=== PATIENT | male | born 1950 | race Hispanic/Latino ===

== ENCOUNTER 2016-08-15 15:47 | Inpatient (IN) | payer MEDICARE ==
[2016-08-15 17:09] LABS: BASO # 0.1 K/uL (0.0-0.2); EOS # 0.3 K/uL (0.0-0.7); HEMATOCRIT 32.1 % (35.0-51.0); LYMPH # 1.2 K/uL (1.0-4.3); LYMPH % 18.4 % (20.0-40.0); MEAN CELL VOLUME 96.9 fl (80.0-94.0); MEAN CORPUSCULAR HEMOGLOBIN 32.1 pg (27.0-31.0); MEAN CORPUSCULAR HGB CONC 33.2 g/dL (33.0-37.0); MEAN PLATELET VOLUME 7.7 fl (7.2-11.7); MONO # 0.6 K/uL (0.0-0.8); MONO % 9.4 % (0.0-10.0); NEUT # 4.2 K/uL (1.8-7.0); NEUT % 65.2 % (50.0-75.0); RED CELL DISTRIBUTION WIDTH 14.4 % (11.5-14.5); WHITE BLOOD COUNT 6.5 K/uL (4.8-10.8)
[2016-08-15 17:22] LABS: ALB/GLOB RATIO 1.3 (1.0-2.1); ALKALINE PHOSPHATASE 75 U/L (38-126); ALT/SGPT 97 U/L (21-72); AST/SGOT 68 U/L (17-59); BILIRUBIN,TOTAL 0.6 mg/dl (0.2-1.3); BLOOD UREA NITROGEN 20 mg/dl (9-20); CALCIUM 8.8 mg/dL (8.4-10.2); CARBON DIOXIDE 25 mmol/L (22-30); CHLORIDE 101 mmol/L (98-107); GFR AFRICAN-AMERICAN > 60; GLUCOSE,RANDOM 73 mg/dL (75-110); POTASSIUM 3.3 MMOL/L (3.6-5.0); SODIUM 141 mmol/l (132-148); TOTAL PROTEIN 7.3 G/DL (6.3-8.2)
--- NOTE | 2016-08-15 17:23 | RAD ---
HISTORY: SOB COMPARISON: No prior. FINDINGS: LUNGS: Hazy opacity in the left lung base. PLEURA: Small effusion on the left. Rounded opacity in the right lung base only seen on image 1. CARDIOVASCULAR: Enlarged heart. OSSEOUS STRUCTURES: The osseous structures demonstrate degenerative changes. VISUALIZED UPPER ABDOMEN: Upper abdomen is suboptimally evaluated. OTHER FINDINGS: Midline sternotomy wires and surgical clips along the left heart border noted. Surgical hardware in the left cardiophrenic angle. IMPRESSION: Small effusion on the left with associated compressive atelectasis and/ pneumonia. Enlarged heart. Possible small rounded opacity seen only on image 1 in the right lung base could be artifactual. Recommend PA lateral chest radiographs.
[2016-08-15 17:28] LABS: PARTIAL THROMBOPLASTIN TIME 38.5 SECONDS (23.3-32.5)
[2016-08-15] MEDS ORDERED: Potassium Chloride 20 mEq ER Tab PO STA (17:28)
--- NOTE | 2016-08-15 17:49 | ED PDOC ---
Lower Extremity Pain/Injury Time Seen by Provider: 08/15/16 16:15 Chief Complaint (Nursing): Weakness/Neurological Deficit Chief Complaint (Provider): Leg Pain History Per: Patient History/Exam Limitations: no limitations Onset/Duration Of Symptoms: Days (>3 weeks), Persistent Current Symptoms Are (Timing): Still Present Severity: Moderate Additional Complaint(s): Frandy Amado is a 66 year old male, with a past medical history that includes CAD (s/p CABG x3, 2 years ago), who presents to the ED with complaints of bilateral leg pain inclusive of generalized weakness, that he has been experiencing for >3 weeks. Patient reports internalized purple lesions causing a constant pain that radiates throughout his knees. He states having a productive cough that produces white sputum for the past 2 days, as well as shortness of breath and intermittent chest pain, but denies a fever and palpitations. Of note, patient admits to never having followed up for his s/p CABG and is currently taking no medications. PMD: none specified Past Medical History Reviewed: Historical Data, Nursing Documentation, Vital Signs Vital Signs: Last Vital Signs Temp 97.3 F L 08/15/16 15:49 Pulse 62 08/15/16 15:49 Resp 21 08/15/16 15:49 BP 104/63 08/15/16 15:49 Pulse Ox 100 08/15/16 15:49 - Medical History PMH: Asthma, CAD - Surgical History Surgical History: CABG (x3) - Family History Family History: States: Unknown Family Hx - Social History Current smoker - smoking cessation education provided: No Ex-Smoker (has not smoked in the last 12 months): No Alcohol: None Drugs: Denies - Home Medications Home Medications: Ambulatory Orders Medication Instructions Recorded Unobtainable 08/15/16 - Allergies Allergies/Adverse Reactions: Allergies Allergy/AdvReac Type Severity Reaction Status Date / Time No Known Allergies Allergy Verified 08/15/16 15:49 Review of Systems ROS Statement: Except As Marked, All Systems Reviewed And Found Negative Constitutional: Negative for: Fever Cardiovascular: Positive for: Chest Pain (intermittent). Negative for: Palpitations Respiratory: Positive for: Cough (productive, produces white sputum x2 days), Shortness of Breath Musculoskeletal: Positive for: Leg Pain (bilaterally) Skin: Positive for: Lesions Physical Exam - Reviewed Nursing Documentation Reviewed: Yes Vital Signs Reviewed: Yes - Physical Exam Appears: Positive for: Non-toxic, No Acute Distress (thin) Head Exam: Positive for: ATRAUMATIC, NORMOCEPHALIC Skin: Positive for: Normal Color, Warm, Dry Eye Exam: Positive for: Normal appearance, PERRL ENT: Positive for: Normal ENT Inspection Neck: Positive for: Normal, Supple Cardiovascular/Chest: Positive for: Regular Rate, Rhythm, Murmur Respiratory: Positive for: Crackles (left lower lungs). Negative for: Normal Breath Sounds Gastrointestinal/Abdominal: Positive for: Normal Exam, Soft. Negative for: Tenderness Extremity: Positive for: Normal ROM, Other (macular purple lesions b/l knees, non-blanching; (+) induration; no vesicles). Negative for: Tenderness, Pedal Edema, Swelling Neurologic/Psych: Positive for: Alert, Oriented - Laboratory Results Result Diagrams: 08/17/16 10:25 08/15/16 16:59 - ECG O2 Sat by Pulse Oximetry: 100 Pulse Ox Interpretation: Normal Medical Decision Making Medical Decision Makin:15 Initial Impression: b/l leg pain inclusive of internalized macular purple lesions Differential Diagnoses include, but are not limited to chronic leg pain, LEGER, PNA and CHF. Initial Plan: * CT Angio Chest PE Protocol * CXR * EKG * CBC * CMP * PT/PTT * BNP * Troponin I * D Dimer * UA * UDip * Blood Culture * Potassium Chloride 40 meq PO * US Duplex Lower Extrm Vein Bilat * Reevaluation Scribe Attestation: Documented by Hiren Carroll, training under Janeen Loza, acting as a scribe for Pilar Verma MD. Provider Scribe Attestation: All medical record entries made by the Scribe were at my direction and personally dictated by me. I have reviewed the chart and agree that the record accurately reflects my personal performance of the history, physical exam, medical decision making, and the department course for this patient. I have also personally directed, reviewed, and agree with the discharge instructions and disposition. Disposition - Clinical Impression Clinical Impression: Weakness, Chest pain - Disposition Disposition: Transfer of Care Disposition Time: 19:00 Condition: STABLE Patient Signed Over To: Se Hoyt Handoff Comments: Pending CT.
[2016-08-15] MEDS ORDERED: Potassium Chloride 20 mEq ER Tab PO ONE (18:55)
[2016-08-15 19:10] LABS: RBC URINE 2 /hpf (0-3); URINE BILIRUBIN NEGATIVE (NEGATIVE); URINE BLOOD NEGATIVE (NEGATIVE); URINE COLOR STRAW (YELLOW); URINE GLUCOSE (UA) NEG (Normal); URINE KETONE NEGATIVE (NEGATIVE); URINE LEUKOCYTE ESTERASE NEG Leu/uL (Negative); URINE PROTEIN NEGATIVE (NEGATIVE); URINE UROBILINOGEN 0.2-1.0 mg/dL (0.2-1.0); WBC URINE < 1 /hpf (0-5)
--- NOTE | 2016-08-15 19:24 | ED PDOC ---
- Laboratory Results Result Diagrams: 08/15/16 16:59 08/15/16 16:59 - ECG O2 Sat by Pulse Oximetry: 100 Medical Decision Making Medical Decision Makin:00 Patient endorsed over to me by Pilar Verma MD, pending remainder of ED workup, reevaluation and disposition. 21:00 IMPRESSION: - No evidence of pulmonary embolism or other significant acute abnormality in the chest. - Enlarged right hilar lymph node versus a small right hilar mass, measuring 2.8 x 2.2 cm. Further workup or short term followup is recommended. - Diffuse emphysematous changes. - 3.6 cm focal density in the left lung base, which has CT features suggestive of rounded atelectasis. There is nearby chronic-appearing pleural thickening and calcifications in the left lung. - See above for remaining findings. Pt. stable, will admit to Dr. Mckee for CP and weakness. Scribe Attestation: Documented by Janeen Loza, acting as a scribe for Se Hoyt MD. Provider Scribe Attestation: All medical record entries made by the Scribe were at my direction and personally dictated by me. I have reviewed the chart and agree that the record accurately reflects my personal performance of the history, physical exam, medical decision making, and the department course for this patient. I have also personally directed, reviewed, and agree with the discharge instructions and disposition. Disposition - Clinical Impression Clinical Impression: Weakness, Chest pain - POA Present On Arrival: None - Disposition Disposition: Hospitalized as Observation Patient Disposition Time: 21:15 Condition: STABLE Instructions: Weakness (ED)
[2016-08-15] MEDS ORDERED: Sodium Chloride 0.9% 50 ML IV ONE (20:03)
[2016-08-15] MEDS ORDERED: Iodixanol 320 MG/ML 100 ML BOTTLE IV ONE (20:03)
--- NOTE | 2016-08-15 20:33 | US ---
EXAM: US Duplex Bilateral Lower Extremity Veins CLINICAL HISTORY: 66 years old, male; Pain; Leg, upper; Bilateral; Additional info: Bilateral upper leg pain TECHNIQUE: Real-time ultrasound scan of the veins of the bilateral lower extremities with color Doppler flow, spectral waveform analysis and compression. EXAM DATE/TIME: 08/15/2016 7:28 PM COMPARISON: No relevant prior studies available. FINDINGS: Normal-appearing compressibility, flow and augmentation response are seen within the common femoral, femoral, popliteal and posterior tibial veins bilaterally. There is no evidence of deep venous thrombosis. IMPRESSION: No evidence of deep venous thrombosis in either leg.
--- NOTE | 2016-08-15 22:41 | CP.PCM.HP ---
Past Patient History - Past Social History Alcohol: None Drugs: Denies - CARDIAC Hx Cardiac Disorders: Yes - PULMONARY Hx Respiratory Disorders: Yes - NEUROLOGICAL Hx Neurological Disorder: No - HEENT Hx HEENT Problems: No - RENAL Hx Chronic Kidney Disease: No - ENDOCRINE/METABOLIC Hx Endocrine Disorders: No - HEMATOLOGICAL/ONCOLOGICAL Hx Blood Disorders: No - INTEGUMENTARY Hx Dermatological Problems: No - MUSCULOSKELETAL/RHEUMATOLOGICAL Hx Musculoskeletal Disorders: No - GENITOURINARY/GYNECOLOGICAL Hx Genitourinary Disorders: No - PSYCHIATRIC Hx Psychophysiologic Disorder: No - SURGICAL HISTORY Hx Coronary Artery Bypass Graft: Yes (x3) Meds Allergies/Adverse Reactions: Allergies Allergy/AdvReac Type Severity Reaction Status Date / Time No Known Allergies Allergy Verified 08/15/16 15:49 Results - Vital Signs Recent Vital Signs: Last Vital Signs Temp 97.3 F L 08/15/16 22:35 Pulse 53 L 08/15/16 22:35 Resp 20 08/15/16 22:35 BP 122/71 08/15/16 22:35 Pulse Ox 99 08/15/16 22:35 - Labs Result Diagrams: 08/15/16 16:59 08/15/16 16:59
[2016-08-15] MEDS ORDERED: Pneumococcal 23-Valent Vaccine IM ONE (23:24)
[2016-08-16] MEDS: Enoxaparin 40 mg Syringe SC SCH (08:30)
[2016-08-16 08:35] LABS: CARCINOEMBRYONIC ANTIGEN 2.5 ng/mL (0-3.0); PROSTATE SPECIFIC ANTIGEN 0.158 ng/ML (0.00-4.0); THYROID STIMULATING HORMONE 2.93 mIU/ML (0.46-4.68)
--- NOTE | 2016-08-16 09:32 | CT ---
PROCEDURE: CT Chest with contrast (Pulmonary Angiogram) HISTORY: SOB COMPARISON: Chest radiograph from earlier on the same day. TECHNIQUE: Axial computed tomography images were obtained of the chest in the pulmonary arterial phase of enhancement. Coronal and sagittal reformatted images were created and reviewed. Intravenous contrast dose: 100 mL. Radiation dose: Total exam DLP = 403.74 mGy-cm. This CT was performed using one or more of the following dose reduction techniques: Automated exposure control, adjustment of the mA and/or KV according to patient size, and/or use of iterative reconstruction technique. FINDINGS: PULMONARY ARTERIES: No filling defects identified in the main, left and right, lobar and proximal segmental arteries. Distal segmental arteries suboptimally seen due to artifact from breathing motion. AORTA: Calcifications of the aortic arch. No aortic aneurysm. LUNGS: Extensive centrilobular emphysematous changes throughout both lungs particularly in the upper lung zones. Mild bibasilar atelectatic changes noted. There is asymmetric enlargement of the right lung when compared to the left. Patchy consolidation seen along the left lung base. Hypodense soft tissue structure in the right hilum measuring 2.5 centimeters. A presented enlarged lymph node versus hilar mass. PLEURAL SPACES: Biapical pleural parenchymal thickening noted. Extensive pleural thickening seen particularly in the left lower lung. Punctate calcifications seen within thickened pleura which could be related to asbestos exposure. HEART: Heart is mildly enlarged. No pericardial effusion. Coronary arterial calcifications. Aortic valvular and mitral annular calcifications noted. LYMPH NODES: Few mediastinal lymph nodes. BONES, CHEST WALL: Degenerative changes of the cervical spine. Degenerative changes also noted involving the lower thoracic spine. Exaggerated kyphosis. Midline sternotomy wires. OTHER FINDINGS: Upper abdomen: Small hiatal hernia. Diffuse thickening of the esophagus. Underlying inflammation should be considered. Small amount of oral contrast seen within stomach. Oral contrast also seen within the bowel. Visualized segments of the spleen, liver appear grossly unremarkable however there remains suboptimally evaluated. Diffuse thickening of both adrenal glands. Extrarenal pelvis on the left with superimposed mild hydronephrosis. Visualized portions of the pancreas appears grossly unremarkable however suboptimally seen. The gallbladder appears relatively collapsed. Layering sludge. IMPRESSION: No large filling defects in the main, left and right, lobar and proximal segmental arteries. 2.5 centimeter soft tissue density in the right hilum, likely enlarged lymph node versus mass. Follow-up recommended. Extensive centrilobular emphysematous changes throughout both lungs. Asymmetric enlargement of the right lung when compared to the left. Patchy consolidation seen along the left lung base. Underlying pneumonia cannot be excluded. Extensive pleural thickening seen particularly in the left lower lung associated with punctate calcifications. Other findings as above. Please note that this report is in general agreement with the preliminary report provided by [facility].
--- NOTE | 2016-08-16 09:34 | CARD ---
APPROVED REPORT EKG Measurement Heart [id number] <Conclusion> Sinus bradycardia with 1st degree AV block Possible Inferior infarct, age undetermined Anterior infarct, age undetermined ST & T wave abnormality, consider lateral ischemia Abnormal ECG
[2016-08-16] MEDS ORDERED: Sodium Chloride 3% for Inhalation 4 ML VIAL.NEB IH PRN (10:30)
[2016-08-16 11:12] LABS: ABG ALLEN TEST YES; ARTERIAL BLOOD GAS HCO3 28.8 mmol/L (21-28); ARTERIAL BLOOD GAS O2 CAPACITY 14.7 mL/dL (16-24); ARTERIAL BLOOD GAS O2 CONTENT 14.5 ML/dL (15-23); ARTERIAL BLOOD GAS PH 7.47 (7.35-7.45); ARTERIAL BLOOD GAS PO2 84 mm/Hg (80-100); CARBOXYHEMOGLOBIN 1.3 % (0.5-1.5); HHB 1.2 % (0.0-5.0); METHEMOGLOBIN 1.5 % (0.0-3.0)
[2016-08-16] MEDS: Albuterol-Ipratrop 3 mg / 0.5 (3 ml) UD INH SCH ×3 (11:34→19:40)
[2016-08-16] MEDS: methylPREDNISolone 40 MG in Sodium Chloride 0.9% 50 ML IV SCH (13:38)
--- NOTE | 2016-08-16 15:18 | CON ---
DATE: 08/16/2016 The patient is a 66-year-old male who was referred for pulmonary evaluation by Dr. Mckee. He was adm itted with pain in the legs and shortness of breath, exercise intolerance, chest tightness for the [place] st several weeks prior to presentation. He was worked up to rule out pulmonary emboli and CAT scan r evealed abnormalities in the lungs including emphysematous changes with bullous disease, 2.5 cm soft tissue density at right hilum likely representing enlarged lymph nodes, but mass cannot be ruled out, extensive centrilobular emphysematous changes, asymmetrical enlargement of the right lung when felip[place] red to the left, patchy consolidation seen along the left lung base, underlying pneumonia cannot be e xcluded and extensive pleural thickening seen in lower lung associated with punctate calcifications. PAST MEDICAL HISTORY: The patient has a history of chronic cigarette smoking, continues to smoke, ju st quit recently, has a history of coronary artery bypass graft x 3 in the past, last one was about 3 years ago. FAMILY HISTORY: Nonrevealing. SOCIAL HISTORY: He continues to smoke cigarettes. REVIEW OF SYSTEMS: Remarkable for weight loss, shortness of breath, exercise intolerance and cough p roductive of thick tenacious white sputum. PHYSICAL EXAMINATION: GENERAL: The patient is emaciated. VITAL SIGNS: Blood pressure 108/65, pulse of 55, respiratory rate 20. He is afebrile. O2 sat is 94 % on room air. SKIN: Shows poor turgor. HEENT: Pupils equal, react to light and accommodation. Mouth shows fair hygiene. NECK: JVP flat. LUNGS: Poor aeration bilaterally with scattered rales and dullness over both lung becerra. HEART: S1, S2. ABDOMEN: Soft, nontender, no organomegaly. EXTREMITIES: Shows some clubbing with arthritis changes. No edema or cyanosis. CENTRAL NERVOUS SYSTEM: Grossly intact. LABORATORY DATA: Remarkable for PT of 10.4, INR 1.0. Sodium 141, potassium 3.3, BUN of 20, creatini ne 0.7. Troponin less than 0.012. ProBNP 1720. WBCs 6.5, hemoglobin 10.6, platelet count 167,000. D-dimer 1.19. IMPRESSION: Acute exacerbation of chronic obstructive pulmonary disease, abnormal CAT scan, probably secondary to emphysematous changes in the lung with hilar adenopathy. One has to rule out malignanc y. History of coronary artery disease. PLAN: Continue treatment with bronchodilators, aerosolized bronchodilators, oxygen. Obtain sputum f or Gram stain and cultures. Control electrolyte imbalance. Once clinically stable, will need bronch oscopy with lavage and transbronchial biopsy to rule out malignancy. Case discussed with the patient . He is willing to stay and have a bronchoscopy performed once he is stable. Case discussed with Dr Stevie Mckee. Will continue to follow. Geraldo Pereira MD cc: 62 TT: 08/16/2016 15:18:06 Confirmation # [id number] Dictation # [id number]
[2016-08-16 16:44] LABS: CA 19-9 6.1 U/mL (0-37)
--- NOTE | 2016-08-16 23:25 | CP.PCM.PN ---
Subjective - Date & Time of Evaluation Date of Evaluation: 08/16/16 Time of Evaluation: 12:15 Objective - Vital Signs/Intake and Output Vital Signs (last 24 hours): Temp Pulse Resp BP Pulse Ox 97.7 F 60 18 108/54 L 96 08/16/16 20:48 08/16/16 20:48 08/16/16 20:48 08/16/16 20:48 08/16/16 20:48 - Medications Medications: Current Medications Acetaminophen (Tylenol 325mg Tab) 650 mg PO Q6 PRN PRN Reason: Pain, Mild (1-3) Albuterol/Ipratropium (Duoneb 3 Mg/0.5 Mg (3 Ml) Ud) 3 ml INH RQID [facility] Last Admin: 08/16/16 19:40 Dose: 3 ml Enoxaparin Sodium (Lovenox) 40 mg SC DAILY [facility] PRN Reason: Protocol Last Admin: 08/16/16 08:30 Dose: 40 mg Methylprednisolone 40 mg/ (Sodium Chloride) 50 mls @ 100 mls/hr IV DAILY [facility] Last Admin: 08/16/16 13:38 Dose: 100 mls/hr Ketorolac Tromethamine (Toradol) 15 mg IVP Q6 PRN PRN Reason: Pain, severe (8-10) Tramadol HCl (Ultram) 50 mg PO Q6 PRN PRN Reason: Pain, moderate (4-7) - Labs Labs: PT 10.4 SECONDS (9.6-11.2) 08/15/16 16:59 INR 1.00 (0.92-1.08) 08/15/16 16:59 APTT 38.5 SECONDS (23.3-32.5) H 08/15/16 16:59
[2016-08-17 04:03] VITALS: BMI 18.1
[2016-08-17] MEDS: Albuterol-Ipratrop 3 mg / 0.5 (3 ml) UD INH SCH ×4 (07:50→19:03)
--- NOTE | 2016-08-17 09:14 | CP.PCM.PN ---
Subjective - Date & Time of Evaluation Date of Evaluation: 08/17/16 Time of Evaluation: 09:16 - Subjective Subjective: FELT DIZZY AND NEARLY PASSED OUT THIS MORNING--HAD TO HOLD ON TO THE BED TO KEEP FROM FALLING NO CHEST PAINS/PALPITATIONS Objective - Vital Signs/Intake and Output Vital Signs (last 24 hours): Temp Pulse Resp BP Pulse Ox 97.6 F 50 L 18 122/62 96 08/17/16 08:28 08/17/16 08:28 08/17/16 08:28 08/17/16 08:28 08/17/16 08:28 - Medications Medications: Current Medications Acetaminophen (Tylenol 325mg Tab) 650 mg PO Q6 PRN PRN Reason: Pain, Mild (1-3) Albuterol/Ipratropium (Duoneb 3 Mg/0.5 Mg (3 Ml) Ud) 3 ml INH RQID [facility] Last Admin: 08/17/16 07:50 Dose: 3 ml Enoxaparin Sodium (Lovenox) 40 mg SC DAILY [facility] PRN Reason: Protocol Last Admin: 08/16/16 08:30 Dose: 40 mg Methylprednisolone 40 mg/ (Sodium Chloride) 50 mls @ 100 mls/hr IV DAILY [facility] Last Admin: 08/16/16 13:38 Dose: 100 mls/hr Ketorolac Tromethamine (Toradol) 15 mg IVP Q6 PRN PRN Reason: Pain, severe (8-10) Tramadol HCl (Ultram) 50 mg PO Q6 PRN PRN Reason: Pain, moderate (4-7) - Labs Labs: PT 10.4 SECONDS (9.6-11.2) 08/15/16 16:59 INR 1.00 (0.92-1.08) 08/15/16 16:59 APTT 38.5 SECONDS (23.3-32.5) H 08/15/16 16:59 - Constitutional Appears: Chronically Ill - Head Exam Head Exam: ATRAUMATIC, NORMAL INSPECTION, NORMOCEPHALIC - Eye Exam Eye Exam: EOMI, Normal appearance, PERRL Pupil Exam: NORMAL ACCOMODATION, PERRL - ENT Exam ENT Exam: Mucous Membranes Moist, Normal Exam - Neck Exam Neck Exam: Full ROM, Normal Inspection. absent: Lymphadenopathy - Respiratory Exam Respiratory Exam: Prolonged Expiratory Phase, Rales, Wheezes, NORMAL BREATHING PATTERN - Cardiovascular Exam Cardiovascular Exam: REGULAR RHYTHM, +S1, +S2. absent: Murmur - GI/Abdominal Exam GI & Abdominal Exam: Soft, Normal Bowel Sounds. absent: Tenderness - Rectal Exam Rectal Exam: NORMAL INSPECTION - Extremities Exam Extremities Exam: Full ROM, Normal Capillary Refill, Normal Inspection. 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
[2016-08-17] MEDS: Enoxaparin 40 mg Syringe SC SCH (09:26)
[2016-08-17] MEDS: methylPREDNISolone 40 MG in Sodium Chloride 0.9% 50 ML IV SCH (09:45)
[2016-08-17 10:33] LABS: HEMATOCRIT 33.2 % (35.0-51.0); MEAN CORPUSCULAR HEMOGLOBIN 32.7 pg (27.0-31.0); MEAN CORPUSCULAR HGB CONC 33.7 g/dL (33.0-37.0); RED CELL DISTRIBUTION WIDTH 14.1 % (11.5-14.5); WHITE BLOOD COUNT 7.9 K/uL (4.8-10.8)
[2016-08-17 10:48] LABS: BLOOD UREA NITROGEN 18 mg/dl (9-20); CALCIUM 9.2 mg/dL (8.4-10.2); CARBON DIOXIDE 24 mmol/L (22-30); CHLORIDE 101 mmol/L (98-107); GFR AFRICAN-AMERICAN > 60; GLUCOSE,RANDOM 146 mg/dL (75-110); POTASSIUM 3.6 MMOL/L (3.6-5.0); SODIUM 141 mmol/l (132-148)
[2016-08-17 11:18] LABS: THYROID STIMULATING HORMONE 2.84 mIU/ML (0.46-4.68)
--- NOTE | 2016-08-17 16:17 | CARD ---
APPROVED REPORT EXAM: Two-dimensional and M-mode echocardiogram with Doppler and color Doppler. Other Information Quality : GoodRhythm : NSR INDICATION Dizziness and Vertigo Syncope Surgery/Intervention CABD DIMENSIONS IVSd1.18 (0.7-1.1cm)LVDd5.02 (3.9-5.9cm) LVOT Diameter2.57 (1.8-2.4cm)PWd1.17 (0.7-1.1cm) IVSs1.55 (0.8-1.2cm)LVDs3.82 (2.5-4.0cm) FS (%) 23.8 %PWs1.50 (0.8-1.2cm) M-Mode DIMENSIONS Left Atrium (MM)5.45 (2.5-4.0cm)IVSd0.66 (0.7-1.1cm) Aortic Root3.53 (2.2-3.7cm)LVDd7.23 (4.0-5.6cm) Aortic Cusp Exc.2.24 (1.5-2.0cm)PWd0.77 (0.7-1.1cm) IVSs0.73 cmFS (%) 20 % LVDs5.76 (2.0-3.8cm)PWs1.26 cm Mitral Valve MV E Mnoeblky06.4cm/sMV DECEL [id number] A Wfbaqrrg19.4cm/s MV RJQ49tqK/A ratio0.9MVA (PHT)2.69cm2 TDI Lateral E' Peak V12.06cm/sMedial E' Peak V6.44cm/sE/Lateral E'5.7 E/Medial E'10.6 Pulmonary Valve PV Peak Yoscoojf92.4cm/s Tricuspid Valve TR Peak Aylriody133fb/sRAP [id number] Peak Gr.20mmHg [id number] LEFT VENTRICLE The Left Ventricle is mildly dilated on the 2D study. There is normal left ventricular wall thickness. Left ventricle systolic function is mildly impaired. The Ejection Fraction is - 45%. The anterior wall is hypokinetic and the apex is diskinetic. The other segments of the LV have good contraction. Transmitral Doppler flow pattern is Grade I-abnormal relaxation pattern. No left ventricle thrombus noted on this study. There is no ventricular septal defect visualized. apical diskinesia There is no mass noted in the left ventricle. RIGHT VENTRICLE The right ventricle is normal size. There is normal right ventricular wall thickness. The right ventricular systolic function is normal. ATRIA The left atrium is moderately dilated. There is no thrombus suspected in the left atrium. The right atrium size is normal. The interatrial septum is intact with no evidence for an atrial septal defect. AORTIC VALVE The aortic valve is mildly thickened. No aortic regurgitation is present. There is no aortic valvular stenosis. MITRAL VALVE The mitral valve is normal in structure and function. There is no evidence of mitral valve prolapse. There is no mitral valve stenosis. Mitral regurgitation is moderate. TRICUSPID VALVE The tricuspid valve is normal in structure and function. There is trace tricuspid regurgitation. Right ventricular systolic pressure is estimated at 33 mmHg. There is no tricuspid valve prolapse or vegetation. There is no tricuspid valve stenosis. PULMONIC VALVE The pulmonary valve is normal in structure and function. There is trace pulmonic valvular regurgitation. GREAT VESSELS The aortic root is normal in size. The IVC was not well visualized. PERICARDIAL EFFUSION The pericardium appears normal. There is no pleural effusion. <Conclusion> The Left Ventricle is mildly dilated on the 2D study and has normal wall thickness. Left ventricle systolic function is mildly impaired with a LVEF of - 45%. The left atrium is moderately dilated. The aortic valve is thickened but not stenotic. The mitral and tricuspid valves are normal. There is moderate mitral regurgitation and trace tricuspid regurgitation.
--- NOTE | 2016-08-17 17:39 | CP.PCM.CON ---
History of Present Illness - History of Present Illness History of Present Illness: I was asked to see patient by Dr. Mckee. Patient is a 66 year old female with PMH HTN, CAD s/p CABG, who presents with weakness and dyspnea. The patient describes feeling of dyspnea on exertion and weakness. The patient has a history of CABG at [facility]. He requires bronchoscopy. He becomes weak, and had a near syncopal episode today. Review of Systems - Constitutional Constitutional: absent: As Per HPI, Anorexia, Chills, Daytime Sleepiness, Excessive Sweating, Fatigue, Fever, Frequent Falls, Headache, Increased Appetite , Lethargy, Malaise, Night Sweats, Snoring, Sleep Apnea, Weight Gain, Weight Loss, Weakness, Other - EENT Eyes: absent: As Per HPI, Blind Spots, Blurred Vision, Change in Vision, Decreased Night Vision, Diplopia, Discharge, Dry Eye, Exophthalmos, Floaters, Irritation, Itchy Eyes, Loss of Peripheral Vision, Pain, Photophobia, Requires Corrective Lenses, Sees Flashes, Spots in Vision, Tunnel Vision, Other Visual Disturbances, Loss of Vision, Other Nose/Mouth/Throat: absent: As Per HPI, Epistaxis, Nasal Congestion, Nasal Discharge, Nasal Obstruction, Nasal Trauma, Nose Pain, Post Nasal Drip, Sinus Pain, Sinus Pressure, Bleeding Gums, Change in Voice, Dental Pain, Dry Mouth, Dysphagia, Halitosis, Hoarsness, Lip Swelling, Mouth Lesions, Mouth Pain, Odynophagia, Sore Throat, Throat Swelling, Tongue Swelling, Facial Pain, Neck Pain, Neck Mass, Other - Cardiovascular Cardiovascular: Dyspnea, Syncope - Respiratory Respiratory: Dyspnea - Gastrointestinal Gastrointestinal: absent: As Per HPI, Abdominal Pain, Belching, Bloating, Change in Bowel Habits, Change in Stool Character, Coffee Ground Emesis, Constipation, Cramping, Diarrhea, Dyspepsia, Dysphagia, Early Satiety, Excessive Flatus, Fecal Incontinence, Heartburn, Hematemesis, Hematochezia, Loose Stools, Melena, Nausea, Odynophagia, Temesmus, Vomiting, Other - Genitourinary Genitourinary: absent: As Per HPI, Change in Urinary Stream, Difficulty Urinating, Dysuria, Flank Pain, Hematuria, Pyuria, Nocturia, Urinary Incontinence, Urinary Frequency, Urinary Hesitance, Urinary Urgency, Voiding Freq/Small Amts, Freq UTI, Hx Renal/Bladder Calculi, Hx /Renal Surgery, Bladder Distension, Other - Musculoskeletal Musculoskeletal: absent: As Per HPI, Abnormal Gait, Arthralgias, Atrophy, Back Pain, Deformity, Joint Swelling, Limited Range of Motion, Loss of Height, Muscle Cramps, Muscle Weakness, Myalgias, Neck Pain, Numbness, Radiating Pain into Limb, Stiffness, Tingling, Other - Integumentary Integumentary: absent: As Per HPI, Acne, Alopecia, Bleeding Lesions, Change in Hair, Change in Nails, Change in Pigmentation, Changing Lesions, Dry Skin, Erythema, Furuncle, Hirsutism, Lesions, New Lesions, Non-Healing Lesions, Photosensitivity, Pruritus, Rash, Skin Pain, Skin Ulcer, Sores, Striae, Swelling , Unusual Bruising, Wounds, Jaundice, Other - Neurological Neurological: absent: As Per HPI, Abnormal Gait, Abnormal Hearing, Abnormal Movements, Abnormal Speech, Behavioral Changes, Burning Sensations, Confusion, Convulsions, Disequilibrium, Dizziness, Numbness, Focal Weakness, Frequent Falls , Headaches, Lack of Coordination, Loss of Vision, Memory Loss, Paresthesias, Radicular Pain, Restless Legs, Sensory Deficit, Syncope, Tingling, Tremor, Vertigo, Weakness, Other Visual Disturbances, Other - Psychiatric Psychiatric: absent: As Per HPI, Abnormal Sleep Pattern, Anhedonia, Anxiety, Auditory Hallucinations, Behavioral Changes, Change in Appetite, Change in Libido, Confusion, Depression, Difficulty Concentrating, Hallucinations, Homicidal Ideation, Hopelessness, Irritability, Memory Loss, Mood Swings, Panic Attacks, Paranoia, Suicidal Ideation, Visual Hallucinations, Tactile Hallucinations, Other - Endocrine Endocrine: absent: As Per HPI, Change in Body Appearance, Change in Libido, Cold Intolorance, Deepening of Voice, Excessive Sweating, Fatigue, Flushing, Heat Intolorance, Increase in Ring/Shoe/Hat Size, Palpitations, Polydipsia, Polyphagia, Polyuria, Other - Hematologic/Lymphatic Hematologic: absent: As Per HPI, Easy Bleeding, Easy Bruising, Lymphadenopathy, Other Past Patient History - Past Medical History & Family History Past Medical History?: Yes - Past Social History Alcohol: None Drugs: Denies - CARDIAC Hx Cardiac Disorders: No - PULMONARY Hx Asthma: Yes - NEUROLOGICAL Hx Neurological Disorder: No - HEENT Hx HEENT Problems: Yes - RENAL Hx Chronic Kidney Disease: No - ENDOCRINE/METABOLIC Hx Endocrine Disorders: No - HEMATOLOGICAL/ONCOLOGICAL Hx Blood Disorders: No - INTEGUMENTARY Hx Dermatological Problems: No - MUSCULOSKELETAL/RHEUMATOLOGICAL Hx Musculoskeletal Disorders: No Hx Falls: No - GASTROINTESTINAL Hx Gastrointestinal Disorders: No - GENITOURINARY/GYNECOLOGICAL Hx Genitourinary Disorders: No - PSYCHIATRIC Hx Psychophysiologic Disorder: No Hx Substance Use: No - SURGICAL HISTORY Hx Coronary Artery Bypass Graft: Yes (x3) - ANESTHESIA Hx Anesthesia: Yes Hx Anesthesia Reactions: No Hx Malignant Hyperthermia: No Has any member of the family had a problem w/ anesthesia?: No Meds Allergies/Adverse Reactions: Allergies Allergy/AdvReac Type Severity Reaction Status Date / Time No Known Allergies Allergy Verified 08/15/16 15:49 - Medications Medications: Current Medications Acetaminophen (Tylenol 325mg Tab) 650 mg PO Q6 PRN PRN Reason: Pain, Mild (1-3) Albuterol/Ipratropium (Duoneb 3 Mg/0.5 Mg (3 Ml) Ud) 3 ml INH RQID [facility] Last Admin: 08/17/16 15:51 Dose: 3 ml Enoxaparin Sodium (Lovenox) 40 mg SC DAILY [facility] PRN Reason: Protocol Last Admin: 08/17/16 09:26 Dose: 40 mg Methylprednisolone 40 mg/ (Sodium Chloride) 50 mls @ 100 mls/hr IV DAILY [facility] Last Admin: 08/17/16 09:45 Dose: 100 mls/hr Ketorolac Tromethamine (Toradol) 15 mg IVP Q6 PRN PRN Reason: Pain, severe (8-10) Tramadol HCl (Ultram) 50 mg PO Q6 PRN PRN Reason: Pain, moderate (4-7) Physical Exam - Constitutional Appears: Chronically Ill - Head Exam Head Exam: NORMAL INSPECTION - Eye Exam Eye Exam: Normal appearance - ENT Exam ENT Exam: Mucous Membranes Moist - Neck Exam Neck exam: Positive for: Full Rom - Respiratory Exam Respiratory Exam: Decreased Breath Sounds - Cardiovascular Exam Cardiovascular Exam: REGULAR RHYTHM - GI/Abdominal Exam GI & Abdominal Exam: Normal Bowel Sounds - Rectal Exam Rectal Exam: Deferred - Extremities Exam Extremities exam: Positive for: normal inspection - Back Exam Back exam: NORMAL INSPECTION - Neurological Exam Neurological exam: Alert, Oriented x3 - Psychiatric Exam Psychiatric exam: Normal Affect - Skin Skin Exam: Normal Color Results - Vital Signs Recent Vital Signs: Last Vital Signs Temp 97.5 F L 08/17/16 16:40 Pulse 70 08/17/16 16:40 Resp 20 08/17/16 16:40 BP 117/66 08/17/16 16:40 Pulse Ox 97 08/17/16 16:40 - Labs Result Diagrams: 08/17/16 10:25 08/17/16 10:25 Labs: Laboratory Results - last 24 hr 08/17/16 10:25 WBC 7.9 RBC 3.42 L Hgb 11.2 L Hct 33.2 L MCV 97.0 H MCH 32.7 H MCHC 33.7 RDW 14.1 Plt Count 166 PT 10.1 INR 0.97 Sodium 141 Potassium 3.6 Chloride 101 Carbon Dioxide 24 Anion Gap 19 BUN 18 Creatinine 0.8 Est GFR ( Amer) > 60 Est GFR (Non-Af Amer) > 60 Random Glucose 146 H Calcium 9.2 Troponin I < 0.0120 TSH 3rd Generation 2.84 - EKG Data EKG Interpreted by: Myself EKG shows normal: Sinus rhythm Assessment & Plan (1) Dyspnea Assessment and Plan: I reviewed echocardiogram with the patient. There is evidence of regional wall motion abnormalities. I recommend nuclear stress test. Status: Acute (2) CAD (coronary artery disease) Assessment and Plan: for stress test Status: Acute
--- NOTE | 2016-08-17 23:46 | CP.PCM.PN ---
Objective - Vital Signs/Intake and Output Vital Signs (last 24 hours): Temp Pulse Resp BP Pulse Ox 97.3 F L 69 20 109/58 L 97 08/17/16 19:44 08/17/16 19:44 08/17/16 19:44 08/17/16 19:44 08/17/16 19:44 - Medications Medications: Current Medications Acetaminophen (Tylenol 325mg Tab) 650 mg PO Q6 PRN PRN Reason: Pain, Mild (1-3) Albuterol/Ipratropium (Duoneb 3 Mg/0.5 Mg (3 Ml) Ud) 3 ml INH RQID [facility] Last Admin: 08/17/16 19:03 Dose: 3 ml Enoxaparin Sodium (Lovenox) 40 mg SC DAILY [facility] PRN Reason: Protocol Last Admin: 08/17/16 09:26 Dose: 40 mg Methylprednisolone 40 mg/ (Sodium Chloride) 50 mls @ 100 mls/hr IV DAILY [facility] Last Admin: 08/17/16 09:45 Dose: 100 mls/hr Ketorolac Tromethamine (Toradol) 15 mg IVP Q6 PRN PRN Reason: Pain, severe (8-10) Tramadol HCl (Ultram) 50 mg PO Q6 PRN PRN Reason: Pain, moderate (4-7) - Labs Labs: 08/17/16 10:25 08/17/16 10:25 PT 10.1 SECONDS (9.6-11.2) 08/17/16 10:25 INR 0.97 (0.92-1.08) 08/17/16 10:25 APTT 38.5 SECONDS (23.3-32.5) H 08/15/16 16:59
[2016-08-18] MEDS: Albuterol-Ipratrop 3 mg / 0.5 (3 ml) UD INH SCH ×4 (07:48→19:17)
--- NOTE | 2016-08-18 08:53 | CP.PCM.PN ---
Subjective - Date & Time of Evaluation Date of Evaluation: 08/18/16 Time of Evaluation: 08:53 - Subjective Subjective: SCHEDULED FOR STRESS TEST TEST TODAY BECAUSE OF ABNORMAL ECHO AND NEAR SYNCOPE WILL HOLD OFF ATTEMPTS AT BRONCHOSCOPY UNTIL CARDIAC AND NEURO WORKUP ARE COMPLETE Objective - Vital Signs/Intake and Output Vital Signs (last 24 hours): Temp Pulse Resp BP Pulse Ox 97.6 F 52 L 18 133/73 97 08/18/16 07:53 08/18/16 07:53 08/18/16 07:53 08/18/16 07:53 08/18/16 07:53 - Medications Medications: Current Medications Acetaminophen (Tylenol 325mg Tab) 650 mg PO Q6 PRN PRN Reason: Pain, Mild (1-3) Albuterol/Ipratropium (Duoneb 3 Mg/0.5 Mg (3 Ml) Ud) 3 ml INH RQID [facility] Last Admin: 08/18/16 07:48 Dose: 3 ml Enoxaparin Sodium (Lovenox) 40 mg SC DAILY [facility] PRN Reason: Protocol Last Admin: 08/17/16 09:26 Dose: 40 mg Methylprednisolone 40 mg/ (Sodium Chloride) 50 mls @ 100 mls/hr IV DAILY [facility] Last Admin: 08/17/16 09:45 Dose: 100 mls/hr Ketorolac Tromethamine (Toradol) 15 mg IVP Q6 PRN PRN Reason: Pain, severe (8-10) Tramadol HCl (Ultram) 50 mg PO Q6 PRN PRN Reason: Pain, moderate (4-7) - Labs Labs: 08/17/16 10:25 08/17/16 10:25 PT 10.1 SECONDS (9.6-11.2) 08/17/16 10:25 INR 0.97 (0.92-1.08) 08/17/16 10:25 APTT 38.5 SECONDS (23.3-32.5) H 08/15/16 16:59
[2016-08-18] MEDS ORDERED: Aminophylline 25 mg/ml Inj ONE (10:16)
[2016-08-18] MEDS: methylPREDNISolone 40 MG in Sodium Chloride 0.9% 50 ML IV SCH (12:47)
[2016-08-18] MEDS: Enoxaparin 40 mg Syringe SC SCH (12:50)
--- NOTE | 2016-08-18 18:52 | CP.PCM.PN ---
Subjective - Date & Time of Evaluation Date of Evaluation: 08/18/16 Time of Evaluation: 18:20 - Subjective Subjective: patient had dizziness. dyspnea noted. s/p stress test. Objective - Vital Signs/Intake and Output Vital Signs (last 24 hours): Temp Pulse Resp BP Pulse Ox 98.0 F 66 66 H 133/72 98 08/18/16 17:00 08/18/16 17:00 08/18/16 17:00 08/18/16 17:00 08/18/16 17:00 - Medications Medications: Current Medications Acetaminophen (Tylenol 325mg Tab) 650 mg PO Q6 PRN PRN Reason: Pain, Mild (1-3) Albuterol/Ipratropium (Duoneb 3 Mg/0.5 Mg (3 Ml) Ud) 3 ml INH RQID [facility] Last Admin: 08/18/16 15:43 Dose: 3 ml Aspirin (Aspirin Chewable) 81 mg PO DAILY [facility] Last Admin: 08/18/16 12:47 Dose: 81 mg Atorvastatin Calcium (Lipitor) 10 mg PO DAILY [facility] 234 [facility]S [facility] Last Admin: 08/18/16 16:30 Dose: 10 mg Enoxaparin Sodium (Lovenox) 40 mg SC DAILY [facility] PRN Reason: Protocol Last Admin: 08/18/16 12:50 Dose: 40 mg Methylprednisolone 40 mg/ (Sodium Chloride) 50 mls @ 100 mls/hr IV DAILY [facility] 234 [facility]S [facility] Last Admin: 08/18/16 12:47 Dose: 100 mls/hr Ketorolac Tromethamine (Toradol) 15 mg IVP Q6 PRN PRN Reason: Pain, severe (8-10) Lisinopril (Zestril) 10 mg PO DAILY [facility] Last Admin: 08/18/16 16:30 Dose: 10 mg Tramadol HCl (Ultram) 50 mg PO Q6 PRN PRN Reason: Pain, moderate (4-7) - Labs Labs: 08/17/16 10:25 08/17/16 10:25 PT 10.1 SECONDS (9.6-11.2) 08/17/16 10:25 INR 0.97 (0.92-1.08) 08/17/16 10:25 APTT 38.5 SECONDS (23.3-32.5) H 08/15/16 16:59 - Constitutional Appears: Non-toxic, Chronically Ill - Head Exam Head Exam: NORMAL INSPECTION - Eye Exam Eye Exam: Normal appearance - ENT Exam ENT Exam: Mucous Membranes Moist - Neck Exam Neck Exam: Normal Inspection - Respiratory Exam Respiratory Exam: Decreased Breath Sounds - Cardiovascular Exam Cardiovascular Exam: REGULAR RHYTHM - GI/Abdominal Exam GI & Abdominal Exam: Normal Bowel Sounds - Rectal Exam Rectal Exam: Deferred - Extremities Exam Extremities Exam: absent: Pedal Edema - Back Exam Back Exam: NORMAL INSPECTION - Neurological Exam Neurological Exam: Alert - Psychiatric Exam Psychiatric exam: Normal Affect - Skin Skin Exam: Normal Color Assessment and Plan (1) Dyspnea Assessment & Plan: will await results of stress test to assess for ischemia Status: Acute (2) CAD (coronary artery disease) Assessment & Plan: awaiting stress test Status: Acute
--- NOTE | 2016-08-18 23:26 | CP.PCM.PN ---
Objective - Vital Signs/Intake and Output Vital Signs (last 24 hours): Temp Pulse Resp BP Pulse Ox 97.6 F 71 18 104/56 L 95 08/18/16 20:47 08/18/16 20:47 08/18/16 20:47 08/18/16 20:47 08/18/16 20:47 - Medications Medications: Current Medications Acetaminophen (Tylenol 325mg Tab) 650 mg PO Q6 PRN PRN Reason: Pain, Mild (1-3) Albuterol/Ipratropium (Duoneb 3 Mg/0.5 Mg (3 Ml) Ud) 3 ml INH RQID [facility] Last Admin: 08/18/16 19:17 Dose: 3 ml Aspirin (Aspirin Chewable) 81 mg PO DAILY [facility] Last Admin: 08/18/16 12:47 Dose: 81 mg Atorvastatin Calcium (Lipitor) 10 mg PO DAILY [facility] Last Admin: 08/18/16 16:30 Dose: 10 mg Enoxaparin Sodium (Lovenox) 40 mg SC DAILY [facility] PRN Reason: Protocol Last Admin: 08/18/16 12:50 Dose: 40 mg Methylprednisolone 40 mg/ (Sodium Chloride) 50 mls @ 100 mls/hr IV DAILY [facility] Last Admin: 08/18/16 12:47 Dose: 100 mls/hr Ketorolac Tromethamine (Toradol) 15 mg IVP Q6 PRN PRN Reason: Pain, severe (8-10) Lisinopril (Zestril) 10 mg PO DAILY [facility] Last Admin: 08/18/16 16:30 Dose: 10 mg Tramadol HCl (Ultram) 50 mg PO Q6 PRN PRN Reason: Pain, moderate (4-7) - Labs Labs: 08/17/16 10:25 08/17/16 10:25 PT 10.1 SECONDS (9.6-11.2) 08/17/16 10:25 INR 0.97 (0.92-1.08) 08/17/16 10:25 APTT 38.5 SECONDS (23.3-32.5) H 08/15/16 16:59
[2016-08-19] MEDS: Enoxaparin 40 mg Syringe SC SCH (09:02)
[2016-08-19] MEDS: methylPREDNISolone 40 MG in Sodium Chloride 0.9% 50 ML IV SCH (09:02)
--- NOTE | 2016-08-19 11:22 | CARD ---
APPROVED REPORT Protocol: LEXISCAN Test Type: Stress Nuclear Medications: TYLENOL 325 MG ALBUTEROL, LOVENOX 40MG TORADOL 15MG, METHYLEPREDNISOLONE 40MG TRAMADOL 50MG Medical History: CAD S/P CABG, DYSPNEA, SYNCOPY, Target HR: 153 bpm Resting Heart Rate: 55 bpm Resting Blood Pressure: 147/67mmHg submaximum (85%): 130 bpm TEST SUMMARY PREINJECTPRE-[id number]. [id number]. INJECTIONNS FLUSH00:[id number]. INJECTIONNUC MED00:[id number]. [id number]/50.0. PROCEDURE Pharmacologic stress testing was performed using 0.4mg per 5ml of regadenoson given intravenously over 7-10 seconds. POST EXERCISE Reason for Termination: LEXISCAN Target HR: No Max HR: 80 bpm 65% of Maximum Predicted HR: 153 bpm Exercise duration: 01:00 min:sec, 0 Stage Exercise capacity: 1.0METs Max Blood Pressure: 147/67mmHg Chest Pain: Yes, Angina index: 0 Arrhythmia: Yes, ST Change: Yes, Deviation: 0 mm Stress EKG Interpretation 66 y/o male with CAD, s/p CABG Resting EKG: normal Resting HR: 55; BP: 147/67 He was injected with 0.4mg Lexiscan followed by 30 mCi Myoview Stress Imaging was taken 30 min later EXAM: Myocardial Perfusion REST/STRESS Image QualityGood Imaging Protocol The imaging protocol used to acquire images was Rest Tc-99m/stress Tc-99m 1 day Rest Spect myocardial perfusion imaging was performed in supine position 45 minutes following the injection of 10 mCi of Tc-99 Myoview. Time of rest injection: 7:35 Time of rest imagin:15 At peak stress, the patient was injected intravenously with 30mCi of Tc-99 tetrofosmin after an infusion time of minutes and seconds. Time of stress injection: 10:33 Time of stress imagin:30 Gated Stress Spect was performed 60 minutes after intravenous Tc-99 Myoview injection. The images were gated to evaluate regional wall motion and calculate ventricular ejection fraction. CONCLUSION 1. On Stress Imaging there is decrease perfusion in the Inferior, Apical and septal cool 2. with partial reperfusion on Resting Imaging 3. Gated Imaging shows of the above mentioned cool with an EF: 40% 4. Impression: Abnormal Lexiscan Stress Imaging with multiple areas of ischemia
--- NOTE | 2016-08-19 11:28 | CP.PCM.PN ---
Subjective - Date & Time of Evaluation Date of Evaluation: 08/19/16 Time of Evaluation: 11:28 - Subjective Subjective: STILL C/O SOME DIZZINESS CARDIAC WORKUP IN PROGRESS WILL PROBABLY NEED NEUROLOGY EVAL UNABLE TO PERFORM BRONCHOSCOPIC EVAL OF AIRWAYS UNTIL CARDIAC AND NEURO WORKUP IS COMPLETE WILL CONTINUE TO FOLLOW Objective - Vital Signs/Intake and Output Vital Signs (last 24 hours): Temp Pulse Resp BP Pulse Ox 97.4 F L 54 L 18 113/65 100 08/19/16 08:05 08/19/16 09:01 08/19/16 08:05 08/19/16 09:01 08/19/16 08:05 - Medications Medications: Current Medications Acetaminophen (Tylenol 325mg Tab) 650 mg PO Q6 PRN PRN Reason: Pain, Mild (1-3) Albuterol/Ipratropium (Duoneb 3 Mg/0.5 Mg (3 Ml) Ud) 3 ml INH RQID [facility] Last Admin: 08/18/16 19:17 Dose: 3 ml Aspirin (Aspirin Chewable) 81 mg PO DAILY [facility] Last Admin: 08/19/16 09:02 Dose: 81 mg Atorvastatin Calcium (Lipitor) 10 mg PO DAILY [facility] Last Admin: 08/19/16 09:02 Dose: 10 mg Enoxaparin Sodium (Lovenox) 40 mg SC DAILY [facility] PRN Reason: Protocol Last Admin: 08/19/16 09:02 Dose: 40 mg Methylprednisolone 40 mg/ (Sodium Chloride) 50 mls @ 100 mls/hr IV DAILY [facility] Last Admin: 08/19/16 09:02 Dose: 100 mls/hr Ketorolac Tromethamine (Toradol) 15 mg IVP Q6 PRN PRN Reason: Pain, severe (8-10) Lisinopril (Zestril) 10 mg PO DAILY [facility] Last Admin: 08/19/16 09:01 Dose: 10 mg Tramadol HCl (Ultram) 50 mg PO Q6 PRN PRN Reason: Pain, moderate (4-7) - Labs Labs: 08/17/16 10:25 08/17/16 10:25 PT 10.1 SECONDS (9.6-11.2) 08/17/16 10:25 INR 0.97 (0.92-1.08) 08/17/16 10:25 APTT 38.5 SECONDS (23.3-32.5) H 08/15/16 16:59
[2016-08-19] MEDS: Albuterol-Ipratrop 3 mg / 0.5 (3 ml) UD INH SCH ×4 (16:12→19:23)
--- NOTE | 2016-08-19 18:52 | CP.PCM.PN ---
Subjective - Date & Time of Evaluation Date of Evaluation: 08/19/16 Time of Evaluation: 18:30 - Subjective Subjective: patient seen in room. I reviewed the stress test with the patient. Objective - Vital Signs/Intake and Output Vital Signs (last 24 hours): Temp Pulse Resp BP Pulse Ox 97.2 F L 63 18 138/60 98 08/19/16 16:00 08/19/16 16:00 08/19/16 16:00 08/19/16 16:00 08/19/16 16:00 - Medications Medications: Current Medications Acetaminophen (Tylenol 325mg Tab) 650 mg PO Q6 PRN PRN Reason: Pain, Mild (1-3) Albuterol/Ipratropium (Duoneb 3 Mg/0.5 Mg (3 Ml) Ud) 3 ml INH RQID [facility] Last Admin: 08/19/16 16:14 Dose: Not Given Aspirin (Aspirin Chewable) 81 mg PO DAILY [facility] Last Admin: 08/19/16 09:02 Dose: 81 mg Atorvastatin Calcium (Lipitor) 10 mg PO DAILY [facility] Last Admin: 08/19/16 09:02 Dose: 10 mg Enoxaparin Sodium (Lovenox) 40 mg SC DAILY [facility] PRN Reason: Protocol Last Admin: 08/19/16 09:02 Dose: 40 mg Methylprednisolone 40 mg/ (Sodium Chloride) 50 mls @ 100 mls/hr IV DAILY [facility] Last Admin: 08/19/16 09:02 Dose: 100 mls/hr Ketorolac Tromethamine (Toradol) 15 mg IVP Q6 PRN PRN Reason: Pain, severe (8-10) Lisinopril (Zestril) 10 mg PO DAILY [facility] Last Admin: 08/19/16 09:01 Dose: 10 mg Tramadol HCl (Ultram) 50 mg PO Q6 PRN PRN Reason: Pain, moderate (4-7) - Labs Labs: 08/17/16 10:25 08/17/16 10:25 PT 10.1 SECONDS (9.6-11.2) 08/17/16 10:25 INR 0.97 (0.92-1.08) 08/17/16 10:25 APTT 38.5 SECONDS (23.3-32.5) H 08/15/16 16:59 - Constitutional Appears: Non-toxic - Head Exam Head Exam: NORMAL INSPECTION - Eye Exam Eye Exam: Normal appearance - ENT Exam ENT Exam: Mucous Membranes Moist - Respiratory Exam Respiratory Exam: NORMAL BREATHING PATTERN - Cardiovascular Exam Cardiovascular Exam: REGULAR RHYTHM - GI/Abdominal Exam GI & Abdominal Exam: Normal Bowel Sounds - Rectal Exam Rectal Exam: Deferred - Extremities Exam Extremities Exam: absent: Pedal Edema - Back Exam Back Exam: NORMAL INSPECTION - Neurological Exam Neurological Exam: Alert - Psychiatric Exam Psychiatric exam: Normal Affect - Skin Skin Exam: Normal Color Assessment and Plan (1) Dyspnea Assessment & Plan: I reviewed the stress test. There are areas of reversibel ischemia. The patient will need cardiac cath for further evaluation. will schedule for tomorrow. Status: Acute (2) CAD (coronary artery disease) Assessment & Plan: for cath Status: Acute
--- NOTE | 2016-08-20 00:34 | CP.PCM.PN ---
Subjective - Date & Time of Evaluation Date of Evaluation: 08/19/16 Time of Evaluation: 17:50 Objective - Vital Signs/Intake and Output Vital Signs (last 24 hours): Temp Pulse Resp BP Pulse Ox 98 F 66 18 94/52 L 97 08/19/16 23:40 08/19/16 23:40 08/19/16 23:40 08/19/16 23:40 08/19/16 23:40 - Medications Medications: Current Medications Acetaminophen (Tylenol 325mg Tab) 650 mg PO Q6 PRN PRN Reason: Pain, Mild (1-3) Albuterol/Ipratropium (Duoneb 3 Mg/0.5 Mg (3 Ml) Ud) 3 ml INH RQID [facility] Last Admin: 08/19/16 19:23 Dose: 3 ml Aspirin (Aspirin Chewable) 81 mg PO DAILY [facility] Last Admin: 08/19/16 09:02 Dose: 81 mg Atorvastatin Calcium (Lipitor) 10 mg PO DAILY [facility] Last Admin: 08/19/16 09:02 Dose: 10 mg Enoxaparin Sodium (Lovenox) 40 mg SC DAILY [facility] PRN Reason: Protocol Last Admin: 08/19/16 09:02 Dose: 40 mg Methylprednisolone 40 mg/ (Sodium Chloride) 50 mls @ 100 mls/hr IV DAILY [facility] Last Admin: 08/19/16 09:02 Dose: 100 mls/hr Ketorolac Tromethamine (Toradol) 15 mg IVP Q6 PRN PRN Reason: Pain, severe (8-10) Lisinopril (Zestril) 10 mg PO DAILY [facility] Last Admin: 08/19/16 09:01 Dose: 10 mg Tramadol HCl (Ultram) 50 mg PO Q6 PRN PRN Reason: Pain, moderate (4-7) - Labs Labs: 08/17/16 10:25 08/17/16 10:25 PT 10.1 SECONDS (9.6-11.2) 08/17/16 10:25 INR 0.97 (0.92-1.08) 08/17/16 10:25 APTT 38.5 SECONDS (23.3-32.5) H 08/15/16 16:59
[2016-08-20] MEDS: Albuterol-Ipratrop 3 mg / 0.5 (3 ml) UD INH SCH ×4 (07:49→19:31)
[2016-08-20] MEDS: methylPREDNISolone 40 MG in Sodium Chloride 0.9% 50 ML IV SCH (17:06)
--- NOTE | 2016-08-20 22:26 | CP.PCM.PN ---
Subjective - Date & Time of Evaluation Date of Evaluation: 08/20/16 Time of Evaluation: 15:40 Objective - Vital Signs/Intake and Output Vital Signs (last 24 hours): Temp Pulse Resp BP Pulse Ox 97.7 F 65 20 106/66 98 08/20/16 21:00 08/20/16 21:00 08/20/16 21:00 08/20/16 21:00 08/20/16 21:00 - Medications Medications: Current Medications Acetaminophen (Tylenol 325mg Tab) 650 mg PO Q6 PRN PRN Reason: Pain, Mild (1-3) Albuterol/Ipratropium (Duoneb 3 Mg/0.5 Mg (3 Ml) Ud) 3 ml INH RQID [facility] Last Admin: 08/20/16 19:31 Dose: 3 ml Aspirin (Aspirin Chewable) 81 mg PO DAILY [facility] Last Admin: 08/20/16 09:00 Dose: Not Given Atorvastatin Calcium (Lipitor) 10 mg PO DAILY [facility] Last Admin: 08/20/16 09:00 Dose: Not Given Enoxaparin Sodium (Lovenox) 40 mg SC DAILY [facility] PRN Reason: Protocol Last Admin: 08/19/16 09:02 Dose: 40 mg Methylprednisolone 40 mg/ (Sodium Chloride) 50 mls @ 100 mls/hr IV DAILY [facility] Last Admin: 08/20/16 17:06 Dose: 100 mls/hr Ketorolac Tromethamine (Toradol) 15 mg IVP Q6 PRN PRN Reason: Pain, severe (8-10) Lisinopril (Zestril) 10 mg PO DAILY [facility] Last Admin: 08/20/16 09:00 Dose: Not Given Tramadol HCl (Ultram) 50 mg PO Q6 PRN PRN Reason: Pain, moderate (4-7) - Labs Labs: 08/17/16 10:25 08/17/16 10:25 PT 10.1 SECONDS (9.6-11.2) 08/17/16 10:25 INR 0.97 (0.92-1.08) 08/17/16 10:25 APTT 38.5 SECONDS (23.3-32.5) H 08/15/16 16:59
[2016-08-21] MEDS: Albuterol-Ipratrop 3 mg / 0.5 (3 ml) UD INH SCH ×4 (08:07→19:15)
[2016-08-21] MEDS: methylPREDNISolone 40 MG in Sodium Chloride 0.9% 50 ML IV SCH (12:37)
--- NOTE | 2016-08-21 13:03 | CP.PCM.PN ---
Subjective - Date & Time of Evaluation Date of Evaluation: 08/21/16 Time of Evaluation: 13:03 - Subjective Subjective: CONTINUES TO FEEL DIZZY CARDIAC WORKUP COMPLETED WILL NEED NEUROLOGY EVAL BRONCHOSCOPIC EVAL OF AIRWAYS SCHEDULED FOR 8.30 AM ON 08/24/[address] CACERES Objective - Vital Signs/Intake and Output Vital Signs (last 24 hours): Temp Pulse Resp BP Pulse Ox 97.9 F 59 L 20 113/68 97 08/21/16 08:32 08/21/16 08:38 08/21/16 08:32 08/21/16 08:38 08/21/16 08:32 - Medications Medications: Current Medications Acetaminophen (Tylenol 325mg Tab) 650 mg PO Q6 PRN PRN Reason: Pain, Mild (1-3) Albuterol/Ipratropium (Duoneb 3 Mg/0.5 Mg (3 Ml) Ud) 3 ml INH RQID [facility] Last Admin: 08/21/16 12:00 Dose: 3 ml Aspirin (Aspirin Chewable) 81 mg PO DAILY [facility] Last Admin: 08/21/16 08:38 Dose: 81 mg Atorvastatin Calcium (Lipitor) 10 mg PO DAILY [facility] Last Admin: 08/21/16 08:38 Dose: 10 mg Enoxaparin Sodium (Lovenox) 40 mg SC DAILY [facility] PRN Reason: Protocol Last Admin: 08/19/16 09:02 Dose: 40 mg Methylprednisolone 40 mg/ (Sodium Chloride) 50 mls @ 100 mls/hr IV DAILY [facility] Last Admin: 08/21/16 12:37 Dose: 100 mls/hr Ketorolac Tromethamine (Toradol) 15 mg IVP Q6 PRN PRN Reason: Pain, severe (8-10) Lisinopril (Zestril) 10 mg PO DAILY [facility] Last Admin: 08/21/16 08:38 Dose: Not Given Tramadol HCl (Ultram) 50 mg PO Q6 PRN PRN Reason: Pain, moderate (4-7) Last Admin: 08/21/16 01:06 Dose: 50 mg - Labs Labs: 08/17/16 10:25 08/17/16 10:25 PT 10.1 SECONDS (9.6-11.2) 08/17/16 10:25 INR 0.97 (0.92-1.08) 08/17/16 10:25 APTT 38.5 SECONDS (23.3-32.5) H 08/15/16 16:59
--- NOTE | 2016-08-21 19:24 | CP.PCM.PN ---
Subjective - Date & Time of Evaluation Date of Evaluation: 08/21/16 Time of Evaluation: 19:20 Objective - Vital Signs/Intake and Output Vital Signs (last 24 hours): Temp Pulse Resp BP Pulse Ox 97.8 F 85 18 99/58 L 99 08/21/16 16:00 08/21/16 16:00 08/21/16 16:00 08/21/16 16:00 08/21/16 16:00 - Medications Medications: Current Medications Acetaminophen (Tylenol 325mg Tab) 650 mg PO Q6 PRN PRN Reason: Pain, Mild (1-3) Albuterol/Ipratropium (Duoneb 3 Mg/0.5 Mg (3 Ml) Ud) 3 ml INH RQID [facility] Last Admin: 08/21/16 19:15 Dose: 3 ml Aspirin (Aspirin Chewable) 81 mg PO DAILY [facility] Last Admin: 08/21/16 08:38 Dose: 81 mg Atorvastatin Calcium (Lipitor) 10 mg PO DAILY [facility] Last Admin: 08/21/16 08:38 Dose: 10 mg Enoxaparin Sodium (Lovenox) 40 mg SC DAILY [facility] PRN Reason: Protocol Last Admin: 08/19/16 09:02 Dose: 40 mg Methylprednisolone 40 mg/ (Sodium Chloride) 50 mls @ 100 mls/hr IV DAILY [facility] Last Admin: 08/21/16 12:37 Dose: 100 mls/hr Ketorolac Tromethamine (Toradol) 15 mg IVP Q6 PRN PRN Reason: Pain, severe (8-10) Lisinopril (Zestril) 10 mg PO DAILY [facility] Last Admin: 08/21/16 08:38 Dose: Not Given Tramadol HCl (Ultram) 50 mg PO Q6 PRN PRN Reason: Pain, moderate (4-7) Last Admin: 08/21/16 01:06 Dose: 50 mg - Labs Labs: 08/17/16 10:25 08/17/16 10:25 PT 10.1 SECONDS (9.6-11.2) 08/17/16 10:25 INR 0.97 (0.92-1.08) 08/17/16 10:25 APTT 38.5 SECONDS (23.3-32.5) H 08/15/16 16:59
[2016-08-21] MEDS: Sodium Chloride 0.9% 1,000 ML IV SCH (20:30)
[2016-08-22] MEDS: Albuterol-Ipratrop 3 mg / 0.5 (3 ml) UD INH SCH ×4 (07:25→19:12)
[2016-08-22] MEDS: methylPREDNISolone 40 MG in Sodium Chloride 0.9% 50 ML IV SCH (09:06)
[2016-08-22] MEDS: Sodium Chloride 0.9% 1,000 ML IV SCH (17:03)
--- NOTE | 2016-08-22 22:25 | CP.PCM.PN ---
Subjective - Date & Time of Evaluation Date of Evaluation: 08/22/16 Time of Evaluation: 17:30 Objective - Vital Signs/Intake and Output Vital Signs (last 24 hours): Temp Pulse Resp BP Pulse Ox 97.5 F L 78 18 102/62 98 08/22/16 20:37 08/22/16 20:37 08/22/16 20:37 08/22/16 20:37 08/22/16 20:37 - Medications Medications: Current Medications Acetaminophen (Tylenol 325mg Tab) 650 mg PO Q6 PRN PRN Reason: Pain, Mild (1-3) Albuterol/Ipratropium (Duoneb 3 Mg/0.5 Mg (3 Ml) Ud) 3 ml INH RQID [facility] Last Admin: 08/22/16 19:12 Dose: 3 ml Aspirin (Aspirin Chewable) 81 mg PO DAILY [facility] Last Admin: 08/22/16 09:06 Dose: 81 mg Atorvastatin Calcium (Lipitor) 10 mg PO DAILY [facility] Last Admin: 08/22/16 09:06 Dose: 10 mg Enoxaparin Sodium (Lovenox) 40 mg SC DAILY [facility] PRN Reason: Protocol Last Admin: 08/19/16 09:02 Dose: 40 mg Methylprednisolone 40 mg/ (Sodium Chloride) 50 mls @ 100 mls/hr IV DAILY [facility] Last Admin: 08/22/16 09:06 Dose: 100 mls/hr Ketorolac Tromethamine (Toradol) 15 mg IVP Q6 PRN PRN Reason: Pain, severe (8-10) Lisinopril (Zestril) 10 mg PO DAILY [facility] Last Admin: 08/22/16 09:06 Dose: 10 mg Tramadol HCl (Ultram) 50 mg PO Q6 PRN PRN Reason: Pain, moderate (4-7) Last Admin: 08/21/16 01:06 Dose: 50 mg - Labs Labs: 08/17/16 10:25 08/17/16 10:25 PT 10.1 SECONDS (9.6-11.2) 08/17/16 10:25 INR 0.97 (0.92-1.08) 08/17/16 10:25 APTT 38.5 SECONDS (23.3-32.5) H 08/15/16 16:59
[2016-08-22] MEDS ORDERED: Albuterol-Ipratrop 3 mg / 0.5 (3 ml) UD INH STA (23:15)
--- NOTE | 2016-08-22 23:17 | CP.PCM.PCO ---
Physician Communication Note - Physician Communication Note Physician Communication Note: Sary Orozco Addendum Addendum: 08/22/16 23:16 CC: Acute onset SOB w/ epigastric pressure 66M c/o acute onset epigastric pressure w/ SOB, denies pain, nausea, diaphoresis , but says he has never felt like this before. VS: Lt- 103/62, Rt- 93/45, HR-75, RR- 32, SpO2- 98% 2L NC GEN: Awake, mild distress PULM: tachypneic, retractions, good air entry throughout b/l, no wheezing, some crackles, no rales CARDIAC: no murmurs noted ABD: soft, non-distended, non-tender, no tympani, BS+, increased discomfort when epigastrum is palpated, no palpable mass noted BLUE: radial pulses equal RIGHT groin: thrill palpated, no hematoma LEFT groin: reducible, non-tender inguinal hernia b/l femoral pulses equal BLLE: no edema 66M hx emphysema, PPD#2 from PCI with acute onset epigastric pressure ddx anxiety/hypercapnia/dissection/cardiac ischemia/pancreatitis/reflux - Oxygen, DuoNebs, ABG, CXR - EKG, Troponin, CK-MB - KUB, CMP, Lipase - CBC Patient mild improvement after DuoNebs Had to ask Nursing Hand Clerical Verifier to get scada technician available to floor.* * 08/22/16 23:56 AB.49/38/79/29/98/5.3 EKG: NSR- 71, no acute ST-T changes compared to 08/15/2016 as read by me ([id number]) CBC: Largely unchanged except bump in eosinophils CMP: WNL, except BUN bumped Lipase: WNL CK-MB: WNL Troponin: Negative 0042: Awaiting CXR/KUB films. - Encourage PO hydration - Incentive Spirometry 08/23/16 00:57 CXR: no pneumo, blunting of LEFT costophrenic (unchanged), no free air noted under the diaphragm KUB: ?constipation Patient feeling much better, may be a component of anxiety, constipation. Otherwise, currently improved after DuoNebs. - Simethacone - Mylanta 08/23/16 01:26
[2016-08-22 23:57] LABS: BASO # 0.2 K/uL (0.0-0.2); BASO % 2.2 % (0.0-2.0); EOS # 1.2 K/uL (0.0-0.7); EOS % 13.9 % (0.0-4.0); HEMATOCRIT 29.6 % (35.0-51.0); LYMPH # 1.9 K/uL (1.0-4.3); LYMPH % 21.1 % (20.0-40.0); MEAN CELL VOLUME 96.9 fl (80.0-94.0); MEAN CORPUSCULAR HEMOGLOBIN 32.7 pg (27.0-31.0); MEAN CORPUSCULAR HGB CONC 33.7 g/dL (33.0-37.0); MEAN PLATELET VOLUME 7.2 fl (7.2-11.7); MONO # 0.6 K/uL (0.0-0.8); NEUT % 55.8 % (50.0-75.0); RED CELL DISTRIBUTION WIDTH 14.5 % (11.5-14.5); WHITE BLOOD COUNT 8.9 K/uL (4.8-10.8)
[2016-08-23 00:06] LABS: ALB/GLOB RATIO 1.1 (1.0-2.1); ALKALINE PHOSPHATASE 69 U/L (38-126); ALT/SGPT 35 U/L (21-72); AST/SGOT 27 U/L (17-59); BILIRUBIN,TOTAL 0.3 mg/dl (0.2-1.3); BLOOD UREA NITROGEN 25 mg/dl (9-20); CALCIUM 8.6 mg/dL (8.4-10.2); CARBON DIOXIDE 26 mmol/L (22-30); CHLORIDE 98 mmol/L (98-107); GFR AFRICAN-AMERICAN > 60; GLUCOSE,RANDOM 89 mg/dL (75-110); LIPASE 91 U/L (23-300); POTASSIUM 4.9 MMOL/L (3.6-5.0); SODIUM 133 mmol/l (132-148); TOTAL PROTEIN 5.8 G/DL (6.3-8.2)
[2016-08-23] MEDS ORDERED: Alum-Mag Hydrox-Simethicone Susp (30 mL) PO ONE (01:21)
[2016-08-23] MEDS ORDERED: Simethicone 80 mg Chewtab PO ONE (01:21)
[2016-08-23] MEDS: Docusate-Senna 50 mg-8.6 mg Tab PO SCH ×2 (01:45→22:20)
[2016-08-23] MEDS: Albuterol-Ipratrop 3 mg / 0.5 (3 ml) UD INH SCH ×4 (07:49→19:35)
[2016-08-23] MEDS: methylPREDNISolone 40 MG in Sodium Chloride 0.9% 50 ML IV SCH (09:50)
--- NOTE | 2016-08-23 12:20 | CP.PCM.PN ---
Subjective - Date & Time of Evaluation Date of Evaluation: 08/23/16 Time of Evaluation: 12:20 - Subjective Subjective: CRUISING AROUND IN A WHEELCHAIR NO APPARENT RESPIRATORY DISTRESS Objective - Vital Signs/Intake and Output Vital Signs (last 24 hours): Temp Pulse Resp BP Pulse Ox 97.2 F L 64 20 105/62 100 08/23/16 08:26 08/23/16 09:51 08/23/16 08:26 08/23/16 09:51 08/23/16 08:26 - Medications Medications: Current Medications Acetaminophen (Tylenol 325mg Tab) 650 mg PO Q6 PRN PRN Reason: Pain, Mild (1-3) Albuterol/Ipratropium (Duoneb 3 Mg/0.5 Mg (3 Ml) Ud) 3 ml INH RQID [facility] Last Admin: 08/23/16 11:17 Dose: 3 ml Aspirin (Aspirin Chewable) 81 mg PO DAILY [facility] Last Admin: 08/23/16 09:51 Dose: 81 mg Atorvastatin Calcium (Lipitor) 10 mg PO DAILY [facility] Last Admin: 08/23/16 09:51 Dose: 10 mg Enoxaparin Sodium (Lovenox) 40 mg SC DAILY [facility] PRN Reason: Protocol Last Admin: 08/19/16 09:02 Dose: 40 mg Methylprednisolone 40 mg/ (Sodium Chloride) 50 mls @ 100 mls/hr IV DAILY [facility] Last Admin: 08/23/16 09:50 Dose: 100 mls/hr Ketorolac Tromethamine (Toradol) 15 mg IVP Q6 PRN PRN Reason: Pain, severe (8-10) Lisinopril (Zestril) 10 mg PO DAILY [facility] Last Admin: 08/23/16 09:51 Dose: 10 mg Senna/Docusate Sodium (Senokot S 50 Mg-8.6 Mg) 1 tab PO HS [facility] Last Admin: 08/23/16 01:45 Dose: 1 tab Tramadol HCl (Ultram) 50 mg PO Q6 PRN PRN Reason: Pain, moderate (4-7) Last Admin: 08/21/16 01:06 Dose: 50 mg - Labs Labs: 08/22/16 23:54 08/22/16 23:30 PT 10.1 SECONDS (9.6-11.2) 08/17/16 10:25 INR 0.97 (0.92-1.08) 08/17/16 10:25 APTT 38.5 SECONDS (23.3-32.5) H 08/15/16 16:59 - Constitutional Appears: Well - Head Exam Head Exam: ATRAUMATIC, NORMAL INSPECTION, NORMOCEPHALIC - Eye Exam Eye Exam: EOMI, Normal appearance, PERRL Pupil Exam: NORMAL ACCOMODATION, PERRL - ENT Exam ENT Exam: Mucous Membranes Moist, Normal Exam - Neck Exam Neck Exam: Full ROM, Normal Inspection. absent: Lymphadenopathy - Respiratory Exam Respiratory Exam: Decreased Breath Sounds, Prolonged Expiratory Phase, NORMAL BREATHING PATTERN - Cardiovascular Exam Cardiovascular Exam: REGULAR RHYTHM, +S1, +S2. absent: Murmur - GI/Abdominal Exam GI & Abdominal Exam: Soft, Normal Bowel Sounds. absent: Tenderness - Rectal Exam Rectal Exam: NORMAL INSPECTION - Extremities Exam Extremities Exam: Full ROM, Normal Capillary Refill, Normal Inspection. absent : Joint Swelling, Pedal Edema - Back Exam Back Exam: NORMAL INSPECTION - Neurological Exam Neurological Exam: Alert, Awake, CN II-XII Intact, Normal Gait, Oriented x3 - Psychiatric Exam Psychiatric exam: Normal Affect, Normal Mood - Skin Skin Exam: Dry, Intact, Normal Color, Warm Assessment and Plan - Assessment and Plan (Free Text) Assessment: COPD ASHD PULMONARY DENSITY--R/O MALIGNANCY Plan: SCHEDULED FOR BRONCHOSCOPY IN AM--HE SIGNED A CONSENT FOR THE PROCEDURE THEN CHANGED HIS MIND AND REFUSED THE PROCEDURE BECAUSE HE CLAIMS THAT THERE IS NOTHING WRONG WITH HIS LUNGS WILL CANCEL PROCEDURE TAPER STEROIDS
--- NOTE | 2016-08-23 12:43 | RAD ---
HISTORY: SOB COMPARISON: No prior. FINDINGS: BOWEL: Normal. No obstruction. No free air. Surgical clips seen over right iliac bone. BONES: Normal. OTHER FINDINGS: None. IMPRESSION: Unremarkable bowel gas pattern.
--- NOTE | 2016-08-23 12:44 | RAD ---
PROCEDURE: CHEST RADIOGRAPH, 1 VIEW HISTORY: SOB COMPARISON: 08/15/2016 FINDINGS: LUNGS: Clear. PLEURA: No pneumothorax or pleural fluid seen. CARDIOVASCULAR: Status post CABG. OSSEOUS STRUCTURES: No significant abnormalities. VISUALIZED UPPER ABDOMEN: Normal. OTHER FINDINGS: None. IMPRESSION: No active disease.
--- NOTE | 2016-08-23 22:36 | CP.PCM.PN ---
Subjective - Date & Time of Evaluation Date of Evaluation: 08/23/16 Time of Evaluation: 22:00 Objective - Vital Signs/Intake and Output Vital Signs (last 24 hours): Temp Pulse Resp BP Pulse Ox 98.3 F 68 20 97/57 L 99 08/23/16 21:00 08/23/16 21:00 08/23/16 21:00 08/23/16 21:00 08/23/16 21:00 - Medications Medications: Current Medications Acetaminophen (Tylenol 325mg Tab) 650 mg PO Q6 PRN PRN Reason: Pain, Mild (1-3) Last Admin: 08/23/16 18:16 Dose: 650 mg Albuterol/Ipratropium (Duoneb 3 Mg/0.5 Mg (3 Ml) Ud) 3 ml INH RQID [facility] Last Admin: 08/23/16 19:35 Dose: 3 ml Aspirin (Aspirin Chewable) 81 mg PO DAILY [facility] Last Admin: 08/23/16 09:51 Dose: 81 mg Atorvastatin Calcium (Lipitor) 10 mg PO DAILY [facility] Last Admin: 08/23/16 09:51 Dose: 10 mg Enoxaparin Sodium (Lovenox) 40 mg SC DAILY [facility] PRN Reason: Protocol Last Admin: 08/19/16 09:02 Dose: 40 mg Ketorolac Tromethamine (Toradol) 15 mg IVP Q6 PRN PRN Reason: Pain, severe (8-10) Lisinopril (Zestril) 10 mg PO DAILY [facility] Last Admin: 08/23/16 09:51 Dose: 10 mg Prednisone (Prednisone Tab) 30 mg PO DAILY [facility] Last Admin: 08/23/16 15:23 Dose: 30 mg Senna/Docusate Sodium (Senokot S 50 Mg-8.6 Mg) 1 tab PO HS [facility] Last Admin: 08/23/16 22:20 Dose: 1 tab Tramadol HCl (Ultram) 50 mg PO Q6 PRN PRN Reason: Pain, moderate (4-7) Last Admin: 08/21/16 01:06 Dose: 50 mg - Labs Labs: 08/22/16 23:54 08/22/16 23:30 PT 10.1 SECONDS (9.6-11.2) 08/17/16 10:25 INR 0.97 (0.92-1.08) 08/17/16 10:25 APTT 38.5 SECONDS (23.3-32.5) H 08/15/16 16:59
[2016-08-24] MEDS ORDERED: Sodium Chloride 0.9% 0 ML IV ONE (07:06)
[2016-08-24] MEDS ORDERED: Lidocaine 1% Inj (20ml) ONE (07:07)
[2016-08-24] MEDS ORDERED: EPINEPHrine 1 mg/ml (1:1000) Inj ONE (07:07)
[2016-08-24] MEDS ORDERED: Lidocaine 2% Jelly (Uro-Jet) ONE (07:08)
[2016-08-24] MEDS ORDERED: Lidocaine 2% Jelly (5 ml) TOP ONE (07:09)
[2016-08-24] MEDS: Albuterol-Ipratrop 3 mg / 0.5 (3 ml) UD INH SCH ×2 (08:33→11:24)
[2016-08-24] MEDS: Enoxaparin 40 mg Syringe SC SCH (08:59)
--- NOTE | 2016-08-24 09:32 | CP.PCM.PN ---
Subjective - Date & Time of Evaluation Date of Evaluation: 08/24/16 Time of Evaluation: 09:33 - Subjective Subjective: AMBULATING HALLWAYS SOB IMPROVED Objective - Vital Signs/Intake and Output Vital Signs (last 24 hours): Temp Pulse Resp BP Pulse Ox 97.5 F L 63 18 116/56 L 98 08/24/16 08:03 08/24/16 08:58 08/24/16 08:03 08/24/16 08:58 08/24/16 08:03 - Medications Medications: Current Medications Acetaminophen (Tylenol 325mg Tab) 650 mg PO Q6 PRN PRN Reason: Pain, Mild (1-3) Last Admin: 08/23/16 18:16 Dose: 650 mg Albuterol/Ipratropium (Duoneb 3 Mg/0.5 Mg (3 Ml) Ud) 3 ml INH RQID [facility] Last Admin: 08/24/16 08:33 Dose: 3 ml Aspirin (Aspirin Chewable) 81 mg PO DAILY [facility] Last Admin: 08/23/16 09:51 Dose: 81 mg Atorvastatin Calcium (Lipitor) 10 mg PO DAILY [facility] Last Admin: 08/24/16 08:58 Dose: 10 mg Enoxaparin Sodium (Lovenox) 40 mg SC DAILY [facility] PRN Reason: Protocol Last Admin: 08/24/16 08:59 Dose: 40 mg Ketorolac Tromethamine (Toradol) 15 mg IVP Q6 PRN PRN Reason: Pain, severe (8-10) Lisinopril (Zestril) 10 mg PO DAILY [facility] Last Admin: 08/24/16 08:58 Dose: 10 mg Prednisone (Prednisone Tab) 30 mg PO DAILY [facility] Last Admin: 08/24/16 08:58 Dose: 30 mg Senna/Docusate Sodium (Senokot S 50 Mg-8.6 Mg) 1 tab PO HS [facility] Last Admin: 08/23/16 22:20 Dose: 1 tab Tramadol HCl (Ultram) 50 mg PO Q6 PRN PRN Reason: Pain, moderate (4-7) Last Admin: 08/21/16 01:06 Dose: 50 mg - Labs Labs: 08/22/16 23:54 08/22/16 23:30 PT 10.1 SECONDS (9.6-11.2) 08/17/16 10:25 INR 0.97 (0.92-1.08) 08/17/16 10:25 APTT 38.5 SECONDS (23.3-32.5) H 08/15/16 16:59 - Constitutional Appears: No Acute Distress - Head Exam Head Exam: ATRAUMATIC, NORMAL INSPECTION, NORMOCEPHALIC - Eye Exam Eye Exam: EOMI, Normal appearance, PERRL Pupil Exam: NORMAL ACCOMODATION, PERRL - ENT Exam ENT Exam: Mucous Membranes Moist, Normal Exam - Neck Exam Neck Exam: Full ROM, Normal Inspection. absent: Lymphadenopathy - Respiratory Exam Respiratory Exam: Decreased Breath Sounds, NORMAL BREATHING PATTERN - Cardiovascular Exam Cardiovascular Exam: REGULAR RHYTHM, +S1, +S2. absent: Murmur - GI/Abdominal Exam GI & Abdominal Exam: Soft, Normal Bowel Sounds. absent: Tenderness - Rectal Exam Rectal Exam: NORMAL INSPECTION - Extremities Exam Extremities Exam: Full ROM, Normal Capillary Refill, Normal Inspection. absent : Joint Swelling, Pedal Edema - Back Exam Back Exam: NORMAL INSPECTION - Neurological Exam Neurological Exam: Alert, Awake, CN II-XII Intact, Normal Gait, Oriented x3 - Psychiatric Exam Psychiatric exam: Normal Affect, Normal Mood - Skin Skin Exam: Dry, Intact, Normal Color, Warm Assessment and Plan - Assessment and Plan (Free Text) Assessment: COPD-IMPROVED ABNORMAL CT OF CHEST ASHD Plan: NO FURTHER PULMONARY INTERVENTION FOR NOW WILL SIGN OFF CASE AND SEE AGAIN AT YOUR REQUEST
[2016-08-24 11:00] LABS: ABG ALLEN TEST YES; ARTERIAL BLOOD GAS PH 7.49 (7.35-7.45); ARTERIAL BLOOD GAS PO2 79 mm/Hg (80-100); ARTERIAL BLOOD HGB O2 SAT 95.7 % (95.0-98.0); CARBOXYHEMOGLOBIN 1.3 % (0.5-1.5)
[2016-08-24] MEDS ORDERED: Enalaprilat 2.5 MG/2 ML IVP SCH (11:00)
[2016-08-24 11:01] LABS: HHB 1.3 % (0.0-5.0); METHEMOGLOBIN 1.7 % (0.0-3.0)
[2016-08-24] MEDS: Pantoprazole 40 mg EC Tab PO SCH (11:44)
--- NOTE | 2016-08-24 23:09 | CP.PCM.PN ---
Subjective - Date & Time of Evaluation Date of Evaluation: 08/24/16 Time of Evaluation: 17:35 Objective - Vital Signs/Intake and Output Vital Signs (last 24 hours): Temp Pulse Resp BP Pulse Ox 97.3 F L 67 20 124/69 99 08/24/16 21:00 08/24/16 21:00 08/24/16 21:00 08/24/16 21:00 08/24/16 21:00 - Medications Medications: Current Medications Acetaminophen (Tylenol 325mg Tab) 650 mg PO Q6 PRN PRN Reason: Pain, Mild (1-3) Last Admin: 08/23/16 18:16 Dose: 650 mg Albuterol/Ipratropium (Duoneb 3 Mg/0.5 Mg (3 Ml) Ud) 3 ml INH RQID [facility] Last Admin: 08/24/16 11:24 Dose: 3 ml Aspirin (Aspirin Chewable) 81 mg PO DAILY [facility] Last Admin: 08/24/16 09:34 Dose: 81 mg Atorvastatin Calcium (Lipitor) 10 mg PO DAILY [facility] Last Admin: 08/24/16 08:58 Dose: 10 mg Enoxaparin Sodium (Lovenox) 40 mg SC DAILY [facility] PRN Reason: Protocol Last Admin: 08/24/16 08:59 Dose: 40 mg Lisinopril (Zestril) 10 mg PO DAILY [facility] Last Admin: 08/24/16 08:58 Dose: 10 mg Pantoprazole Sodium (Protonix Ec Tab) 40 mg PO DAILY [facility] Last Admin: 08/24/16 11:44 Dose: 40 mg Prednisone (Prednisone Tab) 30 mg PO DAILY [facility] Last Admin: 08/24/16 08:58 Dose: 30 mg Senna/Docusate Sodium (Senokot S 50 Mg-8.6 Mg) 1 tab PO HS [facility] Last Admin: 08/23/16 22:20 Dose: 1 tab - Labs Labs: 08/22/16 23:54 08/22/16 23:30 PT 10.1 SECONDS (9.6-11.2) 08/17/16 10:25 INR 0.97 (0.92-1.08) 08/17/16 10:25 APTT 38.5 SECONDS (23.3-32.5) H 08/15/16 16:59
[2016-08-24] MEDS: Docusate-Senna 50 mg-8.6 mg Tab PO SCH (23:35)
[2016-08-25] MEDS: Albuterol-Ipratrop 3 mg / 0.5 (3 ml) UD INH SCH ×2 (07:52→11:44)
[2016-08-25 09:32] VITALS: O2SAT 100
[2016-08-25] MEDS: Enoxaparin 40 mg Syringe SC SCH (09:40)
[2016-08-25] MEDS: Pantoprazole 40 mg EC Tab PO SCH (09:41)
[2016-08-25 12:31] VITALS: BP 110/61; PULSE 64; RESP 18; TEMP 97.4
--- NOTE | 2016-08-25 14:10 | CP.PCM.DIS ---
Provider - Provider Date of Admission: 08/16/16 10:42 Attending physician: Jae Mckee MD Time Spent in preparation of Discharge (in minutes): 25 Hospital Course - Lab Results Lab Results: Most Recent Lab Values WBC 8.9 K/uL (4.8-10.8) 08/22/16 23:54 RBC 3.06 Mil/uL (4.40-5.90) L 08/22/16 23:54 Hgb 10.0 g/dL (12.0-18.0) L 08/22/16 23:54 Hct 29.6 % (35.0-51.0) L 08/22/16 23:54 MCV 96.9 fl (80.0-94.0) H 08/22/16 23:54 MCH 32.7 pg (27.0-31.0) H 08/22/16 23:54 MCHC 33.7 g/dL (33.0-37.0) 08/22/16 23:54 RDW 14.5 % (11.5-14.5) 08/22/16 23:54 Plt Count 190 K/uL (130-400) 08/22/16 23:54 MPV 7.2 fl (7.2-11.7) 08/22/16 23:54 Neut % (Auto) 55.8 % (50.0-75.0) 08/22/16 23:54 Lymph % (Auto) 21.1 % (20.0-40.0) 08/22/16 23:54 [place] % (Auto) 7.0 % (0.0-10.0) 08/22/16 23:54 Eos % (Auto) 13.9 % (0.0-4.0) H 08/22/16 23:54 Baso % (Auto) 2.2 % (0.0-2.0) H 08/22/16 23:54 Neut # 5.0 K/uL (1.8-7.0) 08/22/16 23:54 Lymph # 1.9 K/uL (1.0-4.3) 08/22/16 23:54 [place] # 0.6 K/uL (0.0-0.8) 08/22/16 23:54 Eos # 1.2 K/uL (0.0-0.7) H 08/22/16 23:54 Baso # 0.2 K/uL (0.0-0.2) 08/22/16 23:54 PT 10.1 SECONDS (9.6-11.2) 08/17/16 10:25 INR 0.97 (0.92-1.08) 08/17/16 10:25 APTT 38.5 SECONDS (23.3-32.5) H 08/15/16 16:59 D-Dimer, Quantitative 1.19 mg/L FEU (0-0.50) H 08/15/16 16:59 pCO2 38 mm/Hg (35-45) 08/22/16 23:51 pO2 79 mm/Hg (80-100) L 08/22/16 23:51 HCO3 29.0 mmol/L (21-28) H 08/22/16 23:51 ABG pH 7.49 (7.35-7.45) H 08/22/16 23:51 ABG Total CO2 30.2 mmol/L (22-28) H 08/22/16 23:51 ABG O2 Saturation 98.7 % (95-98) H 08/22/16 23:51 ABG O2 Content 14.5 ML/dL (15-23) L 08/16/16 11:00 ABG Base Excess 5.3 mmol/L (-2.0-3.0) H 08/22/16 23:51 ABG Hemoglobin 10.2 g/dL (11.7-17.4) L 08/22/16 23:51 ABG Carboxyhemoglobin 1.3 % (0.5-1.5) 08/22/16 23:51 POC ABG HHb (Measured) 1.3 % (0.0-5.0) 08/22/16 23:51 ABG Methemoglobin 1.7 % (0.0-3.0) 08/22/16 23:51 ABG O2 Capacity 14.7 mL/dL (16-24) L 08/16/16 11:00 Oh Test Yes 08/22/16 23:51 A-a O2 Difference 102.0 mm/Hg 08/22/16 23:51 Hgb O2 Saturation 95.7 % (95.0-98.0) 08/22/16 23:51 FiO2 32 % 04/08/17 23:51 Sodium 133 mmol/l (132-148) 08/22/16 23:30 Potassium 4.9 MMOL/L (3.6-5.0) 08/22/16 23:30 Chloride 98 mmol/L (98-107) 08/22/16 23:30 Carbon Dioxide 26 mmol/L (22-30) 08/22/16 23:30 Anion Gap 14 (10-20) 08/22/16 23:30 BUN 25 mg/dl (9-20) H 08/22/16 23:30 Creatinine 0.9 mg/dL (0.8-1.5) 08/22/16 23:30 Est GFR ( Amer) > 60 08/22/16 23:30 Est GFR (Non-Af Amer) > 60 08/22/16 23:30 Random Glucose 89 mg/dL (75-110) 08/22/16 23:30 Calcium 8.6 mg/dL (8.4-10.2) 08/22/16 23:30 Total Bilirubin 0.3 mg/dl (0.2-1.3) 08/22/16 23:30 AST 27 U/L (17-59) 08/22/16 23:30 ALT 35 U/L (21-72) 08/22/16 23:30 Alkaline Phosphatase 69 U/L (38-126) 08/22/16 23:30 CK-MB (Mass) 2.20 ng/mL (0.0-3.38) 08/22/16 23:54 Troponin I < 0.0120 ng/mL (0.00-0.120) 08/22/16 23:54 NT-Pro-B Natriuret Pep 1720 pg/ml (0-900) H 08/15/16 16:59 Total Protein 5.8 G/DL (6.3-8.2) L 08/22/16 23:30 Albumin 3.1 g/dL (3.5-5.0) L D 08/22/16 23:30 Globulin 2.7 gm/dL (2.2-3.9) 08/22/16 23:30 Albumin/Globulin Ratio 1.1 (1.0-2.1) 08/22/16 23:30 Lipase 91 U/L (23-300) 08/22/16 23:30 Alpha Fetoprotein 1.2 IU/mL (0.0-7.22) 08/16/16 06:00 Carcinoembryonic Ag 2.5 ng/mL (0-3.0) 08/16/16 06:00 CA 19-9 Antigen 6.1 U/mL (0-37) 08/16/16 06:00 Prostate Specific Ag 0.158 ng/ML (0.00-4.0) 08/16/16 06:00 TSH 3rd Generation 2.84 mIU/ML (0.46-4.68) 08/17/16 10:25 Urine Color Straw (YELLOW) 08/15/16 18:52 Urine Clarity Clear (Clear) 08/15/16 18:52 Urine pH 7.0 (5.0-8.0) 08/15/16 18:52 Ur Specific Wilson 1.006 (1.003-1.030) 08/15/16 18:52 Urine Protein Negative mg/dL (NEGATIVE) 08/15/16 18:52 Urine Glucose (UA) Neg mg/dL (Normal) 08/15/16 18:52 Urine Ketones Negative mg/dL (NEGATIVE) 08/15/16 18:52 Urine Blood Negative (NEGATIVE) 08/15/16 18:52 Urine Nitrate Negative (NEGATIVE) 08/15/16 18:52 Urine Bilirubin Negative (NEGATIVE) 08/15/16 18:52 Urine Urobilinogen 0.2-1.0 mg/dL (0.2-1.0) 08/15/16 18:52 Ur Leukocyte Esterase Neg [place]/uL (Negative) 08/15/16 18:52 Urine RBC (Auto) 2 /hpf (0-3) 08/15/16 18:52 Urine Microscopic WBC < 1 /hpf (0-5) 08/15/16 18:52 Stool Occult Blood Negative (NEGATIVE) 08/16/16 00:03 Discharge Exam - Head Exam Head Exam: ATRAUMATIC, NORMAL INSPECTION, NORMOCEPHALIC Discharge Plan - Discharge Medications Prescriptions: Aspirin [Aspirin Chewable] 81 mg PO DAILY #30 chew Atorvastatin [Lipitor] 10 mg PO DAILY #30 tab Lisinopril [Zestril] 10 mg PO DAILY #30 tab - Follow Up Plan Condition: STABLE Disposition: HOME/ ROUTINE Instructions: Weakness (ED)
--- NOTE | 2016-09-10 08:34 | PQF GENQUE ---
This form is a permanent part of the medical record DR. RODRICK Ken SEMAN: ER CLINICAL IMPRESSION CHEST PAIN. PATIENT WITH HISTORY OF CAD. PULMONARY CONSULT : DR. Melvi SOTOMAYOR DX. EXACERBATION OF COPD WITH HISTORY OF CAD. CARDIOLOGY CONSULT: DR. Leah GIL DX. CAD. CARDIAC CATHETERIZATION WAS DONE ON 08/20 - CONCLUSION : SEVERE MULTIVESSEL CAD. D/C SUMMARY AND H&P IN DRAFT NOT COMPLETE. COULD YOU PLEASE CONFIRM REASON FOR ADMISSION (PRINCIPAL DIAGNOSIS). Clarification of your documentation is requested to better reflect the severity of illness and intensity of treatment of your patient. Indicators present - No Indicators Present [] Specify: [] [] Specify: [] [] Specify: [] [] Specify: [] Location in the medical record that reflects the above clinical findings: [X] Chest Pain R/O ACS Treatment Provided: [] PHYSICIAN'S RESPONSE Based on your medical judgment of the clinical indicators outlined above please clarify the following: [X] Practitioner response: Chets PAinn R/O AVS, COPD Exacerbation, Lung Mass [] If unable to determine, please check the box, sign and date. Present On Admission (POA) Indicator: [X] Present at the time of admission [] Not present at the time of admission [] Clinically Undetermined In responding to this query, please exercise your independent professional judgment. The fact that a question is asked does not imply that any particular answer is desired or expected. Thank you for your clarification on this documentation. If you have any questions please call:[ ] * Thank you, * DEEDEE ALVAREZ [phone] turfgrass technician NATASHA
== END 2016-08-25 14:42 | disposition home or self-care (01) | DRG 286 ==
LOC: H.ER 15:47 → H.ERHOLD 21:15 → H.TEL 22:24 → MERGE 08-16 10:42 → OBSVTOIN 08-16 10:42 → H.TEL 08-18 22:55
PROVIDERS: ADMIT Internal Medicine; ATTEND Internal Medicine
PROC: 3E0234Z Introduction of Serum, Toxoid and Vaccine into Muscle, Percutaneous Approach (ICD-10-PCS; principal; 2016-08-16)
PROC: 4A023N7 Measurement of Cardiac Sampling and Pressure, Left Heart, Percutaneous Approach (ICD-10-PCS; 2016-08-20)
PROC: B215YZZ Fluoroscopy of Left Heart using Other Contrast (ICD-10-PCS; 2016-08-20)
DX: R07.89 Other chest pain (principal); E41 Nutritional marasmus; J44.1 Chronic obstructive pulmonary disease with (acute) exacerbation; Z68.1 Body mass index [BMI] 19.9 or less, adult; I25.10 Atherosclerotic heart disease of native coronary artery without angina pectoris; I10 Essential (primary) hypertension; F17.210 Nicotine dependence, cigarettes, uncomplicated; Z95.1 Presence of aortocoronary bypass graft; J45.909 Unspecified asthma, uncomplicated; Z23 Encounter for immunization; R06.00 Dyspnea, unspecified; R94.8 Abnormal results of function studies of other organs and systems; R55 Syncope and collapse; R91.8 Other nonspecific abnormal finding of lung field

== ENCOUNTER 2016-09-10 21:53 | Inpatient (IN) | payer MEDICARE ==
[2016-09-10 21:53] VITALS: BMI 18.1
[2016-09-10 22:59] LABS: BASO # 0.2 K/uL (0.0-0.2); BASO % 2.9 % (0.0-2.0); EOS # 0.5 K/uL (0.0-0.7); EOS % 6.6 % (0.0-4.0); HEMATOCRIT 33.3 % (35.0-51.0); LYMPH # 1.8 K/uL (1.0-4.3); LYMPH % 25.3 % (20.0-40.0); MEAN CELL VOLUME 96.9 fl (80.0-94.0); MEAN CORPUSCULAR HEMOGLOBIN 32.9 pg (27.0-31.0); MEAN CORPUSCULAR HGB CONC 33.9 g/dL (33.0-37.0); MEAN PLATELET VOLUME 7.6 fl (7.2-11.7); MONO # 0.6 K/uL (0.0-0.8); MONO % 8.4 % (0.0-10.0); NEUT % 56.8 % (50.0-75.0); RED CELL DISTRIBUTION WIDTH 13.5 % (11.5-14.5); WHITE BLOOD COUNT 7.1 K/uL (4.8-10.8)
[2016-09-10 23:02] LABS: ALB/GLOB RATIO 1.2 (1.0-2.1); ALKALINE PHOSPHATASE 81 U/L (38-126); ALT/SGPT 35 U/L (21-72); AST/SGOT 52 U/L (17-59); BILIRUBIN,TOTAL 0.6 mg/dl (0.2-1.3); BLOOD UREA NITROGEN 14 mg/dl (9-20); CALCIUM 8.8 mg/dL (8.4-10.2); CARBON DIOXIDE 23 mmol/L (22-30); CHLORIDE 101 mmol/L (98-107); GFR AFRICAN-AMERICAN > 60; GLUCOSE,RANDOM 81 mg/dL (75-110); POTASSIUM 3.5 MMOL/L (3.6-5.0); SODIUM 133 mmol/l (132-148); TOTAL PROTEIN 6.8 G/DL (6.3-8.2)
[2016-09-10 23:20] LABS: PARTIAL THROMBOPLASTIN TIME 38.5 SECONDS (23.3-32.5)
--- NOTE | 2016-09-10 23:40 | ED PDOC ---
Syncope/Near Syncope/Dizzyness Time Seen by Provider: 09/10/16 23:35 Chief Complaint (Nursing): Dizziness/Lightheaded Chief Complaint (Provider): dizziness History Per: Patient History/Exam Limitations: no limitations Associated Symptoms Preceding Syncopal Episode: Lightheadedness Seizure Or Post-ictal Symptoms: None Additional Complaint(s): 66yo M in ED with significant cardiac hx of CABG x3, PT was admitted 08/24/16- received a Cath/CTA-shows no abnormal findings to graft and mass noted in lung ? for cancer-pt was offered bronchscopsy but declined. Pt states he has not f/ u with any [providers after d/c nor taken and of the Rx medication. PT states today-he was standing, felt very dizzy and f3ell to floor-admits he lost vision for a brief second and did hit his head. now still feeling somewhat dizzy, "not himself" denies CP, SOB Past Medical History Reviewed: Historical Data, Nursing Documentation, Vital Signs Vital Signs: Last Vital Signs Temp 97.3 F L 09/10/16 21:54 Pulse 56 L 09/10/16 21:54 Resp 16 09/10/16 21:54 BP 130/64 09/10/16 21:54 Pulse Ox 100 09/10/16 21:54 - Medical History PMH: Asthma, CAD, COPD, Emphysema Denies: Chronic Kidney Disease - Surgical History Surgical History: CABG (x3) - Family History Family History: States: Unknown Family Hx - Home Medications Home Medications: Ambulatory Orders Medication Instructions Recorded Aspirin [Aspirin Chewable] 81 mg PO DAILY #30 chew 08/24/16 Atorvastatin [Lipitor] 10 mg PO DAILY #30 tab 08/24/16 Lisinopril [Zestril] 10 mg PO DAILY #30 tab 08/24/16 - Allergies Allergies/Adverse Reactions: Allergies Allergy/AdvReac Type Severity Reaction Status Date / Time No Known Allergies Allergy Verified 09/10/16 21:54 Review of Systems ROS Statement: Except As Marked, All Systems Reviewed And Found Negative Neurological: Positive for: Weakness, Dizziness Physical Exam - Reviewed Nursing Documentation Reviewed: Yes Vital Signs Reviewed: Yes - Physical Exam Appears: Positive for: Non-toxic, No Acute Distress Head Exam: Positive for: ATRAUMATIC, NORMAL INSPECTION, NORMOCEPHALIC Skin: Positive for: Normal Color, Warm, DRY Eye Exam: Positive for: EOMI, Normal appearance, PERRL ENT: Positive for: Normal ENT Inspection Cardiovascular/Chest: Positive for: Regular Rate, Rhythm Respiratory: Positive for: CNT, Normal Breath Sounds Neurologic/Psych: Positive for: Alert, Oriented - Laboratory Results Result Diagrams: 09/10/16 22:48 09/10/16 22:48 - ECG ECG: Positive for: Interpreted By Me, Viewed By Me (viewed by MD Joe- compared to most previous-no significant changes) ECG Rhythm: Positive for: Premature Ventricular Contraction, ST/T Changes, Nonspecific Changes O2 Sat by Pulse Oximetry: 100 - Progress ED Course And Treament: pt will get cardiac workup pt will madelyn CBC/CMP/trop/EKG pt will get CT of hear due to syncope and head injury. - Physician Consult Information Time Consulting Physican Contacted: 23:43 Physician Contacted: Jae Mckee Outcome Of Conversation: will require admission Medical Decision Making Medical Decision Making: due to risk factors existing conditions and current symptoms-pt will require admission for further work up. pt will be admitted under MD Rylee for syncope on telemetry. Disposition - Clinical Impression Clinical Impression: Syncope - Patient ED Disposition Is Patient to be Admitted: Yes - Disposition Disposition Time: 23:45 Condition: STABLE - Pt Status Changed To: Hospital Disposition Of: Inpatient - Admit Certification Admit to Inpatient:: After my assessment, the patient will require hospitalization for at least two midnights. This is because of the severity of symptoms shown, intensity of services needed, and/or the medical risk in this patient being treated as an outpatient. - POA Present On Arrival: None
--- NOTE | 2016-09-11 00:27 | CT ---
EXAM: CT Head Without Intravenous Contrast CLINICAL HISTORY: 66 years old, male; Signs and symptoms; Dizziness; Additional info: Syncope TECHNIQUE: Axial computed tomography images of the head/brain without intravenous contrast. This CT exam was performed using one or more of the following dose reduction techniques: automated exposure control, adjustment of the mA and/or kV according to patient size, and/or use of iterative reconstruction technique. Coronal and sagittal reformatted images were created and reviewed. COMPARISON: No relevant prior studies available. FINDINGS: Brain: Moderate atrophy. No intracranial hemorrhage. No mass. Few scattered foci of decreased attenuation within periventricular/subcortical white matter. No definite edema. Ventricles: No hydrocephalus. Bones/joints: No acute fracture. Chronic deformity medial wall of LEFT orbit. Soft tissues: Unremarkable. Vasculature: Atherosclerotic disease of intracranial arteries. Sinuses: Near complete opacification/fluid of RIGHT frontal sinus. Scattered mild mucosal thickening of ethmoid, sphenoid, maxillary sinuses. Air-fluid level within LEFT maxillary sinus. Mastoid air cells: No mastoid effusion. Orbits: Unremarkable as visualized. IMPRESSION: 1. Nonspecific white matter changes. Acute infarction may be CT occult within first 24 hours. If a focal deficit persists, consider followup CT or MRI for further evaluation. 2. Sinus disease. 3. Incidental/non-acute findings are described above.
[2016-09-11] MEDS: Sodium Chloride 0.45% 1,000 ML IV SCH ×3 (05:50→17:12)
--- NOTE | 2016-09-11 08:28 | CARD ---
APPROVED REPORT EKG Measurement Heart [id number] <Conclusion> Sinus bradycardia with occasional premature ventricular complexes Possible Inferior infarct, age undetermined Anterior infarct, age undetermined ST & T wave abnormality, consider lateral ischemia Abnormal ECG
[2016-09-11] MEDS: Enoxaparin 40 mg Syringe SC SCH (09:14)
--- NOTE | 2016-09-11 10:03 | RAD ---
HISTORY: Dizziness COMPARISON: 08/23/2016. TECHNIQUE: Chest PA and lateral FINDINGS: LUNGS: The lungs are hyperinflated and there is peribronchial thickening with chronic changes in both lungs. PLEURA: There is chronic left pleural thickening. There is no right pleural effusion. No pneumothorax. CARDIOVASCULAR: The heart is normal in size. Status post median sternotomy. OSSEOUS STRUCTURES: No significant abnormalities. VISUALIZED UPPER ABDOMEN: Normal. OTHER FINDINGS: None. IMPRESSION: COPD. No active pulmonary disease. Chronic left pleural thickening.
--- NOTE | 2016-09-11 13:45 | CON ---
DATE: 09/11/2016 The patient is well known to me from prior admission. He was readmitted to the hospital because of a near syncopal episode and referred for pulmonary evaluation because of abnormal chest x-ray. He rec ently was admitted and worked up for cardiac problems including having a cardiac catheterization perf ormed by Dr. Montiel. He presently denies chest pain or shortness of breath, but indicates that he felt dizzy and nearly passed out at home. PAST MEDICAL HISTORY: Remarkable for chronic cigarette smoking. He said he quit recently. He had c oronary artery bypass graft x 3 in the past, last one was about 3 years ago. PHYSICAL EXAMINATION: GENERAL: The patient is emaciated, alert and oriented, appears comfortable at present. VITAL SIGNS: Stable. MOUTH: Shows fair hygiene. LUNGS: Fair aeration with dullness at the bases. HEART: S1, S2. ABDOMEN: Soft, nontender, no organomegaly. EXTREMITIES: Shows no edema or cyanosis. CENTRAL NERVOUS SYSTEM: No gross deficits appreciated. CT scan of the chest that was done last admission was remarkable for pleural thickening and interstit ial lung disease with emphysematous changes and hilar adenopathy. Chest x-ray at this point also ind icates the same. IMPRESSION: Near syncopal episode, questionable etiology, history of coronary artery disease status post coronary artery bypass graft in the past, status post cardiac catheterization recently, abnormal chest x-ray and CAT scan, possibly due to chronic lung disease, but one has to rule out malignancy. The patient had refused bronchoscopy during his last admission, but presently agrees for the pulmona ry intervention. PLAN: Will be to await neuro and cardiology intervention and evaluation. If all workup is nonreveal ing, then bronchoscopy with evaluation of airways will be indicated. Geraldo Pereira MD cc: [id number] TT: 09/11/2016 13:44:41 Confirmation # [id number] Dictation # [id number]
[2016-09-11] MEDS ORDERED: Sodium Chloride 0.9% 1,000 ML IV SCH (18:00)
--- NOTE | 2016-09-11 20:54 | CP.PCM.CON ---
History of Present Illness - History of Present Illness History of Present Illness: I was asked to see patient by Dr. Mckee. Patient is a 66 year old male with PMH HTN, hypercholesterolemia, CAD s/p CABG who presents with dizziness and lighheadedness. The patient has previously been admitted for pulmonary workup for multiple blebs. Patient had dyspnea and an abnormal stress test. Cardiac catheterization revealed patent bypass grafts. The patient refused further pulmonary work up and was dishcahrged. He presents with weakness and dizziness. The patient has had near syncope. He has been found to be bradycardic. Review of Systems - Constitutional Constitutional: absent: As Per HPI, Anorexia, Chills, Daytime Sleepiness, Excessive Sweating, Fatigue, Fever, Frequent Falls, Headache, Increased Appetite , Lethargy, Malaise, Night Sweats, Snoring, Sleep Apnea, Weight Gain, Weight Loss, Weakness, Other - EENT Eyes: absent: As Per HPI, Blind Spots, Blurred Vision, Change in Vision, Decreased Night Vision, Diplopia, Discharge, Dry Eye, Exophthalmos, Floaters, Irritation, Itchy Eyes, Loss of Peripheral Vision, Pain, Photophobia, Requires Corrective Lenses, Sees Flashes, Spots in Vision, Tunnel Vision, Other Visual Disturbances, Loss of Vision, Other Ears: absent: As Per HPI, Decreased Hearing, Ear Discharge, Ear Pain, Tinnitus, Abnormal Hearing, Disequilibrium, Dizziness, Other Nose/Mouth/Throat: absent: As Per HPI, Epistaxis, Nasal Congestion, Nasal Discharge, Nasal Obstruction, Nasal Trauma, Nose Pain, Post Nasal Drip, Sinus Pain, Sinus Pressure, Bleeding Gums, Change in Voice, Dental Pain, Dry Mouth, Dysphagia, Halitosis, Hoarsness, Lip Swelling, Mouth Lesions, Mouth Pain, Odynophagia, Sore Throat, Throat Swelling, Tongue Swelling, Facial Pain, Neck Pain, Neck Mass, Other - Cardiovascular Cardiovascular: Syncope - Respiratory Respiratory: Dyspnea - Gastrointestinal Gastrointestinal: absent: As Per HPI, Abdominal Pain, Belching, Bloating, Change in Bowel Habits, Change in Stool Character, Coffee Ground Emesis, Constipation, Cramping, Diarrhea, Dyspepsia, Dysphagia, Early Satiety, Excessive Flatus, Fecal Incontinence, Heartburn, Hematemesis, Hematochezia, Loose Stools, Melena, Nausea, Odynophagia, Temesmus, Vomiting, Other - Genitourinary Genitourinary: absent: As Per HPI, Change in Urinary Stream, Difficulty Urinating, Dysuria, Flank Pain, Hematuria, Pyuria, Nocturia, Urinary Incontinence, Urinary Frequency, Urinary Hesitance, Urinary Urgency, Voiding Freq/Small Amts, Freq UTI, Hx Renal/Bladder Calculi, Hx /Renal Surgery, Bladder Distension, Other - Musculoskeletal Musculoskeletal: absent: As Per HPI, Abnormal Gait, Arthralgias, Atrophy, Back Pain, Deformity, Joint Swelling, Limited Range of Motion, Loss of Height, Muscle Cramps, Muscle Weakness, Myalgias, Neck Pain, Numbness, Radiating Pain into Limb, Stiffness, Tingling, Other - Integumentary Integumentary: absent: As Per HPI, Acne, Alopecia, Bleeding Lesions, Change in Hair, Change in Nails, Change in Pigmentation, Changing Lesions, Dry Skin, Erythema, Furuncle, Hirsutism, Lesions, New Lesions, Non-Healing Lesions, Photosensitivity, Pruritus, Rash, Skin Pain, Skin Ulcer, Sores, Striae, Swelling , Unusual Bruising, Wounds, Jaundice, Other - Neurological Neurological: absent: As Per HPI, Abnormal Gait, Abnormal Hearing, Abnormal Movements, Abnormal Speech, Behavioral Changes, Burning Sensations, Confusion, Convulsions, Disequilibrium, Dizziness, Numbness, Focal Weakness, Frequent Falls , Headaches, Lack of Coordination, Loss of Vision, Memory Loss, Paresthesias, Radicular Pain, Restless Legs, Sensory Deficit, Syncope, Tingling, Tremor, Vertigo, Weakness, Other Visual Disturbances, Other - Psychiatric Psychiatric: absent: As Per HPI, Abnormal Sleep Pattern, Anhedonia, Anxiety, Auditory Hallucinations, Behavioral Changes, Change in Appetite, Change in Libido, Confusion, Depression, Difficulty Concentrating, Hallucinations, Homicidal Ideation, Hopelessness, Irritability, Memory Loss, Mood Swings, Panic Attacks, Paranoia, Suicidal Ideation, Visual Hallucinations, Tactile Hallucinations, Other - Endocrine Endocrine: absent: As Per HPI, Change in Body Appearance, Change in Libido, Cold Intolorance, Deepening of Voice, Excessive Sweating, Fatigue, Flushing, Heat Intolorance, Increase in Ring/Shoe/Hat Size, Palpitations, Polydipsia, Polyphagia, Polyuria, Other - Hematologic/Lymphatic Hematologic: absent: As Per HPI, Easy Bleeding, Easy Bruising, Lymphadenopathy, Other Past Patient History - Past Medical History & Family History Past Medical History?: Yes - Past Social History Smoking Status: Former Smoker - CARDIAC Hx Cardiac Disorders: Yes - PULMONARY Hx Respiratory Disorders: Yes Hx Asthma: Yes Hx Chronic Obstructive Pulmonary Disease (COPD): Yes Hx Emphysema: Yes - NEUROLOGICAL Hx Neurological Disorder: No - HEENT Hx HEENT Problems: Yes - RENAL Hx Chronic Kidney Disease: No - ENDOCRINE/METABOLIC Hx Endocrine Disorders: No - HEMATOLOGICAL/ONCOLOGICAL Hx Blood Disorders: No - INTEGUMENTARY Hx Dermatological Problems: No - MUSCULOSKELETAL/RHEUMATOLOGICAL Hx Falls: Yes - GASTROINTESTINAL Hx Gastrointestinal Disorders: No - GENITOURINARY/GYNECOLOGICAL Hx Genitourinary Disorders: No - PSYCHIATRIC Hx Substance Use: No - SURGICAL HISTORY Hx Coronary Artery Bypass Graft: Yes (x3) - ANESTHESIA Hx Anesthesia: Yes Hx Anesthesia Reactions: No Hx Malignant Hyperthermia: No Meds Allergies/Adverse Reactions: Allergies Allergy/AdvReac Type Severity Reaction Status Date / Time No Known Allergies Allergy Verified 09/10/16 21:54 - Medications Medications: Current Medications Aspirin (Aspirin Chewable) 81 mg PO DAILY [facility] Last Admin: 09/11/16 09:15 Dose: 81 mg Atorvastatin Calcium (Lipitor) 10 mg PO DAILY [facility] Last Admin: 09/11/16 09:15 Dose: 10 mg Enoxaparin Sodium (Lovenox) 40 mg SC DAILY [facility] PRN Reason: Protocol Last Admin: 09/11/16 09:14 Dose: 40 mg Sodium Chloride (Sodium Chloride 0.45%) 1,000 mls @ 100 mls/hr IV .Q10H [facility] Stop: 09/12/16 05:42 Last Admin: 09/11/16 17:12 Dose: 100 mls/hr Sodium Chloride (Sodium Chloride 0.9%) 1,000 mls @ 0 mls/hr IV .Q0M FR[facility]CO J PRN Reason: As Directed Stop: 09/12/16 19:09 Lisinopril (Zestril) 10 mg PO DAILY [facility] Last Admin: 09/11/16 09:15 Dose: 10 mg Tramadol HCl (Ultram) 50 mg PO Q4 PRN PRN Reason: Pain, moderate (4-7) Physical Exam - Constitutional Appears: Non-toxic - Head Exam Head Exam: NORMAL INSPECTION - Eye Exam Eye Exam: Normal appearance - ENT Exam ENT Exam: Mucous Membranes Moist - Neck Exam Neck exam: Positive for: Full Rom - Respiratory Exam Respiratory Exam: Decreased Breath Sounds - Cardiovascular Exam Cardiovascular Exam: Bradycardia, REGULAR RHYTHM - GI/Abdominal Exam GI & Abdominal Exam: Normal Bowel Sounds - Rectal Exam Rectal Exam: Deferred - Extremities Exam Extremities exam: Negative for: pedal edema - Back Exam Back exam: NORMAL INSPECTION - Neurological Exam Neurological exam: Alert, Oriented x3 - Psychiatric Exam Psychiatric exam: Normal Affect - Skin Skin Exam: Normal Color Results - Vital Signs Recent Vital Signs: Last Vital Signs Temp 97.5 F L 09/11/16 20:37 Pulse 49 L 09/11/16 20:37 Resp 18 09/11/16 20:37 BP 90/45 L 09/11/16 20:37 Pulse Ox 98 09/11/16 20:37 - Labs Result Diagrams: 09/10/16 22:48 09/10/16 22:48 - EKG Data EKG Interpreted by: Myself Rate: Bradycardia Assessment & Plan (1) HTN (hypertension) Assessment and Plan: patient needs betablocker due to underlyng CAD, however being held due to bradycardia. likely would benefit from PPM. Status: Acute (2) Syncope Assessment and Plan: recommend PPM. Patient is considering eval. Status: Acute (3) CAD (coronary artery disease) Assessment and Plan: patent bypass grafts. Status: Acute
[2016-09-12] MEDS: Sodium Chloride 0.45% 1,000 ML IV SCH (04:22)
--- NOTE | 2016-09-12 07:31 | CP.PCM.PN ---
Subjective - Date & Time of Evaluation Date of Evaluation: 09/12/16 Time of Evaluation: 07:30 - Subjective Subjective: patient has no chest pain. telemetry noted. Objective - Vital Signs/Intake and Output Vital Signs (last 24 hours): Temp Pulse Resp BP Pulse Ox 97.6 F 46 L 19 101/61 98 09/12/16 05:00 09/12/16 05:00 09/12/16 05:00 09/12/16 05:00 09/12/16 05:00 - Medications Medications: Current Medications Aspirin (Aspirin Chewable) 81 mg PO DAILY [facility] Last Admin: 09/11/16 09:15 Dose: 81 mg Atorvastatin Calcium (Lipitor) 10 mg PO DAILY [facility] Last Admin: 09/11/16 09:15 Dose: 10 mg Enoxaparin Sodium (Lovenox) 40 mg SC DAILY [facility] PRN Reason: Protocol Last Admin: 09/11/16 09:14 Dose: 40 mg Sodium Chloride (Sodium Chloride 0.9%) 1,000 mls @ 0 mls/hr IV .Q0M [facility] PRN Reason: As Directed Stop: 09/12/16 19:09 Lisinopril (Zestril) 10 mg PO DAILY [facility] Last Admin: 09/11/16 09:15 Dose: 10 mg Tramadol HCl (Ultram) 50 mg PO Q4 PRN PRN Reason: Pain, moderate (4-7) - Labs Labs: PT 10.3 SECONDS (9.6-11.2) 09/10/16 22:48 INR 0.99 (0.92-1.08) 09/10/16 22:48 APTT 38.5 SECONDS (23.3-32.5) H 09/10/16 22:48 - Constitutional Appears: Non-toxic - Head Exam Head Exam: NORMAL INSPECTION - Eye Exam Eye Exam: Normal appearance - ENT Exam ENT Exam: Mucous Membranes Moist - Neck Exam Neck Exam: Full ROM - Respiratory Exam Respiratory Exam: Decreased Breath Sounds - Cardiovascular Exam Cardiovascular Exam: Bradycardia, REGULAR RHYTHM - GI/Abdominal Exam GI & Abdominal Exam: Normal Bowel Sounds - Rectal Exam Rectal Exam: Deferred - Extremities Exam Extremities Exam: absent: Pedal Edema - Back Exam Back Exam: NORMAL INSPECTION - Neurological Exam Neurological Exam: Alert - Psychiatric Exam Psychiatric exam: Normal Affect - Skin Skin Exam: Normal Color Assessment and Plan (1) HTN (hypertension) Assessment & Plan: medical therapy Status: Acute (2) Syncope Assessment & Plan: marcellus andrade to PPM eval. will consult Dr. Shah Status: Acute (3) CAD (coronary artery disease) Assessment & Plan: no current angina Status: Acute
[2016-09-12] MEDS: Enoxaparin 40 mg Syringe SC SCH (09:12)
--- NOTE | 2016-09-12 12:08 | CP.PCM.PN ---
Subjective - Date & Time of Evaluation Date of Evaluation: 09/12/16 Time of Evaluation: 12:09 - Subjective Subjective: CONTINUES TO HAVE EPISODES OF DIZZINESS AND NEAR SYNCOPE DENIES SOB/CHEST PAINS Objective - Vital Signs/Intake and Output Vital Signs (last 24 hours): Temp Pulse Resp BP Pulse Ox 97.4 F L 62 18 95/50 L 100 09/12/16 11:57 09/12/16 11:57 09/12/16 11:57 09/12/16 11:57 09/12/16 11:57 - Medications Medications: Current Medications Aspirin (Aspirin Chewable) 81 mg PO DAILY [facility] Last Admin: 09/12/16 09:12 Dose: 81 mg Atorvastatin Calcium (Lipitor) 10 mg PO DAILY [facility] Last Admin: 09/12/16 09:12 Dose: 10 mg Enoxaparin Sodium (Lovenox) 40 mg SC DAILY [facility] PRN Reason: Protocol Last Admin: 09/12/16 09:12 Dose: 40 mg Sodium Chloride (Sodium Chloride 0.9%) 1,000 mls @ 0 mls/hr IV .Q0M [facility] PRN Reason: As Directed Stop: 09/12/16 19:09 Lisinopril (Zestril) 10 mg PO DAILY [facility] Last Admin: 09/12/16 09:13 Dose: Not Given Tramadol HCl (Ultram) 50 mg PO Q4 PRN PRN Reason: Pain, moderate (4-7) - Labs Labs: PT 10.3 SECONDS (9.6-11.2) 09/10/16 22:48 INR 0.99 (0.92-1.08) 09/10/16 22:48 APTT 38.5 SECONDS (23.3-32.5) H 09/10/16 22:48 - Constitutional Appears: Chronically Ill - Head Exam Head Exam: ATRAUMATIC, NORMAL INSPECTION, NORMOCEPHALIC - Eye Exam Eye Exam: EOMI, Normal appearance, PERRL Pupil Exam: NORMAL ACCOMODATION, PERRL - ENT Exam ENT Exam: Mucous Membranes Moist, Normal Exam - Neck Exam Neck Exam: Full ROM, Normal Inspection. absent: Lymphadenopathy - Respiratory Exam Respiratory Exam: Prolonged Expiratory Phase, Rales, NORMAL BREATHING PATTERN - Cardiovascular Exam Cardiovascular Exam: REGULAR RHYTHM, +S1, +S2. absent: Murmur - GI/Abdominal Exam GI & Abdominal Exam: Soft, Normal Bowel Sounds. absent: Tenderness - Rectal Exam Rectal Exam: NORMAL INSPECTION - Extremities Exam Extremities Exam: Full ROM, Normal Capillary Refill, Normal Inspection. absent : Joint Swelling, Pedal Edema - Back Exam Back Exam: NORMAL INSPECTION - Neurological Exam Neurological Exam: Alert, Awake, CN II-XII Intact, Normal Gait, Oriented x3 - Psychiatric Exam Psychiatric exam: Normal Affect, Normal Mood - Skin Skin Exam: Dry, Intact, Normal Color, Warm Assessment and Plan - Assessment and Plan (Free Text) Assessment: DIZZINESS/NEAR SYNCOPE ASHD--?ARRYTHMIAS COPD CHRONIC PULM DZ WITH ABNORMAL CXR AND CT OF CHEST--DOUBT MALIGNANCY Plan: CARDIAC WORKUP IN PROGRESS WILL NEED NEUROLOGY EVALUATION BRONCHOSCOPIC EVAL OF AIRWAYS WHEN STABLE--PT NOW AGREES TO HAVE PROCEDURE
--- NOTE | 2016-09-12 17:28 | CP.PCM.HP ---
Past Patient History - Past Medical History & Family History Past Medical History?: Yes - Past Social History Smoking Status: Former Smoker - CARDIAC Hx Cardiac Disorders: Yes - PULMONARY Hx Respiratory Disorders: Yes Hx Asthma: Yes Hx Chronic Obstructive Pulmonary Disease (COPD): Yes Hx Emphysema: Yes - NEUROLOGICAL Hx Neurological Disorder: No - HEENT Hx HEENT Problems: Yes - RENAL Hx Chronic Kidney Disease: No - ENDOCRINE/METABOLIC Hx Endocrine Disorders: No - HEMATOLOGICAL/ONCOLOGICAL Hx Blood Disorders: No - INTEGUMENTARY Hx Dermatological Problems: No - MUSCULOSKELETAL/RHEUMATOLOGICAL Hx Falls: Yes - GASTROINTESTINAL Hx Gastrointestinal Disorders: No - GENITOURINARY/GYNECOLOGICAL Hx Genitourinary Disorders: No - PSYCHIATRIC Hx Substance Use: No - SURGICAL HISTORY Hx Coronary Artery Bypass Graft: Yes (x3) - ANESTHESIA Hx Anesthesia: Yes Hx Anesthesia Reactions: No Hx Malignant Hyperthermia: No Meds Allergies/Adverse Reactions: Allergies Allergy/AdvReac Type Severity Reaction Status Date / Time No Known Allergies Allergy Verified 09/10/16 21:54 Results - Vital Signs Recent Vital Signs: Last Vital Signs Temp 97.8 F 09/12/16 15:51 Pulse 60 09/12/16 15:51 Resp 18 09/12/16 15:51 BP 95/53 L 09/12/16 15:51 Pulse Ox 98 09/12/16 15:51 - Labs Result Diagrams: 09/10/16 22:48 09/10/16 22:48
[2016-09-13] MEDS: Enoxaparin 40 mg Syringe SC SCH (09:03)
--- NOTE | 2016-09-13 13:08 | CP.PCM.PN ---
Subjective - Date & Time of Evaluation Date of Evaluation: 09/13/16 Time of Evaluation: 12:30 - Subjective Subjective: no new complaints. still has intermittent dizziness Objective - Vital Signs/Intake and Output Vital Signs (last 24 hours): Temp Pulse Resp BP Pulse Ox 97.5 F L 55 L 18 123/63 100 09/13/16 11:58 09/13/16 11:58 09/13/16 11:58 09/13/16 11:58 09/13/16 11:58 - Medications Medications: Current Medications Aspirin (Aspirin Chewable) 81 mg PO DAILY [facility] Last Admin: 09/13/16 09:02 Dose: 81 mg Atorvastatin Calcium (Lipitor) 10 mg PO DAILY [facility] Last Admin: 09/13/16 09:02 Dose: 10 mg Enoxaparin Sodium (Lovenox) 40 mg SC DAILY [facility] PRN Reason: Protocol Last Admin: 09/13/16 09:03 Dose: 40 mg Lisinopril (Zestril) 10 mg PO DAILY [facility] Last Admin: 09/13/16 09:02 Dose: 10 mg Tramadol HCl (Ultram) 50 mg PO Q4 PRN PRN Reason: Pain, moderate (4-7) - Labs Labs: PT 10.3 SECONDS (9.6-11.2) 09/10/16 22:48 INR 0.99 (0.92-1.08) 09/10/16 22:48 APTT 38.5 SECONDS (23.3-32.5) H 09/10/16 22:48 - Constitutional Appears: Non-toxic - Head Exam Head Exam: NORMAL INSPECTION - Eye Exam Eye Exam: Normal appearance - ENT Exam ENT Exam: Mucous Membranes Moist - Neck Exam Neck Exam: Full ROM - Respiratory Exam Respiratory Exam: Decreased Breath Sounds - Cardiovascular Exam Cardiovascular Exam: Bradycardia, REGULAR RHYTHM - GI/Abdominal Exam GI & Abdominal Exam: Normal Bowel Sounds - Rectal Exam Rectal Exam: Deferred - Extremities Exam Extremities Exam: absent: Pedal Edema - Back Exam Back Exam: NORMAL INSPECTION - Neurological Exam Neurological Exam: Alert - Psychiatric Exam Psychiatric exam: Normal Affect - Skin Skin Exam: Normal Color Assessment and Plan (1) HTN (hypertension) Assessment & Plan: medical therapy Status: Acute (2) Syncope Assessment & Plan: eval for PPM Status: Acute (3) CAD (coronary artery disease) Assessment & Plan: patent bypass grafts Status: Acute
--- NOTE | 2016-09-13 18:42 | CP.PCM.PN ---
Subjective - Date & Time of Evaluation Date of Evaluation: 09/13/16 Time of Evaluation: 15:40 Objective - Vital Signs/Intake and Output Vital Signs (last 24 hours): Temp Pulse Resp BP Pulse Ox 97.7 F 60 18 97/63 L 98 09/13/16 17:00 09/13/16 17:00 09/13/16 17:00 09/13/16 17:00 09/13/16 17:00 - Medications Medications: Current Medications Aspirin (Aspirin Chewable) 81 mg PO DAILY [facility] Last Admin: 09/13/16 09:02 Dose: 81 mg Atorvastatin Calcium (Lipitor) 10 mg PO DAILY [facility] Last Admin: 09/13/16 09:02 Dose: 10 mg Enoxaparin Sodium (Lovenox) 40 mg SC DAILY [facility] PRN Reason: Protocol Last Admin: 09/13/16 09:03 Dose: 40 mg Lisinopril (Zestril) 10 mg PO DAILY [facility] Last Admin: 09/13/16 09:02 Dose: 10 mg Tramadol HCl (Ultram) 50 mg PO Q4 PRN PRN Reason: Pain, moderate (4-7) - Labs Labs: PT 10.3 SECONDS (9.6-11.2) 09/10/16 22:48 INR 0.99 (0.92-1.08) 09/10/16 22:48 APTT 38.5 SECONDS (23.3-32.5) H 09/10/16 22:48
[2016-09-14] MEDS: Enoxaparin 40 mg Syringe SC SCH (10:15)
[2016-09-14 14:15] LABS: MEAN CELL VOLUME 96.8 fl (80.0-94.0); MEAN CORPUSCULAR HEMOGLOBIN 33.1 pg (27.0-31.0); MEAN CORPUSCULAR HGB CONC 34.2 g/dL (33.0-37.0); RED CELL DISTRIBUTION WIDTH 13.7 % (11.5-14.5); WHITE BLOOD COUNT 6.2 K/uL (4.8-10.8)
[2016-09-14 14:25] LABS: BLOOD UREA NITROGEN 16 mg/dl (9-20); CALCIUM 9.5 mg/dL (8.4-10.2); CARBON DIOXIDE 25 mmol/L (22-30); CHLORIDE 100 mmol/L (98-107); GFR AFRICAN-AMERICAN > 60; GLUCOSE,RANDOM 79 mg/dL (75-110); POTASSIUM 4.5 MMOL/L (3.6-5.0); SODIUM 132 mmol/l (132-148)
[2016-09-14 14:37] LABS: PARTIAL THROMBOPLASTIN TIME 39.2 SECONDS (23.3-32.5)
[2016-09-14] MEDS ORDERED: Liquid Adhesive TOP ONE (16:47)
[2016-09-14] MEDS ORDERED: Lidocaine 2% Inj (20ml) ONE (16:48)
[2016-09-14] MEDS ORDERED: Midazolam 2 MG/2 ML VIAL ONE (18:26)
[2016-09-14] MEDS ORDERED: Lactated Ringer's 500 ML IV ONE (18:30)
[2016-09-14] MEDS ORDERED: Lactated Ringer's 1,000 ML IV ONE (18:30)
[2016-09-14] MEDS ORDERED: Lidocaine 2% Inj (20ml) IJ ONE ×3 (19:00)
[2016-09-14] MEDS: Lactated Ringer's 1,000 ML IV SCH (20:40)
[2016-09-14] MEDS ORDERED: HYDROmorphone 0.5 mg/0.5 ml ISec IVP PRN (20:51)
[2016-09-14] MEDS ORDERED: HYDROmorphone 0.5 mg/0.5 ml ISec IVP ONE (21:00)
--- NOTE | 2016-09-14 23:00 | CP.PCM.PN ---
Subjective - Date & Time of Evaluation Date of Evaluation: 09/14/16 Time of Evaluation: 12:05 Objective - Vital Signs/Intake and Output Vital Signs (last 24 hours): Temp Pulse Resp BP Pulse Ox 97.3 F L 60 20 104/64 100 09/14/16 22:20 09/14/16 22:20 09/14/16 22:20 09/14/16 22:20 09/14/16 22:20 Intake and Output: 09/14/16 09/15/16 18:59 06:59 Intake Total 250 40 Balance 250 40 - Medications Medications: Current Medications Aspirin (Aspirin Chewable) 81 mg PO DAILY [facility] Last Admin: 09/14/16 10:15 Dose: Not Given Atorvastatin Calcium (Lipitor) 10 mg PO DAILY [facility] Last Admin: 09/14/16 10:15 Dose: Not Given Lactated Ringer's (Lactated Ringer's) 1,000 mls @ 40 mls/hr IV .Q24H [facility] Last Admin: 09/14/16 20:40 Dose: 40 mls/hr Lisinopril (Zestril) 10 mg PO DAILY [facility] Last Admin: 09/14/16 10:16 Dose: Not Given Oxycodone/Acetaminophen (Percocet 5/325 Mg Tab) 1 tab PO Q4 PRN PRN Reason: Pain, moderate (4-7) Stop: 09/17/16 20:47 - Labs Labs: 09/14/16 14:05 09/14/16 14:05 PT 10.0 SECONDS (9.6-11.2) 09/14/16 14:05 INR 0.96 (0.92-1.08) 09/14/16 14:05 APTT 39.2 SECONDS (23.3-32.5) H 09/14/16 14:05
[2016-09-14] MEDS: Oxycodone/Acetaminophen 5/325 mg Tab PO PRN (23:10)
[2016-09-15] MEDS: Oxycodone/Acetaminophen 5/325 mg Tab PO PRN ×2 (06:03→11:07)
--- NOTE | 2016-09-15 07:21 | CARD ---
APPROVED REPORT EKG Measurement Heart [id number] <Conclusion> Atrial-paced rhythm with prolonged AV conduction with premature atrial complexes Possible Inferior infarct, age undetermined Anterior infarct, age undetermined ST & T wave abnormality, consider lateral ischemia Abnormal ECG
--- NOTE | 2016-09-15 07:41 | OP ---
PROCEDURE DATE: 09/14/2016 PROCEDURE: Dual chamber permanent pacemaker implantation. DIAGNOSES: Syncope, presyncope, sick sinus syndrome. REFERRING PHYSICIAN: Dr. Annie Montiel. INDICATIONS: The patient is a 66-year-old male of [place] ancestry with past medical history signif icant for hypertension, hypercholesterolemia, coronary artery disease status post CABG, who presents to the Emergency Department at [facility] with worsening dizziness and lightheadedne ss. The patient had been admitted previously for cardiac and pulmonary evaluation in the past, was f ound to have pulmonary blebs, also history of abnormal stress test, status post cardiac catheterizati on which showed patent bypass grafts. The patient was found to be significantly bradycardic with hea rt rates in the 40s to 50s. Given the degree of coronary artery disease and symptoms associated with baseline bradycardia not on rate slowing agents, it was felt the patient would benefit from chronotr opic support in the form of a permanent pacemaker implantation. After discussing with the patient on successive occasions, patient was agreeable and therefore did sign informed consent for the procedur e as well as anesthesia which was performed by the staff anesthesiologist, ____. DESCRIPTION OF PROCEDURE: The patient was brought into the operating room at [facility], [place], the first day of 09/2016, for implantation of a dual chamber permanent pacemaker. The le ft pectoral area was draped and prepped in a sterile fashion and 2% lidocaine solution was injected i nto the surgical site. Using a 9 blade, a 4 cm incision was made 2 fingerbreadths below the clavicle . Using blunt dissection and electrocautery, the fascial planes were dissected. A cephalic vein was identified. It was of diminutive size. Using a Glidewire, we were able to cannulate the diminutive cephalic vein. Of note, the patient is quite cachectic with very little subcuticular fat. Cephalic vein was cannulated. Cephalic vein cutdown was successfully performed. Initially, a 9 [place] Safe[employer] destini was inserted over this Glidewire without difficulty. The right ventricular lead, which is a Wa dtronic 5076, 58 cm lead, serial number [id number], was inserted via this sheath and manipulated into the right ventricular apex. Of note, the patient has a very thin and long chest cavity with a verti lisa appearing heart. The tip of the pacemaker lead was placed in the right ventricular apex. Parame ters on this lead through the program system analyzer and subsequently through the device similarly s howed R waves of 8.0. Threshold is 1.0 volts at 0.5 milliseconds at 1.3 milliamps. Using retained a ccess, a 0.035 guidewire was placed in the 9-[place] SafeSheath. The 9-[place] SafeSheath was split an d then repeated efforts to advance a 7-[place] SafeSheath over the Glidewire was attempted. Ultimatel y, the Glidewire needed to be used again with a very stiff sheath to allow a 7-[place] SafeSheath ulti mately to be passed through to achieve and maintain vascular access. The right atrial lead, which is a 52 cm Medtronic lead, serial #[id number] was inserted via the sheath and manipulated into the righ t atrium. Atrial appendage was not present secondary to it being truncated during his prior CABG. F rom his ultimate location in the roof of the right atrium, threshold is 1.0 volts at 0.5 milliseconds at a current of 1.2 milliamps impedance on the lead was 546. Impedance on the ventricular lead, of note, was 943. Both leads were then inspected under fluoroscopy, tied down using 0 silk suture, and additional ligatures were applied to achieve hemostasis. Subsequently, a submuscular pocket was made with blunt dissection and electrocautery, irrigated with bacitracin solution. The leads were then c onnected to the pulse generator. Of note, during the case, the patient's intrinsic sinus rhythm was 42 beats per minute. Once atrial lead was inserted, we were able to pace the atrium with significant improvement in hemodynamics and increase in blood pressure. The leads were then connected to the pu lse generator which is a [employer] MRI-safe device, serial # [id number]. The lead system and device were then connected. The device and lead system were then coiled and placed in the submuscula r pocket. Prior to doing that, it was irrigated with bacitracin solution. The muscle bellies were t hen apposed using 3-0 silk sutures. The skin and fascial layers were brought together using 2-0 Vicr yl. Final layer was closed with Mastisol and Steri-Strips. A small pressure dressing was then appli ed. The patient tolerated the procedure. The patient's hemodynamics improved with AV pacing. PLAN: The patient will undergo normal postop checks which include chest x-ray, 12-lead EKG, as well as device check in the morning. If all of these are within normal limits, the patient may be dischar ged to followup once discharged with Dr. Annie Montiel for the total of his cardiac care. Beta bl ockers may also be reinstituted after device check in the morning. Thank you for allowing me to participate in the care of your patient. Please do not hesitate to call if you have any questions in regards to his care. Dennis Shah MD cc:Jae Mckee MD; Annie Montiel MD 481 TT: 09/15/2016 07:41:26 ut
--- NOTE | 2016-09-15 09:56 | CP.PCM.PN ---
Subjective - Date & Time of Evaluation Date of Evaluation: 09/15/16 Time of Evaluation: 09:56 - Subjective Subjective: S/P PACEMAKER PLACEMENT DENIES DIZZINESS TODAY Objective - Vital Signs/Intake and Output Vital Signs (last 24 hours): Temp Pulse Resp BP Pulse Ox 97.3 F L 57 L 18 113/53 L 100 09/15/16 08:08 09/15/16 08:34 09/15/16 08:08 09/15/16 08:34 09/15/16 08:08 Intake and Output: 09/15/16 09/15/16 06:59 18:59 Intake Total 40 Balance 40 - Medications Medications: Current Medications Aspirin (Aspirin Chewable) 81 mg PO DAILY [facility] Last Admin: 09/15/16 08:33 Dose: 81 mg Atorvastatin Calcium (Lipitor) 10 mg PO DAILY [facility] Last Admin: 09/15/16 08:33 Dose: 10 mg Lactated Ringer's (Lactated Ringer's) 1,000 mls @ 40 mls/hr IV .Q24H [facility] Last Admin: 09/14/16 20:40 Dose: 40 mls/hr Lisinopril (Zestril) 10 mg PO DAILY [facility] Last Admin: 09/15/16 08:34 Dose: Not Given Oxycodone/Acetaminophen (Percocet 5/325 Mg Tab) 1 tab PO Q4 PRN PRN Reason: Pain, moderate (4-7) Stop: 09/17/16 20:47 Last Admin: 09/15/16 06:03 Dose: 1 tab - Labs Labs: 09/14/16 14:05 09/14/16 14:05 PT 10.0 SECONDS (9.6-11.2) 09/14/16 14:05 INR 0.96 (0.92-1.08) 09/14/16 14:05 APTT 39.2 SECONDS (23.3-32.5) H 09/14/16 14:05 - Constitutional Appears: No Acute Distress - Head Exam Head Exam: ATRAUMATIC, NORMAL INSPECTION, NORMOCEPHALIC - Eye Exam Eye Exam: EOMI, Normal appearance, PERRL Pupil Exam: NORMAL ACCOMODATION, PERRL - ENT Exam ENT Exam: Mucous Membranes Moist, Normal Exam - Neck Exam Neck Exam: Full ROM, Normal Inspection. absent: Lymphadenopathy - Respiratory Exam Respiratory Exam: Clear to Ausculation Bilateral, NORMAL BREATHING PATTERN - Cardiovascular Exam Cardiovascular Exam: REGULAR RHYTHM, +S1, +S2. absent: Murmur - GI/Abdominal Exam GI & Abdominal Exam: Soft, Normal Bowel Sounds. absent: Tenderness - Rectal Exam Rectal Exam: NORMAL INSPECTION - Extremities Exam Extremities Exam: Full ROM, Normal Capillary Refill, Normal Inspection. absent : Joint Swelling, Pedal Edema - Back Exam Back Exam: NORMAL INSPECTION - Neurological Exam Neurological Exam: Alert, Awake, CN II-XII Intact, Normal Gait, Oriented x3 - Psychiatric Exam Psychiatric exam: Normal Affect, Normal Mood - Skin Skin Exam: Dry, Intact, Normal Color, Warm Assessment and Plan - Assessment and Plan (Free Text) Assessment: S/P PACEMAKER PLACEMENT Plan: NO FURTHER PULMONARY INTERVENTION FOR NOW MAY NEED BRONCHOSCOPIC EVAL OF AIRWAYS 6-8 WEEKS AFTER PACEMAKER PLACEMENT IF STABLE FROM THE CARDIAC VIEWPOINT AND XRAY FINDINGS PERSIST
--- NOTE | 2016-09-15 11:04 | RAD ---
HISTORY: POST IMPLANT COMPARISON: 09/10/2016 FINDINGS: LUNGS: Persistent mild blunting left CP angle could be due to chronic pleural thickening versus small effusion. . There appears to be mild biapical pleural thickening PLEURA: No pneumothorax apparent. CARDIOVASCULAR: Sternotomy wires and CABG clips again noted. . Heart remains mildly enlarged. Interval placement bipolar pacemaker OSSEOUS STRUCTURES: No significant abnormalities. VISUALIZED UPPER ABDOMEN: Note again made metallic clips left upper quadrant of the abdomen OTHER FINDINGS: None. IMPRESSION: Interval placement bipolar pacemaker. No evidence of pneumothorax. Persistent mild blunting left CP angle likely due to chronic pleural thickening. Status post operative CABG sequela as above. Mild biapical pleural thickening
--- NOTE | 2016-09-15 11:33 | RAD ---
Fluoroscopy 09/14/2016 History: Pacemaker insertion. Fluoroscopic guidance provided for pacemaker insertion. 874.5 seconds fluoroscopy time utilized during this procedure. Please refer to operative report for additional details Impression: Fluoroscopic guided pacemaker insertion as above.
[2016-09-15] MEDS: Lactated Ringer's 1,000 ML IV SCH (21:38)
--- NOTE | 2016-09-15 23:49 | CP.PCM.PN ---
Subjective - Date & Time of Evaluation Date of Evaluation: 09/15/16 Time of Evaluation: 16:15 Objective - Vital Signs/Intake and Output Vital Signs (last 24 hours): Temp Pulse Resp BP Pulse Ox 97.9 F 68 18 94/57 L 99 09/15/16 20:00 09/15/16 20:00 09/15/16 20:00 09/15/16 20:00 09/15/16 20:00 - Medications Medications: Current Medications Aspirin (Aspirin Chewable) 81 mg PO DAILY [facility] Last Admin: 09/15/16 08:33 Dose: 81 mg Atorvastatin Calcium (Lipitor) 10 mg PO DAILY [facility] Last Admin: 09/15/16 08:33 Dose: 10 mg Docusate Sodium (Colace) 100 mg PO BID [facility] Last Admin: 09/15/16 16:15 Dose: 100 mg Lactated Ringer's (Lactated Ringer's) 1,000 mls @ 40 mls/hr IV .Q24H [facility] Last Admin: 09/15/16 21:38 Dose: 40 mls/hr Lisinopril (Zestril) 2.5 mg PO DAILY [facility] Oxycodone/Acetaminophen (Percocet 5/325 Mg Tab) 1 tab PO Q4 PRN PRN Reason: Pain, moderate (4-7) Stop: 09/17/16 20:47 Last Admin: 09/15/16 11:07 Dose: 1 tab - Labs Labs: 09/14/16 14:05 09/14/16 14:05 PT 10.0 SECONDS (9.6-11.2) 09/14/16 14:05 INR 0.96 (0.92-1.08) 09/14/16 14:05 APTT 39.2 SECONDS (23.3-32.5) H 09/14/16 14:05
[2016-09-16 08:24] VITALS: RESP 18; O2SAT 100
[2016-09-16] MEDS ORDERED: Metoprolol Succinate 25 mg XL Tab PO SCH (11:39)
[2016-09-16 12:50] VITALS: BP 104/64; PULSE 61; TEMP 97.7
--- NOTE | 2016-09-16 23:44 | CP.PCM.DIS ---
Provider - Provider Date of Admission: 09/11/16 14:39 Attending physician: Jae Mckee MD Time Spent in preparation of Discharge (in minutes): 25 Diagnosis - Discharge Diagnosis (1) CAD (coronary artery disease) Status: Acute (2) Syncope Status: Acute Hospital Course - Lab Results Lab Results: Most Recent Lab Values WBC 6.2 K/uL (4.8-10.8) 09/14/16 14:05 RBC 3.72 Mil/uL (4.40-5.90) L 09/14/16 14:05 Hgb 12.3 g/dL (12.0-18.0) 09/14/16 14:05 Hct 36.0 % (35.0-51.0) 09/14/16 14:05 MCV 96.8 fl (80.0-94.0) H 09/14/16 14:05 MCH 33.1 pg (27.0-31.0) H 09/14/16 14:05 MCHC 34.2 g/dL (33.0-37.0) 09/14/16 14:05 RDW 13.7 % (11.5-14.5) 09/14/16 14:05 Plt Count 171 K/uL (130-400) 09/14/16 14:05 MPV 7.6 fl (7.2-11.7) 09/10/16 22:48 Neut % (Auto) 56.8 % (50.0-75.0) 09/10/16 22:48 Lymph % (Auto) 25.3 % (20.0-40.0) 09/10/16 22:48 Leake % (Auto) 8.4 % (0.0-10.0) 09/10/16 22:48 Eos % (Auto) 6.6 % (0.0-4.0) H 09/10/16 22:48 Baso % (Auto) 2.9 % (0.0-2.0) H 09/10/16 22:48 Neut # 4.0 K/uL (1.8-7.0) 09/10/16 22:48 Lymph # 1.8 K/uL (1.0-4.3) 09/10/16 22:48 Leake # 0.6 K/uL (0.0-0.8) 09/10/16 22:48 Eos # 0.5 K/uL (0.0-0.7) 09/10/16 22:48 Baso # 0.2 K/uL (0.0-0.2) 09/10/16 22:48 PT 10.0 SECONDS (9.6-11.2) 09/14/16 14:05 INR 0.96 (0.92-1.08) 09/14/16 14:05 APTT 39.2 SECONDS (23.3-32.5) H 09/14/16 14:05 Sodium 132 mmol/l (132-148) 09/14/16 14:05 Potassium 4.5 MMOL/L (3.6-5.0) 09/14/16 14:05 Chloride 100 mmol/L (98-107) 09/14/16 14:05 Carbon Dioxide 25 mmol/L (22-30) 09/14/16 14:05 Anion Gap 12 (10-20) 09/14/16 14:05 BUN 16 mg/dl (9-20) 09/14/16 14:05 Creatinine 0.8 mg/dL (0.8-1.5) 09/14/16 14:05 Est GFR ( Amer) > 60 09/14/16 14:05 Est GFR (Non-Af Amer) > 60 09/14/16 14:05 POC Glucose (mg/dL) 78 mg/dL (65-110) 09/10/16 22:35 Random Glucose 79 mg/dL (75-110) 09/14/16 14:05 Calcium 9.5 mg/dL (8.4-10.2) 09/14/16 14:05 Total Bilirubin 0.6 mg/dl (0.2-1.3) 09/10/16 22:48 AST 52 U/L (17-59) 09/10/16 22:48 ALT 35 U/L (21-72) 09/10/16 22:48 Alkaline Phosphatase 81 U/L (38-126) 09/10/16 22:48 Troponin I < 0.0120 ng/mL (0.00-0.120) 09/10/16 22:48 Total Protein 6.8 G/DL (6.3-8.2) 09/10/16 22:48 Albumin 3.7 g/dL (3.5-5.0) 09/10/16 22:48 Globulin 3.1 gm/dL (2.2-3.9) 09/10/16 22:48 Albumin/Globulin Ratio 1.2 (1.0-2.1) 09/10/16 22:48 Discharge Exam - Head Exam Head Exam: ATRAUMATIC, NORMAL INSPECTION, NORMOCEPHALIC Discharge Plan - Discharge Medications Prescriptions: Cephalexin [Keflex] 500 mg PO Q8 #9 cap - Follow Up Plan Condition: STABLE Disposition: HOME/ ROUTINE Instructions: Bradycardia (DC), Syncope (DC), Syncope (GEN), Weakness (GEN)
== END 2016-09-16 14:49 | disposition home or self-care (01) | DRG 244 ==
LOC: H.ER 21:53 → H.ERHOLD 09-11 00:40 → H.TEL 09-11 02:37 → OBSVTOIN 09-11 14:39
PROVIDERS: ADMIT Internal Medicine; ATTEND Internal Medicine
PROC: 02H63JZ Insertion of Pacemaker Lead into Right Atrium, Percutaneous Approach (ICD-10-PCS; 2016-09-14)
PROC: 02HK3JZ Insertion of Pacemaker Lead into Right Ventricle, Percutaneous Approach (ICD-10-PCS; 2016-09-14)
PROC: 0JH606Z Insertion of Pacemaker, Dual Chamber into Chest Subcutaneous Tissue and Fascia, Open Approach (ICD-10-PCS; principal; 2016-09-14 16:30)
DX: I49.5 Sick sinus syndrome (principal); J44.9 Chronic obstructive pulmonary disease, unspecified; I10 Essential (primary) hypertension; Z95.1 Presence of aortocoronary bypass graft; E78.00 Pure hypercholesterolemia, unspecified; I25.10 Atherosclerotic heart disease of native coronary artery without angina pectoris; J45.909 Unspecified asthma, uncomplicated; Z87.891 Personal history of nicotine dependence

== ENCOUNTER 2016-09-30 19:33 | Inpatient (IN) | payer MEDICARE ==
[2016-09-30 19:33] VITALS: BMI 18.1
[2016-09-30 19:44] VITALS: BP 103/65; RESP 18; TEMP 98; O2SAT 100
[2016-09-30 21:09] LABS: BASO # 0.2 K/uL (0.0-0.2); BASO % 2.1 % (0.0-2.0); EOS # 0.5 K/uL (0.0-0.7); EOS % 6.1 % (0.0-4.0); HEMATOCRIT 28.9 % (35.0-51.0); LYMPH # 1.6 K/uL (1.0-4.3); LYMPH % 19.2 % (20.0-40.0); MEAN CELL VOLUME 98.9 fl (80.0-94.0); MEAN CORPUSCULAR HEMOGLOBIN 33.1 pg (27.0-31.0); MEAN CORPUSCULAR HGB CONC 33.5 g/dL (33.0-37.0); MEAN PLATELET VOLUME 6.9 fl (7.2-11.7); MONO # 0.9 K/uL (0.0-0.8); MONO % 10.7 % (0.0-10.0); NEUT % 61.9 % (50.0-75.0); NRBC % 0.1 % (0.0-0.0); RED CELL DISTRIBUTION WIDTH 14.2 % (11.5-14.5); WHITE BLOOD COUNT 8.1 K/uL (4.8-10.8)
[2016-09-30 21:20] LABS: ALB/GLOB RATIO 1.4 (1.0-2.1); ALKALINE PHOSPHATASE 87 U/L (38-126); ALT/SGPT 41 U/L (21-72); AST/SGOT 42 U/L (17-59); BILIRUBIN,TOTAL 0.3 mg/dl (0.2-1.3); BLOOD UREA NITROGEN 27 mg/dl (9-20); CALCIUM 8.7 mg/dL (8.4-10.2); CARBON DIOXIDE 25 mmol/L (22-30); CHLORIDE 104 mmol/L (98-107); GFR AFRICAN-AMERICAN > 60; GLUCOSE,RANDOM 68 mg/dL (75-110); POTASSIUM 4.1 MMOL/L (3.6-5.0); SODIUM 139 mmol/l (132-148); TOTAL PROTEIN 6.8 G/DL (6.3-8.2)
[2016-09-30] MEDS ORDERED: Sodium Chloride 0.9% 50 ML IV ONE (21:21)
[2016-09-30] MEDS ORDERED: Iodixanol 320 MG/ML 100 ML BOTTLE IV ONE (21:21)
--- NOTE | 2016-09-30 21:22 | ED PDOC ---
"HPI: General Adult Time Seen by Provider: 09/30/16 19:51 Chief Complaint (Nursing): GI Problem Chief Complaint (Provider): Spitting Up Blood History Per: Patient History/Exam Limitations: no limitations Onset/Duration Of Symptoms: Hrs (2 hours ago) Have you had recent travel within the past 21 days to any of the following countries: [place], [place], [place] or [place]?: No Current Symptoms Are (Timing): Better Severity: Moderate Pain Scale Rating Of: 0 Additional Complaint(s): Carmen Amado is a 66 year old male, with a past medical history of coronary artery disease, who presents to the emergency department via EMS for the evaluation of 4 episodes of spitting up a small amount of blood, that the patient began experiencing 2 hours ago after he got out of the shower. Denies hemoptysis, hematemesis, shortness of breath, chest pain, a fever, hematochezia , or abdominal pain. PMD: none specified Past Medical History Reviewed: Historical Data, Nursing Documentation, Vital Signs Vital Signs: Last Vital Signs Temp 98 F 09/30/16 19:39 Pulse 61 09/30/16 23:09 Resp 18 09/30/16 19:39 BP 103/65 09/30/16 19:39 Pulse Ox 100 09/30/16 23:09 - Medical History PMH: Asthma, CAD, COPD, Emphysema Denies: Chronic Kidney Disease - Surgical History Surgical History: CABG (x3), Pacemaker - Family History Family History: States: No Known Family Hx - Social History Current smoker - smoking cessation education provided: No Ex-Smoker (has not smoked in the last 12 months): Yes Alcohol: None Drugs: Denies - Home Medications Home Medications: Ambulatory Orders Medication Instructions Recorded No Known Home Med 09/30/16 - Allergies Allergies/Adverse Reactions: Allergies Allergy/AdvReac Type Severity Reaction Status Date / Time No Known Allergies Allergy Verified 09/10/16 21:54 Review of Systems ROS Statement: Except As Marked, All Systems Reviewed And Found Negative Constitutional: Negative for: Fever Cardiovascular: Negative for: Chest Pain Respiratory: Negative for: Shortness of Breath, Hemoptysis Gastrointestinal: Negative for: Abdominal Pain, Hematochezia, Hematemesis Physical Exam - Reviewed Nursing Documentation Reviewed: Yes Vital Signs Reviewed: Yes - Physical Exam Appears: Positive for: Well, Non-toxic, No Acute Distress Head Exam: Positive for: ATRAUMATIC, NORMOCEPHALIC Skin: Positive for: Normal Color, Warm, Dry ENT: Positive for: Normal ENT Inspection. Negative for: Pharyngeal Erythema, Tonsillar Exudate, Tonsillar Swelling Cardiovascular/Chest: Positive for: Regular Rate, Rhythm, Other (L-sided chest wall implant). Negative for: Murmur Respiratory: Positive for: Normal Breath Sounds. Negative for: Respiratory Distress Gastrointestinal/Abdominal: Positive for: Normal Exam, Soft. Negative for: Tenderness Back: Positive for: Normal Inspection. Negative for: L CVA Tenderness, R CVA Tenderness Extremity: Positive for: Normal ROM. Negative for: Tenderness, Swelling Neurologic/Psych: Positive for: Alert, Oriented - Laboratory Results Result Diagrams: 09/30/16 21:04 09/30/16 21:04 - ECG ECG: Positive for: Interpreted By Me, Viewed By Me ECG Rhythm: Positive for: Normal ST Segment, Sinus Rhythm, Atrial Paced, Nonspecific Changes. Negative for: Normal QRS Rate: 61 O2 Sat by Pulse Oximetry: 100 (RA) Pulse Ox Interpretation: Normal Medical Decision Making Medical Decision Makin:51 Initial Impression: Spitting up blood Differential Diagnoses include, but are not limited to, hematemesis versus hemoptysis, r/o other ENT sources of bleeding. Initial Plan: * CT Angio Chest, Pulmonary Embolism Protocol * EKG * Type and Screen * CBC * CMP * PT/PTT * Reevaluation EXAM DATE/TIME: 09/30/2016 8:27 PM COMPARISON: CT - ANGIO CHEST PE PROTOCOL 08/15/2016 8:17:55 PM FINDINGS: Pacemaker. Sternotomy wires. Stable cardiomegaly. Again seen is asymmetric lung volumes, greater on the right. Again seen are bilateral centrilobular emphysematous changes. Multiple mediastinal lymph nodes similar to prior. CARMEN AMADO | Final Radiology Report CONFIDENTIALITY STATEMENT This report is intended only for use by the referring physician, and only in accordance with law. If you received this in error, call [phone]. Page 2 of 2 Again seen is a round soft tissue structure in the right hilar region measuring 1.5 cm in diameter on comparable images (series 5 image 89 current, series 4 image 110 prior). Again seen is a small amount of left pleural fluid/thickening with left pleural calcifications. Again seen is left lower lung consolidation. No pulmonary embolism. No aortic dissection or aneurysm. Gallstones. The esophagus is decompressed making accurate evaluation difficult however please note that mild thickening was discussed in prior report for which followup was recommended. Mild bilateral adrenal gland thickening. Mild fullness of the left renal pelvis less apparent than on prior. Bilateral perinephric stranding. Correlation with urinalysis may be helpful. Degenerative changes osseous structures. IMPRESSION: Findings as discussed above, none of which are new since prior study. Prominent right hilar lymph node, unchanged in size, however given the short time interval, continued followup is recommended to assess for stability. Left lower lung consolidation. Inflammatory, infectious, atelectatic and neoplastic etiologies would all be possible. Left pleural fluid/thickening with calcification. Cholelithiasis. Scribe Attestation: Documented by Hiren Carroll, acting as a scribe for Jamey Huerta MD. Provider Scribe Attestation: All medical record entries made by the Scribe were at my direction and personally dictated by me. I have reviewed the chart and agree that the record accurately reflects my personal performance of the history, physical exam, medical decision making, and the department course for this patient. I have also personally directed, reviewed, and agree with the discharge instructions and disposition. Disposition - Clinical Impression Clinical Impression: Anemia, Hemoptysis, unspecified, Hematemesis - Patient ED Disposition Is Patient to be Admitted: Yes Doctor Will See Patient In The: Hospital Counseled Patient/Family Regarding: Studies Performed, Diagnosis - Disposition Disposition Time: 23:00 Condition: FAIR - Pt Status Changed To: Hospital Disposition Of: Observation - POA Present On Arrival: None"
[2016-09-30 21:35] LABS: PARTIAL THROMBOPLASTIN TIME 32.4 SECONDS (23.3-32.5)
--- NOTE | 2016-09-30 22:37 | CT ---
EXAM: CT Angiography Chest With Intravenous Contrast CLINICAL HISTORY: 66 years old, male; Signs and symptoms; Other: Coughing up blood; Prior surgery; Surgery date: 6+ months; Surgery type: 3-4 yrs ago bypass surgery. About 1 month ago, pacemaker; Additional info: Chest pain TECHNIQUE: Axial computed tomographic angiography images of the chest with intravenous contrast using pulmonary embolism protocol. This CT exam was performed using one or more of the following dose reduction techniques: automated exposure control, adjustment of the mA and/or kV according to patient size, and/or use of iterative reconstruction technique. MIP reconstructed images were created and reviewed. Coronal and sagittal reformatted images were created and reviewed. CONTRAST: 90 mL of administered intravenously. EXAM DATE/TIME: 09/30/2016 8:27 PM COMPARISON: CT - ANGIO CHEST PE PROTOCOL 08/15/2016 8:17:55 PM FINDINGS: Pacemaker. Sternotomy wires. Stable cardiomegaly. Again seen is asymmetric lung volumes, greater on the right. Again seen are bilateral centrilobular emphysematous changes. Multiple mediastinal lymph nodes similar to prior. Again seen is a round soft tissue structure in the right hilar region measuring 1.5 cm in diameter on comparable images (series 5 image 89 current, series 4 image 110 prior). Again seen is a small amount of left pleural fluid/thickening with left pleural calcifications. Again seen is left lower lung consolidation. No pulmonary embolism. No aortic dissection or aneurysm. Gallstones. The esophagus is decompressed making accurate evaluation difficult however please note that mild thickening was discussed in prior report for which followup was recommended. Mild bilateral adrenal gland thickening. Mild fullness of the left renal pelvis less apparent than on prior. Bilateral perinephric stranding. Correlation with urinalysis may be helpful. Degenerative changes osseous structures. IMPRESSION: Findings as discussed above, none of which are new since prior study. Prominent right hilar lymph node, unchanged in size, however given the short time interval, continued followup is recommended to assess for stability. Left lower lung consolidation. Inflammatory, infectious, atelectatic and neoplastic etiologies would all be possible. Left pleural fluid/thickening with calcification. Cholelithiasis.
[2016-09-30 23:09] VITALS: PULSE 61
[2016-09-30] MEDS ORDERED: Sterile Water 10 ML IV ONE (23:53)
--- NOTE | 2016-10-01 15:05 | CARD ---
APPROVED REPORT EKG Measurement Heart [id number] <Conclusion> Atrial-paced rhythm with prolonged AV conduction Cannot rule out Inferior infarct, age undetermined Anterior infarct, age undetermined ST & T wave abnormality, consider lateral ischemia Abnormal ECG
--- NOTE | 2016-10-02 14:48 | CP.PCM.HP ---
History of Present Illness - History of Present Illness History of Present Illness: CC: Cough with blood. 66y/o M, brought to ER [facility], [place] by EMS due to spitting up blood on DOA with no relief. Pt seen in ER unit c/o of cough, productive, scanty amount of yellowish phlegms , for the pass 3-4 days [employer]. On DOA, Pt presents with cough associated to 5 episodes of spitting bright blood at home chills, no fever. Worsening factor: Hx of Smoker 1 PPD since he was young to 3-4 prior to this admission, stated by Pt. Last admission to [facility] was on 09/11/16 to 09/16/16, Tx for Syncope, CAD, HTN with a permanent pacemaker implantation opn 09/14/16. On discharge medication Rx were given and he stated that he trowed in the garbage because he didn't have money to buy it. Pt denied: Fever, Hematesis, Hematochezia, n/v/d, abdominal pain, urinary symptoms, SOB, CP, weakness, syncope, numbness, sick contact, recent travel. PMHx: PNA, COPD, Emphysema, Epistaxis, CABG with coronary stent x3, about 4 yrs ago, recent permanent Pacemaker implant on 09/14/16, Syncope, HTN, Hypercholesterolemia, Hx of falls. EKG showed: Atrial pace rhythm with prolonged AV conduction, cannot rule out inferior and anterior infarcts, age undetermined. Chest CT shows: Prominent R Hilar Lymph node, Left lower lung consolidation, inflammatory infectious, atelectatic and neoplastic etiology would all be possible. Pleural fluid/thickening with calcification. Present on Admission - Present on Admission Any Indicators Present on Admission: No Review of Systems - Constitutional Constitutional: Other (chills, denied fever.) - EENT Eyes: Other (negative) Ears: Other (negative) Nose/Mouth/Throat: Other (negative) - Cardiovascular Cardiovascular: Other (negative) - Respiratory Respiratory: Cough, Hemoptysis, Change in Mucous Color - Gastrointestinal Gastrointestinal: Other (negative) - Genitourinary Genitourinary: Other (negative) - Musculoskeletal Musculoskeletal: Other (negative) - Integumentary Integumentary: Other (negative) - Neurological Neurological: Other (negative ) - Psychiatric Psychiatric: Other (negative) - Endocrine Endocrine: Other (negative) - Hematologic/Lymphatic Hematologic: Other (negative) Past Patient History - Past Medical History & Family History Past Medical History?: Yes Pertinent Family History: Unknown - Past Social History Smoking Status: Former Smoker Alcohol: None Drugs: Denies Home Situation {Lives}: With Family - CARDIAC Hx Cardiac Disorders: Yes Hx Hypercholesterolemia: Yes Hx Hypertension: Yes Hx Pacemaker: Yes - PULMONARY Hx Respiratory Disorders: Yes Hx Asthma: Yes Hx Bronchitis: Yes Hx Chronic Obstructive Pulmonary Disease (COPD): Yes Hx Emphysema: Yes - NEUROLOGICAL Hx Neurological Disorder: No - HEENT Hx HEENT Problems: Yes - RENAL Hx Chronic Kidney Disease: No - ENDOCRINE/METABOLIC Hx Endocrine Disorders: No - HEMATOLOGICAL/ONCOLOGICAL Hx Blood Disorders: No - INTEGUMENTARY Hx Dermatological Problems: No - MUSCULOSKELETAL/RHEUMATOLOGICAL Hx Falls: Yes - GASTROINTESTINAL Hx Gastrointestinal Disorders: No - GENITOURINARY/GYNECOLOGICAL Hx Genitourinary Disorders: No - PSYCHIATRIC Hx Psychophysiologic Disorder: No Hx Substance Use: No - SURGICAL HISTORY Hx Surgeries: Yes Hx Coronary Artery Bypass Graft: Yes (x3) Hx Coronary Stent: Yes (x3) Hx Open Heart Surgery: Yes - ANESTHESIA Hx Anesthesia: Yes Hx Anesthesia Reactions: No Hx Malignant Hyperthermia: No Meds Allergies/Adverse Reactions: Allergies Allergy/AdvReac Type Severity Reaction Status Date / Time No Known Allergies Allergy Verified 09/10/16 21:54 Physical Exam - Constitutional Appears: Well, No Acute Distress - Head Exam Head Exam: NORMAL INSPECTION - Eye Exam Eye Exam: EOMI, PERRL - ENT Exam ENT Exam: Normal Exam - Neck Exam Neck exam: Positive for: Normal Inspection - Respiratory Exam Respiratory Exam: Clear to Auscultation Bilateral - Cardiovascular Exam Cardiovascular Exam: REGULAR RHYTHM - GI/Abdominal Exam GI & Abdominal Exam: Normal Bowel Sounds, Soft - Extremities Exam Extremities exam: Positive for: normal inspection - Back Exam Back exam: NORMAL INSPECTION - Neurological Exam Neurological exam: Alert, CN II-XII Intact, Oriented x3, Reflexes Normal - Psychiatric Exam Psychiatric exam: Normal Mood - Skin Skin Exam: Dry, Intact, Normal Color, Warm Results - Vital Signs Recent Vital Signs: Last Vital Signs Temp 98 F 09/30/16 19:39 Pulse 61 09/30/16 23:46 Resp 18 09/30/16 19:39 BP 103/65 09/30/16 19:39 Pulse Ox 100 09/30/16 23:46 reviewed J.P. - Labs Result Diagrams: 09/30/16 21:04 09/30/16 21:04 Labs: reviewed Uzma - EKG Data EKG comments: reviewed IsidoroPStevie - Imaging and Cardiology CT scan - chest Status: Report reviewed by me (Uzma) Assessment & Plan (1) Hemoptysis, unspecified Status: Acute Priority: High (2) Lung infiltrate Status: Acute Priority: High Comment: Left lower lobe Lung infiltrate, r/o PNA, r/o Ca. (3) Anemia Status: Acute Priority: High (4) CAD (coronary artery disease) Status: Chronic Priority: Medium (5) HTN (hypertension) Status: Acute Priority: Medium (6) S/P placement of cardiac pacemaker Status: Acute - Assessment and Plan (Free Text) Plan: Rocephin, Zithromax, Duoneb and rest of Tx, f/u Sputum C-S, May need Bronchoscopy. - Date & Time Date: 10/01/16 Time: 09:30
== END 2016-10-01 13:40 | disposition left against medical advice (07) | DRG 204 ==
LOC: H.ER 19:33 → H.ERHOLD 23:26
PROVIDERS: ADMIT Internal Medicine Pulmonary Disease; ATTEND Internal Medicine Pulmonary Disease
DX: R04.2 Hemoptysis (principal); K92.0 Hematemesis; J44.9 Chronic obstructive pulmonary disease, unspecified; D64.9 Anemia, unspecified; J45.909 Unspecified asthma, uncomplicated; I25.10 Atherosclerotic heart disease of native coronary artery without angina pectoris; Z95.1 Presence of aortocoronary bypass graft; Z95.0 Presence of cardiac pacemaker; Z87.891 Personal history of nicotine dependence

== ENCOUNTER 2016-10-21 10:03 | Inpatient (IN) | payer MEDICARE ==
[2016-10-21 10:03] VITALS: BMI 18.1
--- NOTE | 2016-10-21 10:23 | ED PDOC ---
HPI: SOB/CHF/COPD Time Seen by Provider: 10/21/16 10:09 Chief Complaint (Provider): Short of breath History Per: Patient History/Exam Limitations: no limitations Onset/Duration Of Symptoms: Days Current Symptoms Are (Timing): Still Present Initiating Event: Out Of Medications Associated Symptoms: Productive Cough. denies: Chest Pain, Ankle/Leg Swelling Additional History Per: Patient Additional Complaint(s): The pt. is a 66yo male, PMHx of CABG x3, pacemaker placement, HTN, Bronchitis, COPD, CAD, Emphysema (based on previous records) presents to the ED for evaluation of shortness of breath for the past 2-3 days. Pt reports associated cough with white phlegm, rhinorrhea, nasal congestion. He denies any chest pain , nausea, vomiting or diarrhea. Pt reports he has not been taking his maintenance medications for the past year because he is unable to afford it. Pt denies following up with a primary care provider as well. Currently offers no additional medical complaints. No numbness, tingles. No dizziness. No headache. No abd pain. No weakness. PCP: None Past Medical History Reviewed: Historical Data, Nursing Documentation, Vital Signs Vital Signs: Last Vital Signs Temp 98.0 F 10/21/16 10:12 Pulse 62 10/21/16 11:44 Resp 18 10/21/16 11:44 BP 152/65 H 10/21/16 11:44 Pulse Ox 100 10/21/16 12:07 - Medical History PMH: Asthma, Bronchitis, CAD, COPD, Emphysema, HTN, Hypercholesterolemia Denies: Chronic Kidney Disease - Surgical History Surgical History: CABG (x3), Coronary Stent (x3), Pacemaker - Family History Family History: States: Unknown Family Hx - Social History Current smoker - smoking cessation education provided: No Alcohol: None Drugs: Denies - Home Medications Home Medications: Ambulatory Orders Medication Instructions Recorded Aspirin [Ecotrin] 162 mg PO DAILY 10/21/16 - Allergies Allergies/Adverse Reactions: Allergies Allergy/AdvReac Type Severity Reaction Status Date / Time No Known Allergies Allergy Verified 09/10/16 21:54 Review of Systems ROS Statement: Except As Marked, All Systems Reviewed And Found Negative ENT: Positive for: Nose Discharge, Nose Congestion Cardiovascular: Negative for: Chest Pain Respiratory: Positive for: Cough, Shortness of Breath, Sputum (white) Gastrointestinal: Negative for: Nausea, Vomiting, Diarrhea Physical Exam - Reviewed Nursing Documentation Reviewed: Yes Vital Signs Reviewed: Yes - Physical Exam Appears: Positive for: Well, Non-toxic, No Acute Distress Head Exam: Positive for: ATRAUMATIC, NORMAL INSPECTION, NORMOCEPHALIC Skin: Positive for: Normal Color, Warm, DRY Eye Exam: Positive for: EOMI, Normal appearance, PERRL ENT: Positive for: Nasal Congestion. Negative for: Pharyngeal Erythema, Tonsillar Exudate Neck: Positive for: Normal, Painless ROM, Supple Cardiovascular/Chest: Positive for: Regular Rate, Rhythm Respiratory: Positive for: Normal Breath Sounds (mild coarse breath sounds in bases b/l). Negative for: Accessory Muscle Use, Respiratory Distress Gastrointestinal/Abdominal: Positive for: Soft. Negative for: Tenderness Back: Positive for: Normal Inspection. Negative for: L CVA Tenderness, R CVA Tenderness Extremity: Positive for: Normal ROM. Negative for: Tenderness, Pedal Edema, Calf Tenderness, Swelling Neurologic/Psych: Positive for: Alert, sack lifter II-XII, Oriented. Negative for: Motor/Sensory Deficits - Laboratory Results Result Diagrams: 10/21/16 10:30 10/21/16 11:13 Interpretation Of Abn Labs: 909 bnp - ECG ECG: Positive for: Interpreted By Me, Viewed By Me Interpretation Of Abn EKG: paced similar to old O2 Sat by Pulse Oximetry: 100 (RA) Pulse Ox Interpretation: Normal - Radiology X-Ray: Interpreted by Me, Viewed By Me X-Ray Interpretation: Cardiomegaly (? vascular congestion) - Progress ED Course And Treament: 1215: Noncompliant pt. Will tx as exacerbation of copd and chf. Spoke with Dr. Melgar. Will admit. Will give further orders when pt. reaches floor. AAOx3. Pain free. Tolerated PO. Medical Decision Making Medical Decision Making: Time: 1020 Impression: Shortness of breath Plan: * Bloodwork * CXR * IV Fluids * Albuterol * Reassess Scribe Attestation: Documented by Rupal Lopes acting as a scribe for Shawn Anderson MD. Provider Attestation: All medical record entries made by the Scribe were at my direction and personally dictated by me. I have reviewed the chart and agree that the record accurately reflects my personal performance of the history, physical exam, medical decision making, and the department course for this patient. I have also personally directed, reviewed, and agree with the discharge instructions and disposition. Disposition - Clinical Impression Clinical Impression: COPD exacerbation, CHF exacerbation - Patient ED Disposition Is Patient to be Admitted: Yes Counseled Patient/Family Regarding: Studies Performed, Diagnosis - Disposition Disposition Time: 12:17 Condition: FAIR - Pt Status Changed To: Hospital Disposition Of: Observation - POA Present On Arrival: None
[2016-10-21 10:30] VITALS: RESP 18
[2016-10-21] MEDS ORDERED: Albuterol-Ipratrop 3 mg / 0.5 (3 ml) UD INH STA (10:38)
[2016-10-21] MEDS ORDERED: Albuterol-Ipratrop 3 mg / 0.5 (3 ml) UD IH STA (10:38)
[2016-10-21] MEDS ORDERED: Sodium Chloride 0.9% 500 ML IV SCH (10:45)
[2016-10-21 11:02] LABS: ABG ALLEN TEST YES; ARTERIAL BLOOD GAS HCO3 26.2 mmol/L (21-28); ARTERIAL BLOOD GAS PH 7.43 (7.35-7.45); ARTERIAL BLOOD GAS PO2 213 mm/Hg (80-100)
[2016-10-21 11:12] LABS: BASO # 0.2 K/uL (0.0-0.2); BASO % 2.6 % (0.0-2.0); EOS # 0.5 K/uL (0.0-0.7); EOS % 7.5 % (0.0-4.0); HEMATOCRIT 38.8 % (35.0-51.0); LYMPH # 1.2 K/uL (1.0-4.3); MEAN CELL VOLUME 97.7 fl (80.0-94.0); MEAN CORPUSCULAR HEMOGLOBIN 32.8 pg (27.0-31.0); MEAN CORPUSCULAR HGB CONC 33.5 g/dL (33.0-37.0); MEAN PLATELET VOLUME 7.8 fl (7.2-11.7); MONO # 0.5 K/uL (0.0-0.8); MONO % 7.7 % (0.0-10.0); NEUT # 3.8 K/uL (1.8-7.0); NEUT % 62.2 % (50.0-75.0); NRBC % 0.1 % (0.0-0.0); RED CELL DISTRIBUTION WIDTH 13.5 % (11.5-14.5); WHITE BLOOD COUNT 6.1 K/uL (4.8-10.8)
[2016-10-21 11:25] LABS: PARTIAL THROMBOPLASTIN TIME 36.8 Seconds (25.6-37.1)
[2016-10-21 11:39] LABS: ALB/GLOB RATIO 1.4 (1.0-2.1); ALKALINE PHOSPHATASE 89 U/L (38-126); ALT/SGPT 34 U/L (21-72); AST/SGOT 36 U/L (17-59); BILIRUBIN,TOTAL 0.3 mg/dl (0.2-1.3); BLOOD UREA NITROGEN 18 mg/dl (9-20); CARBON DIOXIDE 27 mmol/L (22-30); CHLORIDE 105 mmol/L (98-107); GFR AFRICAN-AMERICAN > 60; GLUCOSE,RANDOM 81 mg/dL (75-110); MAGNESIUM 2.2 MG/DL (1.6-2.3); PHOSPHOROUS 3.6 mg/dl (2.5-4.5); POTASSIUM 4.1 MMOL/L (3.6-5.0); SODIUM 140 mmol/l (132-148)
--- NOTE | 2016-10-21 12:24 | RAD ---
HISTORY: Sepsis Patient COMPARISON: Chest x-ray performed 09/14/16, CTA chest PE protocol performed 09/30/16 TECHNIQUE: Chest, one view. FINDINGS: LUNGS: Biapical pleural thickening. No focal consolidation. Increased lucencies especially within the bilateral upper lung becerra compatible with underlying emphysema. Flattening of the left hemidiaphragm consistent with hyperinflation. Please note that chest x-ray has limited sensitivity for the detection of pulmonary masses. PLEURA: Persistent blunting of the left costophrenic angle likely related to chronic pleural thickening. No significant pleural effusion identified. No definite pneumothorax. CARDIOVASCULAR: Median sternotomy wires with evidence of CABG. Cardiomegaly. Dual lead left-sided pacemaker. OSSEOUS STRUCTURES: Osseous demineralization. Degenerative changes of the spine and shoulders. VISUALIZED UPPER ABDOMEN: Unremarkable. OTHER FINDINGS: None. IMPRESSION: Findings consistent with COPD/ emphysema. Biapical pleural thickening. Persistent blunting of the left costophrenic angle likely related to chronic pleural thickening. Cardiomegaly. Left-sided pacemaker.
[2016-10-21 13:17] LABS: PARTIAL THROMBOPLASTIN TIME 27.1 Seconds (25.6-37.1)
[2016-10-21] MEDS ORDERED: Albuterol-Ipratrop 3 mg / 0.5 (3 ml) UD INH PRN (17:04)
[2016-10-22 04:48] VITALS: PULSE 61
[2016-10-22 05:45] LABS: HEMATOCRIT 34.4 % (35.0-51.0); MEAN CELL VOLUME 97.8 fl (80.0-94.0); MEAN CORPUSCULAR HEMOGLOBIN 32.5 pg (27.0-31.0); MEAN CORPUSCULAR HGB CONC 33.2 g/dL (33.0-37.0); RED CELL DISTRIBUTION WIDTH 13.4 % (11.5-14.5); WHITE BLOOD COUNT 7.4 K/uL (4.8-10.8)
[2016-10-22 08:10] LABS: ALB/GLOB RATIO 1.3 (1.0-2.1); ALKALINE PHOSPHATASE 87 U/L (38-126); ALT/SGPT 31 U/L (21-72); AST/SGOT 45 U/L (17-59); BILIRUBIN,TOTAL 0.3 mg/dl (0.2-1.3); BLOOD UREA NITROGEN 19 mg/dl (9-20); CALCIUM 9.3 mg/dL (8.4-10.2); CARBON DIOXIDE 22 mmol/L (22-30); CHLORIDE 105 mmol/L (98-107); GFR AFRICAN-AMERICAN > 60; GLUCOSE,RANDOM 109 mg/dL (75-110); POTASSIUM 4.5 MMOL/L (3.6-5.0); SODIUM 137 mmol/l (132-148); TOTAL PROTEIN 6.9 G/DL (6.3-8.2)
[2016-10-22] MEDS ORDERED: Azithromycin 500 MG in Sodium Chloride 0.9% 250 ML IVPB SCH (09:00)
[2016-10-22] MEDS ORDERED: methylPREDNISolone 40 MG in Sodium Chloride 0.9% 50 ML IVPB SCH ×2 (09:00→17:00)
[2016-10-22] MEDS ORDERED: Enoxaparin 40 mg Syringe SC SCH (09:00)
[2016-10-22] MEDS ORDERED: Fluticasone-Salmeterol 250-50mcg Diskus IH SCH (09:15)
[2016-10-22] MEDS ORDERED: Tiotropium 18 mcg Cap For Inhalation INH SCH (09:15)
--- NOTE | 2016-10-22 10:13 | CP.PCM.CON ---
History of Present Illness - History of Present Illness History of Present Illness: Full Note Dictated CHF (LV, Syst, Chr) Stable CAD (S/P CABG) COPD Pt can not afford his meds and has not taken them since his discharge Will arrange Soc [facility] to see him (Done) Past Patient History - Past Medical History & Family History Past Medical History?: Yes - Past Social History Smoking Status: Never Smoked - CARDIAC Hx Cardiac Disorders: Yes Hx Hypercholesterolemia: Yes Hx Hypertension: Yes Hx Pacemaker: Yes - PULMONARY Hx Respiratory Disorders: Yes Hx Asthma: Yes Hx Bronchitis: Yes Hx Chronic Obstructive Pulmonary Disease (COPD): Yes Hx Emphysema: Yes - NEUROLOGICAL Hx Neurological Disorder: No - HEENT Hx HEENT Problems: Yes - RENAL Hx Chronic Kidney Disease: No - ENDOCRINE/METABOLIC Hx Endocrine Disorders: No - HEMATOLOGICAL/ONCOLOGICAL Hx Blood Disorders: No - INTEGUMENTARY Hx Dermatological Problems: No - MUSCULOSKELETAL/RHEUMATOLOGICAL Hx Musculoskeletal Disorders: Yes Hx Falls: Yes ("Once a long time ago") - GASTROINTESTINAL Hx Gastrointestinal Disorders: No - GENITOURINARY/GYNECOLOGICAL Hx Genitourinary Disorders: No - PSYCHIATRIC Hx Psychophysiologic Disorder: No Hx Substance Use: No - SURGICAL HISTORY Hx Surgeries: Yes Hx Coronary Artery Bypass Graft: Yes (x3) Hx Coronary Stent: Yes (x3) - ANESTHESIA Hx Anesthesia: Yes Hx Anesthesia Reactions: No Hx Malignant Hyperthermia: No Meds Allergies/Adverse Reactions: Allergies Allergy/AdvReac Type Severity Reaction Status Date / Time No Known Allergies Allergy Verified 09/10/16 21:54 - Medications Medications: Current Medications Albuterol/Ipratropium (Duoneb 3 Mg/0.5 Mg (3 Ml) Ud) 3 ml INH RQ6 PRN PRN Reason: Shortness of Breath Aspirin (Aspirin Chewable) 81 mg PO DAILY [facility] Enoxaparin Sodium (Lovenox) 40 mg SC DAILY FRANCISCO J PRN Reason: Protocol Furosemide (Lasix) 20 mg IVP DAILY [facility] Azithromycin 500 mg/ Sodium (Chloride) 250 mls @ 250 mls/hr IVPB DAILY [facility] Methylprednisolone 40 mg/ (Sodium Chloride) 50 mls @ 100 mls/hr IVPB BID [facility] Fluticasone/Salmeterol (Advair Diskus 250/50) 1 puff IH Q12 FRANCISCO J Tiotropium [place] (Spiriva) 18 mcg INH DAILY [facility] Results - Vital Signs Recent Vital Signs: Last Vital Signs Temp 97.8 F 10/22/16 07:59 Pulse 61 10/22/16 07:59 Resp 18 10/22/16 07:59 BP 118/75 10/22/16 07:59 Pulse Ox 98 10/22/16 07:59 - Labs Result Diagrams: 10/22/16 05:00 10/22/16 05:00
--- NOTE | 2016-10-22 10:36 | CON ---
DATE: 10/22/2016 He is hospitalized under Dr. Melgar's care in room 405, bed 1. HISTORY OF PRESENT ILLNESS: This 66-year-old man came into the hospital complaining of severe shortn ess of breath and general fatigue. He indicates that he cannot afford any medications and has to swathi e a month on $25 and he cannot afford to eat or take his medicines. He is back in the hospital after a recent discharge from this institution. He gives history of having required coronary bypass graft surgery approximately 3 years back at [facility] where he was sent from this [facility]. He denies having prior cardiac illness or having suffered a myocardial infarction. He is an ex -smoker with COPD and denies history of diabetes or hypertension and again, has not taken any of his medications when he was sent home because he could not afford them. In fact, he cannot afford any fo od. Review of his prior hospitalizations show that he required coronary angiography approximately 2 months back and was found to have multivessel coronary artery disease with patent coronary grafts and a depressed left ventricular systolic function. Review of his echocardiogram from recent hospitaliz ation shows segmental wall motion abnormalities with depressed left ventricular systolic function. PHYSICAL EXAMINATION: GENERAL: Shows an elderly man who denies any chest pain, but admits to significant dyspnea on minima l exertion. VITAL SIGNS: Has a heart rate of 82 beats per minute, regular, and a blood pressure of 130/70 mmHg. NECK: His jugular venous pressure was elevated. EXTREMITIES: There was mild pitting edema of both lower extremities. The pedal pulses were extremel y feeble. Extremities were warm, nailbeds are pink. There was no central or peripheral cyanosis. T here was no clubbing. CHEST: A scar of sternotomy was evident. Scattered rales were present. HEART: [place] was in the sixth space, slightly heaving in character. The first heart sound was muffle d. The second heart sound was normal. There was an apical systolic murmur of mitral regurgitation. No S3 gallop was audible. DIAGNOSTIC DATA: His electrocardiogram showed sinus rhythm with evidence of an old inferior and ante rolateral wall myocardial infarction with Q-waves in lead II, III, aVF as well as V3, V4, V5, and V6. LABORATORY DATA: Noted. IMPRESSION AND PLAN: At this time is congestive cardiac failure secondary to coronary artery disease status post coronary bypass graft surgery, stable coronary artery disease with chronic obstructive p ulmonary disease. 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 He has been started on a be ta jean-paul and an JT inhibitor along with diuretics. Parker Moore MD cc: 23 TT: 10/22/2016 10:36:22 Confirmation # [id number] Dictation # [id number]
[2016-10-22 12:18] VITALS: BP 95/59; TEMP 97.4; O2SAT 100
--- NOTE | 2016-10-22 12:27 | CT ---
PROCEDURE: CT Chest without contrast HISTORY: CHf exacerbation COMPARISON: 09/30/2016 CT angiogram thorax TECHNIQUE: Contiguous axial images were obtained through the chest without intravenous contrast enhancement. Sagittal and coronal reconstructions were performed. Radiation dose (DLP): 370.62 mGy-cm. This CT exam was performed using one or more of the following dose reduction techniques: Automated exposure control, adjustment of the mA and/or kV according to patient size, and/or use of iterative reconstruction technique. FINDINGS: LUNGS: Persistent peripheral infiltrates lateral segment left lower lobe. Stable volume loss left lung, compensatory hyperinflation right lung. Underlying centrilobular emphysematous change. MEDIASTINUM: Unremarkable thoracic aorta. No aneurysm. Normal sized heart. Main pulmonary artery unremarkable. No vascular congestion. No lymphadenopathy. PLEURA: No pleural fluid. No pneumothorax. BONES: No fracture. No destructive lesion. UPPER ABDOMEN: Cholelithiasis without CT evidence of acute cholecystitis. OTHER FINDINGS: Incidental Finding(s): Postoperative changes related to sternotomy. Position/ configuration of pacemaker IMPRESSION: No acute findings related to/accounting for the clinical presentation. No significant interval change compared to the prior examination(s).
--- NOTE | 2016-10-22 21:08 | CP.PCM.HP ---
Past Patient History - Past Medical History & Family History Past Medical History?: Yes - Past Social History Smoking Status: Never Smoked - CARDIAC Hx Cardiac Disorders: Yes Hx Hypercholesterolemia: Yes Hx Hypertension: Yes Hx Pacemaker: Yes - PULMONARY Hx Respiratory Disorders: Yes Hx Asthma: Yes Hx Bronchitis: Yes Hx Chronic Obstructive Pulmonary Disease (COPD): Yes Hx Emphysema: Yes - NEUROLOGICAL Hx Neurological Disorder: No - HEENT Hx HEENT Problems: Yes - RENAL Hx Chronic Kidney Disease: No - ENDOCRINE/METABOLIC Hx Endocrine Disorders: No - HEMATOLOGICAL/ONCOLOGICAL Hx Blood Disorders: No - INTEGUMENTARY Hx Dermatological Problems: No - MUSCULOSKELETAL/RHEUMATOLOGICAL Hx Musculoskeletal Disorders: Yes Hx Falls: Yes ("Once a long time ago") - GASTROINTESTINAL Hx Gastrointestinal Disorders: No - GENITOURINARY/GYNECOLOGICAL Hx Genitourinary Disorders: No - PSYCHIATRIC Hx Psychophysiologic Disorder: No Hx Substance Use: No - SURGICAL HISTORY Hx Surgeries: Yes Hx Coronary Artery Bypass Graft: Yes (x3) Hx Coronary Stent: Yes (x3) - ANESTHESIA Hx Anesthesia: Yes Hx Anesthesia Reactions: No Hx Malignant Hyperthermia: No Meds Allergies/Adverse Reactions: Allergies Allergy/AdvReac Type Severity Reaction Status Date / Time No Known Allergies Allergy Verified 09/10/16 21:54 Results - Vital Signs Recent Vital Signs: Last Vital Signs Temp 97.4 F L 10/22/16 12:18 Pulse 61 10/22/16 12:18 Resp 18 10/22/16 12:18 BP 95/59 L 10/22/16 12:18 Pulse Ox 100 10/22/16 12:18 - Labs Result Diagrams: 10/22/16 05:00 10/22/16 05:00
--- NOTE | 2016-10-23 07:19 | CARD ---
APPROVED REPORT EKG Measurement Heart [id number] <Conclusion> Atrial-paced rhythm with prolonged AV conduction Cannot rule out Inferior infarct, age undetermined Anterior infarct, age undetermined ST & T wave abnormality, consider lateral ischemia Abnormal ECG
--- NOTE | 2016-10-23 07:22 | CARD ---
APPROVED REPORT EKG Measurement Heart [id number] [place] [id number] <Conclusion> Normal sinus rhythm alternating with Pacemaker Rhythm T wave abnormality, consider lateral ischemia Abnormal ECG
--- NOTE | 2016-10-23 07:25 | CARD ---
APPROVED REPORT EKG Measurement Heart [id number] 228P-10 [id number] <Conclusion> Atrial-paced rhythm with prolonged AV conduction Possible Inferior infarct, age undetermined Anteroseptal infarct, age undetermined T wave abnormality, consider lateral ischemia Abnormal ECG
--- NOTE | 2016-10-23 14:31 | CARD ---
APPROVED REPORT EKG Measurement Heart [id number] [place] 218P-15 [id number] <Conclusion> Atrial-paced rhythm with prolonged AV conduction Possible Inferior infarct, age undetermined Anterior infarct, age undetermined ST & T wave abnormality, consider lateral ischemia Abnormal ECG
== END 2016-10-22 14:02 | disposition left against medical advice (07) | DRG 292 ==
LOC: H.ER 10:03 → H.ERHOLD 12:13 → H.TEL 16:14 → OBSVTOIN 10-22 09:52
PROVIDERS: ADMIT Internal Medicine; ATTEND Internal Medicine
DX: I11.0 Hypertensive heart disease with heart failure (principal); J44.1 Chronic obstructive pulmonary disease with (acute) exacerbation; Z95.1 Presence of aortocoronary bypass graft; I50.22 Chronic systolic (congestive) heart failure; E78.00 Pure hypercholesterolemia, unspecified; I25.10 Atherosclerotic heart disease of native coronary artery without angina pectoris; Z79.82 Long term (current) use of aspirin; Z87.891 Personal history of nicotine dependence; Z95.0 Presence of cardiac pacemaker; Z95.5 Presence of coronary angioplasty implant and graft

== ENCOUNTER 2016-11-14 13:37 | Observation (INO) | payer MEDICARE ==
[2016-11-14 13:38] VITALS: BMI 18.1
[2016-11-14] MEDS ORDERED: Albuterol-Ipratrop 3 mg / 0.5 (3 ml) UD ONE (14:15)
[2016-11-14 14:26] LABS: BASO # 0.3 K/uL (0.0-0.2); BASO % 3.7 % (0.0-2.0); EOS # 0.3 K/uL (0.0-0.7); EOS % 4.1 % (0.0-4.0); HEMOGLOBIN 12.4 g/dL (12.0-18.0); LYMPH # 1.8 K/uL (1.0-4.3); LYMPH % 23.1 % (20.0-40.0); MEAN CELL VOLUME 95.2 fl (80.0-94.0); MEAN CORPUSCULAR HEMOGLOBIN 31.8 pg (27.0-31.0); MEAN CORPUSCULAR HGB CONC 33.4 g/dL (33.0-37.0); MEAN PLATELET VOLUME 7.8 fl (7.2-11.7); MONO # 0.5 K/uL (0.0-0.8); MONO % 6.6 % (0.0-10.0); NEUT # 4.9 K/uL (1.8-7.0); NEUT % 62.5 % (50.0-75.0); NRBC % 0.1 % (0.0-0.0); PLATELET COUNT 181 K/uL (130-400); RBC 3.91 Mil/uL (4.40-5.90); RED CELL DISTRIBUTION WIDTH 13.5 % (11.5-14.5); WHITE BLOOD COUNT 7.9 K/uL (4.8-10.8)
[2016-11-14 14:36] LABS: ALB/GLOB RATIO 1.5 (1.0-2.1); ALBUMIN 4.5 g/dL (3.5-5.0); ALT/SGPT 37 U/L (21-72); AST/SGOT 43 U/L (17-59); BLOOD UREA NITROGEN 25 mg/dl (9-20); CALCIUM 9.2 mg/dL (8.4-10.2); GFR AFRICAN-AMERICAN > 60; GFR NON-AFRICAN AMERICAN 55
--- NOTE | 2016-11-14 20:14 | RAD ---
HISTORY: DYPSENEA COMPARISON: No prior. FINDINGS: LUNGS: No active pulmonary disease. PLEURA: Small left pleural effusion. CARDIOVASCULAR: Status post CABG and pacemaker placement. OSSEOUS STRUCTURES: No significant abnormalities. VISUALIZED UPPER ABDOMEN: Normal. OTHER FINDINGS: None. IMPRESSION: Small left pleural effusion.
[2016-11-14 23:29] LABS: B-TYPE NATRIURETIC PEPTIDE 970 pg/ml (0-900)
[2016-11-15 04:14] LABS: BASOPHIL 3 % (0-2); EOSINOPHIL 5 % (0-7); LYMPHOCYTE 19 % (20-50); MONOCYTE 7 % (0-10); NEUTROPHIL 61 % (42-75); PLATELET ESTIMATE NORMAL (NORMAL); REACTIVE LYMPHOCYTES 5 % (0-0); TOTAL CELLS COUNTED 100
[2016-11-15 04:15] LABS: TOXIC GRANULATION PRESENT
[2016-11-15 04:16] LABS: SPHEROCYTES SLIGHT
[2016-11-15] MEDS: Albuterol-Ipratrop 3 mg / 0.5 (3 ml) UD INH SCH ×4 (07:59→19:25)
[2016-11-15] MEDS: Potassium Chloride 20 mEq ER Tab PO SCH (09:46)
[2016-11-15] MEDS: Enoxaparin 40 mg Syringe SC SCH (09:46)
[2016-11-15] MEDS: methylPREDNISolone 60 MG in Sodium Chloride 0.9% 50 ML IVPB SCH ×2 (12:08→20:39)
--- NOTE | 2016-11-15 13:28 | CP.PCM.CON ---
History of Present Illness - History of Present Illness History of Present Illness: I was asked to see patient by Dr. Olsen. 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 The patient describes progressive dyspnea. He symptoms occurred at rest. The patient has also noted lower extremity edema. He denies chest pain or palpitations. Review of Systems - Constitutional Constitutional: absent: As Per HPI, Anorexia, Chills, Daytime Sleepiness, Excessive Sweating, Fatigue, Fever, Frequent Falls, Headache, Increased Appetite , Lethargy, Malaise, Night Sweats, Snoring, Sleep Apnea, Weight Gain, Weight Loss, Weakness, Other - EENT Eyes: absent: As Per HPI, Blind Spots, Blurred Vision, Change in Vision, Decreased Night Vision, Diplopia, Discharge, Dry Eye, Exophthalmos, Floaters, Irritation, Itchy Eyes, Loss of Peripheral Vision, Pain, Photophobia, Requires Corrective Lenses, Sees Flashes, Spots in Vision, Tunnel Vision, Other Visual Disturbances, Loss of Vision, Other Ears: absent: As Per HPI, Decreased Hearing, Ear Discharge, Ear Pain, Tinnitus, Abnormal Hearing, Disequilibrium, Dizziness, Other Nose/Mouth/Throat: absent: As Per HPI, Epistaxis, Nasal Congestion, Nasal Discharge, Nasal Obstruction, Nasal Trauma, Nose Pain, Post Nasal Drip, Sinus Pain, Sinus Pressure, Bleeding Gums, Change in Voice, Dental Pain, Dry Mouth, Dysphagia, Halitosis, Hoarsness, Lip Swelling, Mouth Lesions, Mouth Pain, Odynophagia, Sore Throat, Throat Swelling, Tongue Swelling, Facial Pain, Neck Pain, Neck Mass, Other - Cardiovascular Cardiovascular: Dyspnea, Leg Edema - Respiratory Respiratory: Dyspnea - Gastrointestinal Gastrointestinal: absent: As Per HPI, Abdominal Pain, Belching, Bloating, Change in Bowel Habits, Change in Stool Character, Coffee Ground Emesis, Constipation, Cramping, Diarrhea, Dyspepsia, Dysphagia, Early Satiety, Excessive Flatus, Fecal Incontinence, Heartburn, Hematemesis, Hematochezia, Loose Stools, Melena, Nausea, Odynophagia, Temesmus, Vomiting, Other - Genitourinary Genitourinary: absent: As Per HPI, Change in Urinary Stream, Difficulty Urinating, Dysuria, Flank Pain, Hematuria, Pyuria, Nocturia, Urinary Incontinence, Urinary Frequency, Urinary Hesitance, Urinary Urgency, Voiding Freq/Small Amts, Freq UTI, Hx Renal/Bladder Calculi, Hx /Renal Surgery, Bladder Distension, Other - Musculoskeletal Musculoskeletal: absent: As Per HPI, Abnormal Gait, Arthralgias, Atrophy, Back Pain, Deformity, Joint Swelling, Limited Range of Motion, Loss of Height, Muscle Cramps, Muscle Weakness, Myalgias, Neck Pain, Numbness, Radiating Pain into Limb, Stiffness, Tingling, Other - Integumentary Integumentary: absent: As Per HPI, Acne, Alopecia, Bleeding Lesions, Change in Hair, Change in Nails, Change in Pigmentation, Changing Lesions, Dry Skin, Erythema, Furuncle, Hirsutism, Lesions, New Lesions, Non-Healing Lesions, Photosensitivity, Pruritus, Rash, Skin Pain, Skin Ulcer, Sores, Striae, Swelling , Unusual Bruising, Wounds, Jaundice, Other - Neurological Neurological: absent: As Per HPI, Abnormal Gait, Abnormal Hearing, Abnormal Movements, Abnormal Speech, Behavioral Changes, Burning Sensations, Confusion, Convulsions, Disequilibrium, Dizziness, Numbness, Focal Weakness, Frequent Falls , Headaches, Lack of Coordination, Loss of Vision, Memory Loss, Paresthesias, Radicular Pain, Restless Legs, Sensory Deficit, Syncope, Tingling, Tremor, Vertigo, Weakness, Other Visual Disturbances, Other - Psychiatric Psychiatric: absent: As Per HPI, Abnormal Sleep Pattern, Anhedonia, Anxiety, Auditory Hallucinations, Behavioral Changes, Change in Appetite, Change in Libido, Confusion, Depression, Difficulty Concentrating, Hallucinations, Homicidal Ideation, Hopelessness, Irritability, Memory Loss, Mood Swings, Panic Attacks, Paranoia, Suicidal Ideation, Visual Hallucinations, Tactile Hallucinations, Other - Endocrine Endocrine: absent: As Per HPI, Change in Body Appearance, Change in Libido, Cold Intolorance, Deepening of Voice, Excessive Sweating, Fatigue, Flushing, Heat Intolorance, Increase in Ring/Shoe/Hat Size, Palpitations, Polydipsia, Polyphagia, Polyuria, Other - Hematologic/Lymphatic Hematologic: absent: As Per HPI, Easy Bleeding, Easy Bruising, Lymphadenopathy, Other Past Patient History - Past Medical History & Family History Past Medical History?: Yes - Past Social History Smoking Status: Never Smoked - CARDIAC Hx Cardiac Disorders: Yes Hx Hypercholesterolemia: Yes Hx Hypertension: Yes Hx Pacemaker: Yes - PULMONARY Hx Respiratory Disorders: No - NEUROLOGICAL Hx Neurological Disorder: No - HEENT Hx HEENT Problems: Yes - RENAL Hx Chronic Kidney Disease: No - ENDOCRINE/METABOLIC Hx Endocrine Disorders: No - HEMATOLOGICAL/ONCOLOGICAL Hx Blood Disorders: No Hx AIDS: No Hx Human Immunodeficiency Virus (HIV): No - INTEGUMENTARY Hx Dermatological Problems: No - MUSCULOSKELETAL/RHEUMATOLOGICAL Hx Musculoskeletal Disorders: Yes Hx Falls: Yes ("Once a long time ago") - GASTROINTESTINAL Hx Gastrointestinal Disorders: No - GENITOURINARY/GYNECOLOGICAL Hx Genitourinary Disorders: No - PSYCHIATRIC Hx Psychophysiologic Disorder: No Hx Substance Use: No - SURGICAL HISTORY Hx Surgeries: Yes Hx Coronary Artery Bypass Graft: Yes (x3) Hx Coronary Stent: Yes (x3) - ANESTHESIA Hx Anesthesia: Yes Hx Anesthesia Reactions: No Hx Malignant Hyperthermia: No Has any member of the family had a problem w/ anesthesia?: No Meds Allergies/Adverse Reactions: Allergies Allergy/AdvReac Type Severity Reaction Status Date / Time No Known Allergies Allergy Verified 11/14/16 13:44 - Medications Medications: Current Medications Albuterol/Ipratropium (Duoneb 3 Mg/0.5 Mg (3 Ml) Ud) 3 ml INH QID [facility] Last Admin: 11/15/16 11:54 Dose: 3 ml Enoxaparin Sodium (Lovenox) 40 mg SC DAILY [facility] PRN Reason: Protocol Last Admin: 11/15/16 09:46 Dose: 40 mg Furosemide (Lasix) 40 mg PO DAILY [facility] Last Admin: 11/15/16 09:46 Dose: 40 mg Methylprednisolone 60 mg/ (Sodium Chloride) 50 mls @ 100 mls/hr IVPB Q12 [facility] Last Admin: 11/15/16 12:08 Dose: 100 mls/hr Potassium Chloride (K-Dur 20 Meq Er Tab) 20 meq PO DAILY [facility] Last Admin: 11/15/16 09:46 Dose: 20 meq Physical Exam - Constitutional Appears: Non-toxic - Head Exam Head Exam: NORMAL INSPECTION - Eye Exam Eye Exam: Normal appearance - ENT Exam ENT Exam: Mucous Membranes Moist - Neck Exam Neck exam: Positive for: Full Rom - Respiratory Exam Respiratory Exam: Decreased Breath Sounds - Cardiovascular Exam Cardiovascular Exam: REGULAR RHYTHM - GI/Abdominal Exam GI & Abdominal Exam: Normal Bowel Sounds - Rectal Exam Rectal Exam: Deferred - Extremities Exam Extremities exam: Positive for: pedal edema - Back Exam Back exam: NORMAL INSPECTION - Neurological Exam Neurological exam: Alert, Oriented x3 - Psychiatric Exam Psychiatric exam: Normal Affect - Skin Skin Exam: Normal Color Results - Vital Signs Recent Vital Signs: Last Vital Signs Temp 97.7 F 11/15/16 12:04 Pulse 59 L 11/15/16 12:04 Resp 18 11/15/16 12:04 BP 97/57 L 11/15/16 12:04 Pulse Ox 97 11/15/16 12:04 - Labs Result Diagrams: 11/14/16 14:00 11/14/16 14:00 - EKG Data EKG Interpreted by: Myself Assessment & Plan (1) CHF exacerbation Assessment and Plan: patient appears to have acute on chronic systolic dysfunction. I recommend continued diuretic therapy. add betablocker Status: Acute (2) S/P placement of cardiac pacemaker Assessment and Plan: normal function Status: Acute (3) CAD (coronary artery disease) Assessment and Plan: patent bypass grafts from previous cardiac cath Status: Chronic Priority: Medium (4) HTN (hypertension) Assessment and Plan: blood pressure control Status: Chronic Priority: Medium
[2016-11-16] MEDS: Albuterol-Ipratrop 3 mg / 0.5 (3 ml) UD INH SCH ×6 (07:53→16:20)
[2016-11-16] MEDS: Potassium Chloride 20 mEq ER Tab PO SCH (09:36)
[2016-11-16] MEDS: methylPREDNISolone 60 MG in Sodium Chloride 0.9% 50 ML IVPB SCH (09:37)
[2016-11-16] MEDS: Enoxaparin 40 mg Syringe SC SCH (09:37)
--- NOTE | 2016-11-16 12:00 | IP.NPCORE ---
Heart Failure Core Measure Beta-Olga Prescribed: Carvedilol, Metoprolol Succinate
[2016-11-16 12:42] VITALS: PULSE 69
--- NOTE | 2016-11-16 13:32 | CP.PCM.HP ---
History of Present Illness - History of Present Illness History of Present Illness: This is a 66 y/o male with hx of HTN and CHF? very non compliant admitted for increasing SOB. Past Patient History - Past Medical History & Family History Past Medical History?: Yes - Past Social History Smoking Status: Never Smoked - CARDIAC Hx Cardiac Disorders: Yes Hx Hypercholesterolemia: Yes Hx Hypertension: Yes Hx Pacemaker: Yes - PULMONARY Hx Respiratory Disorders: No - NEUROLOGICAL Hx Neurological Disorder: No - HEENT Hx HEENT Problems: Yes - RENAL Hx Chronic Kidney Disease: No - ENDOCRINE/METABOLIC Hx Endocrine Disorders: No - HEMATOLOGICAL/ONCOLOGICAL Hx Blood Disorders: No Hx AIDS: No Hx Human Immunodeficiency Virus (HIV): No - INTEGUMENTARY Hx Dermatological Problems: No - MUSCULOSKELETAL/RHEUMATOLOGICAL Hx Musculoskeletal Disorders: Yes Hx Falls: Yes ("Once a long time ago") - GASTROINTESTINAL Hx Gastrointestinal Disorders: No - GENITOURINARY/GYNECOLOGICAL Hx Genitourinary Disorders: No - PSYCHIATRIC Hx Psychophysiologic Disorder: No Hx Substance Use: No - SURGICAL HISTORY Hx Surgeries: Yes Hx Coronary Artery Bypass Graft: Yes (x3) Hx Coronary Stent: Yes (x3) - ANESTHESIA Hx Anesthesia: Yes Hx Anesthesia Reactions: No Hx Malignant Hyperthermia: No Has any member of the family had a problem w/ anesthesia?: No Meds Home Medications: Home Medication List Medication Instructions Recorded Confirmed Type Carvedilol [Coreg] 3.125 mg PO Q12 #30 tab 11/16/16 Rx Furosemide [Lasix] 40 mg PO DAILY #30 tab 11/16/16 Rx Allergies/Adverse Reactions: Allergies Allergy/AdvReac Type Severity Reaction Status Date / Time No Known Allergies Allergy Verified 11/14/16 13:44 Results - Vital Signs Recent Vital Signs: Last Vital Signs Temp 97.6 F 11/16/16 12:38 Pulse 69 11/16/16 12:38 Resp 18 11/16/16 12:38 BP 114/57 L 11/16/16 12:38 Pulse Ox 97 11/16/16 12:38 - Labs Result Diagrams: 11/14/16 14:00 11/14/16 14:00
--- NOTE | 2016-11-16 13:35 | CP.PCM.DIS ---
Provider - Provider Date of Admission: 11/14/16 16:31 Attending physician: Jeovanny Olsen MD Hospital Course - Lab Results Lab Results: Most Recent Lab Values WBC 7.9 K/uL (4.8-10.8) 11/14/16 14:00 RBC 3.91 Mil/uL (4.40-5.90) L 11/14/16 14:00 Hgb 12.4 g/dL (12.0-18.0) 11/14/16 14:00 Hct 37.2 % (35.0-51.0) 11/14/16 14:00 MCV 95.2 fl (80.0-94.0) H D 11/14/16 14:00 MCH 31.8 pg (27.0-31.0) H 11/14/16 14:00 MCHC 33.4 g/dL (33.0-37.0) 11/14/16 14:00 RDW 13.5 % (11.5-14.5) 11/14/16 14:00 Plt Count 181 K/uL (130-400) 11/14/16 14:00 MPV 7.8 fl (7.2-11.7) 11/14/16 14:00 Neut % (Auto) 62.5 % (50.0-75.0) 11/14/16 14:00 Lymph % (Auto) 23.1 % (20.0-40.0) 11/14/16 14:00 [place] % (Auto) 6.6 % (0.0-10.0) 11/14/16 14:00 Eos % (Auto) 4.1 % (0.0-4.0) H 11/14/16 14:00 Baso % (Auto) 3.7 % (0.0-2.0) H 11/14/16 14:00 Neut # 4.9 K/uL (1.8-7.0) 11/14/16 14:00 Lymph # 1.8 K/uL (1.0-4.3) 11/14/16 14:00 [place] # 0.5 K/uL (0.0-0.8) 11/14/16 14:00 Eos # 0.3 K/uL (0.0-0.7) 11/14/16 14:00 Baso # 0.3 K/uL (0.0-0.2) H 11/14/16 14:00 Neutrophils % (Manual) 61 % (42-75) 11/14/16 14:00 Lymphocytes % (Manual) 19 % (20-50) L 11/14/16 14:00 Reactive Lymphs % 5 % (0-0) H 11/14/16 14:00 Monocytes % (Manual) 7 % (0-10) 11/14/16 14:00 Eosinophils % (Manual) 5 % (0-7) 11/14/16 14:00 Basophils % (Manual) 3 % (0-2) H 11/14/16 14:00 Toxic Granulation Present 11/14/16 14:00 Platelet Estimate Normal (NORMAL) 11/14/16 14:00 Macrocytosis (manual) Slight 11/14/16 14:00 Spherocytes Slight 11/14/16 14:00 Sodium 141 mmol/l (132-148) 11/14/16 14:00 Potassium 4.0 MMOL/L (3.6-5.0) 11/14/16 14:00 Chloride 104 mmol/L (98-107) 11/14/16 14:00 Carbon Dioxide 27 mmol/L (22-30) 11/14/16 14:00 Anion Gap 14 (10-20) 11/14/16 14:00 BUN 25 mg/dl (9-20) H 11/14/16 14:00 Creatinine 1.3 mg/dL (0.8-1.5) 11/14/16 14:00 Est GFR ( Amer) > 60 11/14/16 14:00 Est GFR (Non-Af Amer) 55 11/14/16 14:00 Random Glucose 92 mg/dL (75-110) 11/14/16 14:00 Calcium 9.2 mg/dL (8.4-10.2) 11/14/16 14:00 Total Bilirubin 0.4 mg/dl (0.2-1.3) 11/14/16 14:00 AST 43 U/L (17-59) 11/14/16 14:00 ALT 37 U/L (21-72) 11/14/16 14:00 Alkaline Phosphatase 93 U/L (38-126) 11/14/16 14:00 Troponin I < 0.0120 ng/mL (0.00-0.120) 11/14/16 14:00 NT-Pro-B Natriuret Pep 970 pg/ml (0-900) H 11/14/16 14:00 Total Protein 7.5 G/DL (6.3-8.2) 11/14/16 14:00 Albumin 4.5 g/dL (3.5-5.0) 11/14/16 14:00 Globulin 3.0 gm/dL (2.2-3.9) 11/14/16 14:00 Albumin/Globulin Ratio 1.5 (1.0-2.1) 11/14/16 14:00 - Hospital Course Hospital Course: This is a 66 y/o male admitted for CHF. Has a hx of hTN but very non compliant. He lives alone and does not follow up with any physician Discharge Exam - Head Exam Head Exam: NORMAL INSPECTION Discharge Plan - Discharge Medications Prescriptions: Carvedilol [Coreg] 3.125 mg PO Q12 #30 tab - Follow Up Plan Condition: STABLE Disposition: HOME/ ROUTINE
[2016-11-16 16:04] VITALS: BP 128/71; RESP 187; TEMP 97.8; O2SAT 98
--- NOTE | 2016-11-19 06:54 | CARD ---
APPROVED REPORT EKG Measurement Heart [id number] [place] 222P-12 [id number] <Conclusion> Atrial-paced rhythm with prolonged AV conduction with premature supraventricular complexes Possible Inferior infarct, age undetermined Anterior infarct, age undetermined ST & T wave abnormality, consider lateral ischemia Abnormal ECG
== END 2016-11-16 16:15 | disposition home or self-care (01) ==
LOC: H.ER 13:37 → H.ERHOLD 16:31 → UNDOADMOB 22:46 → H.TEL 11-15 01:42 → H.ERHOLD 11-15 01:42
PROVIDERS: ADMIT Family Medicine; ATTEND Family Medicine
DX: I11.0 Hypertensive heart disease with heart failure (principal); E78.00 Pure hypercholesterolemia, unspecified; I25.10 Atherosclerotic heart disease of native coronary artery without angina pectoris; Z95.1 Presence of aortocoronary bypass graft; Z95.5 Presence of coronary angioplasty implant and graft; Z95.0 Presence of cardiac pacemaker; I42.9 Cardiomyopathy, unspecified; I50.9 Heart failure, unspecified
CPT/HCPCS: 71010; 80053; 83880; 84484; 85025; 93005; 94640; 96365; 96366; 96372; 99285; G0378; J1650; J2930

== ENCOUNTER 2016-12-04 09:59 | Inpatient (IN) | payer MEDICARE ==
[2016-12-04 10:00] VITALS: BMI 18.1
[2016-12-04] MEDS ORDERED: Albuterol-Ipratrop 3 mg / 0.5 (3 ml) UD INH STA (10:29)
[2016-12-04] MEDS ORDERED: Albuterol-Ipratrop 3 mg / 0.5 (3 ml) UD IH STA (10:29)
[2016-12-04] MEDS ORDERED: Sodium Chloride 0.9% 250 ML IV SCH (10:30)
[2016-12-04] MEDS ORDERED: Albuterol-Ipratrop 3 mg / 0.5 (3 ml) UD ONE (10:35)
--- NOTE | 2016-12-04 10:39 | ED PDOC ---
HPI: SOB/CHF/COPD Time Seen by Provider: 12/04/16 10:16 Chief Complaint (Nursing): Shortness Of Breath Chief Complaint (Provider): shortness of breath History Per: Patient History/Exam Limitations: no limitations Onset/Duration Of Symptoms: Days (x 2) Additional Complaint(s): Jacob Thapa is a 66 year old male, with a previous medical history of COPD, asthma and CAD, who presents to the ED with complaints of shortness of breath ongoing for 2 days associated with a cough productive of white sputum. Patient denies any leg pain, nausea, vomiting, diarrhea, chest pain or abdominal pain. Patient was seen in the ED and admitted for similar complaints with a discharge on 11/14/16 but reports he has not followed up with a PMD since. No dizziness, weakness, headaches. Noncompliant with meds. PMD: none provided Past Medical History Reviewed: Historical Data, Nursing Documentation, Vital Signs Vital Signs: Last Vital Signs Temp 97.8 F 12/04/16 10:09 Pulse 68 12/04/16 11:53 Resp 18 12/04/16 11:53 BP 128/57 L 12/04/16 11:53 Pulse Ox 97 12/04/16 12:20 - Medical History PMH: Asthma, Bronchitis, CAD, COPD, Emphysema, HTN, Hypercholesterolemia Denies: HIV, Chronic Kidney Disease - Surgical History Surgical History: CABG (x3), Coronary Stent (x3), Pacemaker - Family History Family History: States: Unknown Family Hx - Social History Current smoker - smoking cessation education provided: No Alcohol: None Drugs: Denies - Home Medications Home Medications: Ambulatory Orders Medication Instructions Recorded Aspirin [Ecotrin] 162 mg PO DAILY 10/21/16 Carvedilol [Coreg] 3.125 mg PO Q12 #30 tab 11/16/16 Furosemide [Lasix] 40 mg PO DAILY #30 tab 11/16/16 - Allergies Allergies/Adverse Reactions: Allergies Allergy/AdvReac Type Severity Reaction Status Date / Time No Known Allergies Allergy Verified 12/04/16 10:26 Review of Systems ROS Statement: Except As Marked, All Systems Reviewed And Found Negative Constitutional: Negative for: Fever, Chills Cardiovascular: Negative for: Chest Pain Respiratory: Positive for: Cough, Shortness of Breath, Sputum Gastrointestinal: Negative for: Nausea, Vomiting, Abdominal Pain, Diarrhea Musculoskeletal: Negative for: Leg Pain Physical Exam - Reviewed Nursing Documentation Reviewed: Yes Vital Signs Reviewed: Yes - Physical Exam Appears: Positive for: Non-toxic, No Acute Distress Head Exam: Positive for: ATRAUMATIC Skin: Positive for: Normal Color, Warm, Dry Eye Exam: Positive for: EOMI, Normal appearance, PERRL ENT: Positive for: Normal ENT Inspection Neck: Positive for: Normal, Painless ROM, Supple Cardiovascular/Chest: Positive for: Regular Rate, Rhythm. Negative for: Edema Respiratory: Positive for: Decreased Breath Sounds (bilaterally ), Other (mild coarse breath sounds bilaterally ) Gastrointestinal/Abdominal: Positive for: Normal Exam, Bowel Sounds, Soft. Negative for: Tenderness Back: Positive for: Normal Inspection. Negative for: L CVA Tenderness, R CVA Tenderness, Vertebral Tenderness Extremity: Positive for: Normal ROM. Negative for: Tenderness, Pedal Edema, Calf Tenderness Neurologic/Psych: Positive for: Alert, Oriented. Negative for: Motor/Sensory Deficits - Laboratory Results Result Diagrams: 12/04/16 10:40 12/04/16 10:40 Interpretation Of Abn Labs: 1020 bnp, bun 34 both worse then old - ECG ECG: Positive for: Interpreted By Me, Viewed By Me ECG Rhythm: Positive for: Sinus Rhythm Interpretation Of Abn EKG: atrial paced and same as old O2 Sat by Pulse Oximetry: 97 (RA) Pulse Ox Interpretation: Normal - Radiology X-Ray: Read By Radiologist X-Ray Interpretation: No Acute Disease - Progress ED Course And Treament: 1223: Stable. AAOx3. Will give ASA and lasix. Pt. noncompliant with meds ( not taking anything). Sees no doctors. No chest pain. Spoke with Dr. Mckee. Will admit tele obs. Will give further orders when pt. reaches floor. Medical Decision Making Medical Decision Making: Initial Plan: * ABG * labs * EKG * magnesium * phosphorous * Troponin I * B-type natriuretic peptide * PTT * PT * duo-neb * duo-neb * IV NS 250 ml at 100 ml/hr * solu-medrol 125 mg IV * blood culture * Vital signs Q15 min * peak flow pre/post treatment * vehicle monitor technician cont * reevaluation Scribe Attestation: Documented by Pilar Childs, acting as a scribe for Shawn Anderson MD. Provider Scribe Attestation: All medical record entries made by the Scribe were at my direction and personally dictated by me. I have reviewed the chart and agree that the record accurately reflects my personal performance of the history, physical exam, medical decision making, and the department course for this patient. I have also personally directed, reviewed, and agree with the discharge instructions and disposition. Disposition - Clinical Impression Clinical Impression: CHF exacerbation - Patient ED Disposition Is Patient to be Admitted: Yes Counseled Patient/Family Regarding: Studies Performed, Diagnosis - Disposition Disposition Time: 12:00 Condition: FAIR - Pt Status Changed To: Hospital Disposition Of: Observation - POA Present On Arrival: None
[2016-12-04 10:55] LABS: ABG ALLEN TEST YES; ARTERIAL BLOOD GAS HCO3 23.7 mmol/L (21-28); ARTERIAL BLOOD GAS PH 7.45 (7.35-7.45); ARTERIAL BLOOD GAS PO2 94 mm/Hg (80-100)
[2016-12-04 10:59] LABS: BASO # 0.2 K/uL (0.0-0.2); BASO % 2.9 % (0.0-2.0); EOS # 0.2 K/uL (0.0-0.7); EOS % 2.6 % (0.0-4.0); HEMATOCRIT 38.1 % (35.0-51.0); LYMPH % 15.1 % (20.0-40.0); MEAN CELL VOLUME 94.6 fl (80.0-94.0); MEAN CORPUSCULAR HEMOGLOBIN 31.4 pg (27.0-31.0); MEAN CORPUSCULAR HGB CONC 33.2 g/dL (33.0-37.0); MEAN PLATELET VOLUME 8.1 fl (7.2-11.7); MONO # 0.5 K/uL (0.0-0.8); NEUT # 4.7 K/uL (1.8-7.0); NEUT % 72.4 % (50.0-75.0); RED CELL DISTRIBUTION WIDTH 13.6 % (11.5-14.5); WHITE BLOOD COUNT 6.5 K/uL (4.8-10.8)
--- NOTE | 2016-12-04 11:12 | RAD ---
HISTORY: Sepsis Patient COMPARISON: No prior. FINDINGS: LUNGS: No active pulmonary disease. PLEURA: Small left effusion CARDIOVASCULAR: Normal. OSSEOUS STRUCTURES: Sternal wires VISUALIZED UPPER ABDOMEN: Normal. OTHER FINDINGS: Dual lead pacemaker IMPRESSION: No active disease.
[2016-12-04 11:18] LABS: ALB/GLOB RATIO 1.5 (1.0-2.1); ALKALINE PHOSPHATASE 94 U/L (38-126); ALT/SGPT 40 U/L (21-72); AST/SGOT 43 U/L (17-59); BILIRUBIN,TOTAL 0.8 mg/dl (0.2-1.3); BLOOD UREA NITROGEN 34 mg/dl (9-20); CALCIUM 9.4 mg/dL (8.4-10.2); CARBON DIOXIDE 21 mmol/L (22-30); CHLORIDE 105 mmol/L (98-107); GFR AFRICAN-AMERICAN > 60; GLUCOSE,RANDOM 79 mg/dL (75-110); MAGNESIUM 2.1 MG/DL (1.6-2.3); PHOSPHOROUS 3.4 mg/dl (2.5-4.5); POTASSIUM 4.2 MMOL/L (3.6-5.0); SODIUM 138 mmol/l (132-148); TOTAL PROTEIN 7.7 G/DL (6.3-8.2)
[2016-12-04 11:42] LABS: PARTIAL THROMBOPLASTIN TIME 35.5 Seconds (25.6-37.1)
--- NOTE | 2016-12-04 15:54 | CARD ---
APPROVED REPORT EKG Measurement Heart [id number] <Conclusion> Atrial-paced rhythm Possible Inferior infarct, age undetermined Cannot rule out Anterior infarct, age undetermined ST & T wave abnormality, consider lateral ischemia Abnormal ECG
--- NOTE | 2016-12-05 23:03 | CP.PCM.HP ---
History of Present Illness - History of Present Illness History of Present Illness: CC: SOB History of Present Illness: A 66 year old male, with a previous medical history of COPD, asthma and CAD, who presents to the ED with complaints of shortness of breath ongoing for 2 days associated with a cough productive of white sputum. Patient denies any leg pain, nausea, vomiting, diarrhea, chest pain or abdominal pain. Patient was seen in the ED and admitted for similar complaints with a discharge on 11/14/16 but reports he has not followed up with a PMD since. No dizziness, weakness, headaches. Noncompliant with meds. Present on Admission - Present on Admission Any Indicators Present on Admission: Yes History of DVT/PE: No History of Uncontrolled Diabetes: No Urinary Catheter: No Decubitus Ulcer Present: No Review of Systems - Review of Systems All systems: reviewed and no additional remarkable complaints except Past Patient History - Past Medical History & Family History Past Medical History?: Yes - Past Social History Smoking Status: Never Smoked Alcohol: None Drugs: Denies - CARDIAC Hx Cardiac Disorders: Yes Hx Hypercholesterolemia: Yes Hx Hypertension: Yes Hx Pacemaker: Yes - PULMONARY Hx Respiratory Disorders: Yes Hx Asthma: Yes Hx Bronchitis: Yes Hx Chronic Obstructive Pulmonary Disease (COPD): Yes Hx Emphysema: Yes - NEUROLOGICAL Hx Neurological Disorder: No - HEENT Hx HEENT Problems: Yes - RENAL Hx Chronic Kidney Disease: No - ENDOCRINE/METABOLIC Hx Endocrine Disorders: No - HEMATOLOGICAL/ONCOLOGICAL Hx Blood Disorders: No Hx Human Immunodeficiency Virus (HIV): No - INTEGUMENTARY Hx Dermatological Problems: No - MUSCULOSKELETAL/RHEUMATOLOGICAL Hx Musculoskeletal Disorders: Yes Hx Falls: No - GASTROINTESTINAL Hx Gastrointestinal Disorders: No - GENITOURINARY/GYNECOLOGICAL Hx Genitourinary Disorders: No - PSYCHIATRIC Hx Psychophysiologic Disorder: No Hx Substance Use: No - SURGICAL HISTORY Hx Surgeries: Yes Hx Coronary Artery Bypass Graft: Yes (x3) Hx Coronary Stent: Yes (x3) - ANESTHESIA Hx Anesthesia: Yes Hx Anesthesia Reactions: No Hx Malignant Hyperthermia: No Meds Home Medications: Home Medication List Medication Instructions Recorded Confirmed Type Lisinopril [Zestril] 5 mg PO DAILY #30 tablet 12/06/16 Rx Allergies/Adverse Reactions: Allergies Allergy/AdvReac Type Severity Reaction Status Date / Time No Known Allergies Allergy Verified 12/04/16 10:26 Physical Exam - Constitutional Appears: Well, No Acute Distress - Head Exam Head Exam: ATRAUMATIC, NORMAL INSPECTION, NORMOCEPHALIC - Eye Exam Eye Exam: EOMI, Normal appearance, PERRL Pupil Exam: NORMAL ACCOMODATION, PERRL - ENT Exam ENT Exam: Mucous Membranes Moist, Normal Exam - Neck Exam Neck exam: Positive for: Normal Inspection - Respiratory Exam Respiratory Exam: Clear to Auscultation Bilateral, NORMAL BREATHING PATTERN - Cardiovascular Exam Cardiovascular Exam: REGULAR RHYTHM, +S1, +S2 - GI/Abdominal Exam GI & Abdominal Exam: Normal Bowel Sounds, Soft. absent: Tenderness - Extremities Exam Extremities exam: Positive for: full ROM, normal inspection - Back Exam Back exam: NORMAL INSPECTION - Neurological Exam Neurological exam: Alert, CN II-XII Intact, Normal Gait, Oriented x3, Reflexes Normal - Psychiatric Exam Psychiatric exam: Normal Affect, Normal Mood - Skin Skin Exam: Dry, Intact, Normal Color, Warm Results - Vital Signs Recent Vital Signs: Last Vital Signs Temp 98.0 F 12/05/16 19:52 Pulse 60 12/05/16 21:15 Resp 20 12/05/16 19:52 BP 101/58 L 12/05/16 21:15 Pulse Ox 97 12/05/16 19:52 - Labs Result Diagrams: 12/04/16 10:40 12/04/16 10:40 - Imaging and Cardiology Chest x-ray Status: Report reviewed by me Additional comment: No Acute finding Assessment & Plan (1) CHF exacerbation Assessment and Plan: R/O ACS O2 Via NC Serial Trop and EKG ASA 325mg Coreg Status: Acute Priority: Medium (2) Hypokalemia Assessment and Plan: Replenished Status: Chronic (3) Mass of right lung Status: Acute (4) COPD (chronic obstructive pulmonary disease) Status: Acute (5) S/P placement of cardiac pacemaker Status: Acute
[2016-12-06 08:10] VITALS: RESP 20
[2016-12-06 12:22] VITALS: BP 112/67; PULSE 62; TEMP 97.7; O2SAT 97
--- NOTE | 2016-12-06 14:26 | CP.PCM.DIS ---
Provider - Provider Date of Admission: 12/05/16 20:55 Attending physician: Jae Mckee MD Time Spent in preparation of Discharge (in minutes): 25 Hospital Course - Lab Results Lab Results: Most Recent Lab Values WBC 6.5 K/uL (4.8-10.8) 12/04/16 10:40 RBC 4.02 Mil/uL (4.40-5.90) L 12/04/16 10:40 Hgb 12.6 g/dL (12.0-18.0) 12/04/16 10:40 Hct 38.1 % (35.0-51.0) 12/04/16 10:40 MCV 94.6 fl (80.0-94.0) H 12/04/16 10:40 MCH 31.4 pg (27.0-31.0) H 12/04/16 10:40 MCHC 33.2 g/dL (33.0-37.0) 12/04/16 10:40 RDW 13.6 % (11.5-14.5) 12/04/16 10:40 Plt Count 158 K/uL (130-400) 12/04/16 10:40 MPV 8.1 fl (7.2-11.7) 12/04/16 10:40 Neut % (Auto) 72.4 % (50.0-75.0) 12/04/16 10:40 Lymph % (Auto) 15.1 % (20.0-40.0) L 12/04/16 10:40 Heard % (Auto) 7.0 % (0.0-10.0) 12/04/16 10:40 Eos % (Auto) 2.6 % (0.0-4.0) 12/04/16 10:40 Baso % (Auto) 2.9 % (0.0-2.0) H 12/04/16 10:40 Neut # 4.7 K/uL (1.8-7.0) 12/04/16 10:40 Lymph # 1.0 K/uL (1.0-4.3) 12/04/16 10:40 Heard # 0.5 K/uL (0.0-0.8) 12/04/16 10:40 Eos # 0.2 K/uL (0.0-0.7) 12/04/16 10:40 Baso # 0.2 K/uL (0.0-0.2) 12/04/16 10:40 PT 10.8 Seconds (9.8-13.1) 12/04/16 10:40 INR 1.0 (0.9-1.2) 12/04/16 10:40 APTT 35.5 Seconds (25.6-37.1) 12/04/16 10:40 pCO2 31 mm/Hg (35-45) L 12/04/16 10:45 pO2 94 mm/Hg (80-100) 12/04/16 10:45 HCO3 23.7 mmol/L (21-28) 12/04/16 10:45 ABG pH 7.45 (7.35-7.45) 12/04/16 10:45 ABG Total CO2 22.5 mmol/L (22-28) 12/04/16 10:45 ABG O2 Saturation 100.8 % (95-98) H 12/04/16 10:45 ABG Base Excess -1.6 mmol/L (-2.0-3.0) 12/04/16 10:45 Oh Test Yes 12/04/16 10:45 ABG Potassium 4.0 mmol/L (3.6-5.2) 12/04/16 10:45 A-a O2 Difference 95.0 mm/Hg 12/04/16 10:45 Sodium 136.0 mmol/L (132-148) 12/04/16 10:45 Chloride 104.0 mmol/L (98-107) 12/04/16 10:45 Glucose 77 mg/dL (75-110) 12/04/16 10:45 Lactate 0.7 mmol/L (0.7-2.1) 12/04/16 10:45 FiO2 32.0 % 12/04/16 10:45 Sodium 138 mmol/l (132-148) 12/04/16 10:40 Potassium 4.2 MMOL/L (3.6-5.0) 12/04/16 10:40 Chloride 105 mmol/L (98-107) 12/04/16 10:40 Carbon Dioxide 21 mmol/L (22-30) L 12/04/16 10:40 Anion Gap 16 (10-20) 12/04/16 10:40 BUN 34 mg/dl (9-20) H 12/04/16 10:40 Creatinine 1.1 mg/dL (0.8-1.5) 12/04/16 10:40 Est GFR ( Amer) > 60 12/04/16 10:40 Est GFR (Non-Af Amer) > 60 12/04/16 10:40 Random Glucose 79 mg/dL (75-110) 12/04/16 10:40 Calcium 9.4 mg/dL (8.4-10.2) 12/04/16 10:40 Phosphorus 3.4 mg/dl (2.5-4.5) 12/04/16 10:40 Magnesium 2.1 MG/DL (1.6-2.3) 12/04/16 10:40 Total Bilirubin 0.8 mg/dl (0.2-1.3) 12/04/16 10:40 AST 43 U/L (17-59) 12/04/16 10:40 ALT 40 U/L (21-72) 12/04/16 10:40 Alkaline Phosphatase 94 U/L (38-126) 12/04/16 10:40 Troponin I 0.0200 ng/mL (0.00-0.120) 12/04/16 10:40 NT-Pro-B Natriuret Pep 1020 pg/ml (0-900) H 12/04/16 10:40 Total Protein 7.7 G/DL (6.3-8.2) 12/04/16 10:40 Albumin 4.6 g/dL (3.5-5.0) 12/04/16 10:40 Globulin 3.0 gm/dL (2.2-3.9) 12/04/16 10:40 Albumin/Globulin Ratio 1.5 (1.0-2.1) 12/04/16 10:40 Arterial Blood Potassium 4.0 mmol/L (3.6-5.2) 12/04/16 10:45 Discharge Exam - Head Exam Head Exam: ATRAUMATIC Discharge Plan - Discharge Medications Prescriptions: Lisinopril [Zestril] 5 mg PO DAILY #30 tablet - Follow Up Plan Condition: FAIR Disposition: HOME/ ROUTINE Instructions: Heart Failure (DC)
== END 2016-12-06 15:10 | disposition home or self-care (01) | DRG 293 ==
LOC: H.ER 09:59 → H.ERHOLD 12:32 → H.TEL 15:10 → OBSVTOIN 12-05 20:55
PROVIDERS: ADMIT Internal Medicine; ATTEND Internal Medicine
DX: I11.0 Hypertensive heart disease with heart failure (principal); J44.9 Chronic obstructive pulmonary disease, unspecified; Z95.1 Presence of aortocoronary bypass graft; I50.9 Heart failure, unspecified; E87.6 Hypokalemia; I25.10 Atherosclerotic heart disease of native coronary artery without angina pectoris; J45.909 Unspecified asthma, uncomplicated; R91.8 Other nonspecific abnormal finding of lung field; E78.00 Pure hypercholesterolemia, unspecified; Z91.14 Patient's other noncompliance with medication regimen; Z95.0 Presence of cardiac pacemaker; Z95.5 Presence of coronary angioplasty implant and graft; Z79.82 Long term (current) use of aspirin

== ENCOUNTER 2016-12-10 18:42 | Emergency (ER) | payer MEDICARE ==
[2016-12-10 18:42] VITALS: BMI 18.1
[2016-12-10 18:53] VITALS: TEMP 98
[2016-12-10 19:23] LABS: BASO # 0.1 K/uL (0.0-0.2); BASO % 1.5 % (0.0-2.0); EOS # 0.6 K/uL (0.0-0.7); EOS % 8.1 % (0.0-4.0); HEMOGLOBIN 11.6 g/dL (12.0-18.0); LYMPH # 2.1 K/uL (1.0-4.3); LYMPH % 28.3 % (20.0-40.0); MEAN CELL VOLUME 94.6 fl (80.0-94.0); MEAN CORPUSCULAR HEMOGLOBIN 31.4 pg (27.0-31.0); MEAN CORPUSCULAR HGB CONC 33.2 g/dL (33.0-37.0); MEAN PLATELET VOLUME 7.3 fl (7.2-11.7); MONO # 0.7 K/uL (0.0-0.8); MONO % 9.1 % (0.0-10.0); NEUT # 3.9 K/uL (1.8-7.0); RBC 3.68 Mil/uL (4.40-5.90); RED CELL DISTRIBUTION WIDTH 13.8 % (11.5-14.5); WHITE BLOOD COUNT 7.4 K/uL (4.8-10.8)
[2016-12-10 19:34] LABS: ALB/GLOB RATIO 1.4 (1.0-2.1); ALBUMIN 3.9 g/dL (3.5-5.0); ALT/SGPT 35 U/L (21-72); AST/SGOT 40 U/L (17-59); BLOOD UREA NITROGEN 20 mg/dl (9-20); CALCIUM 9.4 mg/dL (8.4-10.2); GFR AFRICAN-AMERICAN > 60; GFR NON-AFRICAN AMERICAN > 60
--- NOTE | 2016-12-10 19:40 | ED PDOC ---
HPI: SOB/CHF/COPD Time Seen by Provider: 12/10/16 19:00 Chief Complaint (Nursing): Shortness Of Breath Chief Complaint (Provider): SOB History Per: Patient History/Exam Limitations: no limitations Associated Symptoms: Other (SOB). denies: Fever, Chills, Sweating, Chest Pain, Bloody Cough, Productive Cough, Heart Racing, Leg/Calf Pain, Ankle/Leg Swelling , Dizziness, Light-headedness, Anxiety, Tingling In Hands Or Face, Musle Spasms In Hands Or Feet Additional Complaint(s): 66yoM in ED for eval of SOB-pt has been admitted 09/11, 09/30,11/01,11/14 and 12/05 for CHF/SOB. pt was recently d/c with furosemide for CHF, but states he still has some SOB and fels the same he did when he was d/c. PT admits he has not followed up with any provider after being d/c. pt states he does not have a PMD because he is concerned that his insurance (medicare) will only pay 80% of his outpt bills. PT denies CP, dizziness, abd pain, SHRESTHA. pt denies worsening orthopnea PT with hx of CHF, CAD, COPD , HTN. pt states he is compliant with medication Rx to him from inpt d/c. pt with hx of CABG and coronary stent - Risk Factors PE Risk Factors: Pos: CHF Neg: Extremity Immobilization/Fx, Decreased Mobilty /Activity, Recent Major Surgery, Recent Hospitalization, Active Cancer, Previous DVT, Previous PE, Venous Stasis, Estrogen Usage, , Post-, Recent Major Trauma Past Medical History Reviewed: Historical Data, Nursing Documentation, Vital Signs Vital Signs: Last Vital Signs Temp 98.0 F 12/10/16 18:49 Pulse 75 12/10/16 18:49 Resp 22 12/10/16 19:00 BP 151/63 H 12/10/16 18:49 Pulse Ox 98 12/10/16 19:50 - Medical History PMH: Asthma, Bronchitis, CAD, COPD, Emphysema, HTN, Hypercholesterolemia Denies: HIV, Chronic Kidney Disease - Surgical History Surgical History: CABG (x3), Coronary Stent (x3), Pacemaker - Family History Family History: States: Unknown Family Hx - Home Medications Home Medications: Ambulatory Orders Medication Instructions Recorded Aspirin [Ecotrin] 162 mg PO DAILY 10/21/16 Carvedilol [Coreg] 3.125 mg PO Q12 #30 tab 11/16/16 Furosemide [Lasix] 40 mg PO DAILY #30 tab 11/16/16 Lisinopril [Zestril] 5 mg PO DAILY #30 tablet 12/06/16 - Allergies Allergies/Adverse Reactions: Allergies Allergy/AdvReac Type Severity Reaction Status Date / Time No Known Allergies Allergy Verified 12/04/16 10:26 Curb-65 Severity Score - CURB-65 Severity Score Confusion: No Bun >19mg/dl (>7mmol/L): No Respiratory Rate greater than/equal to 30: No Systolic BP <90 or Diastolic BP less than/equal 60mmHg: No Age >64: Yes Curb-65 Score: 1 Percentage 30-day mortality: 2.7% Wells Criteria for PE - Wells Criteria for Pulmonary Embolism Clinical Signs and Symptoms of DVT: No P.E is #1 Diagnosis, or Equally Likely: No Heart Rate >100: No Immobilization at least 3 days;Surgery previous 4 weeks: No Previous, objectively diagnosed PE or DVT: No Hemoptysis: No Malignancy w/treatment within 6 months, or palliative: No Total Score: 0 Review of Systems ROS Statement: Except As Marked, All Systems Reviewed And Found Negative Cardiovascular: Positive for: Orthopnea. Negative for: Chest Pain, Palpitations Respiratory: Positive for: Shortness of Breath, SOB with Exertion. Negative for : Cough, Pleuritic Pain, Sputum Physical Exam - Reviewed Nursing Documentation Reviewed: Yes Vital Signs Reviewed: Yes - Physical Exam Appears: Positive for: Well (sitting comfortably, able to speak in full stences comfortably. ), Non-toxic, No Acute Distress Skin: Positive for: Normal Color, Warm, DRY Eye Exam: Positive for: EOMI, Normal appearance, PERRL ENT: Positive for: Normal ENT Inspection Neck: Positive for: Normal, Painless ROM Cardiovascular/Chest: Positive for: Regular Rate, Rhythm Respiratory: Positive for: Rales (mild noted), Other (nonlabored breathing). Negative for: Decreased Breath Sounds, Accessory Muscle Use Gastrointestinal/Abdominal: Positive for: Normal Exam, Bowel Sounds, Soft Neurologic/Psych: Positive for: Alert, Oriented - Laboratory Results Result Diagrams: 12/10/16 19:15 12/10/16 19:15 - ECG ECG Rhythm: Positive for: Sinus Rhythm, Atrial Paced, ST/T Changes Interpretation Of Abn EKG: EKG cmopared to previous. no changes. reviewed by MD Lucio O2 Sat by Pulse Oximetry: 98 Pulse Ox Interpretation: Normal (pt VS are stable, breathing comofrtably without O2 supplement at 98%-99%. HR is stable) - Radiology X-Ray: Interpreted by Me (unchanged from last Chest xray-reviewed by MD Deanna) - Progress ED Course And Treament: PT will chest xray, BNP, CBC/CMP. Disposition - Clinical Impression Clinical Impression: COPD exacerbation - Patient ED Disposition Is Patient to be Admitted: Transfer of Care - Disposition Disposition Time: 20:11 Condition: STABLE Forms: [employer] (Bulgarian) Patient Signed Over To: Charlene Rogers (pending Trop)
[2016-12-10 19:43] LABS: B-TYPE NATRIURETIC PEPTIDE 1280 pg/ml (0-900)
[2016-12-10 21:19] VITALS: BP 135/80; PULSE 62; RESP 16
[2016-12-10 21:25] VITALS: O2SAT 98
--- NOTE | 2016-12-10 21:25 | ED PDOC ---
- Laboratory Results Result Diagrams: 12/10/16 19:15 12/10/16 19:15 - ECG O2 Sat by Pulse Oximetry: 98 Pulse Ox Interpretation: Normal Medical Decision Making Medical Decision Making: Pt presents for evaluation of continued chest pain and SOB. Pt states ther has been no change since previous but he has not follow-up. Labs similar to previous visit and no significant change on CXR. Troponin was pending when endorsed and is negative. Case discussed with Dr. Huerta. Disposition - Clinical Impression Clinical Impression: COPD exacerbation - POA Present On Arrival: None - Disposition Referrals: Josephine Dias MD [Staff Provider] - [facility] [facility] [Outside] [facility] [Outside] Disposition: Routine/Home Disposition Time: 21:25 Condition: GOOD Additional Instructions: Please follow-up with a primary care physician. Please continue to take medications as prescribed. Instructions: Heart Failure (ED) Forms: Issue (Yemeni)
--- NOTE | 2016-12-11 10:16 | CARD ---
APPROVED REPORT EKG Measurement Heart [id number] ME [id number] <Conclusion> Atrial-paced rhythm with prolonged AV conduction Possible Inferior infarct, age undetermined Anterior infarct, age undetermined ST & T wave abnormality, consider lateral ischemia Abnormal ECG
--- NOTE | 2016-12-11 11:22 | RAD ---
HISTORY: SOB COMPARISON: 12/04/2016 FINDINGS: LUNGS: No focal consolidation. PLEURA: Possible small left pleural effusion. Pleural thickening on the lower left lateral chest wall. CARDIOVASCULAR: Normal heart size. Permanent pacemaker. CABG. Surgical clips adjacent to gastroesophageal junction. OSSEOUS STRUCTURES: No significant abnormalities. VISUALIZED UPPER ABDOMEN: Normal. OTHER FINDINGS: None. IMPRESSION: No acute infiltrate. Possible small left pleural effusion.
== END 2016-12-10 21:44 | disposition home or self-care (01) ==
LOC: H.ER 18:42
DX: J44.1 Chronic obstructive pulmonary disease with (acute) exacerbation (principal)

== ENCOUNTER 2016-12-17 16:22 | Observation (INO) | payer MEDICARE ==
[2016-12-17 16:22] VITALS: BMI 18.1
[2016-12-17] MEDS ORDERED: Albuterol-Ipratrop 3 mg / 0.5 (3 ml) UD IH STA (17:05)
--- NOTE | 2016-12-17 17:05 | ED PDOC ---
HPI: SOB/CHF/COPD Time Seen by Provider: 12/17/16 16:50 Chief Complaint (Nursing): Shortness Of Breath History Per: Patient Onset/Duration Of Symptoms: Days (2) Current Symptoms Are (Timing): Intermittent Episodes Current Respiratory Medications: See Home Med List Severity: Mild Pain Scale Rating Of: 0 Associated Symptoms: denies: Fever, Chest Pain, Productive Cough, Leg/Calf Pain , Ankle/Leg Swelling Additional Complaint(s): Intermittent episodes of SOB over past 2 days. Not assoc with chest pain, cough or fever. Denies swelling or pain in legs. Recently admitted x 2 last month for CHF exacerbation. Lives alone with diminished resources Past Medical History Vital Signs: Last Vital Signs Temp 97.9 F 12/17/16 16:24 Pulse 65 12/17/16 16:48 Resp 20 12/17/16 16:50 BP 130/66 12/17/16 18:10 Pulse Ox 99 12/17/16 17:05 - Medical History PMH: Asthma, Bronchitis, CAD, COPD, Emphysema, HTN, Hypercholesterolemia Denies: HIV, Chronic Kidney Disease - Surgical History Surgical History: CABG (x3), Coronary Stent (x3), Pacemaker - Family History Family History: States: Unknown Family Hx - Home Medications Home Medications: Ambulatory Orders Medication Instructions Recorded Aspirin [Ecotrin] 162 mg PO DAILY 10/21/16 Carvedilol [Coreg] 3.125 mg PO Q12 #30 tab 11/16/16 Furosemide [Lasix] 40 mg PO DAILY #30 tab 11/16/16 Lisinopril [Zestril] 5 mg PO DAILY #30 tablet 12/06/16 - Allergies Allergies/Adverse Reactions: Allergies Allergy/AdvReac Type Severity Reaction Status Date / Time No Known Allergies Allergy Verified 12/04/16 10:26 Review of Systems ROS Statement: Except As Marked, All Systems Reviewed And Found Negative Constitutional: Negative for: Fever Cardiovascular: Negative for: Chest Pain, Palpitations Respiratory: Positive for: Shortness of Breath. Negative for: Cough Physical Exam - Reviewed Nursing Documentation Reviewed: Yes Vital Signs Reviewed: Yes - Physical Exam Appears: Positive for: Non-toxic, No Acute Distress Head Exam: Positive for: ATRAUMATIC, NORMAL INSPECTION, NORMOCEPHALIC Skin: Positive for: Normal Color, Warm, DRY Eye Exam: Positive for: EOMI, Normal appearance, PERRL ENT: Positive for: Normal ENT Inspection Neck: Positive for: Normal, Painless ROM Cardiovascular/Chest: Positive for: Regular Rate, Rhythm Respiratory: Positive for: CNT, Normal Breath Sounds Gastrointestinal/Abdominal: Positive for: Normal Exam, Bowel Sounds, Soft Back: Positive for: Normal Inspection Extremity: Positive for: Normal ROM Neurologic/Psych: Positive for: Alert, Oriented - Laboratory Results Result Diagrams: 12/17/16 17:13 12/17/16 17:13 - ECG O2 Sat by Pulse Oximetry: 99 Disposition - Clinical Impression Clinical Impression: CHF exacerbation - Patient ED Disposition Is Patient to be Admitted: Yes - Disposition Disposition Time: 18:59 Condition: FAIR Forms: [employer] (Belarusian) - Pt Status Changed To: Hospital Disposition Of: Observation - POA Present On Arrival: None
[2016-12-17] MEDS ORDERED: Albuterol-Ipratrop 3 mg / 0.5 (3 ml) UD ONE (17:15)
[2016-12-17 17:18] LABS: BASO # 0.1 K/uL (0.0-0.2); BASO % 1.8 % (0.0-2.0); EOS # 0.4 K/uL (0.0-0.7); EOS % 5.3 % (0.0-4.0); HEMATOCRIT 34.6 % (35.0-51.0); LYMPH # 1.9 K/uL (1.0-4.3); LYMPH % 25.1 % (20.0-40.0); MEAN CELL VOLUME 94.3 fl (80.0-94.0); MEAN CORPUSCULAR HEMOGLOBIN 30.8 pg (27.0-31.0); MEAN CORPUSCULAR HGB CONC 32.7 g/dL (33.0-37.0); MEAN PLATELET VOLUME 7.3 fl (7.2-11.7); MONO # 0.7 K/uL (0.0-0.8); MONO % 8.6 % (0.0-10.0); NEUT # 4.6 K/uL (1.8-7.0); NEUT % 59.2 % (50.0-75.0); RED CELL DISTRIBUTION WIDTH 13.6 % (11.5-14.5); WHITE BLOOD COUNT 7.7 K/uL (4.8-10.8)
[2016-12-17 17:30] LABS: ALB/GLOB RATIO 1.5 (1.0-2.1); ALKALINE PHOSPHATASE 78 U/L (38-126); ALT/SGPT 36 U/L (21-72); AST/SGOT 40 U/L (17-59); BILIRUBIN,TOTAL 0.4 mg/dl (0.2-1.3); BLOOD UREA NITROGEN 23 mg/dl (9-20); CALCIUM 9.1 mg/dL (8.4-10.2); CARBON DIOXIDE 26 mmol/L (22-30); CHLORIDE 102 mmol/L (98-107); GFR AFRICAN-AMERICAN > 60; GLUCOSE,RANDOM 83 mg/dL (75-110); POTASSIUM 3.9 MMOL/L (3.6-5.0); SODIUM 136 mmol/l (132-148); TOTAL PROTEIN 6.6 G/DL (6.3-8.2)
[2016-12-17] MEDS ORDERED: Iohexol 300 100 ML IJ ONE (17:54)
[2016-12-17] MEDS ORDERED: Sodium Chloride 0.9% 50 ML IV ONE (17:55)
--- NOTE | 2016-12-17 18:05 | RAD ---
HISTORY: sob COMPARISON: Chest x-ray performed 12/10/16 TECHNIQUE: Chest PA and lateral FINDINGS: LUNGS: Biapical pleural thickening. Small left pleural effusion. No definite pneumothorax. 3.3 x 4.2 cm vague ovoid consolidation at the right lung base. Please note that chest x-ray has limited sensitivity for the detection of pulmonary masses. CARDIOVASCULAR: Dual lead left-sided pacemaker. Median sternotomy wires. Heart size appears within normal limits. Atherosclerotic calcifications of the aorta. OSSEOUS STRUCTURES: Degenerative changes of the spine. Osseous demineralization. VISUALIZED UPPER ABDOMEN: Unremarkable. OTHER FINDINGS: None. IMPRESSION: Biapical pleural thickening. Small left pleural effusion. 3.3 x 4.2 cm vague ovoid opacity at the right lung base. This was not evident on chest x-ray performed 12/10/[address] of the chest performed 10/22/16. Consider possibility of developing consolidation. Recommend follow-up to ensure complete resolution either with chest x-ray or CT if indicated.
[2016-12-17] MEDS ORDERED: Iodixanol 320 MG/ML 100 ML BOTTLE IV ONE (18:19)
--- NOTE | 2016-12-17 18:58 | CT ---
PROCEDURE: CT Chest with contrast (Pulmonary Angiogram) HISTORY: sob COMPARISON: None available. TECHNIQUE: Axial computed tomography images were obtained of the chest in the pulmonary arterial phase of enhancement. Coronal and sagittal reformatted images were created and reviewed. Maximum intensity projection (MIP) reconstructed images in the following planes: Axial projection only Intravenous contrast dose: 90 cc Visipaque 320 Mean Hounsfield unit values in the main pulmonary artery: 215.12 Radiation dose: Total exam DLP = 372.53 mGy-cm. This CT exam was performed using one or more of the following dose reduction techniques: Automated exposure control, adjustment of the mA and/or kV according to patient size, and/or use of iterative reconstruction technique. FINDINGS: PULMONARY ARTERIES: Unremarkable. No pulmonary embolism. AORTA: No acute findings. No thoracic aortic aneurysm. LUNGS: Hyperinflation, manifestations of COPD. Centrilobular emphysematous change. Focal consolidative changes, volume loss left lower lobe. No suspicious pulmonary nodules or masses. PLEURAL SPACES: Unremarkable. No effusion or pneuomothorax. Pleural base calcifications suggestive of prior asbestos exposure. HEART: No radiographic findings to suggest acute or significant cardiovascular disease. Incidental Finding(s): Postoperative changes related to sternotomy. No significant pericardial effusion. LYMPH NODES: No lymphadenopathy. BONES, CHEST WALL: Unremarkable. No fracture or destructive lesion OTHER FINDINGS: Cholelithiasis without CT evidence of acute cholecystitis. Small hiatal hernia. Gynecomastia, of 1 cm retroareolar mass on the left. Elective followup advised. IMPRESSION: No large central pulmonary emboli. Qualitatively and quantitatively based on Hounsfield unit values suboptimal opacification of pulmonary arteries. Pulmonary embolism at the subsegmental level is not excluded. Additional benign and/or incidental findings described above.
[2016-12-17] MEDS ORDERED: Albuterol-Ipratrop 3 mg / 0.5 (3 ml) UD INH PRN (23:14)
--- NOTE | 2016-12-17 23:32 | CP.PCM.HP ---
History of Present Illness - History of Present Illness History of Present Illness: CC: SOB, and No follow up with PCP or [employer] Histoy of Present Illness: [id number] with H/O CSAD, CHF and Lng Mass presented with Intermittent episodes of SOB over past 2 days. Not associated with chest pain, cough or fever. Denies swelling or pain in legs. Recently admitted x 2 last month for CHF exacerbation. Lives alone with diminished resources. Present on Admission - Present on Admission Any Indicators Present on Admission: Yes History of DVT/PE: No History of Uncontrolled Diabetes: No Urinary Catheter: No Decubitus Ulcer Present: No Review of Systems - Review of Systems All systems: reviewed and no additional remarkable complaints except Past Patient History - Past Medical History & Family History Past Medical History?: Yes Past Family History: Reviewed and not pertinent - Past Social History Smoking Status: Former Smoker Alcohol: None Drugs: Denies - CARDIAC Hx Hypercholesterolemia: Yes Hx Hypertension: Yes Hx Pacemaker: Yes - PULMONARY Hx Asthma: Yes Hx Bronchitis: Yes Hx Chronic Obstructive Pulmonary Disease (COPD): Yes Hx Emphysema: Yes - NEUROLOGICAL Hx Neurological Disorder: No - HEENT Hx HEENT Problems: Yes - RENAL Hx Chronic Kidney Disease: No - ENDOCRINE/METABOLIC Hx Endocrine Disorders: No - HEMATOLOGICAL/ONCOLOGICAL Hx Human Immunodeficiency Virus (HIV): No - INTEGUMENTARY Hx Dermatological Problems: No - MUSCULOSKELETAL/RHEUMATOLOGICAL Hx Falls: No - GASTROINTESTINAL Hx Gastrointestinal Disorders: No - GENITOURINARY/GYNECOLOGICAL Hx Genitourinary Disorders: No - PSYCHIATRIC Hx Substance Use: No - SURGICAL HISTORY Hx Coronary Artery Bypass Graft: Yes (x3) Hx Coronary Stent: Yes (x3) - ANESTHESIA Hx Anesthesia: Yes Hx Anesthesia Reactions: No Hx Malignant Hyperthermia: No Meds Allergies/Adverse Reactions: Allergies Allergy/AdvReac Type Severity Reaction Status Date / Time No Known Allergies Allergy Verified 12/04/16 10:26 Physical Exam - Constitutional Appears: Well, No Acute Distress - Head Exam Head Exam: ATRAUMATIC, NORMAL INSPECTION, NORMOCEPHALIC - Eye Exam Eye Exam: EOMI, Normal appearance, PERRL Pupil Exam: NORMAL ACCOMODATION, PERRL - ENT Exam ENT Exam: Mucous Membranes Moist, Normal Exam - Neck Exam Neck exam: Positive for: Full Rom, Normal Inspection - Respiratory Exam Respiratory Exam: Clear to Auscultation Bilateral, NORMAL BREATHING PATTERN - Cardiovascular Exam Cardiovascular Exam: REGULAR RHYTHM, +S1, +S2 - GI/Abdominal Exam GI & Abdominal Exam: Normal Bowel Sounds, Soft. absent: Tenderness - Extremities Exam Extremities exam: Positive for: full ROM, normal capillary refill, normal inspection - Back Exam Back exam: NORMAL INSPECTION - Neurological Exam Neurological exam: Alert, CN II-XII Intact, Normal Gait, Oriented x3, Reflexes Normal - Psychiatric Exam Psychiatric exam: Normal Affect, Normal Mood - Skin Skin Exam: Dry, Intact, Normal Color, Warm Results - Vital Signs Recent Vital Signs: Last Vital Signs Temp 98 F 12/17/16 20:22 Pulse 61 12/17/16 20:22 Resp 14 12/17/16 20:22 BP 99/59 L 12/17/16 20:22 Pulse Ox 99 12/17/16 20:22 - Labs Result Diagrams: 12/17/16 17:13 12/17/16 17:13 - EKG Data EKG comments: Atrial Paced. Non- specific St-Changes. - Imaging and Cardiology Chest x-ray Status: Report reviewed by me Additional comment: IMPRESSION: Biapical pleural thickening. Small left pleural effusion. 3.3 x 4.2 cm vague ovoid opacity at the right lung base. This was not evident on chest x-ray performed 12/10/[address] of the chest performed 10/22/16. Consider possibility of developing consolidation. Recommend follow-up to ensure complete resolution either with chest x-ray or CT if indicated. CT Chest: Status: Report reviewed by me Additional comment: IMPRESSION: No large central pulmonary emboli. Qualitatively and quantitatively based on Hounsfield unit values suboptimal opacification of pulmonary arteries. Pulmonary embolism at the subsegmental level is not excluded. Assessment & Plan (1) Mass of right lung Assessment and Plan: No proper follow up Recommended to follow up with [employer] for Biopsy Status: Acute (2) CHF exacerbation Assessment and Plan: CAD S/P CABG; S/P PACE Maker IV Lasix ASA/Coreg/Lisinopril O2 Via NC Status: Acute Priority: Medium
[2016-12-18 04:46] VITALS: RESP 18
[2016-12-18] MEDS ORDERED: Enoxaparin 40 mg Syringe SC SCH (09:00)
--- NOTE | 2016-12-18 10:20 | CARD ---
APPROVED REPORT EKG Measurement Heart [id number] NM [id number] [id number] <Conclusion> Atrial-paced rhythm Cannot rule out Inferior infarct, age undetermined Anterior infarct, age undetermined ST & T wave abnormality, consider lateral ischemia Abnormal ECG
[2016-12-18 12:20] VITALS: BP 96/60; PULSE 60; TEMP 97.8; O2SAT 97
--- NOTE | 2016-12-18 23:12 | CP.PCM.DIS ---
Provider - Provider Date of Admission: 12/17/16 18:57 Attending physician: Jae Mckee MD Time Spent in preparation of Discharge (in minutes): 25 Hospital Course - Lab Results Lab Results: Most Recent Lab Values WBC 7.7 K/uL (4.8-10.8) 12/17/16 17:13 RBC 3.67 Mil/uL (4.40-5.90) L 12/17/16 17:13 Hgb 11.3 g/dL (12.0-18.0) L 12/17/16 17:13 Hct 34.6 % (35.0-51.0) L 12/17/16 17:13 MCV 94.3 fl (80.0-94.0) H 12/17/16 17:13 MCH 30.8 pg (27.0-31.0) 12/17/16 17:13 MCHC 32.7 g/dL (33.0-37.0) L 12/17/16 17:13 RDW 13.6 % (11.5-14.5) 12/17/16 17:13 Plt Count 172 K/uL (130-400) 12/17/16 17:13 MPV 7.3 fl (7.2-11.7) 12/17/16 17:13 Neut % (Auto) 59.2 % (50.0-75.0) 12/17/16 17:13 Lymph % (Auto) 25.1 % (20.0-40.0) 12/17/16 17:13 Webster % (Auto) 8.6 % (0.0-10.0) 12/17/16 17:13 Eos % (Auto) 5.3 % (0.0-4.0) H 12/17/16 17:13 Baso % (Auto) 1.8 % (0.0-2.0) 12/17/16 17:13 Neut # 4.6 K/uL (1.8-7.0) 12/17/16 17:13 Lymph # 1.9 K/uL (1.0-4.3) 12/17/16 17:13 Webster # 0.7 K/uL (0.0-0.8) 12/17/16 17:13 Eos # 0.4 K/uL (0.0-0.7) 12/17/16 17:13 Baso # 0.1 K/uL (0.0-0.2) 12/17/16 17:13 Sodium 136 mmol/l (132-148) 12/17/16 17:13 Potassium 3.9 MMOL/L (3.6-5.0) 12/17/16 17:13 Chloride 102 mmol/L (98-107) 12/17/16 17:13 Carbon Dioxide 26 mmol/L (22-30) 12/17/16 17:13 Anion Gap 11 (10-20) 12/17/16 17:13 BUN 23 mg/dl (9-20) H 12/17/16 17:13 Creatinine 1.0 mg/dL (0.8-1.5) 12/17/16 17:13 Est GFR ( Amer) > 60 12/17/16 17:13 Est GFR (Non-Af Amer) > 60 12/17/16 17:13 Random Glucose 83 mg/dL (75-110) 12/17/16 17:13 Calcium 9.1 mg/dL (8.4-10.2) 12/17/16 17:13 Total Bilirubin 0.4 mg/dl (0.2-1.3) 12/17/16 17:13 AST 40 U/L (17-59) 12/17/16 17:13 ALT 36 U/L (21-72) 12/17/16 17:13 Alkaline Phosphatase 78 U/L (38-126) 12/17/16 17:13 Troponin I < 0.0120 ng/mL (0.00-0.120) 12/18/16 09:00 NT-Pro-B Natriuret Pep 1290 pg/ml (0-900) H 12/17/16 17:13 Total Protein 6.6 G/DL (6.3-8.2) 12/17/16 17:13 Albumin 3.9 g/dL (3.5-5.0) 12/17/16 17:13 Globulin 2.7 gm/dL (2.2-3.9) 12/17/16 17:13 Albumin/Globulin Ratio 1.5 (1.0-2.1) 12/17/16 17:13 Discharge Exam - Head Exam Head Exam: ATRAUMATIC, NORMAL INSPECTION, NORMOCEPHALIC - Eye Exam Eye Exam: EOMI, Normal appearance, PERRL Pupil Exam: NORMAL ACCOMODATION, PERRL - Respiratory Exam Respiratory Exam: Decreased Breath Sounds - Cardiovascular Exam Cardiovascular Exam: +S1, +S2, Systolic Murmur - GI/Abdominal Exam GI & Abdominal Exam: Normal Bowel Sounds - Neurological Exam Neurological exam: Alert, CN II-XII Intact, Normal Gait, Oriented x3, Reflexes Normal - Psychiatric Exam Psychiatric exam: Normal Affect, Normal Mood - Skin Skin Exam: Dry, Intact, Normal Color, Warm Discharge Plan - Follow Up Plan Condition: FAIR Disposition: HOME/ ROUTINE Instructions: Heart Failure (DC), Heart Failure (GEN), Pacemaker (DC), Pacemaker (GEN), Pulmonary Edema (DC), Pulmonary Edema (GEN), Ascites (DC), Ascites (GEN), Hypertension (DC), Hypertension (GEN) Additional Instructions: patient cleared for discharge to Home today by Dr.Seman catherine. current meds see reconciliation Referrals: Jae Mckee MD [Staff Provider] -
== END 2016-12-18 13:34 | disposition home or self-care (01) ==
LOC: H.ER 16:22 → H.ERHOLD 18:57 → H.TEL 20:38
PROVIDERS: ADMIT Internal Medicine; ATTEND Internal Medicine
DX: R06.02 Shortness of breath (principal); R91.8 Other nonspecific abnormal finding of lung field; E78.00 Pure hypercholesterolemia, unspecified; I11.0 Hypertensive heart disease with heart failure; I50.9 Heart failure, unspecified; I25.10 Atherosclerotic heart disease of native coronary artery without angina pectoris; J43.9 Emphysema, unspecified; J45.909 Unspecified asthma, uncomplicated; Z95.1 Presence of aortocoronary bypass graft; Z95.5 Presence of coronary angioplasty implant and graft; Z95.0 Presence of cardiac pacemaker; Z87.891 Personal history of nicotine dependence
CPT/HCPCS: 36415; 71020; 71275; 80053; 83880; 84484; 85025; 93005; 94640; 96372; 96374; 96376; 99285; G0378; J1650; J1940; Q9967

== ENCOUNTER 2017-03-02 10:46 | Emergency (ER) | payer MEDICARE ==
[2017-03-02 10:46] VITALS: BMI 18.1
[2017-03-02 10:49] VITALS: BP 141/74; PULSE 63; RESP 20; TEMP 97.6
[2017-03-02 10:58] VITALS: O2SAT 98
--- NOTE | 2017-03-02 13:03 | ED PDOC ---
HPI: General Adult Time Seen by Provider: 03/02/17 11:00 Chief Complaint (Nursing): Back Pain History Per: Patient Additional Complaint(s): Pt. states 3 weeks ago he sustained a L hip fracture due to a fall. Pt. states he was seen in [place] ED and had surgery for the hip fracture done there. States 2 heydi were placed but he does not remember the orthopedist's name. States since the fall he's had non-radiating pain across the lower back. Pt. states he is uncertain if the had any imaging tests done on his lower back. Pain in his lower back has been constant since the fall. Denies new fall, radiation of pain, numbness, tingling, hematuria, dysuria, incontinence, abdominal pain. Past Medical History Reviewed: Historical Data, Nursing Documentation, Vital Signs Vital Signs: Last Vital Signs Temp 97.6 F 03/02/17 10:48 Pulse 63 03/02/17 10:48 Resp 20 03/02/17 10:48 BP 141/74 03/02/17 10:48 Pulse Ox 98 03/02/17 13:18 - Medical History PMH: Asthma, Bronchitis, CAD, COPD, Emphysema, HTN, Hypercholesterolemia Denies: HIV, Chronic Kidney Disease - Surgical History Surgical History: CABG (x3), Coronary Stent (x3), Pacemaker - Family History Family History: States: No Known Family Hx - Home Medications Home Medications: Ambulatory Orders Medication Instructions Recorded Aspirin [Ecotrin] 162 mg PO DAILY 10/21/16 Carvedilol [Coreg] 3.125 mg PO Q12 #30 tab 11/16/16 Furosemide [Lasix] 40 mg PO DAILY #30 tab 11/16/16 Lisinopril [Zestril] 5 mg PO DAILY #30 tablet 12/06/16 Metaxalone [Skelaxin] 800 mg PO Q8 #15 tablet 03/02/17 Tramadol HCl [Ultram] 50 mg PO BID PRN #6 tablet 03/02/17 - Allergies Allergies/Adverse Reactions: Allergies Allergy/AdvReac Type Severity Reaction Status Date / Time No Known Allergies Allergy Verified 12/04/16 10:26 Review of Systems ROS Statement: Except As Marked, All Systems Reviewed And Found Negative Musculoskeletal: Positive for: Back Pain Physical Exam - Physical Exam Appears: Positive for: Well, Non-toxic, No Acute Distress Skin: Positive for: Normal Color, Warm. Negative for: Rash Eye Exam: Positive for: Normal appearance Neck: Positive for: Normal, Painless ROM Cardiovascular/Chest: Positive for: Regular Rate, Rhythm Respiratory: Positive for: CNT, Normal Breath Sounds Gastrointestinal/Abdominal: Positive for: Normal Exam, Soft. Negative for: Tenderness Back: Positive for: Normal Inspection. Negative for: L CVA Tenderness, R CVA Tenderness, Vertebral Tenderness, Muscle Spasm Extremity: Positive for: Normal ROM, Other (no hip or pelvic tenderness or deformity) Neurologic/Psych: Positive for: Alert, Oriented. Negative for: Aphasia, Facial Droop - ECG O2 Sat by Pulse Oximetry: 98 - Progress ED Course And Treament: CT LS spine w/o contrast: 1. No acute fracture or spondylolysis. 2. Severe levoscoliosis in the lumbar spine and 1.1 cm right lateral listhesis of L3 on L4. 3. Multilevel degenerative disc disease, worse at L3-4 with a diffuse posterior disc bulge and superimposed central disc protrusion and severe bilateral neural foraminal stenosis. 4. Severe constipation. L hip x-ray: hardware in placed; no fx Disposition - Clinical Impression Clinical Impression: Low back pain - Patient ED Disposition Is Patient to be Admitted: No - Disposition Referrals: [facility] [Outside] Disposition: Routine/Home Disposition Time: 14:34 Condition: STABLE Prescriptions: Metaxalone [Skelaxin] 800 mg PO Q8 #15 tablet Tramadol HCl [Ultram] 50 mg PO BID PRN #6 tablet PRN Reason: Other Instructions: Back Pain (ED) Forms: [facility] ([place])
--- NOTE | 2017-03-02 13:55 | CT ---
PROCEDURE: CT Lumbar Spine without contrast HISTORY: Back pain COMPARISON: None. TECHNIQUE: Axial computed tomography images were obtained of the lumbar spine without the use of intravenous contrast. Coronal and sagittal reformatted images were created and reviewed. Radiation dose: Total exam DLP = 481.82 mGy-cm. This CT exam was performed using one or more of the following dose reduction techniques: Automated exposure control, adjustment of the mA and/or kV according to patient size, and/or use of iterative reconstruction technique. FINDINGS: VERTEBRAE: There is severe levoscoliosis in the lumbar spine and 1.1 cm right lateral listhesis of L3 on L4. There is normal alignment of the lumbar vertebral bodies. Lumbar lordosis is maintained. Vertebral bodies are normal in height. There is diffuse bone demineralization. There is no acute fracture or spondylolysis. DISCS/SPINAL CANAL/NEURAL FORAMINA: L1-2: Diffuse posterior disc bulge in conjunction with mild facet arthropathy result in moderate right and severe left neural foraminal stenosis. No spinal canal stenosis. L2-3: Diffuse posterior disc bulge in conjunction with mild ligamentum flavum infolding and mild bilateral facet arthropathy result in moderate to severe neural foraminal stenosis. No spinal canal stenosis. L3-4: Diffuse posterior disc bulge and superimposed central disc protrusion in conjunction with moderate ligamentum flavum infolding and mild bilateral facet arthropathy result in severe bilateral neural foraminal stenosis and mild spinal canal stenosis. L4-5: Posterior disc bulge in conjunction with moderate right and mild left neural foraminal stenosis result in severe right and moderate left neural foraminal stenosis. No spinal canal stenosis. . L5-S1: Diffuse posterior disc bulge with superimposed right foraminal disc protrusion result in moderate neural foraminal stenosis, worse on the right. No spinal canal stenosis. PARASPINAL SOFT TISSUES: Unremarkable. OTHER FINDINGS: There is large amount of stool in the visualized colon with fecal stasis in the rectum. There are advanced atherosclerotic aortoiliac calcifications with aneurysmal dilatation of the right common iliac artery. IMPRESSION: 1. No acute fracture or spondylolysis. 2. Severe levoscoliosis in the lumbar spine and 1.1 cm right lateral listhesis of L3 on L4. 3. Multilevel degenerative disc disease, worse at L3-4 with a diffuse posterior disc bulge and superimposed central disc protrusion and severe bilateral neural foraminal stenosis. 4. Severe constipation.
--- NOTE | 2017-03-02 15:33 | RAD ---
PROCEDURE: Left Hip X-ray Radiographs. HISTORY: Pain COMPARISON: None. FINDINGS: BONES: The pelvic ring is intact. There is no acute fracture or bone destruction. JOINTS: The hip joint spaces are preserved. Status post internal fixation in the left femoral head with dynamic screws. No evidence of hardware complications. SOFT TISSUES: Normal. OTHER FINDINGS: There are early atherosclerotic vascular calcifications. IMPRESSION: No acute fracture or dislocation.
== END 2017-03-02 17:39 | disposition home or self-care (01) ==
LOC: H.ER 10:46
DX: M54.5 Low back pain (principal); K59.00 Constipation, unspecified; E78.00 Pure hypercholesterolemia, unspecified; I10 Essential (primary) hypertension; Z95.0 Presence of cardiac pacemaker; Z95.1 Presence of aortocoronary bypass graft; M25.552 Pain in left hip

== ENCOUNTER 2017-03-27 22:33 | Emergency (ER) | payer MEDICARE ==
[2017-03-27 22:33] VITALS: BMI 18.1
[2017-03-27 22:46] VITALS: RESP 18; TEMP 97.5
[2017-03-27] MEDS ORDERED: Nitroglycerin 2% Ointment Foilpak UD TOP STA (22:51)
[2017-03-27] MEDS ORDERED: Albuterol-Ipratrop 3 mg / 0.5 (3 ml) UD INH STA (23:03)
[2017-03-27 23:23] LABS: BASO # 0.1 K/uL (0.0-0.2); BASO % 0.7 % (0.0-2.0); EOS # 0.1 K/uL (0.0-0.7); EOS % 0.8 % (0.0-4.0); LYMPH # 0.4 K/uL (1.0-4.3); LYMPH % 3.4 % (20.0-40.0); MEAN CELL VOLUME 91.1 fl (80.0-94.0); MEAN CORPUSCULAR HEMOGLOBIN 30.4 pg (27.0-31.0); MEAN CORPUSCULAR HGB CONC 33.4 g/dL (33.0-37.0); MEAN PLATELET VOLUME 7.3 fl (7.2-11.7); MONO # 0.1 K/uL (0.0-0.8); NEUT # 9.7 K/uL (1.8-7.0); NEUT % 94.1 % (50.0-75.0); PLATELET COUNT 189 K/uL (130-400); RED CELL DISTRIBUTION WIDTH 15.6 % (11.5-14.5); WHITE BLOOD COUNT 10.3 K/uL (4.8-10.8)
[2017-03-27 23:32] LABS: ALB/GLOB RATIO 1.3 (1.0-2.1); ALKALINE PHOSPHATASE 95 U/L (38-126); ALT/SGPT 35 U/L (21-72); AST/SGOT 37 U/L (17-59); BILIRUBIN,TOTAL 0.5 mg/dl (0.2-1.3); BLOOD UREA NITROGEN 24 mg/dl (9-20); CALCIUM 9.1 mg/dL (8.4-10.2); CARBON DIOXIDE 25 mmol/L (22-30); CHLORIDE 101 mmol/L (98-107); GFR AFRICAN-AMERICAN > 60; GLUCOSE,RANDOM 151 mg/dL (75-110); POTASSIUM 4.6 MMOL/L (3.6-5.0); SODIUM 137 mmol/l (132-148); TOTAL PROTEIN 7.8 G/DL (6.3-8.2)
--- NOTE | 2017-03-27 23:32 | ED PDOC ---
HPI: SOB/CHF/COPD Time Seen by Provider: 03/27/17 22:44 Chief Complaint (Nursing): Shortness Of Breath Chief Complaint (Provider): Shortness of Breath History Per: Patient History/Exam Limitations: no limitations Onset/Duration Of Symptoms: Days (x 1 week) Current Symptoms Are (Timing): Still Present Additional Complaint(s): 67 y/o male with a history of CHF, hypertension, CAV, pacemaker, and COPD presents to the ED today for worsening shortness of breath starting one week ago. His chart demonstrates that he was discharged today from [facility] after a 48 hour admission for CHF; however, patient denies discharge today and states he was admitted a week ago. He admits to noncompliance with all medication because of benito and lack of insurance. His chart demonstrates that he has medicare. PMD: None Provided Past Medical History Reviewed: Historical Data, Nursing Documentation, Vital Signs Vital Signs: Last Vital Signs Temp 97.5 F L 03/27/17 22:38 Pulse 63 03/28/17 00:21 Resp 18 03/28/17 00:13 BP 118/59 L 03/28/17 00:21 Pulse Ox 97 03/28/17 00:13 - Medical History PMH: Asthma, Bronchitis, CAD, COPD, Emphysema, HTN, Hypercholesterolemia Denies: HIV, Chronic Kidney Disease - Surgical History Surgical History: CABG (x3), Coronary Stent (x3), Pacemaker - Family History Family History: States: Unknown Family Hx - Social History Current smoker - smoking cessation education provided: No Alcohol: None Drugs: Denies - Immunization History Hx Tetanus Toxoid Vaccination: No Hx Influenza Vaccination: No Hx Pneumococcal Vaccination: No - Home Medications Home Medications: Ambulatory Orders Medication Instructions Recorded Aspirin [Ecotrin] 162 mg PO DAILY 10/21/16 Carvedilol [Coreg] 3.125 mg PO Q12 #30 tab 11/16/16 Furosemide [Lasix] 40 mg PO DAILY #30 tab 11/16/16 Lisinopril [Zestril] 5 mg PO DAILY #30 tablet 12/06/16 Metaxalone [Skelaxin] 800 mg PO Q8 #15 tablet 03/02/17 Tramadol HCl [Ultram] 50 mg PO BID PRN #6 tablet 03/02/17 - Allergies Allergies/Adverse Reactions: Allergies Allergy/AdvReac Type Severity Reaction Status Date / Time No Known Allergies Allergy Verified 03/27/17 22:38 Review of Systems ROS Statement: Except As Marked, All Systems Reviewed And Found Negative Cardiovascular: Positive for: Orthopnea Respiratory: Positive for: Shortness of Breath Physical Exam - Reviewed Nursing Documentation Reviewed: Yes Vital Signs Reviewed: Yes - Physical Exam Appears: Positive for: Non-toxic, No Acute Distress Head Exam: Positive for: ATRAUMATIC, NORMAL INSPECTION, NORMOCEPHALIC Skin: Positive for: Normal Color, Warm, Dry Eye Exam: Positive for: EOMI, Normal appearance, PERRL ENT: Positive for: Normal ENT Inspection Neck: Positive for: Normal, Painless ROM, Supple Cardiovascular/Chest: Positive for: Regular Rate, Rhythm. Negative for: Murmur Respiratory: Positive for: Wheezing (b/l expiratory). Negative for: Respiratory Distress Gastrointestinal/Abdominal: Positive for: Normal Exam, Bowel Sounds, Soft. Negative for: Tenderness Back: Positive for: Normal Inspection Extremity: Positive for: Normal ROM. Negative for: Pedal Edema, Deformity Neurologic/Psych: Positive for: Alert, Oriented. Negative for: Motor/Sensory Deficits - Laboratory Results Result Diagrams: 03/27/17 23:15 03/27/17 23:15 - ECG O2 Sat by Pulse Oximetry: 98 (RA) Pulse Ox Interpretation: Normal Medical Decision Making Medical Decision Making: Time: 22:50 Initial Impression: 67 y/o male with shortness of breath in setting of known CHF, COPD, and recent discharge from [facility]. Provider questions bedseeking/malingering. Initial Plan: --EKG --B-Type Natriuretic Peptide --CMP --Troponin I --CBC --PTT --Prothrombin Time --Aspirin --Lasix --Duoneb --Nitro-Bid --Peak Flow Pre/Post Time: 00:35 --Labs reviewed and show no clinically significant abnormalities --Pro BNP showed some elevation but this was improved from 2 days ago --Chest XR showed no CHF, cardiomegaly, or infiltrates. Hyperinflation indicative of COPD noted --Patient is stable for discharge home and was encouraged to follow up with the clinic as he states he has no PMD Clinical Impression: COPD, CHF, malingering Condition: Stable Scribe Attestation: Documented by Wally Rivers, acting as a scribe for Abelino Negrete MD Provider Scribe Attestation: All medical record entries made by the Scribe were at my direction and personally dictated by me. I have reviewed the chart and agree that the record accurately reflects my personal performance of the history, physical exam, medical decision making, and the department course for this patient. I have also personally directed, reviewed, and agree with the discharge instructions and disposition. Disposition - Clinical Impression Clinical Impression: COPD (chronic obstructive pulmonary disease), CHF (congestive heart failure) - Patient ED Disposition Is Patient to be Admitted: No Counseled Patient/Family Regarding: Studies Performed, Diagnosis, Need For Followup - Disposition Referrals: [facility] [Outside] Disposition Time: 00:35 Condition: STABLE Instructions: COPD (Chronic Obstructive Pulmonary Disease) (ED) Forms: [employer] [facility] ([place])
[2017-03-27 23:53] LABS: EOSINOPHIL 1 % (0-7); NEUTROPHIL 97 % (42-75); TOTAL CELLS COUNTED 100
[2017-03-28 00:14] VITALS: BP 118/59
[2017-03-28] MEDS ORDERED: Nitroglycerin 2% Ointment Foilpak UD TOP ONE (00:16)
[2017-03-28] MEDS ORDERED: Albuterol-Ipratrop 3 mg / 0.5 (3 ml) UD ONE (00:17)
[2017-03-28 00:22] VITALS: PULSE 63
[2017-03-28 00:43] VITALS: O2SAT 98
[2017-03-28 02:57] LABS: PARTIAL THROMBOPLASTIN TIME 39.3 Seconds (25.6-37.1)
--- NOTE | 2017-03-28 10:56 | RAD ---
HISTORY: chest pain COMPARISON: Comparison chest 12/17/2016 FINDINGS: LUNGS: Mild chronic basilar atelectasis/ scarring changes left lung base with pleural thickening with persistent blunting of the left CP angle. PLEURA: No significant pleural effusion identified, no pneumothorax apparent. CARDIOVASCULAR: Sternotomy wires and CABG clips again noted. . Heart size mildly enlarged. No change bipolar pacemaker. OSSEOUS STRUCTURES: No significant abnormalities. VISUALIZED UPPER ABDOMEN: Normal. OTHER FINDINGS: None. IMPRESSION: Mild chronic basilar atelectasis/ scarring changes left lung base with pleural thickening with persistent blunting of the left CP angle.
--- NOTE | 2017-03-28 21:12 | CARD ---
APPROVED REPORT EKG Measurement Heart [id number] <Conclusion> Atrial-paced rhythm with prolonged AV conduction Possible Inferior infarct, age undetermined Anterior infarct, age undetermined T wave abnormality, consider lateral ischemia Abnormal ECG
== END 2017-03-28 06:45 | disposition home or self-care (01) ==
LOC: H.ER 22:33
DX: J44.9 Chronic obstructive pulmonary disease, unspecified (principal); E78.00 Pure hypercholesterolemia, unspecified; I11.0 Hypertensive heart disease with heart failure; I25.10 Atherosclerotic heart disease of native coronary artery without angina pectoris; Z79.82 Long term (current) use of aspirin; Z91.19 Patient's noncompliance with other medical treatment and regimen; Z95.0 Presence of cardiac pacemaker; Z95.1 Presence of aortocoronary bypass graft; Z95.5 Presence of coronary angioplasty implant and graft
CPT/HCPCS: 71010; 80053; 83880; 84484; 85025; 85610; 85730; 93005; 96374; 99284; J1940

== ENCOUNTER 2017-05-06 23:19 | Observation (INO) | payer MEDICARE ==
[2017-05-06 23:19] VITALS: BMI 18.1
--- NOTE | 2017-05-06 23:46 | ED PDOC ---
HPI: Chest Pain Time Seen by Provider: 05/06/17 23:29 Chief Complaint (Nursing): Chest Pain Chief Complaint (Provider): chest pain History Per: Patient History/Exam Limitations: no limitations Onset/Duration Of Symptoms: Hrs (x1 prior to arrival) Current Symptoms Are (Timing): Still Present Additional Complaint(s): 67 year old male with previous medical history of CHF, COPD and CAD, who presents to the emergency department with a complaint of substernal "pressure- like" chest pain associated with shortness of breath, productive cough with white sputum, malaise and fatigue ongoing 1 hour prior to arrival. Denied any fever, chills, dizziness, syncope, leg pain or swelling. Patient stated he takes his medications as prescribed but does not regularly follow-up with doctors because "Medicaid don't pay for anything". PMD: none provided Past Medical History Reviewed: Historical Data, Nursing Documentation, Vital Signs Vital Signs: Last Vital Signs Temp 97.7 F 05/07/17 12:00 Pulse 63 05/07/17 12:18 Resp 19 05/07/17 12:00 BP 92/59 L 05/07/17 13:00 Pulse Ox 97 05/07/17 12:00 - Medical History PMH: Asthma, Bronchitis, CAD, COPD, Emphysema, HTN, Hypercholesterolemia Denies: HIV, Chronic Kidney Disease - Surgical History Surgical History: CABG (x3), Coronary Stent (x3), Pacemaker Denies: No Surg Hx - Family History Family History: States: Unknown Family Hx - Social History Current smoker - smoking cessation education provided: No - Immunization History Hx Tetanus Toxoid Vaccination: No Hx Influenza Vaccination: No Hx Pneumococcal Vaccination: No - Home Medications Home Medications: Ambulatory Orders Medication Instructions Recorded Aspirin [Ecotrin] 162 mg PO DAILY 10/21/16 Carvedilol [Coreg] 3.125 mg PO Q12 #30 tab 11/16/16 Furosemide [Lasix] 40 mg PO DAILY #30 tab 11/16/16 Lisinopril [Zestril] 5 mg PO DAILY #30 tablet 12/06/16 Metaxalone [Skelaxin] 800 mg PO Q8 #15 tablet 03/02/17 Tramadol HCl [Ultram] 50 mg PO BID PRN #6 tablet 03/02/17 - Allergies Allergies/Adverse Reactions: Allergies Allergy/AdvReac Type Severity Reaction Status Date / Time No Known Allergies Allergy Verified 03/27/17 22:38 Review of Systems ROS Statement: Except As Marked, All Systems Reviewed And Found Negative Constitutional: Positive for: Malaise (and fatigue). Negative for: Fever, Chills Cardiovascular: Positive for: Chest Pain ("pressure-like") Respiratory: Positive for: Cough, Shortness of Breath, Sputum (white) Musculoskeletal: Negative for: Leg Pain (or swelling) Neurological: Negative for: Dizziness (or syncope) Physical Exam - Reviewed Nursing Documentation Reviewed: Yes Vital Signs Reviewed: Yes - Physical Exam Appears: Positive for: Non-toxic, In Acute Distress Head Exam: Positive for: ATRAUMATIC, NORMOCEPHALIC Skin: Positive for: Warm, Dry, Pallor Eye Exam: Positive for: EOMI, PERRL ENT: Positive for: Other (dry mucus membranes) Neck: Positive for: Painless ROM, Supple Cardiovascular/Chest: Positive for: Chest Non Tender, Murmur. Negative for: Edema, Tachycardia Respiratory: Positive for: Rhonchi (faint bilateral). Negative for: Respiratory Distress Gastrointestinal/Abdominal: Positive for: Soft. Negative for: Tenderness Back: Positive for: Normal Inspection. Negative for: Decreased ROM Extremity: Positive for: Normal ROM. Negative for: Pedal Edema, Capillary Refill Lymphatic: Negative for: Adenopathy Neurologic/Psych: Positive for: Alert, Oriented (x3), Mood/Affect (sad and angry ). Negative for: Motor/Sensory Deficits - Laboratory Results Result Diagrams: 05/07/17 08:44 05/07/17 08:44 - ECG ECG Rhythm: Positive for: Atrial Paced (with t wave inversions and conduction abnormalities similar to previous ) O2 Sat by Pulse Oximetry: 98 (RA) Pulse Ox Interpretation: Normal Medical Decision Making Medical Decision Making: Initial Impression: Chest pain with cardiac risk factors Initial Plan: * Type and screen * EKG * BNP * CMP * Mg * Phosphorous * Troponin I Q8H * Urine dipstick * CBC * PTT * PT * CXR * Blood culture * Influenza Time: 00:00 --Patient will be hospitalized to rule-out ACS and signed out to Dr. Se Hoyt. Pending ED work up. Scribe Attestation: Documented by Oanh Gonzalez, acting as a scribe for Jana Gaviria MD. Provider Scribe Attestation: All medical record entries made by the Scribe were at my direction and personally dictated by me. I have reviewed the chart and agree that the record accurately reflects my personal performance of the history, physical exam, medical decision making, and the department course for this patient. I have also personally directed, reviewed, and agree with the discharge instructions and disposition. Disposition - Clinical Impression Clinical Impression: Acute chest pain - Patient ED Disposition Is Patient to be Admitted: Transfer of Care - Disposition Disposition: Transfer of Care Disposition Time: 00:00 Condition: SERIOUS
--- NOTE | 2017-05-07 00:25 | ED PDOC ---
- Laboratory Results Result Diagrams: 05/07/17 00:51 05/07/17 00:51 - ECG O2 Sat by Pulse Oximetry: 98 (RA) Pulse Ox Interpretation: Normal Medical Decision Making Medical Decision Making: Time: 00:00 --Patient was endorsed to provider by Dr. Jana Gaviria. Pending bloodwork and hospital admission. Time: 200 --Case discussed with Dr. Mckee. Workup negative so far. Dr. Mckee knows patient well, given risk factors and lack of followup, meets admission criteria for continuous cardiac monitoring, trending troponins, specialty consultation with cardiology. Scribe Attestation: Documented by Oanh Gonzalez, acting as a scribe for Se Hoyt MD. Provider Scribe Attestation: All medical record entries made by the Scribe were at my direction and personally dictated by me. I have reviewed the chart and agree that the record accurately reflects my personal performance of the history, physical exam, medical decision making, and the department course for this patient. I have also personally directed, reviewed, and agree with the discharge instructions and disposition. Disposition - Clinical Impression Clinical Impression: Acute chest pain - POA Present On Arrival: None - Disposition Disposition: Admitted as In-Patient Disposition Time: 01:30 Condition: SERIOUS
[2017-05-07 01:16] LABS: BASO # 0.2 K/uL (0.0-0.2); EOS # 0.5 K/uL (0.0-0.7); HEMOGLOBIN 9.9 g/dL (12.0-18.0); LYMPH # 1.6 K/uL (1.0-4.3); LYMPH % 21.6 % (20.0-40.0); MEAN CELL VOLUME 91.6 fl (80.0-94.0); MEAN CORPUSCULAR HEMOGLOBIN 29.8 pg (27.0-31.0); MEAN CORPUSCULAR HGB CONC 32.5 g/dL (33.0-37.0); MEAN PLATELET VOLUME 8.1 fl (7.2-11.7); MONO # 0.7 K/uL (0.0-0.8); MONO % 9.7 % (0.0-10.0); NEUT # 4.4 K/uL (1.8-7.0); NEUT % 59.7 % (50.0-75.0); RBC 3.31 Mil/uL (4.40-5.90); RED CELL DISTRIBUTION WIDTH 14.9 % (11.5-14.5); WHITE BLOOD COUNT 7.4 K/uL (4.8-10.8)
[2017-05-07 01:44] LABS: INR 0.9 (0.9-1.2); PARTIAL THROMBOPLASTIN TIME 36.1 Seconds (25.6-37.1); PROTHROMBIN TIME 10.2 Seconds (9.8-13.1)
[2017-05-07 01:54] LABS: B-TYPE NATRIURETIC PEPTIDE 1690 pg/ml (0-900)
[2017-05-07 02:04] LABS: BLOOD UREA NITROGEN 61 mg/dl (9-20)
[2017-05-07 02:05] LABS: ALB/GLOB RATIO 1.2 (1.0-2.1); CALCIUM 8.8 mg/dL (8.4-10.2); GFR AFRICAN-AMERICAN > 60; GFR NON-AFRICAN AMERICAN > 60; MAGNESIUM 2.1 MG/DL (1.6-2.3)
[2017-05-07 04:49] LABS: ALT/SGPT 46 U/L (21-72); AST/SGOT 52 U/L (17-59)
[2017-05-07] MEDS ORDERED: Pneumococcal 23-Valent Vaccine IM ONE (04:53)
--- NOTE | 2017-05-07 08:11 | RAD ---
HISTORY: chest pain COMPARISON: Frontal chest radiograph 03/27/2017. FINDINGS: LUNGS: Heterogeneous lucency is again seen at the upper lung zones predominantly, compatible with COPD. No acute infiltrate is appreciated bilaterally. PLEURA: Chronic fibrotic change again seen at the left base and lateral pleura left chest. No right pleural effusion. No pneumothorax bilaterally. CARDIOVASCULAR: Stable cardiomegaly with pacemaker again identified. OSSEOUS STRUCTURES: No significant abnormalities. VISUALIZED UPPER ABDOMEN: Normal. OTHER FINDINGS: None. 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 No acute airspace disease appreciable bilaterally.
[2017-05-07 08:49] LABS: BASO # 0.2 K/uL (0.0-0.2); BASO % 2.3 % (0.0-2.0); EOS # 0.7 K/uL (0.0-0.7); EOS % 9.7 % (0.0-4.0); HEMOGLOBIN 10.4 g/dL (12.0-18.0); LYMPH # 1.6 K/uL (1.0-4.3); LYMPH % 22.1 % (20.0-40.0); MEAN CORPUSCULAR HEMOGLOBIN 30.5 pg (27.0-31.0); MEAN CORPUSCULAR HGB CONC 33.5 g/dL (33.0-37.0); MEAN PLATELET VOLUME 7.9 fl (7.2-11.7); MONO # 0.8 K/uL (0.0-0.8); MONO % 10.3 % (0.0-10.0); NEUT # 4.1 K/uL (1.8-7.0); NEUT % 55.6 % (50.0-75.0); NRBC % 0.1 % (0.0-0.0); RBC 3.42 Mil/uL (4.40-5.90); RED CELL DISTRIBUTION WIDTH 15.1 % (11.5-14.5); WHITE BLOOD COUNT 7.4 K/uL (4.8-10.8)
--- NOTE | 2017-05-07 10:40 | CP.PCM.CON ---
History of Present Illness - History of Present Illness History of Present Illness: This 67-year- old man was known to have coronary artery disease and has undergone coronary bypass graft surgery following earlier myocardial infarcts has had multiple hospitalizations at this institution. On September 15 he required a dual-chamber pacemaker for severe bradycardia. The patient has had earlier myocardial infarcts and has significant left ventricular wall motion abnormalities. Coronary angiogram in August demonstrated patent bypasses. The patient came into the hospital complaining of chest pain which was unconnected to any physical activity. This was not accompanied by any perspiration nausea or vomiting and the pain subsequently has resolved. Physical examination shows an elderly man who is alert awake and coherent. Free of any discomfort at this point and quite reluctant to talk. His respirator rate was 16-18 breaths per minute with a atrial paced rhythm and ventricular sensed rhythm at 70 bpm. His blood pressure was 100/70 mmHg. His jugular venous pressure was not elevated and there was no edema over his lower extremities. The pedal pulses were feeble but this didn't represent.. The extremities were warm the nailbeds were pink there was no central or peripheral cyanosis. There was no clubbing. His scar of sternotomy was evident and a pacemaker was in place in the infraclavicular area. The apex was felt in the fifth space slightly heaving in character. There the first and second heart sounds were normal there was an apical systolic murmur of mitral regurgitation at apex. There were no rales. Abdomen was soft and liver and spleen are not palpable. His electrocardiogram showed atrial paced and ventricular sensed rhythm showing evidence of an old inferior and anterior wall myocardial infarction. There were T-wave inversions in lead 3 aVF as well as V5 and V6 His labs showed stable troponins indicating no evidence of myocyte injury. The rest of his labs were noted and they were stable. Impression: Atypical chest pain with no evidence of acute coronary syndrome in a patient with stable coronary artery disease and status post coronary bypass graft surgery. Old myocardial infarcts as noted on the electrocardiogram patent coronary grafts as documented in a coronary angiogram of August,. 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 Past Patient History - Past Medical History & Family History Past Medical History?: Yes - Past Social History Smoking Status: Former Smoker - CARDIAC Hx Cardiac Disorders: Yes - PULMONARY Hx Respiratory Disorders: Yes - NEUROLOGICAL Hx Neurological Disorder: No - HEENT Hx HEENT Problems: No - RENAL Hx Chronic Kidney Disease: No - ENDOCRINE/METABOLIC Hx Endocrine Disorders: No - HEMATOLOGICAL/ONCOLOGICAL Hx Human Immunodeficiency Virus (HIV): No - INTEGUMENTARY Hx Dermatological Problems: No - MUSCULOSKELETAL/RHEUMATOLOGICAL Hx Musculoskeletal Disorders: Yes Hx Falls: No - GASTROINTESTINAL Hx Gastrointestinal Disorders: No - GENITOURINARY/GYNECOLOGICAL Hx Genitourinary Disorders: No - PSYCHIATRIC Hx Psychophysiologic Disorder: No Hx Substance Use: No - SURGICAL HISTORY Hx Coronary Artery Bypass Graft: Yes (x3) Hx Coronary Stent: Yes (x3) - ANESTHESIA Hx Anesthesia: Yes Hx Anesthesia Reactions: No Hx Malignant Hyperthermia: No Meds Allergies/Adverse Reactions: Allergies Allergy/AdvReac Type Severity Reaction Status Date / Time No Known Allergies Allergy Verified 03/27/17 22:38 - Medications Medications: Current Medications Aspirin (Aspirin) 325 mg PO DAILY [facility] Last Admin: 05/07/17 08:56 Dose: 325 mg Carvedilol (Coreg) 3.125 mg PO Q12 FRANCISOC J Furosemide (Lasix) 40 mg PO DAILY [facility] Last Admin: 05/07/17 08:56 Dose: 40 mg Heparin Sodium (Porcine) (Heparin) 5,000 units SC Q8 [facility] PRN Reason: Protocol Lisinopril (Zestril) 5 mg PO DAILY [facility] Results - Vital Signs Recent Vital Signs: Last Vital Signs Temp 98.2 F 05/07/17 08:22 Pulse 62 05/07/17 08:22 Resp 16 05/07/17 08:22 BP 103/34 L 05/07/17 08:56 Pulse Ox 98 05/07/17 08:22 - Labs Result Diagrams: 05/07/17 08:44 05/07/17 00:51 Labs: Laboratory Results - last 24 hr 05/06/17 05/07/17 05/07/17 00:51 00:23 00:51 WBC RBC Hgb Hct MCV MCH MCHC RDW Plt Count MPV Neut % (Auto) Lymph % (Auto) [place] % (Auto) Eos % (Auto) Baso % (Auto) Neut # Lymph # [place] # Eos # Baso # PT INR APTT Sodium 136 Potassium 3.8 Chloride 101 Carbon Dioxide 24 Anion Gap 15 BUN 61 H Creatinine 1.1 Est GFR ( Amer) > 60 Est GFR (Non-Af Amer) > 60 Random Glucose 100 Calcium 8.8 Phosphorus 3.6 Magnesium 2.1 Total Bilirubin 0.3 AST 52 ALT 46 Alkaline Phosphatase 98 Troponin I 0.0150 NT-Pro-B Natriuret Pep 1690 H Total Protein 7.3 Albumin 4.0 Globulin 3.3 Albumin/Globulin Ratio 1.2 Influenza Typ A,B (EIA) Negative for flu a/b Blood Type O POSITIVE Antibody Screen Negative BBK History Checked Patient has bt 05/07/17 05/07/17 05/07/17 00:51 00:51 07:57 WBC 7.4 RBC 3.31 L Hgb 9.9 L Hct 30.3 L MCV 91.6 MCH 29.8 MCHC 32.5 L RDW 14.9 H Plt Count 194 MPV 8.1 Neut % (Auto) 59.7 Lymph % (Auto) 21.6 [place] % (Auto) 9.7 Eos % (Auto) 7.0 H Baso % (Auto) 2.0 Neut # 4.4 Lymph # 1.6 [place] # 0.7 Eos # 0.5 Baso # 0.2 PT 10.2 INR 0.9 APTT 36.1 Sodium Potassium Chloride Carbon Dioxide Anion Gap BUN Creatinine Est GFR ( Amer) Est GFR (Non-Af Amer) Random Glucose Calcium Phosphorus Magnesium Total Bilirubin AST ALT Alkaline Phosphatase Troponin I 0.0150 NT-Pro-B Natriuret Pep Total Protein Albumin Globulin Albumin/Globulin Ratio Influenza Typ A,B (EIA) Blood Type Antibody Screen BBK History Checked 05/07/17 08:44 WBC 7.4 RBC 3.42 L Hgb 10.4 L Hct 31.1 L MCV 91.0 MCH 30.5 MCHC 33.5 RDW 15.1 H Plt Count 188 MPV 7.9 Neut % (Auto) 55.6 Lymph % (Auto) 22.1 [place] % (Auto) 10.3 H Eos % (Auto) 9.7 H Baso % (Auto) 2.3 H Neut # 4.1 Lymph # 1.6 [place] # 0.8 Eos # 0.7 Baso # 0.2 PT INR APTT Sodium Potassium Chloride Carbon Dioxide Anion Gap BUN Creatinine Est GFR ( Amer) Est GFR (Non-Af Amer) Random Glucose Calcium Phosphorus Magnesium Total Bilirubin AST ALT Alkaline Phosphatase Troponin I NT-Pro-B Natriuret Pep Total Protein Albumin Globulin Albumin/Globulin Ratio Influenza Typ A,B (EIA) Blood Type Antibody Screen BBK History Checked
[2017-05-07 11:46] LABS: BLOOD UREA NITROGEN 46 mg/dl (9-20); CALCIUM 8.8 mg/dL (8.4-10.2); GFR AFRICAN-AMERICAN > 60; GFR NON-AFRICAN AMERICAN > 60
--- NOTE | 2017-05-07 13:04 | PQF GENQUE ---
This form is a permanent part of the medical record 05/07/17 Dr. Mckee, Please specify the type and acuity of heart failure in your progress notes: Patient presents with chest pain associated with sob, productive cough with white sputum, malaise and fatigue as per the ER. History of CHF as per the ER. Cardiology consult: Atypical chest pain. 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 ProBNP 1690. Treated with Zestril and IV Lasix. Previous Echo results from October 2016 with an EF of 40-45% ( in the EMR) . Clarification of your documentation is requested to better reflect the severity of illness and intensity of treatment of your patient. Indicators present [] Specify: [] [] Specify: [] [] Specify: [] [] Specify: [] Location in the medical record that reflects the above clinical findings: [] Treatment Provided: [] PHYSICIAN'S RESPONSE Based on your medical judgment of the clinical indicators outlined above please clarify the following: [] Practitioner response [] If unable to determine, please check the box, sign and date. Present On Admission (POA) Indicator: [] Present at the time of admission [] Not present at the time of admission [] Clinically Undetermined In responding to this query, please exercise your independent professional judgment. The fact that a question is asked does not imply that any particular answer is desired or expected. Thank you for your clarification on this documentation. If you have any questions please call:ext [phone] * Thank you, Sarah Chaudhary RN [facility]
--- NOTE | 2017-05-07 13:10 | PQF GENQUE ---
This form is a permanent part of the medical record 05/07/17 Dr. Mckee, A dietary consult (pending) has been ordered for poor appetite and loss of weight. EMR has the patient listed as 5' 11", weighing 130 pounds with a BMI of 18.1. Would you please clarify if there is an associated diagnosis or not to go along with the low BMI. If yes please document along with the BMI or other explanation. Clarification of your documentation is requested to better reflect the severity of illness and intensity of treatment of your patient. Indicators present [] Specify: [] [] Specify: [] [] Specify: [] [] Specify: [] Location in the medical record that reflects the above clinical findings: [] Treatment Provided: [] PHYSICIAN'S RESPONSE Based on your medical judgment of the clinical indicators outlined above please clarify the following: [] Practitioner response [] If unable to determine, please check the box, sign and date. Present On Admission (POA) Indicator: [] Present at the time of admission [] Not present at the time of admission [] Clinically Undetermined In responding to this query, please exercise your independent professional judgment. The fact that a question is asked does not imply that any particular answer is desired or expected. Thank you for your clarification on this documentation. If you have any questions please call:extension [phone] * Thank you, Sarah Chaudhary RN [facility]
--- NOTE | 2017-05-07 15:52 | CARD ---
APPROVED REPORT EKG Measurement Heart [id number] <Conclusion> Atrial-paced rhythm with prolonged AV conduction Possible Inferior infarct, age undetermined Anterior infarct, age undetermined ST & T wave abnormality, consider lateral ischemia Abnormal ECG
[2017-05-07 16:13] VITALS: BP 109/63; PULSE 62; RESP 14; TEMP 97.6; O2SAT 97
--- NOTE | 2017-05-07 17:53 | CP.PCM.HP ---
Past Patient History - Past Medical History & Family History Past Medical History?: Yes - Past Social History Smoking Status: Former Smoker - CARDIAC Hx Hypercholesterolemia: Yes Hx Hypertension: Yes Hx Pacemaker: Yes - PULMONARY Hx Asthma: Yes Hx Bronchitis: Yes Hx Chronic Obstructive Pulmonary Disease (COPD): Yes Hx Emphysema: Yes - NEUROLOGICAL Hx Neurological Disorder: No - HEENT Hx HEENT Problems: No - RENAL Hx Chronic Kidney Disease: No - ENDOCRINE/METABOLIC Hx Endocrine Disorders: No - HEMATOLOGICAL/ONCOLOGICAL Hx Human Immunodeficiency Virus (HIV): No - INTEGUMENTARY Hx Dermatological Problems: No - MUSCULOSKELETAL/RHEUMATOLOGICAL Hx Musculoskeletal Disorders: Yes Hx Falls: No - GASTROINTESTINAL Hx Gastrointestinal Disorders: No - GENITOURINARY/GYNECOLOGICAL Hx Genitourinary Disorders: No - PSYCHIATRIC Hx Psychophysiologic Disorder: No Hx Substance Use: No - SURGICAL HISTORY Hx Coronary Artery Bypass Graft: Yes (x3) Hx Coronary Stent: Yes (x3) - ANESTHESIA Hx Anesthesia: Yes Hx Anesthesia Reactions: No Hx Malignant Hyperthermia: No Meds Allergies/Adverse Reactions: Allergies Allergy/AdvReac Type Severity Reaction Status Date / Time No Known Allergies Allergy Verified 03/27/17 22:38 Results - Vital Signs Recent Vital Signs: Last Vital Signs Temp 97.6 F 05/07/17 16:13 Pulse 62 05/07/17 16:13 Resp 14 05/07/17 16:13 BP 109/63 05/07/17 16:13 Pulse Ox 97 05/07/17 16:13 - Labs Result Diagrams: 05/07/17 08:44 05/07/17 08:44 Labs: Laboratory Results - last 24 hr 05/06/17 05/07/17 05/07/17 00:51 00:23 00:51 WBC RBC Hgb Hct MCV MCH MCHC RDW Plt Count MPV Neut % (Auto) Lymph % (Auto) [place] % (Auto) Eos % (Auto) Baso % (Auto) Neut # Lymph # [place] # Eos # Baso # PT INR APTT Sodium 136 Potassium 3.8 Chloride 101 Carbon Dioxide 24 Anion Gap 15 BUN 61 H Creatinine 1.1 Est GFR ( Amer) > 60 Est GFR (Non-Af Amer) > 60 Random Glucose 100 Calcium 8.8 Phosphorus 3.6 Magnesium 2.1 Total Bilirubin 0.3 AST 52 ALT 46 Alkaline Phosphatase 98 Troponin I 0.0150 NT-Pro-B Natriuret Pep 1690 H Total Protein 7.3 Albumin 4.0 Globulin 3.3 Albumin/Globulin Ratio 1.2 TSH 3rd Generation Influenza Typ A,B (EIA) Negative for flu a/b Blood Type O POSITIVE Antibody Screen Negative BBK History Checked Patient has bt 05/07/17 05/07/17 05/07/17 00:51 00:51 07:57 WBC 7.4 RBC 3.31 L Hgb 9.9 L Hct 30.3 L MCV 91.6 MCH 29.8 MCHC 32.5 L RDW 14.9 H Plt Count 194 MPV 8.1 Neut % (Auto) 59.7 Lymph % (Auto) 21.6 [place] % (Auto) 9.7 Eos % (Auto) 7.0 H Baso % (Auto) 2.0 Neut # 4.4 Lymph # 1.6 [place] # 0.7 Eos # 0.5 Baso # 0.2 PT 10.2 INR 0.9 APTT 36.1 Sodium Potassium Chloride Carbon Dioxide Anion Gap BUN Creatinine Est GFR ( Amer) Est GFR (Non-Af Amer) Random Glucose Calcium Phosphorus Magnesium Total Bilirubin AST ALT Alkaline Phosphatase Troponin I 0.0150 NT-Pro-B Natriuret Pep Total Protein Albumin Globulin Albumin/Globulin Ratio TSH 3rd Generation Influenza Typ A,B (EIA) Blood Type Antibody Screen BBK History Checked 05/07/17 05/07/17 08:44 08:44 WBC 7.4 RBC 3.42 L Hgb 10.4 L Hct 31.1 L MCV 91.0 MCH 30.5 MCHC 33.5 RDW 15.1 H Plt Count 188 MPV 7.9 Neut % (Auto) 55.6 Lymph % (Auto) 22.1 [place] % (Auto) 10.3 H Eos % (Auto) 9.7 H Baso % (Auto) 2.3 H Neut # 4.1 Lymph # 1.6 [place] # 0.8 Eos # 0.7 Baso # 0.2 PT INR APTT Sodium 138 Potassium 3.9 Chloride 106 Carbon Dioxide 22 Anion Gap 14 BUN 46 H Creatinine 1.0 Est GFR ( Amer) > 60 Est GFR (Non-Af Amer) > 60 Random Glucose 85 Calcium 8.8 Phosphorus Magnesium Total Bilirubin AST ALT Alkaline Phosphatase Troponin I NT-Pro-B Natriuret Pep Total Protein Albumin Globulin Albumin/Globulin Ratio TSH 3rd Generation 3.02 Influenza Typ A,B (EIA) Blood Type Antibody Screen BBK History Checked
--- NOTE | 2017-05-08 13:42 | CP.PCM.DIS ---
Provider - Provider Date of Admission: 05/07/17 01:45 Attending physician: Jae Mckee MD Time Spent in preparation of Discharge (in minutes): 25 Hospital Course - Lab Results Lab Results: Micro Results 05/07/17 14:00 Naris MRSA Culture (Admit) - Final MRSA NOT DETECTED 05/07/17 01:00 Blood-Venous Blood Culture - Preliminary NO GROWTH AFTER 24 HOURS 05/06/17 00:51 Blood-Venous Blood Culture - Preliminary NO GROWTH AFTER 24 HOURS Most Recent Lab Values WBC 7.4 K/uL (4.8-10.8) 05/07/17 08:44 RBC 3.42 Mil/uL (4.40-5.90) L 05/07/17 08:44 Hgb 10.4 g/dL (12.0-18.0) L 05/07/17 08:44 Hct 31.1 % (35.0-51.0) L 05/07/17 08:44 MCV 91.0 fl (80.0-94.0) 05/07/17 08:44 MCH 30.5 pg (27.0-31.0) 05/07/17 08:44 MCHC 33.5 g/dL (33.0-37.0) 05/07/17 08:44 RDW 15.1 % (11.5-14.5) H 05/07/17 08:44 Plt Count 188 K/uL (130-400) 05/07/17 08:44 MPV 7.9 fl (7.2-11.7) 05/07/17 08:44 Neut % (Auto) 55.6 % (50.0-75.0) 05/07/17 08:44 Lymph % (Auto) 22.1 % (20.0-40.0) 05/07/17 08:44 [place] % (Auto) 10.3 % (0.0-10.0) H 05/07/17 08:44 Eos % (Auto) 9.7 % (0.0-4.0) H 05/07/17 08:44 Baso % (Auto) 2.3 % (0.0-2.0) H 05/07/17 08:44 Neut # 4.1 K/uL (1.8-7.0) 05/07/17 08:44 Lymph # 1.6 K/uL (1.0-4.3) 05/07/17 08:44 [place] # 0.8 K/uL (0.0-0.8) 05/07/17 08:44 Eos # 0.7 K/uL (0.0-0.7) 05/07/17 08:44 Baso # 0.2 K/uL (0.0-0.2) 05/07/17 08:44 PT 10.2 Seconds (9.8-13.1) 05/07/17 00:51 INR 0.9 (0.9-1.2) 05/07/17 00:51 APTT 36.1 Seconds (25.6-37.1) 05/07/17 00:51 Sodium 138 mmol/l (132-148) 05/07/17 08:44 Potassium 3.9 MMOL/L (3.6-5.0) 05/07/17 08:44 Chloride 106 mmol/L (98-107) 05/07/17 08:44 Carbon Dioxide 22 mmol/L (22-30) 05/07/17 08:44 Anion Gap 14 (10-20) 05/07/17 08:44 BUN 46 mg/dl (9-20) H 05/07/17 08:44 Creatinine 1.0 mg/dl (0.8-1.5) 05/07/17 08:44 Est GFR ( Amer) > 60 05/07/17 08:44 Est GFR (Non-Af Amer) > 60 05/07/17 08:44 Random Glucose 85 mg/dL (75-110) 05/07/17 08:44 Calcium 8.8 mg/dL (8.4-10.2) 05/07/17 08:44 Phosphorus 3.6 mg/dl (2.5-4.5) 05/07/17 00:51 Magnesium 2.1 MG/DL (1.6-2.3) 05/07/17 00:51 Total Bilirubin 0.3 mg/dl (0.2-1.3) 05/07/17 00:51 AST 52 U/L (17-59) 05/07/17 00:51 ALT 46 U/L (21-72) 05/07/17 00:51 Alkaline Phosphatase 98 U/L (38-126) 05/07/17 00:51 Troponin I 0.0150 ng/mL (0.00-0.120) 05/07/17 07:57 NT-Pro-B Natriuret Pep 1690 pg/ml (0-900) H 05/07/17 00:51 Total Protein 7.3 G/DL (6.3-8.2) 05/07/17 00:51 Albumin 4.0 g/dL (3.5-5.0) 05/07/17 00:51 Globulin 3.3 gm/dL (2.2-3.9) 05/07/17 00:51 Albumin/Globulin Ratio 1.2 (1.0-2.1) 05/07/17 00:51 TSH 3rd Generation 3.02 mIU/ML (0.46-4.68) 05/07/17 08:44 Influenza Typ A,B (EIA) Negative for flu a/b (NEGATIVE) 05/07/17 00:23 Blood Type O POSITIVE 05/06/17 00:51 Antibody Screen Negative 05/06/17 00:51 BBK History Checked Patient has bt 05/06/17 00:51 Discharge Exam - Head Exam Head Exam: ATRAUMATIC, NORMOCEPHALIC Discharge Plan - Follow Up Plan Condition: SERIOUS Disposition: HOME/ ROUTINE Instructions: Chest Pain (DC)
== END 2017-05-07 20:00 | disposition home or self-care (01) ==
LOC: H.ER 23:19 → INTOOBSV 05-07 01:45 → H.ERHOLD 05-07 01:45 → H.ICU/CCU 05-07 04:00 → H.TEL 05-07 14:04
PROVIDERS: ADMIT Internal Medicine; ATTEND Internal Medicine
DX: R07.89 Other chest pain (principal); I25.10 Atherosclerotic heart disease of native coronary artery without angina pectoris; I11.0 Hypertensive heart disease with heart failure; I50.22 Chronic systolic (congestive) heart failure; J43.9 Emphysema, unspecified; J45.909 Unspecified asthma, uncomplicated; E78.00 Pure hypercholesterolemia, unspecified; Z95.1 Presence of aortocoronary bypass graft; Z95.5 Presence of coronary angioplasty implant and graft; Z95.0 Presence of cardiac pacemaker; Z87.891 Personal history of nicotine dependence; I25.2 Old myocardial infarction
CPT/HCPCS: 71010; 80053; 83735; 83880; 84100; 84443; 84484; 85025; 85610; 85730; 86850; 86900; 87040; 87081; 87804; 93005; 96372; 99285; G0378; J1644

== ENCOUNTER 2017-05-17 19:13 | Observation (INO) | payer MEDICARE ==
[2017-05-17 19:14] VITALS: BMI 18.1
[2017-05-17] MEDS ORDERED: Albuterol 0.083% Inhal Sol (2.5 mg/3 mL) UD INH ONE (20:10)
[2017-05-17] MEDS ORDERED: Albuterol-Ipratrop 3 mg / 0.5 (3 ml) UD ONE (20:26)
[2017-05-17 20:31] LABS: BASO % 0.4 % (0.0-2.0); EOS # 0.5 K/uL (0.0-0.7); EOS % 4.9 % (0.0-4.0); HEMOGLOBIN 10.8 g/dL (12.0-18.0); LYMPH # 1.5 K/uL (1.0-4.3); LYMPH % 16.3 % (20.0-40.0); MEAN CELL VOLUME 90.9 fl (80.0-94.0); MEAN CORPUSCULAR HGB CONC 34.1 g/dL (33.0-37.0); MEAN PLATELET VOLUME 7.5 fl (7.2-11.7); MONO # 0.7 K/uL (0.0-0.8); MONO % 7.6 % (0.0-10.0); NEUT # 6.5 K/uL (1.8-7.0); NEUT % 70.8 % (50.0-75.0); NRBC % 0.1 % (0.0-0.0); RBC 3.49 Mil/uL (4.40-5.90); RED CELL DISTRIBUTION WIDTH 15.6 % (11.5-14.5); WHITE BLOOD COUNT 9.2 K/uL (4.8-10.8)
--- NOTE | 2017-05-17 20:36 | ED PDOC ---
HPI: SOB/CHF/COPD Time Seen by Provider: 05/17/17 19:25 Chief Complaint (Nursing): Shortness Of Breath Chief Complaint (Provider): Shortness Of Breath History Per: Patient History/Exam Limitations: no limitations Onset/Duration Of Symptoms: Days Current Symptoms Are (Timing): Still Present Additional Complaint(s): Frandy Amado is a 67 year old male with a past medical history of CHF, CAD, hypertension, anemia, and COPD, who presents to the ER complaining of shortness of breath, ongoing for "some time". He denies any associated leg swelling, fever , cough, nausea, or vomiting. Was hospitalized for chest pain on 05/06/17 and discharged with instructions to follow up with risk adjustment specialist outpatient. Patient reports taking his daily cardiac medications as instructed, however does not follow up regularly. PMD: Dr. Cobb Past Medical History Reviewed: Historical Data, Nursing Documentation, Vital Signs Vital Signs: Last Vital Signs Temp 97.3 F L 05/18/17 00:11 Pulse 66 05/18/17 00:11 Resp 18 05/18/17 00:11 BP 124/63 05/18/17 00:11 Pulse Ox 98 05/18/17 00:11 - Medical History PMH: Anemia, Asthma, Bronchitis, CAD, CHF, COPD, Emphysema, HTN, Hypercholesterolemia, Malignancy (right lung mass) Denies: HIV, Chronic Kidney Disease - Surgical History Surgical History: CABG (x3), Coronary Stent (x3), Pacemaker - Family History Family History: States: Unknown Family Hx - Immunization History Hx Tetanus Toxoid Vaccination: No Hx Influenza Vaccination: No Hx Pneumococcal Vaccination: No - Home Medications Home Medications: Ambulatory Orders Medication Instructions Recorded Aspirin [Ecotrin] 162 mg PO DAILY 10/21/16 Furosemide [Lasix] 40 mg PO DAILY #30 tab 11/16/16 - Allergies Allergies/Adverse Reactions: Allergies Allergy/AdvReac Type Severity Reaction Status Date / Time No Known Allergies Allergy Verified 03/27/17 22:38 Review of Systems ROS Statement: Except As Marked, All Systems Reviewed And Found Negative Constitutional: Negative for: Fever Respiratory: Positive for: Shortness of Breath. Negative for: Cough Gastrointestinal: Negative for: Nausea, Vomiting Physical Exam - Reviewed Nursing Documentation Reviewed: Yes Vital Signs Reviewed: Yes - Physical Exam Appears: Positive for: Non-toxic, No Acute Distress Head Exam: Positive for: ATRAUMATIC, NORMOCEPHALIC Skin: Positive for: Normal Color, Warm, Dry Eye Exam: Positive for: EOMI, Normal appearance, PERRL Neck: Positive for: Normal, Painless ROM Cardiovascular/Chest: Positive for: Regular Rate, Rhythm, Other (pacemaker in place) Respiratory: Positive for: Rhonchi (mild). Negative for: Accessory Muscle Use, Respiratory Distress Gastrointestinal/Abdominal: Positive for: Normal Exam, Soft. Negative for: Tenderness, Distended Extremity: Positive for: Normal ROM. Negative for: Pedal Edema, Calf Tenderness , Deformity, Swelling Neurologic/Psych: Positive for: Alert, Oriented - Laboratory Results Result Diagrams: 05/17/17 20:25 05/17/17 20:25 - ECG ECG: Positive for: Interpreted By Me, Viewed By Me ECG Rhythm: Positive for: Atrial Paced Rate: 72 O2 Sat by Pulse Oximetry: 100 (RA) Pulse Ox Interpretation: Normal - Radiology X-Ray: Interpreted by Me, Viewed By Me X-Ray Interpretation: Other (+ Signs of fluid overload. prior signs of pacemaker and CABG noted) Medical Decision Making Medical Decision Making: Time: 20:10 Initial Plan: * CMP * CBC * Pro BNP * Troponin I * Chest X-Ray * Albuterol 2.5mg INH * Peak Flow pre/post treatment Labs reviewed, significant for elevated pro-BNP. Troponin is negative. Patient given Lasix, 40 mg in the ER. Time: 21:43 Patient is known to Dr. Cobb, who admits to Dr. Tafoya. Dr. Tafoya is currently unavailable, so patient will be admitted to hospitalist. Paged Dr. Mckee, hospitalist on-call. Time: 21:50 Discussed w/ Dr. Mckee, who is familiar with patient and will accept him. Patient will be hospitalized as observation telemetry for CHF exacerbation. Scribe Attestation: Documented by Natalie Wei, acting as a scribe for Destinee Temple MD Provider Scribe Attestation: All medical record entries made by the Scribe were at my direction and personally dictated by me. I have reviewed the chart and agree that the record accurately reflects my personal performance of the history, physical exam, medical decision making, and the department course for this patient. I have also personally directed, reviewed, and agree with the discharge instructions and disposition. Disposition - Clinical Impression Clinical Impression: CHF (congestive heart failure) - Patient ED Disposition Is Patient to be Admitted: Yes Counseled Patient/Family Regarding: Studies Performed - Disposition Disposition: Transfer of Care (admitted) Disposition Time: 21:35 Condition: STABLE - Pt Status Changed To: Hospital Disposition Of: Observation
[2017-05-17 20:46] LABS: ALB/GLOB RATIO 1.2 (1.0-2.1); ALBUMIN 4.4 g/dL (3.5-5.0); ALT/SGPT 39 U/L (21-72); AST/SGOT 42 U/L (17-59); BLOOD UREA NITROGEN 39 mg/dl (9-20); CALCIUM 9.4 mg/dL (8.4-10.2); GFR AFRICAN-AMERICAN > 60; GFR NON-AFRICAN AMERICAN > 60
[2017-05-17 20:54] LABS: B-TYPE NATRIURETIC PEPTIDE 2400 pg/ml (0-900)
[2017-05-18] MEDS ORDERED: Albuterol-Ipratrop 3 mg / 0.5 (3 ml) UD INH PRN (01:04)
--- NOTE | 2017-05-18 10:42 | RAD ---
PROCEDURE: CHEST RADIOGRAPH, 1 VIEW HISTORY: cp COMPARISON: 05/06/2017 FINDINGS: LUNGS: Evaluation limited due to steep oblique positioning. PLEURA: Slight blunting of left costophrenic angle may reflect small pleural effusion or chronic pleural thickening. No right pleural effusion. No pneumothorax. CARDIOVASCULAR: Normal heart size. Permanent pacemaker. Sternotomy wires. OSSEOUS STRUCTURES: No significant abnormalities. VISUALIZED UPPER ABDOMEN: Normal. OTHER FINDINGS: None. IMPRESSION: No acute infiltrate. Possible small left pleural effusion.
--- NOTE | 2017-05-18 10:52 | CARD ---
APPROVED REPORT EKG Measurement Heart [id number] <Conclusion> Atrial-paced rhythm with prolonged AV conduction Possible Inferior infarct, age undetermined Anterior infarct, age undetermined ST & T wave abnormality, consider lateral ischemia Abnormal ECG
--- NOTE | 2017-05-18 14:52 | CP.PCM.HP ---
Past Patient History - Past Medical History & Family History Past Medical History?: Yes - Past Social History Smoking Status: Former Smoker - CARDIAC Hx Congestive Heart Failure: Yes Hx Hypercholesterolemia: Yes Hx Hypertension: Yes Hx Pacemaker: Yes - PULMONARY Hx Asthma: Yes Hx Bronchitis: Yes Hx Chronic Obstructive Pulmonary Disease (COPD): Yes Hx Emphysema: Yes - NEUROLOGICAL Hx Neurological Disorder: No - HEENT Hx HEENT Problems: No - RENAL Hx Chronic Kidney Disease: No - ENDOCRINE/METABOLIC Hx Endocrine Disorders: No - HEMATOLOGICAL/ONCOLOGICAL Hx Anemia: Yes Hx Human Immunodeficiency Virus (HIV): No - INTEGUMENTARY Hx Dermatological Problems: No - MUSCULOSKELETAL/RHEUMATOLOGICAL Hx Musculoskeletal Disorders: Yes Hx Falls: Yes - GASTROINTESTINAL Hx Gastrointestinal Disorders: No - GENITOURINARY/GYNECOLOGICAL Hx Genitourinary Disorders: No - PSYCHIATRIC Hx Psychophysiologic Disorder: No Hx Substance Use: No - SURGICAL HISTORY Hx Coronary Artery Bypass Graft: Yes (x3) Hx Coronary Stent: Yes (x3) - ANESTHESIA Hx Anesthesia: Yes Hx Anesthesia Reactions: No Hx Malignant Hyperthermia: No Meds Allergies/Adverse Reactions: Allergies Allergy/AdvReac Type Severity Reaction Status Date / Time No Known Allergies Allergy Verified 03/27/17 22:38 Results - Vital Signs Recent Vital Signs: Last Vital Signs Temp 97.4 F L 05/18/17 12:00 Pulse 61 05/18/17 12:00 Resp 18 05/18/17 12:00 BP 95/57 L 05/18/17 12:00 Pulse Ox 95 05/18/17 12:00 - Labs Result Diagrams: 05/17/17 20:25 05/17/17 20:25 Labs: Laboratory Results - last 24 hr 05/17/17 05/17/17 05/18/17 20:25 20:25 01:15 WBC 9.2 RBC 3.49 L Hgb 10.8 L Hct 31.7 L MCV 90.9 MCH 31.0 MCHC 34.1 RDW 15.6 H Plt Count 250 MPV 7.5 Neut % (Auto) 70.8 Lymph % (Auto) 16.3 L [place] % (Auto) 7.6 Eos % (Auto) 4.9 H Baso % (Auto) 0.4 Neut # 6.5 Lymph # 1.5 [place] # 0.7 Eos # 0.5 Baso # 0.0 Sodium 141 Potassium 3.8 Chloride 99 Carbon Dioxide 29 Anion Gap 17 BUN 39 H Creatinine 1.1 Est GFR ( Amer) > 60 Est GFR (Non-Af Amer) > 60 Random Glucose 105 Calcium 9.4 Total Bilirubin 0.3 AST 42 ALT 39 Alkaline Phosphatase 75 Troponin I 0.0280 0.0120 NT-Pro-B Natriuret Pep 2400 H Total Protein 7.9 Albumin 4.4 Globulin 3.5 Albumin/Globulin Ratio 1.2 05/18/17 09:52 WBC RBC Hgb Hct MCV MCH MCHC RDW Plt Count MPV Neut % (Auto) Lymph % (Auto) [place] % (Auto) Eos % (Auto) Baso % (Auto) Neut # Lymph # [place] # Eos # Baso # Sodium Potassium Chloride Carbon Dioxide Anion Gap BUN Creatinine Est GFR ( Amer) Est GFR (Non-Af Amer) Random Glucose Calcium Total Bilirubin AST ALT Alkaline Phosphatase Troponin I 0.0160 NT-Pro-B Natriuret Pep Total Protein Albumin Globulin Albumin/Globulin Ratio
--- NOTE | 2017-05-18 21:06 | CON ---
DATE: CARDIOLOGY CONSULTATION REASON FOR CONSULTATION: Exacerbation of congestive heart failure. HISTORY OF PRESENT ILLNESS: The patient is a 67-year-old male, who has a history of ischemic cardiomyopathy; history of coronary artery disease, status post coronary artery bypass surgery 3 to 4 years ago at [facility] and history of permanent pacemaker placement a few months ago at [facility] according to the patient himself. The patient does not recall any of his cardiologists and does not follow with any cardiologists or comply with cardiac medications. The patient presents because of shortness of breath and at times retrosternal chest discomfort. The patient underwent cardiac catheterization by Dr. Annie Montiel at [facility] in August of this year, which revealed severe multivessel coronary artery disease with patent bypass grafts and mild left ventricular systolic dysfunction. The patient had a patent mammary to the LAD, a patent saphenous vein graft to the right posterior descending artery with patent sequential saphenous vein graft to the first and second obtuse marginal branches. SOCIAL HISTORY: The patient is a former smoker. He lives by himself. He has no children. MEDICATIONS: Coreg 3.125 mg twice a day, aspirin 162 mg once a day, heparin 5000 units q. 8 hours, Lasix 40 mg intravenously daily, Zestril 2.5 mg daily. REVIEW OF SYSTEMS: No fever or chills. No vomiting or diarrhea. No dizziness or syncope. PHYSICAL EXAMINATION: GENERAL: The patient is an elderly male, who does not appear to be in acute distress. VITAL SIGNS: Blood pressure 107/66, heart rate 60, temperature 97.3, respirations of 14. HEENT: Normocephalic. CHEST: Bibasilar rhonchi. HEART: S1 and S2 regular. ABDOMEN: Soft. EXTREMITIES: No edema. Chest x-ray revealed mild cardiomegaly, mild CHF, sternotomy scar and/or chamber of pacemaker. EKG revealed atrial paced rhythm at rate of 72 and a few Q-waves were noted, ST and T-wave abnormality, consider lateral ischemia. LABORATORY DATA: Hemoglobin and hematocrit 10.8 and 31.7, white count and platelet count are within normal limits. The SMA-7 is within normal limits except for BUN of 39. Three sets of troponins are negative. ProBNP is 24,000. ASSESSMENT: 1. Exacerbation of congestive heart failure. 2. Coronary artery disease, status post coronary artery bypass surgery 3 to 4 years ago at [facility] with severe [place] vessel coronary artery disease and patent left internal mammary artery graft to the left anterior descending, patent saphenous vein graft to posterior descending artery and patent jump saphenous vein graft to the first and second obtuse marginal branches. RECOMMENDATIONS: Continue Coreg 3.125 mg twice a day, aspirin at 162 mg once a day, Lasix at 40 mg intravenous once a day, subcutaneous heparin 5000 units q. 8 hours, Zestril 2.5 mg once a day. Start Lipitor 20 mg orally once a day. James Dutton MD
[2017-05-19 05:23] VITALS: RESP 18
[2017-05-19 12:14] VITALS: BP 96/61; PULSE 61; TEMP 97.4; O2SAT 97
[2017-05-19 13:16] LABS: BLOOD UREA NITROGEN 28 mg/dl (9-20); CALCIUM 9.1 mg/dL (8.4-10.2); GFR AFRICAN-AMERICAN > 60; GFR NON-AFRICAN AMERICAN > 60
[2017-05-19 13:39] LABS: B-TYPE NATRIURETIC PEPTIDE 470 pg/ml (0-900)
--- NOTE | 2017-05-19 22:58 | CP.PCM.DIS ---
Provider - Provider Date of Admission: 05/17/17 21:42 Attending physician: Jae Mckee MD Time Spent in preparation of Discharge (in minutes): 35 Hospital Course - Lab Results Lab Results: Most Recent Lab Values WBC 9.2 K/uL (4.8-10.8) 05/17/17 20:25 RBC 3.49 Mil/uL (4.40-5.90) L 05/17/17 20:25 Hgb 10.8 g/dL (12.0-18.0) L 05/17/17 20:25 Hct 31.7 % (35.0-51.0) L 05/17/17 20:25 MCV 90.9 fl (80.0-94.0) 05/17/17 20:25 MCH 31.0 pg (27.0-31.0) 05/17/17 20:25 MCHC 34.1 g/dL (33.0-37.0) 05/17/17 20:25 RDW 15.6 % (11.5-14.5) H 05/17/17 20:25 Plt Count 250 K/uL (130-400) 05/17/17 20:25 MPV 7.5 fl (7.2-11.7) 05/17/17 20:25 Neut % (Auto) 70.8 % (50.0-75.0) 05/17/17 20:25 Lymph % (Auto) 16.3 % (20.0-40.0) L 05/17/17 20:25 [place] % (Auto) 7.6 % (0.0-10.0) 05/17/17 20:25 Eos % (Auto) 4.9 % (0.0-4.0) H 05/17/17 20:25 Baso % (Auto) 0.4 % (0.0-2.0) 05/17/17 20:25 Neut # 6.5 K/uL (1.8-7.0) 05/17/17 20:25 Lymph # 1.5 K/uL (1.0-4.3) 05/17/17 20:25 [place] # 0.7 K/uL (0.0-0.8) 05/17/17 20:25 Eos # 0.5 K/uL (0.0-0.7) 05/17/17 20:25 Baso # 0.0 K/uL (0.0-0.2) 05/17/17 20:25 Sodium 137 mmol/l (132-148) 05/19/17 11:05 Potassium 4.0 MMOL/L (3.6-5.0) 05/19/17 11:05 Chloride 98 mmol/L (98-107) 05/19/17 11:05 Carbon Dioxide 32 mmol/L (22-30) H 05/19/17 11:05 Anion Gap 11 (10-20) 05/19/17 11:05 BUN 28 mg/dl (9-20) H 05/19/17 11:05 Creatinine 1.0 mg/dl (0.8-1.5) 05/19/17 11:05 Est GFR ( Amer) > 60 05/19/17 11:05 Est GFR (Non-Af Amer) > 60 05/19/17 11:05 Random Glucose 97 mg/dL (75-110) 05/19/17 11:05 Calcium 9.1 mg/dL (8.4-10.2) 05/19/17 11:05 Total Bilirubin 0.3 mg/dl (0.2-1.3) 05/17/17 20:25 AST 42 U/L (17-59) 05/17/17 20:25 ALT 39 U/L (21-72) 05/17/17 20:25 Alkaline Phosphatase 75 U/L (38-126) 05/17/17 20:25 Troponin I 0.0160 ng/mL (0.00-0.120) 05/18/17 18:30 NT-Pro-B Natriuret Pep 470 pg/ml (0-900) 05/19/17 11:05 Total Protein 7.9 G/DL (6.3-8.2) 05/17/17 20:25 Albumin 4.4 g/dL (3.5-5.0) 05/17/17 20:25 Globulin 3.5 gm/dL (2.2-3.9) 05/17/17 20:25 Albumin/Globulin Ratio 1.2 (1.0-2.1) 05/17/17 20:25 Discharge Exam - Head Exam Head Exam: ATRAUMATIC, NORMOCEPHALIC Discharge Plan - Discharge Medications Prescriptions: Carvedilol [Coreg] 3.125 mg PO Q12 #60 tab Atorvastatin [Lipitor] 20 mg PO DAILY #30 tab Lisinopril [Zestril] 2.5 mg PO DAILY #30 tab - Follow Up Plan Condition: STABLE Disposition: HOME/ ROUTINE Instructions: Heart Failure (DC) Additional Instructions: pt. cleared for discharge to Home today by and Rx for all meds p rovided pt. instructed to f/u with Dr. Zia darling outpatient appointment with Dr. Cobb on 05/24/17 at 1pm-please take insurance card and identification. Referrals: Marce Cobb MD [Staff Provider] -
== END 2017-05-19 14:12 | disposition home or self-care (01) ==
LOC: H.ER 19:13 → H.ERHOLD 21:42 → H.TEL 23:54
PROVIDERS: ADMIT Internal Medicine; ATTEND Internal Medicine
DX: I11.0 Hypertensive heart disease with heart failure (principal); I50.23 Acute on chronic systolic (congestive) heart failure; I25.10 Atherosclerotic heart disease of native coronary artery without angina pectoris; Z95.1 Presence of aortocoronary bypass graft; Z95.5 Presence of coronary angioplasty implant and graft; Z95.0 Presence of cardiac pacemaker; Z87.891 Personal history of nicotine dependence; I25.5 Ischemic cardiomyopathy; J43.9 Emphysema, unspecified; E78.00 Pure hypercholesterolemia, unspecified; J45.909 Unspecified asthma, uncomplicated; D64.9 Anemia, unspecified
CPT/HCPCS: 36415; 71045; 80053; 83880; 84484; 85025; 93005; 94150; 94640; 96374; 99285; J1644; J1940

== ENCOUNTER 2017-07-07 23:03 | Inpatient (IN) | payer MEDICARE ==
[2017-07-07 23:03] VITALS: BMI 18.1
[2017-07-08 00:11] LABS: BASO # 0.1 K/uL (0.0-0.2); BASO % 0.9 % (0.0-2.0); EOS # 0.5 K/uL (0.0-0.7); EOS % 6.5 % (0.0-4.0); HEMOGLOBIN 10.4 g/dL (12.0-18.0); LYMPH # 1.2 K/uL (1.0-4.3); LYMPH % 14.5 % (20.0-40.0); MEAN CELL VOLUME 90.3 fl (80.0-94.0); MEAN CORPUSCULAR HEMOGLOBIN 30.5 pg (27.0-31.0); MEAN CORPUSCULAR HGB CONC 33.8 g/dL (33.0-37.0); MEAN PLATELET VOLUME 7.1 fl (7.2-11.7); MONO # 0.8 K/uL (0.0-0.8); MONO % 9.8 % (0.0-10.0); NEUT # 5.7 K/uL (1.8-7.0); NEUT % 68.3 % (50.0-75.0); RBC 3.4 Mil/uL (4.40-5.90); RED CELL DISTRIBUTION WIDTH 15.8 % (11.5-14.5); WHITE BLOOD COUNT 8.3 K/uL (4.8-10.8)
[2017-07-08 00:32] LABS: ALBUMIN 3.9 g/dL (3.5-5.0); ALT/SGPT 40 U/L (21-72); AST/SGOT 45 U/L (17-59); B-TYPE NATRIURETIC PEPTIDE 1600 pg/ml (0-900); BLOOD UREA NITROGEN 52 mg/dl (9-20); CALCIUM 9.7 mg/dL (8.4-10.2); GFR AFRICAN-AMERICAN > 60; GFR NON-AFRICAN AMERICAN > 60
[2017-07-08 01:31] LABS: URINE BILIRUBIN NEGATIVE (NEGATIVE); URINE BLOOD SMALL (NEGATIVE); URINE CLARITY CLEAR (Clear); URINE COLOR YELLOW (YELLOW); URINE GLUCOSE (UA) NEG (Normal); URINE LEUKOCYTE ESTERASE NEG Leu/uL (Negative); URINE NITRATE NEGATIVE (NEGATIVE); URINE PROTEIN NEGATIVE (NEGATIVE); URINE UROBILINOGEN 0.2-1.0 mg/dL (0.2-1.0)
[2017-07-08 01:36] LABS: INR 10.4 (0.9-1.2); PARTIAL THROMBOPLASTIN TIME 84.4 Seconds (25.6-37.1)
[2017-07-08 01:38] LABS: PROTHROMBIN TIME 121.4 Seconds (9.8-13.1)
[2017-07-08] MEDS ORDERED: Hum Prothrombin CPLX(PCC)4FACT 1 Unit Inj IV STA (01:40)
[2017-07-08] MEDS ORDERED: Phytonadione 10 mg/ml Inj (Adult) IV ONE (01:42)
[2017-07-08 02:19] LABS: INR 11.4 (0.9-1.2); PARTIAL THROMBOPLASTIN TIME 92.9 Seconds (25.6-37.1)
[2017-07-08 02:21] LABS: PROTHROMBIN TIME 132.6 Seconds (9.8-13.1)
[2017-07-08] MEDS ORDERED: Phytonadione 10 MG in Sodium Chloride 0.9% 50 ML IV STA (02:29)
--- NOTE | 2017-07-08 03:04 | ED PDOC ---
HPI: General Adult Time Seen by Provider: 07/07/17 23:26 Chief Complaint (Nursing): Abdominal Pain Chief Complaint (Provider): GI Bleed History Per: Patient History/Exam Limitations: no limitations Onset/Duration Of Symptoms: Hrs (all day) Current Symptoms Are (Timing): Still Present Additional Complaint(s): 67 year old male presents to ED with complaints of multiple episodes hematochezia throughout the day and has a past medical history of HTN, CHF, and questionable AFIB. (-) clots, abdominal pain, rectal pain, chest pain, or SOB. Reports x2-3 episodes of gross hematuria today that has since resolved. PCP: None Past Medical History Reviewed: Historical Data, Nursing Documentation, Vital Signs Vital Signs: Last Vital Signs Temp 97.7 F 07/08/17 05:08 Pulse 64 07/08/17 05:14 Resp 12 07/08/17 05:14 BP 116/68 07/08/17 05:08 Pulse Ox 100 07/08/17 05:14 - Medical History PMH: Anemia, Asthma, Bronchitis, CAD, CHF, COPD, Emphysema, HTN, Hypercholesterolemia, Malignancy (right lung mass) Denies: HIV, Chronic Kidney Disease - Surgical History Surgical History: CABG (x3), Coronary Stent (x3), Pacemaker - Family History Family History: States: Unknown Family Hx - Immunization History Hx Tetanus Toxoid Vaccination: No Hx Influenza Vaccination: No Hx Pneumococcal Vaccination: No - Home Medications Home Medications: Ambulatory Orders Medication Instructions Recorded Carvedilol [Coreg] 3.125 mg PO Q12 #60 tab 05/19/17 Aspirin [Ecotrin] 81 mg PO DAILY 07/08/17 Furosemide [Lasix] 20 mg PO DAILY 07/08/17 Warfarin [Coumadin] 5 mg PO DAILY 07/08/17 - Allergies Allergies/Adverse Reactions: Allergies Allergy/AdvReac Type Severity Reaction Status Date / Time No Known Allergies Allergy Verified 07/07/17 23:09 Review of Systems ROS Statement: Except As Marked, All Systems Reviewed And Found Negative Respiratory: Negative for: Cough, Shortness of Breath Gastrointestinal: Positive for: Hematochezia. Negative for: Abdominal Pain, Rectal Pain Genitourinary Male: Positive for: Hematuria (gross hematuria since resolved) Physical Exam - Reviewed Nursing Documentation Reviewed: Yes Vital Signs Reviewed: Yes - Physical Exam Appears: Positive for: Non-toxic Skin: Positive for: Warm, Dry, Pallor (mild). Negative for: Normal Color Eye Exam: Positive for: Normal appearance Cardiovascular/Chest: Positive for: Regular Rate, Rhythm. Negative for: Murmur Respiratory: Positive for: Normal Breath Sounds. Negative for: Respiratory Distress Gastrointestinal/Abdominal: Positive for: Normal Exam, Soft. Negative for: Tenderness Back: Positive for: Normal Inspection Rectal: Positive for: Deferred Extremity: Positive for: Normal ROM. Negative for: Deformity Neurologic/Psych: Positive for: Alert, Oriented. Negative for: Motor/Sensory Deficits - Laboratory Results Result Diagrams: 07/08/17 00:05 07/08/17 00:05 - ECG O2 Sat by Pulse Oximetry: 98 (RA) Pulse Ox Interpretation: Normal - Critical Care Total Time (In Min): 30 Medical Decision Making Medical Decision Makin Initial impression: hematochezia in setting of known usage of coumadin and ASA Initial plan * ABO/RH * T&S * EKG * Labs * Trop I * PTT/PT * UA 0134 Labs reviewed: marked coagulopathy as reflected by elevated INR. Given patient's active GI bleed, will order IV Kcentra and Vitamin K Patient will be admitted for further treatment of GI bleed in setting of coagulopathy 30 minutes CCT * PTT/PT * Kcentra 2955 Unit IV * Vitamin K Inj 10mg IV * Re-eval 0145 * INPATIENT TELE ADMISSION (Dr. Olsen) Scribe Attestation: Documented by Kimmy Philippe acting as a scribe for Abelino Negrete MD. Scribe Attestation: All medical record entries made by the Scribe were at my direction and personally dictated by me. I have reviewed the chart and agree that the record accurately reflects my personal performance of the history, physical exam, medical decision making, and the department course for this patient. I have also personally directed, reviewed, and agree with the discharge instructions and disposition. Disposition - Clinical Impression Clinical Impression: GI bleed, Coumadin toxicity, Hematuria - Patient ED Disposition Is Patient to be Admitted: Yes - Disposition Disposition Time: 01:45 Condition: FAIR - Pt Status Changed To: Hospital Disposition Of: Inpatient (INPATIENT TELE) - Admit Certification Admit to Inpatient:: After my assessment, the patient will require hospitalization for at least two midnights. This is because of the severity of symptoms shown, intensity of services needed, and/or the medical risk in this patient being treated as an outpatient.
[2017-07-08 07:42] LABS: HEMOGLOBIN 9.6 g/dL (12.0-18.0); MEAN CORPUSCULAR HEMOGLOBIN 30.9 pg (27.0-31.0); MEAN CORPUSCULAR HGB CONC 33.9 g/dL (33.0-37.0); RBC 3.12 Mil/uL (4.40-5.90); RED CELL DISTRIBUTION WIDTH 15.9 % (11.5-14.5); WHITE BLOOD COUNT 7.9 K/uL (4.8-10.8)
[2017-07-08 07:54] LABS: ALBUMIN 3.5 g/dL (3.5-5.0); ALT/SGPT 40 U/L (21-72); AST/SGOT 43 U/L (17-59); BLOOD UREA NITROGEN 41 mg/dl (9-20); CALCIUM 8.8 mg/dL (8.4-10.2); GFR AFRICAN-AMERICAN > 60; GFR NON-AFRICAN AMERICAN > 60
[2017-07-08 08:09] LABS: PROTHROMBIN TIME 13.2 Seconds (9.8-13.1)
[2017-07-08 08:10] LABS: INR 1.2 (0.9-1.2); PARTIAL THROMBOPLASTIN TIME 38.2 Seconds (25.6-37.1)
[2017-07-08 09:34] LABS: INR 1.2 (0.9-1.2); PROTHROMBIN TIME 12.9 Seconds (9.8-13.1)
--- NOTE | 2017-07-08 12:12 | CP.PCM.HP ---
History of Present Illness - History of Present Illness History of Present Illness: 67 y/o M with PMHx of A.fib, HTN presented to ED c/o hematochezia, hematuria and weakness. Patient was found to have very elevated PT/INR while on ED and was treated with antidote, he is feeling today but still c/o feeling weak. He has no other complains today. He admits not checking his PT/INR regularly, he has been taking coumadin and doesnt follow up with a PMD. Present on Admission - Present on Admission Any Indicators Present on Admission: No Review of Systems - Review of Systems All systems: reviewed and no additional remarkable complaints except - Constitutional Constitutional: Weakness - Gastrointestinal Gastrointestinal: Hematochezia - Genitourinary Genitourinary: Hematuria Past Patient History - Past Medical History & Family History Past Medical History?: Yes - Past Social History Smoking Status: Former Smoker - CARDIAC Hx Cardiac Disorders: Yes Hx Atrial Fibrillation: Yes Hx Hypertension: Yes - PULMONARY Hx Respiratory Disorders: Yes - NEUROLOGICAL Hx Neurological Disorder: No - HEENT Hx HEENT Problems: No - RENAL Hx Chronic Kidney Disease: No - ENDOCRINE/METABOLIC Hx Endocrine Disorders: No - HEMATOLOGICAL/ONCOLOGICAL Hx Anemia: Yes Hx Human Immunodeficiency Virus (HIV): No - INTEGUMENTARY Hx Dermatological Problems: No - MUSCULOSKELETAL/RHEUMATOLOGICAL Hx Musculoskeletal Disorders: Yes Hx Falls: Yes - GASTROINTESTINAL Hx Gastrointestinal Disorders: No - GENITOURINARY/GYNECOLOGICAL Hx Hematuria: Yes - PSYCHIATRIC Hx Psychophysiologic Disorder: No Hx Substance Use: No - SURGICAL HISTORY Hx Coronary Artery Bypass Graft: Yes (x3) Hx Coronary Stent: Yes (x3) - ANESTHESIA Hx Anesthesia: Yes Hx Anesthesia Reactions: No Hx Malignant Hyperthermia: No Has any member of the family had a problem w/ anesthesia?: No Meds Allergies/Adverse Reactions: Allergies Allergy/AdvReac Type Severity Reaction Status Date / Time No Known Allergies Allergy Verified 07/07/17 23:09 Physical Exam - Constitutional Appears: Non-toxic, No Acute Distress - Head Exam Head Exam: NORMAL INSPECTION - Eye Exam Eye Exam: EOMI, PERRL - ENT Exam ENT Exam: Mucous Membranes Moist - Respiratory Exam Respiratory Exam: Clear to Auscultation Bilateral, NORMAL BREATHING PATTERN. absent: Rales - Cardiovascular Exam Cardiovascular Exam: REGULAR RHYTHM, +S1, +S2. absent: Gallop - GI/Abdominal Exam GI & Abdominal Exam: Normal Bowel Sounds, Soft. absent: Guarding, Rigid - Rectal Exam Rectal Exam: Deferred - Extremities Exam Extremities exam: Negative for: calf tenderness, normal inspection (multiple petequial lesions B/L) - Back Exam Back exam: absent: CVA tenderness (L), CVA tenderness (R) - Neurological Exam Neurological exam: Alert, Oriented x3 - Psychiatric Exam Psychiatric exam: Normal Affect, Normal Mood - Skin Skin Exam: Petechiae, Warm Results - Vital Signs Recent Vital Signs: Last Vital Signs Temp 98.0 F 07/08/17 11:56 Pulse 61 07/08/17 11:56 Resp 18 07/08/17 11:56 BP 102/57 L 07/08/17 11:56 Pulse Ox 97 07/08/17 11:56 - Labs Result Diagrams: 07/08/17 07:32 07/08/17 07:32 Labs: Laboratory Results - last 24 hr 07/07/17 07/08/17 07/08/17 23:50 00:05 00:05 WBC 8.3 RBC 3.40 L Hgb 10.4 L Hct 30.7 L MCV 90.3 MCH 30.5 MCHC 33.8 RDW 15.8 H Plt Count 251 MPV 7.1 L Neut % (Auto) 68.3 Lymph % (Auto) 14.5 L [place] % (Auto) 9.8 Eos % (Auto) 6.5 H Baso % (Auto) 0.9 Neut # (Auto) 5.7 Lymph # (Auto) 1.2 [place] # (Auto) 0.8 Eos # (Auto) 0.5 Baso # (Auto) 0.1 PT INR APTT Sodium 137 Potassium 4.0 Chloride 98 Carbon Dioxide 29 Anion Gap 14 BUN 52 H Creatinine 1.2 Est GFR ( Amer) > 60 Est GFR (Non-Af Amer) > 60 Random Glucose 104 Calcium 9.7 Total Bilirubin 0.4 AST 45 ALT 40 Alkaline Phosphatase 83 Troponin I 0.0150 NT-Pro-B Natriuret Pep 1600 H Total Protein 7.7 Albumin 3.9 Globulin 3.8 Albumin/Globulin Ratio 1.0 Urine Color Urine Clarity Urine pH Ur Specific [place] Urine Protein Urine Glucose (UA) Urine Ketones Urine Blood Urine Nitrate Urine Bilirubin Urine Urobilinogen Ur Leukocyte Esterase Urine RBC (Auto) Urine Microscopic WBC Blood Type O POSITIVE Antibody Screen Negative BBK History Checked Patient has bt 07/08/17 07/08/17 07/08/17 00:05 01:18 01:44 WBC RBC Hgb Hct MCV MCH MCHC RDW Plt Count MPV Neut % (Auto) Lymph % (Auto) [place] % (Auto) Eos % (Auto) Baso % (Auto) Neut # (Auto) Lymph # (Auto) [place] # (Auto) Eos # (Auto) Baso # (Auto) PT 121.4 H* 132.6 H* D INR 10.4 H 11.4 H D APTT 84.4 H 92.9 H D Sodium Potassium Chloride Carbon Dioxide Anion Gap BUN Creatinine Est GFR ( Amer) Est GFR (Non-Af Amer) Random Glucose Calcium Total Bilirubin AST ALT Alkaline Phosphatase Troponin I NT-Pro-B Natriuret Pep Total Protein Albumin Globulin Albumin/Globulin Ratio Urine Color Yellow Urine Clarity Clear Urine pH 6.0 Ur Specific [place] 1.019 Urine Protein Negative Urine Glucose (UA) Neg Urine Ketones Negative Urine Blood Small Urine Nitrate Negative Urine Bilirubin Negative Urine Urobilinogen 0.2-1.0 Ur Leukocyte Esterase Neg Urine RBC (Auto) 12 H Urine Microscopic WBC < 1 Blood Type Antibody Screen BBK History Checked 07/08/17 07/08/17 07/08/17 07:32 07:32 07:32 WBC 7.9 RBC 3.12 L Hgb 9.6 L Hct 28.4 L MCV 91.0 MCH 30.9 MCHC 33.9 RDW 15.9 H Plt Count 234 MPV Neut % (Auto) Lymph % (Auto) [place] % (Auto) Eos % (Auto) Baso % (Auto) Neut # (Auto) Lymph # (Auto) [place] # (Auto) Eos # (Auto) Baso # (Auto) PT 13.2 H D INR 1.2 D APTT 38.2 H D Sodium 138 Potassium 3.7 Chloride 104 Carbon Dioxide 24 Anion Gap 14 BUN 41 H Creatinine 0.8 Est GFR ( Amer) > 60 Est GFR (Non-Af Amer) > 60 Random Glucose 98 Calcium 8.8 Total Bilirubin 0.4 AST 43 ALT 40 Alkaline Phosphatase 78 Troponin I NT-Pro-B Natriuret Pep Total Protein 7.0 Albumin 3.5 Globulin 3.5 Albumin/Globulin Ratio 1.0 Urine Color Urine Clarity Urine pH Ur Specific [place] Urine Protein Urine Glucose (UA) Urine Ketones Urine Blood Urine Nitrate Urine Bilirubin Urine Urobilinogen Ur Leukocyte Esterase Urine RBC (Auto) Urine Microscopic WBC Blood Type Antibody Screen BBK History Checked 07/08/17 09:05 WBC RBC Hgb Hct MCV MCH MCHC RDW Plt Count MPV Neut % (Auto) Lymph % (Auto) [place] % (Auto) Eos % (Auto) Baso % (Auto) Neut # (Auto) Lymph # (Auto) [place] # (Auto) Eos # (Auto) Baso # (Auto) PT 12.9 INR 1.2 APTT Sodium Potassium Chloride Carbon Dioxide Anion Gap BUN Creatinine Est GFR ( Amer) Est GFR (Non-Af Amer) Random Glucose Calcium Total Bilirubin AST ALT Alkaline Phosphatase Troponin I NT-Pro-B Natriuret Pep Total Protein Albumin Globulin Albumin/Globulin Ratio Urine Color Urine Clarity Urine pH Ur Specific [place] Urine Protein Urine Glucose (UA) Urine Ketones Urine Blood Urine Nitrate Urine Bilirubin Urine Urobilinogen Ur Leukocyte Esterase Urine RBC (Auto) Urine Microscopic WBC Blood Type Antibody Screen BBK History Checked Assessment & Plan - Assessment and Plan (Free Text) Assessment: 67 y/o M with Hx of cardiac disease on Coumadin admitted for Coumadin intoxication Coagulopathy Due to coumadin intoxication Treated Coumadin held Improved INR corrected VS stable HGB 10s-9s F/U Cardio consults for recs regarding anticaogulation Hx of afib Unknown type Cardio consult NSR on EKG at ED C/W Coreg BID
--- NOTE | 2017-07-08 19:08 | CARD ---
APPROVED REPORT EKG Measurement Heart [id number] [id number] <Conclusion> Atrial-paced rhythm with prolonged AV conduction Possible Inferior infarct, age undetermined Anterior infarct, age undetermined ST & T wave abnormality, consider lateral ischemia Abnormal ECG
[2017-07-09 00:36] VITALS: RESP 18
[2017-07-09 05:45] LABS: HEMOGLOBIN 10.2 g/dL (12.0-18.0); MEAN CELL VOLUME 90.9 fl (80.0-94.0); MEAN CORPUSCULAR HGB CONC 34.1 g/dL (33.0-37.0); RBC 3.27 Mil/uL (4.40-5.90); RED CELL DISTRIBUTION WIDTH 15.9 % (11.5-14.5); WHITE BLOOD COUNT 7.1 K/uL (4.8-10.8)
[2017-07-09 05:53] VITALS: O2SAT 96
[2017-07-09 06:14] LABS: INR 1.1 (0.9-1.2); PROTHROMBIN TIME 11.8 Seconds (9.8-13.1)
--- NOTE | 2017-07-09 07:35 | CP.PCM.CON ---
History of Present Illness - History of Present Illness History of Present Illness: I was asked to see patient by Dr Olsen. Patient is a 67 year old male with a history of HTN, CAD, SSS s/p PPM who presents with coumadin toxicity. The patient was found to have a markedly elevated INR. He has a previous history of paroxysmal atrial fibrillation. He kimberley chest pain or dyspnea. Review of Systems - Constitutional Constitutional: absent: As Per HPI, Anorexia, Chills, Daytime Sleepiness, Excessive Sweating, Fatigue, Fever, Frequent Falls, Headache, Increased Appetite , Lethargy, Malaise, Night Sweats, Snoring, Sleep Apnea, Weight Gain, Weight Loss, Weakness, Other - EENT Eyes: absent: As Per HPI, Blind Spots, Blurred Vision, Change in Vision, Decreased Night Vision, Diplopia, Discharge, Dry Eye, Exophthalmos, Floaters, Irritation, Itchy Eyes, Loss of Peripheral Vision, Pain, Photophobia, Requires Corrective Lenses, Sees Flashes, Spots in Vision, Tunnel Vision, Other Visual Disturbances, Loss of Vision, Other Ears: absent: As Per HPI, Decreased Hearing, Ear Discharge, Ear Pain, Tinnitus, Abnormal Hearing, Disequilibrium, Dizziness, Other Nose/Mouth/Throat: absent: As Per HPI, Epistaxis, Nasal Congestion, Nasal Discharge, Nasal Obstruction, Nasal Trauma, Nose Pain, Post Nasal Drip, Sinus Pain, Sinus Pressure, Bleeding Gums, Change in Voice, Dental Pain, Dry Mouth, Dysphagia, Halitosis, Hoarsness, Lip Swelling, Mouth Lesions, Mouth Pain, Odynophagia, Sore Throat, Throat Swelling, Tongue Swelling, Facial Pain, Neck Pain, Neck Mass, Other - Cardiovascular Cardiovascular: absent: As Per HPI, Acrocyanosis, Chest Pain, Chest Pain at Rest , Chest Pain with Activity, Claudication, Diaphoresis, Dyspnea, Dyspnea on Exertion, Edema, Irregular Heart Rhythm, Pain Radiating to Arm/Neck/Jaw, Leg Edema, Leg Ulcers, Lightheadedness, Orthopnea, Palpitations, Paroxysmal Nocturnal Dyspnea, Pedal Edema, Radiating Pain, Rapid Heart Rate, Slow Heart Rate, Syncope, Other - Respiratory Respiratory: absent: As Per HPI, Cough, Dyspnea, Hemoptysis, Dyspnea on Exertion , Wheezing, Snoring, Stridor, Pain on Inspiration, Chest Congestion, Excessive Mucous Production, Change in Mucous Color, Pain with Coughing, Other - Gastrointestinal Gastrointestinal: absent: As Per HPI, Abdominal Pain, Belching, Bloating, Change in Bowel Habits, Change in Stool Character, Coffee Ground Emesis, Constipation, Cramping, Diarrhea, Dyspepsia, Dysphagia, Early Satiety, Excessive Flatus, Fecal Incontinence, Heartburn, Hematemesis, Hematochezia, Loose Stools, Melena, Nausea, Odynophagia, Temesmus, Vomiting, Other - Genitourinary Genitourinary: absent: As Per HPI, Change in Urinary Stream, Difficulty Urinating, Dysuria, Flank Pain, Hematuria, Pyuria, Nocturia, Urinary Incontinence, Urinary Frequency, Urinary Hesitance, Urinary Urgency, Voiding Freq/Small Amts, Freq UTI, Hx Renal/Bladder Calculi, Hx /Renal Surgery, Bladder Distension, Other - Musculoskeletal Musculoskeletal: absent: As Per HPI, Abnormal Gait, Arthralgias, Atrophy, Back Pain, Deformity, Joint Swelling, Limited Range of Motion, Loss of Height, Muscle Cramps, Muscle Weakness, Myalgias, Neck Pain, Numbness, Radiating Pain into Limb, Stiffness, Tingling, Other - Integumentary Integumentary: absent: As Per HPI, Acne, Alopecia, Bleeding Lesions, Change in Hair, Change in Nails, Change in Pigmentation, Changing Lesions, Dry Skin, Erythema, Furuncle, Hirsutism, Lesions, New Lesions, Non-Healing Lesions, Photosensitivity, Pruritus, Rash, Skin Pain, Skin Ulcer, Sores, Striae, Swelling , Unusual Bruising, Wounds, Jaundice, Other - Neurological Neurological: absent: As Per HPI, Abnormal Gait, Abnormal Hearing, Abnormal Movements, Abnormal Speech, Behavioral Changes, Burning Sensations, Confusion, Convulsions, Disequilibrium, Dizziness, Numbness, Focal Weakness, Frequent Falls , Headaches, Lack of Coordination, Loss of Vision, Memory Loss, Paresthesias, Radicular Pain, Restless Legs, Sensory Deficit, Syncope, Tingling, Tremor, Vertigo, Weakness, Other Visual Disturbances, Other - Psychiatric Psychiatric: absent: As Per HPI, Abnormal Sleep Pattern, Anhedonia, Anxiety, Auditory Hallucinations, Behavioral Changes, Change in Appetite, Change in Libido, Confusion, Depression, Difficulty Concentrating, Hallucinations, Homicidal Ideation, Hopelessness, Irritability, Memory Loss, Mood Swings, Panic Attacks, Paranoia, Suicidal Ideation, Visual Hallucinations, Tactile Hallucinations, Other - Endocrine Endocrine: absent: As Per HPI, Change in Body Appearance, Change in Libido, Cold Intolorance, Deepening of Voice, Excessive Sweating, Fatigue, Flushing, Heat Intolorance, Increase in Ring/Shoe/Hat Size, Palpitations, Polydipsia, Polyphagia, Polyuria, Other - Hematologic/Lymphatic Hematologic: absent: As Per HPI, Easy Bleeding, Easy Bruising, Lymphadenopathy, Other Past Patient History - Past Medical History & Family History Past Medical History?: Yes - Past Social History Smoking Status: Former Smoker - CARDIAC Hx Cardiac Disorders: Yes Hx Atrial Fibrillation: Yes Hx Hypertension: Yes - PULMONARY Hx Respiratory Disorders: Yes - NEUROLOGICAL Hx Neurological Disorder: No - HEENT Hx HEENT Problems: No - RENAL Hx Chronic Kidney Disease: No - ENDOCRINE/METABOLIC Hx Endocrine Disorders: No - HEMATOLOGICAL/ONCOLOGICAL Hx Anemia: Yes Hx Human Immunodeficiency Virus (HIV): No - INTEGUMENTARY Hx Dermatological Problems: No - MUSCULOSKELETAL/RHEUMATOLOGICAL Hx Musculoskeletal Disorders: Yes Hx Falls: Yes - GASTROINTESTINAL Hx Gastrointestinal Disorders: No - GENITOURINARY/GYNECOLOGICAL Hx Hematuria: Yes - PSYCHIATRIC Hx Psychophysiologic Disorder: No Hx Substance Use: No - SURGICAL HISTORY Hx Coronary Artery Bypass Graft: Yes (x3) Hx Coronary Stent: Yes (x3) - ANESTHESIA Hx Anesthesia: Yes Hx Anesthesia Reactions: No Hx Malignant Hyperthermia: No Has any member of the family had a problem w/ anesthesia?: No Meds Allergies/Adverse Reactions: Allergies Allergy/AdvReac Type Severity Reaction Status Date / Time No Known Allergies Allergy Verified 07/07/17 23:09 - Medications Medications: Current Medications Carvedilol (Coreg) 3.125 mg PO Q12 [facility] Last Admin: 07/08/17 21:28 Dose: Not Given Furosemide (Lasix) 20 mg PO DAILY [facility] Last Admin: 07/08/17 10:00 Dose: 20 mg Physical Exam - Constitutional Appears: Non-toxic - Head Exam Head Exam: NORMAL INSPECTION - Eye Exam Eye Exam: Normal appearance - ENT Exam ENT Exam: Mucous Membranes Moist - Neck Exam Neck exam: Positive for: Full Rom - Respiratory Exam Respiratory Exam: NORMAL BREATHING PATTERN - Cardiovascular Exam Cardiovascular Exam: REGULAR RHYTHM - GI/Abdominal Exam GI & Abdominal Exam: Normal Bowel Sounds - Rectal Exam Rectal Exam: Deferred - Extremities Exam Extremities exam: Positive for: pedal pulses present - Back Exam Back exam: NORMAL INSPECTION - Neurological Exam Neurological exam: Alert, Oriented x3 - Psychiatric Exam Psychiatric exam: Normal Mood - Skin Skin Exam: Normal Color Results - Vital Signs Recent Vital Signs: Last Vital Signs Temp 97.4 F L 07/09/17 05:52 Pulse 58 L 07/09/17 05:52 Resp 18 07/09/17 05:52 BP 104/64 07/09/17 05:52 Pulse Ox 96 07/09/17 05:52 - Labs Result Diagrams: 07/09/17 04:45 07/08/17 07:32 Labs: Laboratory Results - last 24 hr 07/08/17 07/08/17 07/08/17 07:32 07:32 07:32 WBC 7.9 RBC 3.12 L Hgb 9.6 L Hct 28.4 L MCV 91.0 MCH 30.9 MCHC 33.9 RDW 15.9 H Plt Count 234 PT 13.2 H D INR 1.2 D APTT 38.2 H D Sodium 138 Potassium 3.7 Chloride 104 Carbon Dioxide 24 Anion Gap 14 BUN 41 H Creatinine 0.8 Est GFR ( Amer) > 60 Est GFR (Non-Af Amer) > 60 Random Glucose 98 Calcium 8.8 Total Bilirubin 0.4 AST 43 ALT 40 Alkaline Phosphatase 78 Total Protein 7.0 Albumin 3.5 Globulin 3.5 Albumin/Globulin Ratio 1.0 07/08/17 07/09/17 07/09/17 09:05 04:45 04:45 WBC 7.1 RBC 3.27 L Hgb 10.2 L Hct 29.8 L MCV 90.9 MCH 31.0 MCHC 34.1 RDW 15.9 H Plt Count 255 PT 12.9 11.8 INR 1.2 1.1 APTT Sodium Potassium Chloride Carbon Dioxide Anion Gap BUN Creatinine Est GFR ( Amer) Est GFR (Non-Af Amer) Random Glucose Calcium Total Bilirubin AST ALT Alkaline Phosphatase Total Protein Albumin Globulin Albumin/Globulin Ratio - EKG Data EKG Interpreted by: Myself Assessment & Plan (1) Coumadin toxicity Assessment and Plan: patient may not be an ideal candidate for coumadin due to poor follow up. consider use of NOAC (Eliquis 5 mg BID). Status: Acute (2) CAD (coronary artery disease) Assessment and Plan: no current angina. history of CABG,. previous patent bypass grafts. Status: Chronic Priority: Medium (3) HTN (hypertension) Assessment and Plan: blood pressure is controlled. Status: Chronic Priority: Medium (4) Atrial fibrillation Assessment and Plan: pacemaker was interrogated. no atrial fibrillation noted. Status: Acute
[2017-07-09 08:46] VITALS: BP 100/58; PULSE 62; TEMP 97.5
--- NOTE | 2017-07-09 10:59 | CP.PCM.PCO ---
Assessment/Plan - Assessment and Plan (Free Text) Assessment: Asked by RN to evaluate patient prior to discharge to rule out suicidal ideations. Patient looking to get discharge, awake alert oriented x3 In no acute distress. Vital signs stable. Patient denies suicidal thoughts or thoughts of hurting himself. Will dc home on PO eliquis, Coumadin discontinued, pt verbalized understanding of dc instructions
--- NOTE | 2017-07-09 12:23 | CP.PCM.DIS ---
Provider - Provider Date of Admission: 07/08/17 01:45 Attending physician: Jeovanny Olsen MD Consults: Cardiology Time Spent in preparation of Discharge (in minutes): 30 Diagnosis - Discharge Diagnosis (1) Atrial fibrillation Status: Chronic Comment: Undetermined type. Coumadin stopped with Start Eliquis 5 mg BID (2) Coumadin toxicity Status: Resolved Comment: INR Corrected. Coumadin stopped (3) GI bleed Status: Resolved Comment: Due to Coumadin toxicity. Resolved Hospital Course - Lab Results Lab Results: Most Recent Lab Values WBC 7.1 K/uL (4.8-10.8) 07/09/17 04:45 RBC 3.27 Mil/uL (4.40-5.90) L 07/09/17 04:45 Hgb 10.2 g/dL (12.0-18.0) L 07/09/17 04:45 Hct 29.8 % (35.0-51.0) L 07/09/17 04:45 MCV 90.9 fl (80.0-94.0) 07/09/17 04:45 MCH 31.0 pg (27.0-31.0) 07/09/17 04:45 MCHC 34.1 g/dL (33.0-37.0) 07/09/17 04:45 RDW 15.9 % (11.5-14.5) H 07/09/17 04:45 Plt Count 255 K/uL (130-400) 07/09/17 04:45 MPV 7.1 fl (7.2-11.7) L 07/08/17 00:05 Neut % (Auto) 68.3 % (50.0-75.0) 07/08/17 00:05 Lymph % (Auto) 14.5 % (20.0-40.0) L 07/08/17 00:05 [place] % (Auto) 9.8 % (0.0-10.0) 07/08/17 00:05 Eos % (Auto) 6.5 % (0.0-4.0) H 07/08/17 00:05 Baso % (Auto) 0.9 % (0.0-2.0) 07/08/17 00:05 Neut # (Auto) 5.7 K/uL (1.8-7.0) 07/08/17 00:05 Lymph # (Auto) 1.2 K/uL (1.0-4.3) 07/08/17 00:05 [place] # (Auto) 0.8 K/uL (0.0-0.8) 07/08/17 00:05 Eos # (Auto) 0.5 K/uL (0.0-0.7) 07/08/17 00:05 Baso # (Auto) 0.1 K/uL (0.0-0.2) 07/08/17 00:05 PT 11.8 Seconds (9.8-13.1) 07/09/17 04:45 INR 1.1 (0.9-1.2) 07/09/17 04:45 APTT 38.2 Seconds (25.6-37.1) H D 07/08/17 07:32 Sodium 138 mmol/l (132-148) 07/08/17 07:32 Potassium 3.7 MMOL/L (3.6-5.0) 07/08/17 07:32 Chloride 104 mmol/L (98-107) 07/08/17 07:32 Carbon Dioxide 24 mmol/L (22-30) 07/08/17 07:32 Anion Gap 14 (10-20) 07/08/17 07:32 BUN 41 mg/dl (9-20) H 07/08/17 07:32 Creatinine 0.8 mg/dl (0.8-1.5) 07/08/17 07:32 Est GFR ( Amer) > 60 07/08/17 07:32 Est GFR (Non-Af Amer) > 60 07/08/17 07:32 Random Glucose 98 mg/dL (75-110) 07/08/17 07:32 Calcium 8.8 mg/dL (8.4-10.2) 07/08/17 07:32 Total Bilirubin 0.4 mg/dl (0.2-1.3) 07/08/17 07:32 AST 43 U/L (17-59) 07/08/17 07:32 ALT 40 U/L (21-72) 07/08/17 07:32 Alkaline Phosphatase 78 U/L (38-126) 07/08/17 07:32 Troponin I 0.0150 ng/mL (0.00-0.120) 07/08/17 00:05 NT-Pro-B Natriuret Pep 1600 pg/ml (0-900) H 07/08/17 00:05 Total Protein 7.0 G/DL (6.3-8.2) 07/08/17 07:32 Albumin 3.5 g/dL (3.5-5.0) 07/08/17 07:32 Globulin 3.5 gm/dL (2.2-3.9) 07/08/17 07:32 Albumin/Globulin Ratio 1.0 (1.0-2.1) 07/08/17 07:32 Urine Color Yellow (YELLOW) 07/08/17 01:18 Urine Clarity Clear (Clear) 07/08/17 01:18 Urine pH 6.0 (5.0-8.0) 07/08/17 01:18 Ur Specific [place] 1.019 (1.003-1.030) 07/08/17 01:18 Urine Protein Negative mg/dL (NEGATIVE) 07/08/17 01:18 Urine Glucose (UA) Neg mg/dL (Normal) 07/08/17 01:18 Urine Ketones Negative mg/dL (NEGATIVE) 07/08/17 01:18 Urine Blood Small (NEGATIVE) 07/08/17 01:18 Urine Nitrate Negative (NEGATIVE) 07/08/17 01:18 Urine Bilirubin Negative (NEGATIVE) 07/08/17 01:18 Urine Urobilinogen 0.2-1.0 mg/dL (0.2-1.0) 07/08/17 01:18 Ur Leukocyte Esterase Neg [place]/uL (Negative) 07/08/17 01:18 Urine RBC (Auto) 12 /hpf (0-3) H 07/08/17 01:18 Urine Microscopic WBC < 1 /hpf (0-5) 07/08/17 01:18 Blood Type O POSITIVE 07/07/17 23:50 Antibody Screen Negative 07/07/17 23:50 BBK History Checked Patient has bt 07/07/17 23:50 - Hospital Course Hospital Course: 67 y/o M with PMHx of cardiac disease, A.Fib on Coumadin who admits was not follwing up with PMD or checking Coumadin levels was admitted to hosp for GI bleeding and hematuria. Patient's PT/INR levels were found to be extremely elevated. Antidote was administered at ED. Lowest HGb =9s. Patient remained stable with VS WNL and EKK showed sinus rhythm during his admission. PT/INR levels corrected and patient was evaluated by his Stamping Press Operator who recommended switching anticaogulation to Eliquis 5 mg BID. Today patient is to be DC home and f/u as outpatient Discharge Exam - Head Exam Head Exam: NORMAL INSPECTION - Eye Exam Eye Exam: EOMI, PERRL - ENT Exam ENT Exam: Mucous Membranes Moist - Respiratory Exam Respiratory Exam: Clear to PA & Lateral, NORMAL BREATHING PATTERN, UNREMARKABLE - Cardiovascular Exam Cardiovascular Exam: REGULAR RHYTHM, +S1, +S2. absent: Gallop - GI/Abdominal Exam GI & Abdominal Exam: Normal Bowel Sounds, Soft, Unremarkable - Neurological Exam Neurological exam: Alert, Normal Gait, Oriented x3 - Psychiatric Exam Psychiatric exam: Normal Affect, Normal Mood - Skin Skin Exam: Normal Color, Warm Discharge Plan - Discharge Medications Prescriptions: Apixaban [Eliquis] 5 mg PO BID #60 tablet - Follow Up Plan Condition: STABLE Disposition: HOME/ ROUTINE Patient education suggested?: Yes Instructions: Gastrointestinal Bleeding (DC), Going Home on Blood Thinners
== END 2017-07-09 12:40 | disposition home health service (06) | DRG 378 ==
LOC: H.ER 23:03 → H.ERHOLD 07-08 01:45 → H.TEL 07-08 04:28
PROVIDERS: ADMIT Family Medicine; ATTEND Family Medicine
DX: K92.2 Gastrointestinal hemorrhage, unspecified (principal); D68.32 Hemorrhagic disorder due to extrinsic circulating anticoagulants; T45.515A Adverse effect of anticoagulants, initial encounter; R31.0 Gross hematuria; I48.2 Chronic atrial fibrillation; I11.0 Hypertensive heart disease with heart failure; I50.9 Heart failure, unspecified; I25.10 Atherosclerotic heart disease of native coronary artery without angina pectoris; E78.00 Pure hypercholesterolemia, unspecified; J43.9 Emphysema, unspecified; Z79.01 Long term (current) use of anticoagulants; Z79.82 Long term (current) use of aspirin; Z95.1 Presence of aortocoronary bypass graft; Z95.5 Presence of coronary angioplasty implant and graft; Z87.891 Personal history of nicotine dependence; Y92.009 Unspecified place in unspecified non-institutional (private) residence as the place of occurrence of the external cause

== ENCOUNTER 2017-07-15 18:20 | Inpatient (IN) | payer MEDICARE ==
[2017-07-15 18:20] VITALS: BMI 18.1
--- NOTE | 2017-07-15 19:46 | ED PDOC ---
HPI: SOB/CHF/COPD Time Seen by Provider: 07/15/17 19:12 Chief Complaint (Nursing): Shortness Of Breath Chief Complaint (Provider): Shortness Of Breath History Per: Patient History/Exam Limitations: no limitations Onset/Duration Of Symptoms: Days Current Symptoms Are (Timing): Still Present Additional Complaint(s): 67 year old male with a past medically history of congestive heart failure (CHF) , atrial fibrillation, pacemaker, coronary artery bypass grafting (CABG), and hypertension who presents to the emergency department with a complaint of having shortness of breath x2 days. Associated with chest pain, dyspnea on exertion, and orthopnea. Patient was recently admitted by this provider for Coumadin toxicity. Reports since he was discharged he has been taking medications as prescribed however he developed shortness of breath today. Denies sweat, nausea, vomiting, fever and cough. Past Medical History Reviewed: Historical Data, Nursing Documentation, Vital Signs Vital Signs: Last Vital Signs Temp 97.8 F 07/15/17 18:28 Pulse 80 07/15/17 18:28 Resp 18 07/15/17 19:34 BP 134/80 07/15/17 20:51 Pulse Ox 95 07/15/17 21:04 - Medical History PMH: Anemia, Asthma, Atrial Fibrillation, Bronchitis, CAD, CHF, COPD, Emphysema , HTN, Hypercholesterolemia, Malignancy (right lung mass) Denies: HIV, Chronic Kidney Disease - Surgical History Surgical History: CABG (x3), Coronary Stent (x3), Pacemaker - Family History Family History: States: Unknown Family Hx - Immunization History Hx Tetanus Toxoid Vaccination: No Hx Influenza Vaccination: No Hx Pneumococcal Vaccination: No - Home Medications Home Medications: Ambulatory Orders Medication Instructions Recorded Carvedilol [Coreg] 3.125 mg PO Q12 #60 tab 05/19/17 Aspirin [Ecotrin] 81 mg PO DAILY 07/08/17 Furosemide [Lasix] 20 mg PO DAILY 07/08/17 Apixaban [Eliquis] 5 mg PO BID #60 tablet 07/09/17 - Allergies Allergies/Adverse Reactions: Allergies Allergy/AdvReac Type Severity Reaction Status Date / Time No Known Allergies Allergy Verified 07/15/17 18:26 Review of Systems ROS Statement: Except As Marked, All Systems Reviewed And Found Negative (As per HPI, otherwise negtive) Constitutional: Negative for: Fever, Sweats Cardiovascular: Positive for: Chest Pain, Paroxysmal Noc. Dyspnea Respiratory: Positive for: Shortness of Breath, Other (orthopnea and dyspnea on exertion ). Negative for: Cough Gastrointestinal: Negative for: Nausea, Vomiting Physical Exam - Reviewed Nursing Documentation Reviewed: Yes Vital Signs Reviewed: Yes - Physical Exam Appears: Positive for: No Acute Distress Head Exam: Positive for: NORMAL INSPECTION Skin: Positive for: Warm, Dry, Pallor Cardiovascular/Chest: Positive for: JVD (1+), Other (PND). Negative for: Murmur Respiratory: Positive for: Rales ( Bibasilar rales). Negative for: Accessory Muscle Use, Respiratory Distress Gastrointestinal/Abdominal: Positive for: Normal Exam, Soft. Negative for: Tenderness Neurologic/Psych: Positive for: Alert, Oriented (x3) - Laboratory Results Result Diagrams: 07/15/17 19:40 07/15/17 19:40 - ECG O2 Sat by Pulse Oximetry: 95 (RA) Pulse Ox Interpretation: Normal Medical Decision Making Medical Decision Making: Time: 1922 Initial impression: Shortness of breath in setting of known congestive heart failure (CHF), atrial fibrillation (AFib), and recent admission for Coumadin toxicity. Initial plan: --B-Type Natriuretic Peptide Ahn --CMP --Troponin I --Urine DIP --CBC w/ diff --PTT & Prothrombin --Chest portable --Influenza A B --Reevaluation time: 20:58 --Labs reviewed with no clinical significant abnormalities. --Noted elevated pro-BNP. Chest x-ray revealed cardiomegaly and b/l pulmonary vascular congestion. --Case discussed with Dr. Randall HOBSON. Admit to hospital routine: Observation in telemetry for congestive heart failure under the care of Dr. Geraldo Pereira MD Scribe Attestation: Documented by Radha Franco, acting as a scribe for Abelino Negrete MD. Provider Scribe Attestation: All medical record entries made by the Scribe were at my direction and personally dictated by me. I have reviewed the chart and agree that the record accurately reflects my personal performance of the history, physical exam, medical decision making, and the department course for this patient. I have also personally directed, reviewed, and agree with the discharge instructions and disposition. Disposition - Patient ED Disposition Is Patient to be Admitted: Yes (Observation in telemetry) - Disposition Disposition Time: 20:58
[2017-07-15 19:52] LABS: BASO # 0.2 K/uL (0.0-0.2); BASO % 2.1 % (0.0-2.0); EOS # 0.6 K/uL (0.0-0.7); EOS % 7.4 % (0.0-4.0); HEMOGLOBIN 9.6 g/dL (12.0-18.0); LYMPH # 1.8 K/uL (1.0-4.3); LYMPH % 24.3 % (20.0-40.0); MEAN CELL VOLUME 91.1 fl (80.0-94.0); MEAN PLATELET VOLUME 6.8 fl (7.2-11.7); MONO # 0.9 K/uL (0.0-0.8); MONO % 11.7 % (0.0-10.0); NEUT # 4.1 K/uL (1.8-7.0); NEUT % 54.5 % (50.0-75.0); RBC 3.19 Mil/uL (4.40-5.90); RED CELL DISTRIBUTION WIDTH 16.3 % (11.5-14.5); WHITE BLOOD COUNT 7.6 K/uL (4.8-10.8)
[2017-07-15 20:12] LABS: INR 1.2 (0.9-1.2); PARTIAL THROMBOPLASTIN TIME 41.4 Seconds (25.6-37.1); PROTHROMBIN TIME 13.1 Seconds (9.8-13.1)
[2017-07-15 20:17] LABS: ALBUMIN 3.6 g/dL (3.5-5.0); ALT/SGPT 37 U/L (21-72); AST/SGOT 42 U/L (17-59); BLOOD UREA NITROGEN 23 mg/dl (9-20); CALCIUM 8.7 mg/dL (8.4-10.2); GFR AFRICAN-AMERICAN > 60; GFR NON-AFRICAN AMERICAN > 60
[2017-07-15 20:22] LABS: B-TYPE NATRIURETIC PEPTIDE 1010 pg/ml (0-900)
[2017-07-15] MEDS ORDERED: Nitroglycerin 2% 15 INCH/30 GM TUBE TOP STA (20:22)
[2017-07-15] MEDS ORDERED: Nitroglycerin 2% Ointment Foilpak UD TOP ONE (20:35)
--- NOTE | 2017-07-15 23:21 | RAD ---
HISTORY: chest pain COMPARISON: Frontal chest radiograph 05/17/2017. FINDINGS: LUNGS: No acute infiltrate bilaterally. PLEURA: Chronic left pleural effusion or pleural thickening seen at the mid to inferior left lung zone laterally including the costophrenic sulcus. No pneumothorax bilaterally. Skin fold is seen the mid left chest. CARDIOVASCULAR: Prominent cardiac silhouette appears stable. No pulmonary derangement. Bipolar permanent cardiac pacemaker again appreciated as well as sternotomy wires. OSSEOUS STRUCTURES: No significant abnormalities. VISUALIZED UPPER ABDOMEN: Normal. OTHER FINDINGS: None. IMPRESSION: No acute cardiopulmonary disease appreciable. Cardiomegaly is stable as well as chronic pleural fibrosis or effusion at the mid to inferior left chest laterally. Pacemaker again noted.
--- NOTE | 2017-07-16 09:12 | HP ---
HISTORY OF PRESENT ILLNESS: Mr. Amado is a 67-year-old male who was admitted via the Emergency Room because of shortness of breath, exercise intolerance and swelling of legs for the past several days. He was recently discharged from [facility] after therapy for Coumadin toxicity and congestive heart failure. He is noncompliant to follow up the medications because he indicates he has no funds and has not been following up with any doctor on the outside. He has a history of coronary artery disease, congestive heart failure status post pacemaker placement, status post cardiac stenting. He also has a history of COPD, hypertension, hyperlipidemia, and right lung mass. FAMILY HISTORY: Nonrevealing. SOCIAL HISTORY: He used to smoke heavily, quit years ago. Also he used to drink alcohol heavily. 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 REVIEW OF SYSTEMS: Remarkable for shortness of breath, exercise intolerance, and chest tightness. PHYSICAL EXAMINATION: GENERAL: The patient is alert, oriented, and appears to be in mild distress. VITAL SIGNS: Blood pressure 134/80 with pulse of 80, respiratory rate of 18. He is febrile. O2 sat is 95% on room air. SKIN: Shows fair turgor. Pupils are equal and reactive to light and accommodation. Mouth shows fair hygiene with some missing teeth, but no evidence of infection. LUNGS: Fair aeration bilaterally with basal dullness and scattered rales. HEART: Irregular rhythm. ABDOMEN: Soft and nontender, no organomegaly. EXTREMITIES: Shows 1+ pitting pedal edema. CENTRAL NERVOUS SYSTEM: Exam grossly intact. GENITAL AND RECTAL: Deferred. LABORATORY DATA: Remarkable for WBC of 7.6, hemoglobin of 9.6, and platelet count of 348,000. Sodium of 140, potassium of 3.7, BUN of 23, creatinine of 1.0, and glucose of 80. Chest x-ray remarkable for cardiomegaly, chronic interstitial lung changes/pleural effusion, pacemaker in place. EKG pending. ProBNP 1010. Troponin less than 0.012. IMPRESSION AND PLAN: Acute congestive heart failure, cardiac arrhythmias, noncompliance to medication and diet. The plan is cardiac evaluation. We will give the patient diuretics, advised compliance to medication, cardiology evaluation already requested. Further therapy will depend on findings. Geraldo Pereira MD [facility] # [id number]
[2017-07-16] MEDS: Potassium Chloride 10 mEq ER Tab PO SCH (16:07)
--- NOTE | 2017-07-16 18:06 | CARD ---
APPROVED REPORT EKG Measurement Heart [id number] ID [id number] <Conclusion> Atrial-paced rhythm with prolonged AV conduction Possible Inferior infarct, age undetermined Anterior infarct, age undetermined ST & T wave abnormality, consider lateral ischemia Abnormal ECG
--- NOTE | 2017-07-17 00:29 | CON ---
CARDIOLOGY CONSULTATION DATE: REASON FOR CONSULTATION: Shortness of breath. HISTORY OF PRESENT ILLNESS: The patient is a poor historian. He is a 67-year-old male who has a history of coronary artery bypass surgery 3 to 4 years ago according [facility], history of congestive heart failure and history of atrial fibrillation in the past. The patient is not following with any physician for almost one years according to him. He presents with shortness of breath. He denies any chest pain or diaphoresis. He denies any dizziness or syncope. I was consulted on this patient on 05/18/2017 when he presented because of exacerbation of congestive heart failure. An echocardiograph study performed in 10/2016, revealed ejection fraction in range of 40% to 45% with mild hypokinesis in the basal anterior and apical cool. A cardiac catheterization was performed in 08/[address] Montiel revealed severe multivessel coronary artery disease, with patent bypass grafts and mild left ventricular systolic dysfunction. SOCIAL HISTORY: Nonsmoker. MEDICATIONS: Coreg 3.125 mg twice a day, aspirin 81 mg once a day, Eliquis 5 mg once a day and Lasix 20 mg p.o. once a day. REVIEW OF SYSTEMS: No nausea or vomiting. No dizziness or syncope. PHYSICAL EXAMINATION GENERAL: The patient is an elderly male who does not appear to be in any distress. VITAL SIGNS: Blood pressure 108/57, heart rate 60, temperature 97.5 and respirations 18. HEENT: Normocephalic. CHEST: Scattered bilateral rhonchi. HEART: S1 and S2 regular and distant. ABDOMEN: Soft. EXTREMITIES: No edema. Chest x-ray revealed normal cardiac silhouette, prominent bronchovascular markings, dual-chamber pacemaker. EKG revealed an atrial paced rhythm with prolonged AV conduction. Consider lateral ischemia. LABORATORY DATA: SMA-7 within normal limits except for BUN of 23. One set of troponin is negative. ProBNP is 1010. PTT 41.4. Hemoglobin and hematocrit 9.6 and 29.1, white count and platelet count are within normal limits. ASSESSMENT: 1. Ischemic cardiomyopathy. 2. Coronary artery disease status post coronary artery bypass surgery. 3. Status post dual-chamber pace maker placement. The patient is currently in atrial paced rhythm. 4. History of atrial fibrillation. RECOMMENDATIONS: Continue current Coreg 3.125 mg twice a day, aspirin 81 mg once a day, Eliquis 5 mg twice a day, increase Lasix to 40 mg p.o. daily and start K-Dur at 10 mEq once a day, start enalapril 2.5 mg once a day. James Dutton MD
[2017-07-17 06:38] LABS: HEMOGLOBIN 10.4 g/dL (12.0-18.0); MEAN CELL VOLUME 91.6 fl (80.0-94.0); MEAN CORPUSCULAR HEMOGLOBIN 30.4 pg (27.0-31.0); MEAN CORPUSCULAR HGB CONC 33.2 g/dL (33.0-37.0); RBC 3.41 Mil/uL (4.40-5.90); RED CELL DISTRIBUTION WIDTH 16.4 % (11.5-14.5); WHITE BLOOD COUNT 7.1 K/uL (4.8-10.8)
[2017-07-17 06:50] LABS: BLOOD UREA NITROGEN 24 mg/dl (9-20); CALCIUM 8.6 mg/dL (8.4-10.2); GFR AFRICAN-AMERICAN > 60; GFR NON-AFRICAN AMERICAN > 60
[2017-07-17 06:59] LABS: B-TYPE NATRIURETIC PEPTIDE 411 pg/ml (0-900)
[2017-07-17] MEDS: Potassium Chloride 10 mEq ER Tab PO SCH (08:28)
--- NOTE | 2017-07-17 10:53 | RAD ---
PROCEDURE: CHEST RADIOGRAPH, 1 VIEW HISTORY: chf COMPARISON: Comparison made with chest radiograph dated 07/15/2017. FINDINGS: LUNGS: Lungs appear hyperinflated consistent with underlying emphysema. PLEURA: Persistent blunting left CP angle likely due to chronic pleural thickening. CARDIOVASCULAR: Cardiac silhouette remains enlarged. No change sternotomy wires CABG clips or bipolar pacemaker. OSSEOUS STRUCTURES: No significant abnormalities. VISUALIZED UPPER ABDOMEN: Normal. OTHER FINDINGS: None. IMPRESSION: Emphysema. Chronic pleural thickening left CP angle region.
--- NOTE | 2017-07-17 11:48 | CP.PCM.PN ---
Subjective - Date & Time of Evaluation Date of Evaluation: 07/17/17 Time of Evaluation: 11:48 - Subjective Subjective: SOB IMPROVED NO CHEST PAINS AMBULATING WITHOUT ASSISTANCE Objective - Vital Signs/Intake and Output Vital Signs (last 24 hours): Temp Pulse Resp BP Pulse Ox 97.5 F L 70 18 118/66 97 07/17/17 07:57 07/17/17 08:27 07/17/17 07:57 07/17/17 08:28 07/17/17 07:57 - Medications Medications: Current Medications Apixaban (Eliquis) 5 mg PO BID [facility] PRN Reason: Protocol Last Admin: 07/17/17 08:27 Dose: 5 mg Aspirin (Ecotrin) 81 mg PO DAILY [facility] Last Admin: 07/17/17 08:27 Dose: 81 mg Carvedilol (Coreg) 3.125 mg PO Q12 [facility] Last Admin: 07/17/17 08:27 Dose: 3.125 mg Enalapril Maleate (Vasotec) 2.5 mg PO DAILY [facility] Last Admin: 07/17/17 08:28 Dose: 2.5 mg Furosemide (Lasix) 40 mg PO DAILY [facility] Last Admin: 07/17/17 08:28 Dose: 40 mg Potassium Chloride (Klor-Con 10) 10 meq PO DAILY [facility] Last Admin: 07/17/17 08:28 Dose: 10 meq - Labs Labs: 07/17/17 06:21 07/17/17 06:21 PT 13.1 Seconds (9.8-13.1) 07/15/17 19:40 INR 1.2 (0.9-1.2) 07/15/17 19:40 APTT 41.4 Seconds (25.6-37.1) H 07/15/17 19:40 - Constitutional Appears: No Acute Distress - Head Exam Head Exam: ATRAUMATIC, NORMAL INSPECTION, NORMOCEPHALIC - Eye Exam Eye Exam: EOMI, Normal appearance, PERRL Pupil Exam: NORMAL ACCOMODATION, PERRL - ENT Exam ENT Exam: Mucous Membranes Moist, Normal Exam - Neck Exam Neck Exam: Full ROM, Normal Inspection. absent: Lymphadenopathy - Respiratory Exam Respiratory Exam: Decreased Breath Sounds, Prolonged Expiratory Phase, Rales, NORMAL BREATHING PATTERN - Cardiovascular Exam Cardiovascular Exam: Irregular Rhythm, +S1, +S2. absent: Murmur - GI/Abdominal Exam GI & Abdominal Exam: Soft, Normal Bowel Sounds. absent: Tenderness - Rectal Exam Rectal Exam: NORMAL INSPECTION - Extremities Exam Extremities Exam: Full ROM, Normal Capillary Refill, Normal Inspection. absent : Joint Swelling, Pedal Edema - Back Exam Back Exam: NORMAL INSPECTION - Neurological Exam Neurological Exam: Alert, Awake, CN II-XII Intact, Normal Gait, Oriented x3 - Psychiatric Exam Psychiatric exam: Normal Affect, Normal Mood - Skin Skin Exam: Dry, Intact, Normal Color, Warm Assessment and Plan - Assessment and Plan (Free Text) Assessment: CHF ARRYTHMIAS NON-COMPLIANCE TO THERAPY Plan: CONTINUE PRESENT RX
--- NOTE | 2017-07-17 14:48 | PN ---
DATE: SUBJECTIVE: The patient's shortness of breath has improved. Denies any chest pain. PHYSICAL EXAMINATION: VITAL SIGNS: Blood pressure 116/73, heart rate 76, temperature 97, and respirations 18. HEENT: Normocephalic. CHEST: Bibasilar rhonchi. HEART: S1 and S2, regular. ABDOMEN: Soft. EXTREMITIES: No edema. LABORATORY DATA: Today's hemoglobin and hematocrit are 10.4 and 31.3, white count and platelet count are within normal limit. Today's SMA-7 is within normal limits except for BUN of 24. Chest x-ray revealed mild cardiomegaly, COPD picture, prominent bronchovascular markings and left lower lobe infiltrate. ASSESSMENT: 1. Exacerbation of congestive heart failure. 2. Chronic obstructive lung disease. 3. Coronary artery disease, status post coronary artery bypass surgery. 4. History of dual-chamber pacemaker placement. The patient is in atrial paced rhythm. 5. History of atrial fibrillation. RECOMMENDATIONS: Continue Coreg 3.125 mg twice a day, aspirin 81 mg once a day, Eliquis 5 mg twice a day, Lasix 40 mg p.o. once a day, Klor-Con 10 mEq once a day, and Vasotec 2.5 mg once a day. The patient was strongly advised to follow up at the clinic of [facility] for that he has no primary physician or primary director utilization management. James Dutton MD
[2017-07-18] MEDS: Potassium Chloride 10 mEq ER Tab PO SCH (08:16)
--- NOTE | 2017-07-18 10:14 | CP.PCM.PN ---
Subjective - Date & Time of Evaluation Date of Evaluation: 07/18/17 Time of Evaluation: 10:15 - Subjective Subjective: DENIES CHEST PAINS/SOB STILL FEELS WEAK CLAIMS THAT HE HAS NO MONEY TO BUY MEDS/FOLLOW UP WITH DRS Objective - Vital Signs/Intake and Output Vital Signs (last 24 hours): Temp Pulse Resp BP Pulse Ox 97.4 F L 77 18 114/70 96 07/18/17 07:46 07/18/17 08:16 07/18/17 07:46 07/18/17 08:17 07/18/17 07:46 - Medications Medications: Current Medications Apixaban (Eliquis) 5 mg PO BID [facility] PRN Reason: Protocol Last Admin: 07/18/17 08:15 Dose: 5 mg Aspirin (Ecotrin) 81 mg PO DAILY [facility] Last Admin: 07/18/17 08:17 Dose: 81 mg Carvedilol (Coreg) 3.125 mg PO Q12 [facility] Last Admin: 07/18/17 08:16 Dose: 3.125 mg Enalapril Maleate (Vasotec) 2.5 mg PO DAILY [facility] Last Admin: 07/18/17 08:16 Dose: 2.5 mg Furosemide (Lasix) 40 mg PO DAILY [facility] Last Admin: 07/18/17 08:17 Dose: 40 mg Potassium Chloride (Klor-Con 10) 10 meq PO DAILY [facility] Last Admin: 07/18/17 08:16 Dose: 10 meq - Labs Labs: 07/17/17 06:21 07/17/17 06:21 PT 13.1 Seconds (9.8-13.1) 07/15/17 19:40 INR 1.2 (0.9-1.2) 07/15/17 19:40 APTT 41.4 Seconds (25.6-37.1) H 07/15/17 19:40 - Constitutional Appears: Chronically Ill - Head Exam Head Exam: ATRAUMATIC, NORMAL INSPECTION, NORMOCEPHALIC - Eye Exam Eye Exam: EOMI, Normal appearance, PERRL Pupil Exam: NORMAL ACCOMODATION, PERRL - ENT Exam ENT Exam: Mucous Membranes Moist, Normal Exam - Neck Exam Neck Exam: Full ROM, Normal Inspection. absent: Lymphadenopathy - Respiratory Exam Respiratory Exam: Prolonged Expiratory Phase, NORMAL BREATHING PATTERN - Cardiovascular Exam Cardiovascular Exam: Irregular Rhythm, +S1, +S2. absent: Murmur - GI/Abdominal Exam GI & Abdominal Exam: Soft, Normal Bowel Sounds. absent: Tenderness - Rectal Exam Rectal Exam: NORMAL INSPECTION - Extremities Exam Extremities Exam: Full ROM, Normal Capillary Refill, Normal Inspection. 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
--- NOTE | 2017-07-18 18:14 | PN ---
DATE: SUBJECTIVE: The patient denies any chest pain and shortness of breath has improved. PHYSICAL EXAMINATION: VITAL SIGNS: Blood pressure 105/64, heart rate 60, temperature 97.4, and respirations 18. HEENT: Normocephalic. CHEST: Minimal rhonchi. HEART: S1 and S2 regular. EXTREMITIES: No edema. LABORATORY DATA: Today's blood sugar is 82. ASSESSMENT: 1. Chronic obstructive lung disease. 2. Improved congestive heart failure. 3. Coronary artery disease, status post coronary artery bypass surgery 4 years ago at [facility]. 4. Noncompliance. 5. History of dual-chamber pacemaker placement. The patient is in atrial paced rhythm. 6. Paroxysmal atrial fibrillation. MEDICATIONS: Continue Coreg 3.125 mg twice a day, aspirin 81 mg once a day, Eliquis 5 mg twice a day, Klor-Con 10 mEq once a day, Lasix 40 mg once a day, and Vasotec 2.5 mg once a day. James Dutton MD
[2017-07-19 00:20] VITALS: RESP 18
[2017-07-19 08:16] VITALS: BP 134/76; PULSE 72; TEMP 97.5; O2SAT 96
--- NOTE | 2017-07-19 08:46 | IP.NPCORE ---
Heart Failure Core Measure - Heart Failure Ejection Fraction: 40 % or Greater Left Ventricular Function to be assessed after discharge: Yes JT Inhibitor Prescribed: Yes Beta-Olga Prescribed: Carvedilol Angiotensin II Receptor Olga Prescribed: No Contraindication/Reason for not providing: On JT AnticoagulationTherapy for Atrial Fibrillation/Atrialflutter: Yes Aldosterone Antagonist Prescribed: No Contraindication/Reason for not providing: On loop diuretic Hydralazine Nitrate Prescribed: No Contraindication/Reason for not providing: N/A Implantable Cardioverter Defibrillator Therapy: Yes Cardiac Resynchronization Therapy Prescribed: No - Follow up Will be discharged to: Home
--- NOTE | 2017-07-19 09:13 | CP.PCM.DIS ---
Provider - Provider Date of Admission: 07/16/17 08:44 Attending physician: Geraldo Pereira MD Time Spent in preparation of Discharge (in minutes): 30 Diagnosis - Discharge Diagnosis (1) Non-compliance Status: Acute (2) CHF (congestive heart failure) Status: Acute (3) COPD (chronic obstructive pulmonary disease) Status: Acute (4) S/P placement of cardiac pacemaker Status: Acute (5) Atrial fibrillation Status: Chronic (6) CAD (coronary artery disease) Status: Chronic Priority: Medium (7) HTN (hypertension) Status: Chronic Priority: Medium Hospital Course - Lab Results Lab Results: Most Recent Lab Values WBC 7.1 K/uL (4.8-10.8) 07/17/17 06:21 RBC 3.41 Mil/uL (4.40-5.90) L 07/17/17 06:21 Hgb 10.4 g/dL (12.0-18.0) L 07/17/17 06:21 Hct 31.3 % (35.0-51.0) L 07/17/17 06:21 MCV 91.6 fl (80.0-94.0) 07/17/17 06:21 MCH 30.4 pg (27.0-31.0) 07/17/17 06:21 MCHC 33.2 g/dL (33.0-37.0) 07/17/17 06:21 RDW 16.4 % (11.5-14.5) H 07/17/17 06:21 Plt Count 327 K/uL (130-400) 07/17/17 06:21 MPV 6.8 fl (7.2-11.7) L 07/15/17 19:40 Neut % (Auto) 54.5 % (50.0-75.0) 07/15/17 19:40 Lymph % (Auto) 24.3 % (20.0-40.0) 07/15/17 19:40 Gilmer % (Auto) 11.7 % (0.0-10.0) H 07/15/17 19:40 Eos % (Auto) 7.4 % (0.0-4.0) H 07/15/17 19:40 Baso % (Auto) 2.1 % (0.0-2.0) H 03/01/18 19:40 Neut # (Auto) 4.1 K/uL (1.8-7.0) 07/15/17 19:40 Lymph # (Auto) 1.8 K/uL (1.0-4.3) 07/15/17 19:40 Gilmer # (Auto) 0.9 K/uL (0.0-0.8) H 07/15/17 19:40 Eos # (Auto) 0.6 K/uL (0.0-0.7) 07/15/17 19:40 Baso # (Auto) 0.2 K/uL (0.0-0.2) 07/15/17 19:40 PT 13.1 Seconds (9.8-13.1) 07/15/17 19:40 INR 1.2 (0.9-1.2) 07/15/17 19:40 APTT 41.4 Seconds (25.6-37.1) H 07/15/17 19:40 Sodium 141 mmol/l (132-148) 07/17/17 06:21 Potassium 4.3 MMOL/L (3.6-5.0) 07/17/17 06:21 Chloride 106 mmol/L (98-107) 07/17/17 06:21 Carbon Dioxide 27 mmol/L (22-30) 07/17/17 06:21 Anion Gap 12 (10-20) 07/17/17 06:21 BUN 24 mg/dl (9-20) H 07/17/17 06:21 Creatinine 1.0 mg/dl (0.8-1.5) 07/17/17 06:21 Est GFR ( Amer) > 60 07/17/17 06:21 Est GFR (Non-Af Amer) > 60 07/17/17 06:21 POC Glucose (mg/dL) 82 mg/dL (65-110) 07/18/17 05:24 Random Glucose 93 mg/dL (75-110) 07/17/17 06:21 Calcium 8.6 mg/dL (8.4-10.2) 07/17/17 06:21 Total Bilirubin 0.3 mg/dl (0.2-1.3) 07/15/17 19:40 AST 42 U/L (17-59) 07/15/17 19:40 ALT 37 U/L (21-72) 07/15/17 19:40 Alkaline Phosphatase 93 U/L (38-126) 07/15/17 19:40 Troponin I < 0.0120 ng/mL (0.00-0.120) 07/15/17 19:40 NT-Pro-B Natriuret Pep 411 pg/ml (0-900) 07/17/17 06:21 Total Protein 7.0 G/DL (6.3-8.2) 07/15/17 19:40 Albumin 3.6 g/dL (3.5-5.0) 07/15/17 19:40 Globulin 3.4 gm/dL (2.2-3.9) 07/15/17 19:40 Albumin/Globulin Ratio 1.0 (1.0-2.1) 07/15/17 19:40 Influenza Typ A,B (EIA) Negative for flu a/b (NEGATIVE) 07/15/17 19:40 - Hospital Course Hospital Course: FEELS BETTER NO CHEST PAINS/SOB CLAIMS THAT HE HAS NO MEDS AT HOME Discharge Exam - Head Exam Head Exam: ATRAUMATIC, NORMAL INSPECTION, NORMOCEPHALIC - Eye Exam Eye Exam: EOMI, Normal appearance, PERRL Pupil Exam: NORMAL ACCOMODATION, PERRL - Respiratory Exam Respiratory Exam: Clear to PA & Lateral, Prolonged Expiratory Phase - GI/Abdominal Exam GI & Abdominal Exam: Normal Bowel Sounds - Rectal Exam Rectal Exam: NORMAL INSPECTION - Neurological Exam Neurological exam: Alert, CN II-XII Intact, Normal Gait, Oriented x3, Reflexes Normal - Psychiatric Exam Psychiatric exam: Normal Affect, Normal Mood - Skin Skin Exam: Dry, Intact, Normal Color, Warm Discharge Plan - Follow Up Plan Condition: STABLE Disposition: HOME/ ROUTINE Patient education suggested?: Yes Additional Instructions: DISCHARGE TODAY FOLLOW UP WITH PMD ADVISED COMPLIANCE WITH MEDS AND DIET
[2017-07-19] MEDS: Potassium Chloride 10 mEq ER Tab PO SCH (09:43)
--- NOTE | 2017-07-19 11:04 | CP.PCM.CON ---
History of Present Illness - History of Present Illness History of Present Illness: Psychiatry consult note CC: "I don't need no psychiatrist." HPI: 67 yo male w/ no past psychiatric history, no h/o suicide attempts, became upset about the cost of his medications and made a sarcastic vague suicidal threat. Patient has no plan/intent. Denies depression/anxiety/AH/VH/SI/HI. PPHx: Denies past psych history ALL: NKDA MSE: A + O x 3, calm, speech normal, denies depression/anxiety, thought process- linear/coherent, thought content- no delusions, no AH/VH/SI/HI. Impression: 67 yo male w/ no past psychiatric history is not acutely suicidal, does not need acute inpatient psychiatric admission or medications. Past Patient History - Past Medical History & Family History Past Medical History?: Yes - Past Social History Smoking Status: Former Smoker - CARDIAC Hx Congestive Heart Failure: Yes Hx Hypertension: Yes - PULMONARY Hx Chronic Obstructive Pulmonary Disease (COPD): Yes - NEUROLOGICAL Hx Neurological Disorder: No - HEENT Hx HEENT Problems: No - RENAL Hx Chronic Kidney Disease: No - ENDOCRINE/METABOLIC Hx Endocrine Disorders: No - HEMATOLOGICAL/ONCOLOGICAL Hx Blood Disorders: Yes (Anemia) Hx AIDS: No Hx Anemia: Yes Hx Human Immunodeficiency Virus (HIV): No - INTEGUMENTARY Hx Dermatological Problems: No - MUSCULOSKELETAL/RHEUMATOLOGICAL Hx Musculoskeletal Disorders: Yes Hx Falls: Yes - GASTROINTESTINAL Hx Gastrointestinal Disorders: No - GENITOURINARY/GYNECOLOGICAL Hx Genitourinary Disorders: Yes Hx Hematuria: Yes - PSYCHIATRIC Hx Psychophysiologic Disorder: No Hx Substance Use: No - SURGICAL HISTORY Hx Surgeries: Yes Hx Coronary Artery Bypass Graft: Yes (x3) Hx Coronary Stent: Yes (x3) - ANESTHESIA Hx Anesthesia: Yes Hx Anesthesia Reactions: No Hx Malignant Hyperthermia: No Has any member of the family had a problem w/ anesthesia?: No Meds Home Medications: Home Medication List Medication Instructions Recorded Confirmed Type Enalapril Maleate [Vasotec] 2.5 mg PO DAILY #30 tab 07/19/17 Rx Allergies/Adverse Reactions: Allergies Allergy/AdvReac Type Severity Reaction Status Date / Time No Known Allergies Allergy Verified 07/15/17 18:26 - Medications Medications: Current Medications Apixaban (Eliquis) 5 mg PO BID [facility] PRN Reason: Protocol Last Admin: 07/19/17 09:42 Dose: 5 mg Aspirin (Ecotrin) 81 mg PO DAILY [facility] Last Admin: 07/19/17 09:43 Dose: 81 mg Carvedilol (Coreg) 3.125 mg PO Q12 [facility] Last Admin: 07/19/17 09:41 Dose: 3.125 mg Enalapril Maleate (Vasotec) 2.5 mg PO DAILY [facility] Last Admin: 07/19/17 09:42 Dose: 2.5 mg Furosemide (Lasix) 40 mg PO DAILY [facility] Last Admin: 07/19/17 09:42 Dose: 40 mg Potassium Chloride (Klor-Con 10) 10 meq PO DAILY [facility] Last Admin: 07/19/17 09:43 Dose: 10 meq Results - Vital Signs Recent Vital Signs: Last Vital Signs Temp 97.5 F L 07/19/17 08:16 Pulse 72 07/19/17 09:41 Resp 18 07/19/17 08:16 BP 134/76 07/19/17 09:42 Pulse Ox 96 07/19/17 08:16 - Labs Result Diagrams: 07/17/17 06:21 07/17/17 06:21
--- NOTE | 2017-07-19 12:17 | PQF GENQUE ---
Dr. Pereira, Please specify the type of heart failure in your D/C Summary: TYPE: Combined systolic and diastolic Heart failure with reduced ejection fraction and diastolic dysfunction Diastolic HFpEF Systolic HFrEF Left heart failure Right heart failure Right heart failure due to left heart failure High Output failure End stage heart failure Other (please specify) Clinically unable to determine Unknown H and P: dxs. include: Acute congestive heart failure, cardiac arrhythmias, noncompliance to medication and diet 07/16 Cardio consult: I was consulted on this patient on 05/18/2017 when he presented because of exacerbation of congestive heart failure. An echocardiograph study performed in 10/2016, revealed ejection fraction in range of 40% to 45% with mild hypokinesis in the basal anterior and apical cool. A cardiac catheterization was performed in 08/[address] Montiel revealed severe multivessel coronary artery disease, with patent bypass grafts and mild left ventricular systolic dysfunction. 1. Ischemic cardiomyopathy. 2. CAD; S/P coronary artery bypass surgery. 3. S/P dual-chamber pace maker placement. The patient is currently in atrial paced rhythm. 07/17 Cardiology progress note; dxs. include: Exacerbation CHF This form is a permanent part of the medical record Clarification of your documentation is requested to better reflect the severity of illness and intensity of treatment of your patient. Indicators present [x] Specify: []combined diastolic and systolic dysfunction [] Specify: [] [] Specify: [] [] Specify: [] Location in the medical record that reflects the above clinical findings: [] Treatment Provided: [] PHYSICIAN'S RESPONSE Based on your medical judgment of the clinical indicators outlined above please clarify the following: [] Practitioner response [] If unable to determine, please check the box, sign and date. Present On Admission (POA) Indicator: [] Present at the time of admission [] Not present at the time of admission [] Clinically Undetermined In responding to this query, please exercise your independent professional judgment. The fact that a question is asked does not imply that any particular answer is desired or expected. Thank you for your clarification on this documentation. If you have any questions please call. * Thank you, Mary Green RN ext. #[phone] MTDD
--- NOTE | 2017-07-19 12:21 | PQF GENQUE ---
Dr. Pereira, Please provide a nutritional diagnosis, if known, related to the information below: i.e. Underweight etc. The following clinical indicators are present in the medical record: BMI:18.1 Nutritional counseling or evaluation: RD consult: BMI :18.1 ; Classification: Underweight; refused dietary supplement; monitor wt., labs, intake and skin OR: Disagree OR: Other explanation of clinical finding This form is a permanent part of the medical record Clarification of your documentation is requested to better reflect the severity of illness and intensity of treatment of your patient. Indicators present [] Specify: [] [] Specify: [] [] Specify: [] [] Specify: [] Location in the medical record that reflects the above clinical findings: [] Treatment Provided: [] PHYSICIAN'S RESPONSE Based on your medical judgment of the clinical indicators outlined above please clarify the following: [x] Practitioner response --low bmi--18.1--underweight--probably due to poor oral intake [] If unable to determine, please check the box, sign and date. Present On Admission (POA) Indicator: [] Present at the time of admission [] Not present at the time of admission [] Clinically Undetermined In responding to this query, please exercise your independent professional judgment. The fact that a question is asked does not imply that any particular answer is desired or expected. Thank you for your clarification on this documentation. If you have any questions please call. * Thank you, Mary Green RN ext. #[phone] MTDD
--- NOTE | 2017-07-19 12:29 | PQF GENQUE ---
Dr. Pereira, Please specify type of COPD: i.e. Stable :OR: Acute bronchitis with COPD Asthma with COPD With acute exacerbation With status asthmaticus Without status asthmaticus Bronchiectasis Chronic obstructive bronchitis Exacerbation of COPD Emphysema Other COPD (please specify) Clinically unable to determine Unknown D/C Summary; Dxs. include: COPD; Acute This form is a permanent part of the medical record Clarification of your documentation is requested to better reflect the severity of illness and intensity of treatment of your patient. Indicators present [x] Specify: []copd-stable [] Specify: [] [] Specify: [] [] Specify: [] Location in the medical record that reflects the above clinical findings: [] Treatment Provided: [] PHYSICIAN'S RESPONSE Based on your medical judgment of the clinical indicators outlined above please clarify the following: [] Practitioner response [] If unable to determine, please check the box, sign and date. Present On Admission (POA) Indicator: [] Present at the time of admission [] Not present at the time of admission [] Clinically Undetermined In responding to this query, please exercise your independent professional judgment. The fact that a question is asked does not imply that any particular answer is desired or expected. Thank you for your clarification on this documentation. If you have any questions please call. * Thank you, Mary Green RN ext. #[phone] MTDD
== END 2017-07-19 11:40 | disposition home or self-care (01) | DRG 292 ==
LOC: H.ER 18:20 → OBSVTOIN 20:58 → H.ERHOLD 20:58 → INTOOBSV 20:58 → OBSVTOIN 07-16 08:44 → H.TEL 07-16 10:00
PROVIDERS: ADMIT Internal Medicine Pulmonary Disease; ATTEND Internal Medicine Pulmonary Disease
DX: I11.0 Hypertensive heart disease with heart failure (principal); I50.41 Acute combined systolic (congestive) and diastolic (congestive) heart failure; I48.0 Paroxysmal atrial fibrillation; Z68.1 Body mass index [BMI] 19.9 or less, adult; R63.6 Underweight; J44.9 Chronic obstructive pulmonary disease, unspecified; I25.5 Ischemic cardiomyopathy; I48.2 Chronic atrial fibrillation; I25.10 Atherosclerotic heart disease of native coronary artery without angina pectoris; E78.5 Hyperlipidemia, unspecified; E78.00 Pure hypercholesterolemia, unspecified; Z91.14 Patient's other noncompliance with medication regimen; Z91.11 Patient's noncompliance with dietary regimen; Z95.0 Presence of cardiac pacemaker; Z95.1 Presence of aortocoronary bypass graft; Z95.5 Presence of coronary angioplasty implant and graft; Z79.01 Long term (current) use of anticoagulants; Z79.82 Long term (current) use of aspirin; Z87.891 Personal history of nicotine dependence

== ENCOUNTER 2017-07-28 12:50 | Observation (INO) | payer MEDICARE ==
[2017-07-28 12:50] VITALS: BMI 18.1
--- NOTE | 2017-07-28 13:42 | ED PDOC ---
HPI: SOB/CHF/COPD Time Seen by Provider: 07/28/17 13:12 Chief Complaint (Nursing): Shortness Of Breath Chief Complaint (Provider): Shortness of breath History Per: Patient History/Exam Limitations: no limitations Onset/Duration Of Symptoms: Persistent Current Symptoms Are (Timing): Still Present Additional Complaint(s): 67yo male, with history of CHF, A-fib, pacemaker, CABD and hypertension presents to ED for evaluation of shortness of breath, present for "a long time" . Patient was admitted on 07/15/17 for CHF exacerbation and was discharged on . Patient states he has been coughing with white sputum and states he had "a little" mid-sternal chest pain today. He also reports mild back pain but denies any fever, chills, weakness. No other complaints. Past Medical History Reviewed: Historical Data, Nursing Documentation, Vital Signs Vital Signs: Last Vital Signs Temp 99.3 F 07/28/17 12:56 Pulse 71 07/28/17 16:41 Resp 17 07/28/17 13:45 BP 115/75 07/28/17 12:56 Pulse Ox 98 07/28/17 16:41 - Medical History PMH: Anemia, Asthma, Atrial Fibrillation, Bronchitis, CAD, Cardia Arrhythmia, CHF, COPD, Emphysema, HTN, Hypercholesterolemia, Malignancy (right lung mass) Denies: HIV, Chronic Kidney Disease - Surgical History Surgical History: CABG (x3), Coronary Stent (x3), Pacemaker - Family History Family History: States: Unknown Family Hx - Immunization History Hx Tetanus Toxoid Vaccination: No Hx Influenza Vaccination: No Hx Pneumococcal Vaccination: No - Home Medications Home Medications: Ambulatory Orders Medication Instructions Recorded Carvedilol [Coreg] 3.125 mg PO Q12 #60 tab 05/19/17 Aspirin [Ecotrin] 81 mg PO DAILY 07/08/17 Furosemide [Lasix] 20 mg PO DAILY 07/08/17 Apixaban [Eliquis] 5 mg PO BID #60 tablet 07/09/17 Enalapril Maleate [Vasotec] 2.5 mg PO DAILY #30 tab 07/19/17 - Allergies Allergies/Adverse Reactions: Allergies Allergy/AdvReac Type Severity Reaction Status Date / Time No Known Allergies Allergy Verified 07/28/17 12:55 Review of Systems ROS Statement: Except As Marked, All Systems Reviewed And Found Negative Constitutional: Negative for: Fever, Chills Cardiovascular: Positive for: Chest Pain Respiratory: Positive for: Cough, Shortness of Breath, Sputum Neurological: Negative for: Weakness Physical Exam - Reviewed Nursing Documentation Reviewed: Yes Vital Signs Reviewed: Yes - Physical Exam Appears: Positive for: Non-toxic Head Exam: Positive for: ATRAUMATIC, NORMAL INSPECTION, NORMOCEPHALIC Skin: Positive for: Normal Color Eye Exam: Positive for: Normal appearance Neck: Positive for: Supple Cardiovascular/Chest: Positive for: Regular Rate, Rhythm Respiratory: Positive for: Crackles (bibasilar ), Other (speaking full sentences ) Gastrointestinal/Abdominal: Positive for: Normal Exam, Soft. Negative for: Tenderness Extremity: Positive for: Normal ROM. Negative for: Pedal Edema Neurologic/Psych: Positive for: Alert, Oriented. Negative for: Motor/Sensory Deficits - Laboratory Results Result Diagrams: 07/28/17 13:39 07/28/17 13:39 - ECG ECG: Positive for: Interpreted By Me, Viewed By Me ECG Rhythm: Positive for: Atrial Paced Interpretation Of ECG: Unchanged from 07/15/17 Rate: 71 O2 Sat by Pulse Oximetry: 98 Pulse Ox Interpretation: Normal Medical Decision Making Medical Decision Making: Impression: COPD, CHF, Chest pain Plan: -- EKG -- Labs -- CXR -- Urinalysis Time: 1430 CXR FINDINGS: LUNGS: Lung becerra are hyperinflated with flattened diaphragms and increased AP diameter of the chest. Findings likely represent changes of emphysema/COPD. Blunting left CP angle likely due to chronic pleural thickening PLEURA: No significant pleural effusion identified. No pneumothorax apparent. CARDIOVASCULAR: Heart remains mildly enlarged. Sternotomy wires and bipolar pacemaker unchanged OSSEOUS STRUCTURES: Mild multilevel degenerative spondylosis of the thoracic spine VISUALIZED UPPER ABDOMEN: Normal. OTHER FINDINGS: None. IMPRESSION: Hyperinflation with flattened diaphragms and increased diameter of the chest consistent with emphysema/ COPD. Of chronic pleural thickening left lung base felt be present. Time: [address] Pereira and patient to be admitted to [facility]. Scribe Attestation: Documented by Rupal Lopes, acting as a scribe for Pilar Verma MD. Provider Scribe Attestation: All medical record entries made by the Scribe were at my direction and personally dictated by me. I have reviewed the chart and agree that the record accurately reflects my personal performance of the history, physical exam, medical decision making, and the department course for this patient. I have also personally directed, reviewed, and agree with the discharge instructions and disposition. Disposition - Disposition Disposition Time: 16:48 Forms: [email or web address] (Sami)
[2017-07-28 13:51] LABS: BASO % 0.5 % (0.0-2.0); EOS # 0.3 K/uL (0.0-0.7); EOS % 4.2 % (0.0-4.0); HEMOGLOBIN 10.6 g/dL (12.0-18.0); LYMPH # 1.4 K/uL (1.0-4.3); LYMPH % 17.6 % (20.0-40.0); MEAN CELL VOLUME 93.3 fl (80.0-94.0); MEAN CORPUSCULAR HEMOGLOBIN 29.9 pg (27.0-31.0); MEAN CORPUSCULAR HGB CONC 32.1 g/dL (33.0-37.0); MEAN PLATELET VOLUME 7.4 fl (7.2-11.7); MONO # 0.7 K/uL (0.0-0.8); MONO % 8.5 % (0.0-10.0); NEUT # 5.7 K/uL (1.8-7.0); NEUT % 69.2 % (50.0-75.0); RBC 3.55 Mil/uL (4.40-5.90); RED CELL DISTRIBUTION WIDTH 16.7 % (11.5-14.5); WHITE BLOOD COUNT 8.2 K/uL (4.8-10.8)
[2017-07-28 14:07] LABS: ALB/GLOB RATIO 1.1 (1.0-2.1); ALT/SGPT 30 U/L (21-72); AST/SGOT 41 U/L (17-59); BLOOD UREA NITROGEN 40 mg/dl (9-20); CALCIUM 9.6 mg/dL (8.4-10.2); GFR AFRICAN-AMERICAN > 60; GFR NON-AFRICAN AMERICAN > 60; INR 0.9 (0.9-1.2); PARTIAL THROMBOPLASTIN TIME 34.5 Seconds (25.6-37.1); PROTHROMBIN TIME 9.7 Seconds (9.8-13.1)
[2017-07-28 14:13] LABS: B-TYPE NATRIURETIC PEPTIDE 811 pg/ml (0-900)
--- NOTE | 2017-07-28 14:22 | RAD ---
HISTORY: Chest pain COMPARISON: Comparison chest 07/17/2017. TECHNIQUE: Chest PA and lateral FINDINGS: LUNGS: Lung becerra are hyperinflated with flattened diaphragms and increased AP diameter of the chest. Findings likely represent changes of emphysema/COPD. Blunting left CP angle likely due to chronic pleural thickening PLEURA: No significant pleural effusion identified. No pneumothorax apparent. CARDIOVASCULAR: Heart remains mildly enlarged. Sternotomy wires and bipolar pacemaker unchanged OSSEOUS STRUCTURES: Mild multilevel degenerative spondylosis of the thoracic spine VISUALIZED UPPER ABDOMEN: Normal. OTHER FINDINGS: None. IMPRESSION: Hyperinflation with flattened diaphragms and increased diameter of the chest consistent with emphysema/ COPD. Of chronic pleural thickening left lung base felt be present.
--- NOTE | 2017-07-28 15:54 | CARD ---
APPROVED REPORT EKG Measurement Heart [id number] OH 232P [id number] <Conclusion> Atrial-paced rhythm with prolonged AV conduction Possible Inferior infarct, age undetermined Cannot rule out Anterior infarct, age undetermined ST & T wave abnormality, consider lateral ischemia Abnormal ECG
[2017-07-28 16:33] LABS: SQUAMOUS EPITHIAL < 1 /hpf (0-5); URINE BILIRUBIN NEGATIVE (NEGATIVE); URINE BLOOD NEGATIVE (NEGATIVE); URINE CLARITY CLEAR (Clear); URINE COLOR YELLOW (YELLOW); URINE GLUCOSE (UA) NEG (Normal); URINE LEUKOCYTE ESTERASE NEG Leu/uL (Negative); URINE PROTEIN NEGATIVE (NEGATIVE); URINE UROBILINOGEN 0.2-1.0 mg/dL (0.2-1.0)
[2017-07-29 07:02] LABS: B-TYPE NATRIURETIC PEPTIDE 656 pg/ml (0-900)
[2017-07-29 07:44] LABS: BLOOD UREA NITROGEN 26 mg/dl (9-20); CALCIUM 9.2 mg/dL (8.4-10.2); GFR AFRICAN-AMERICAN > 60; GFR NON-AFRICAN AMERICAN > 60
--- NOTE | 2017-07-29 09:33 | RAD ---
HISTORY: chest pain COMPARISON: Chest radiographs 07/28/2017. TECHNIQUE: Chest PA and lateral FINDINGS: Prior cardiac pacemaker again noted in position. LUNGS: COPD related hyperinflation again evident. No acute infiltrate bilaterally. PLEURA: Pleural fibrotic changes are favored over chronic limited pleural effusion at the lateral left hemithorax extending to the lateral left base. No right pleural effusion. No pneumothorax bilaterally. CARDIOVASCULAR: Borderline cardiomegaly is stable. No pulmonary vascular congestion apparent. OSSEOUS STRUCTURES: Sternotomy wires again evident. VISUALIZED UPPER ABDOMEN: Normal. OTHER FINDINGS: None. IMPRESSION: Stable COPD pattern including left-sided pleural fibrosis favored over chronic limited pleural effusion. Pacemaker again identified. Borderline cardiomegaly appears stable.
--- NOTE | 2017-07-29 09:34 | HP ---
HISTORY OF PRESENT ILLNESS: Mr. Amado is a 67-year-old male who was admitted via the Emergency Room because of shortness of breath and what he had admits constipation for quite a few days. He was recently discharged from [facility] after therapy for noncompliance, congestive heart failure, and chest pain. He has had a comprehensive workup in the past for acute coronary syndrome and it has been ruled out. He has a history of congestive heart failure, has a pacemaker implanted, status post coronary artery bypass graft and also has a defibrillator implanted. He also has a history of hypertension, chronic obstructive pulmonary disease, and poor compliance to medication and diet. FAMILY HISTORY: Noncontributory. 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 REVIEW OF SYSTEMS: Essentially remarkable for shortness of breath, poor compliance to medication and diet. PHYSICAL EXAMINATION: GENERAL: The patient is alert and oriented, appears comfortable at present. VITAL SIGNS: Blood pressure of 115/75, pulse of 71, respiratory rate 18 per minute. He is febrile. O2 sat is 98% on room air. SKIN: Shows fair turgor. HEENT: Pupils are equal and reactive to light and accommodation. JVP flat. LUNGS: Fair aeration with few rales at bases. HEART: Irregular rhythm. He has a pacemaker and defibrillator in place and there is a scar of coronary artery bypass graft. ABDOMEN: Soft and nontender, no organomegaly. EXTREMITIES: Show no edema or cyanosis. CENTRAL NERVOUS SYSTEM: Exam is grossly intact. LABORATORY DATA: WBC 8.2, hemoglobin 10.6, and platelet count 172,000. Sodium 141, potassium 4.1, BUN , creatinine 1.1, and serum glucose 99. EKG; pacemaker rhythm. The rest of the labs reviewed and unremarkable. IMPRESSION: Chest pain, probably secondary to coronary artery disease, the patient is noncompliant to medication and diet, constipation, chronic obstructive pulmonary disease, cardiac arrhythmia (chronic atrial fibrillation for which the patient is Eliquis). PLAN: The plan is cardiac evaluation. If cleared by Cardiology, we will discharge the patient today. We will give lactulose for constipation. The patient is advised to follow up in family practice clinic and to follow up in the doctor's office. Geraldo Pereira MD [facility] # [id number]
--- NOTE | 2017-07-29 12:01 | CP.PCM.CON ---
History of Present Illness - History of Present Illness History of Present Illness: 67yo male, with history of CHF, A-fib, pacemaker, CABD and hypertension presents to ED for evaluation of shortness of breath, present for "a long time". Patient states he has been coughing with white sputum and states he had chest pain only when he coughs no relation to exertion He also reports mild back pain but denies any fever, chills, weakness. No other complaints. Troponin: neg EKG: PMR No change from prior EKG's Past Patient History - Past Medical History & Family History Past Medical History?: Yes - Past Social History Smoking Status: Former Smoker - CARDIAC Hx Cardiac Disorders: Yes Hx Atrial Fibrillation: Yes Hx Cardia Arrhythmia: Yes Hx Congestive Heart Failure: Yes Hx Hypercholesterolemia: Yes Hx Hypertension: Yes Hx Pacemaker: Yes - PULMONARY Hx Respiratory Disorders: Yes Hx Asthma: Yes Hx Bronchitis: Yes Hx Chronic Obstructive Pulmonary Disease (COPD): Yes Hx Emphysema: Yes - NEUROLOGICAL Hx Neurological Disorder: No - HEENT Hx HEENT Problems: No - RENAL Hx Chronic Kidney Disease: No - ENDOCRINE/METABOLIC Hx Endocrine Disorders: No - HEMATOLOGICAL/ONCOLOGICAL Hx Blood Disorders: Yes Hx Anemia: Yes Hx Human Immunodeficiency Virus (HIV): No - INTEGUMENTARY Hx Dermatological Problems: No - MUSCULOSKELETAL/RHEUMATOLOGICAL Hx Musculoskeletal Disorders: Yes Hx Falls: No - GASTROINTESTINAL Hx Gastrointestinal Disorders: No - GENITOURINARY/GYNECOLOGICAL Hx Genitourinary Disorders: No - PSYCHIATRIC Hx Psychophysiologic Disorder: No Hx Substance Use: No - SURGICAL HISTORY Hx Surgeries: Yes Hx Coronary Artery Bypass Graft: Yes (x3) Hx Coronary Stent: Yes (x3) - ANESTHESIA Hx Anesthesia: Yes Hx Anesthesia Reactions: No Hx Malignant Hyperthermia: No Has any member of the family had a problem w/ anesthesia?: No Meds Allergies/Adverse Reactions: Allergies Allergy/AdvReac Type Severity Reaction Status Date / Time No Known Allergies Allergy Verified 07/28/17 12:55 - Medications Medications: Current Medications Apixaban (Eliquis) 5 mg PO BID@0900,2100 [facility] PRN Reason: Protocol Last Admin: 07/29/17 09:30 Dose: 5 mg Aspirin (Ecotrin) 81 mg PO DAILY [facility] Last Admin: 07/29/17 09:29 Dose: 81 mg Carvedilol (Coreg) 3.125 mg PO Q12 [facility] Last Admin: 07/29/17 09:29 Dose: 3.125 mg Docusate Sodium (Colace) 100 mg PO BID [facility] Last Admin: 07/29/17 09:37 Dose: 100 mg Enalapril Maleate (Vasotec) 2.5 mg PO DAILY [facility] Last Admin: 07/29/17 09:30 Dose: 2.5 mg Furosemide (Lasix) 40 mg IV DAILY [facility] Last Admin: 07/29/17 09:30 Dose: 40 mg Physical Exam - Respiratory Exam Respiratory Exam: NORMAL BREATHING PATTERN - Cardiovascular Exam Cardiovascular Exam: REGULAR RHYTHM Results - Vital Signs Recent Vital Signs: Last Vital Signs Temp 97.3 F L 07/29/17 08:35 Pulse 69 07/29/17 09:29 Resp 20 07/29/17 08:35 BP 112/65 07/29/17 09:30 Pulse Ox 97 07/29/17 08:35 - Labs Result Diagrams: 07/28/17 13:39 07/29/17 06:00 Labs: Laboratory Results - last 24 hr 07/28/17 07/28/17 07/28/17 13:39 13:39 13:39 WBC 8.2 RBC 3.55 L Hgb 10.6 L Hct 33.1 L MCV 93.3 MCH 29.9 MCHC 32.1 L RDW 16.7 H Plt Count 172 D MPV 7.4 Neut % (Auto) 69.2 Lymph % (Auto) 17.6 L George % (Auto) 8.5 Eos % (Auto) 4.2 H Baso % (Auto) 0.5 Neut # (Auto) 5.7 Lymph # (Auto) 1.4 George # (Auto) 0.7 Eos # (Auto) 0.3 Baso # (Auto) 0.0 PT 9.7 L INR 0.9 APTT 34.5 Sodium 141 Potassium 4.1 Chloride 102 Carbon Dioxide 25 Anion Gap 18 BUN 40 H Creatinine 1.1 Est GFR ( Amer) > 60 Est GFR (Non-Af Amer) > 60 Random Glucose 99 Calcium 9.6 Total Bilirubin 0.4 AST 41 ALT 30 Alkaline Phosphatase 76 Troponin I < 0.0120 NT-Pro-B Natriuret Pep 811 Total Protein 7.6 Albumin 4.0 Globulin 3.6 Albumin/Globulin Ratio 1.1 Urine Color Urine Clarity Urine pH Ur Specific [address] Urine Protein Urine Glucose (UA) Urine Ketones Urine Blood Urine Nitrate Urine Bilirubin Urine Urobilinogen Ur Leukocyte Esterase Urine RBC (Auto) Urine Microscopic WBC Ur Squamous Epith Cells 07/28/17 07/28/17 07/29/17 16:15 20:25 06:00 WBC RBC Hgb Hct MCV MCH MCHC RDW Plt Count MPV Neut % (Auto) Lymph % (Auto) George % (Auto) Eos % (Auto) Baso % (Auto) Neut # (Auto) Lymph # (Auto) George # (Auto) Eos # (Auto) Baso # (Auto) PT INR APTT Sodium 144 Potassium 4.3 Chloride 104 Carbon Dioxide 25 Anion Gap 19 BUN 26 H Creatinine 0.9 Est GFR ( Amer) > 60 Est GFR (Non-Af Amer) > 60 Random Glucose 89 Calcium 9.2 Total Bilirubin AST ALT Alkaline Phosphatase Troponin I < 0.0120 < 0.0120 NT-Pro-B Natriuret Pep 656 Total Protein Albumin Globulin Albumin/Globulin Ratio Urine Color Yellow Urine Clarity Clear Urine pH 6.[address] 1.018 Urine Protein Negative Urine Glucose (UA) Neg Urine Ketones Negative Urine Blood Negative Urine Nitrate Negative Urine Bilirubin Negative Urine Urobilinogen 0.2-1.0 Ur Leukocyte Esterase Neg Urine RBC (Auto) 1 Urine Microscopic WBC 1 Ur Squamous Epith Cells < 1 Assessment & Plan (1) COPD exacerbation Status: Acute (2) Chest pain Assessment and Plan: non cardiac chest pain Status: Acute
[2017-07-29 16:05] VITALS: BP 129/76; PULSE 71; RESP 18; O2SAT 100
[2017-07-29 16:33] VITALS: TEMP 97.4
== END 2017-07-29 16:25 | disposition home or self-care (01) ==
LOC: H.ER 12:50 → H.ERHOLD 16:47 → H.TEL 19:31
PROVIDERS: ADMIT Internal Medicine Pulmonary Disease; ATTEND Internal Medicine Pulmonary Disease
DX: J44.1 Chronic obstructive pulmonary disease with (acute) exacerbation (principal); R07.89 Other chest pain; I25.10 Atherosclerotic heart disease of native coronary artery without angina pectoris; I48.2 Chronic atrial fibrillation; I11.0 Hypertensive heart disease with heart failure; I50.9 Heart failure, unspecified; E78.00 Pure hypercholesterolemia, unspecified; K59.00 Constipation, unspecified; Z91.14 Patient's other noncompliance with medication regimen; Z91.19 Patient's noncompliance with other medical treatment and regimen; Z95.0 Presence of cardiac pacemaker; Z95.1 Presence of aortocoronary bypass graft; Z95.5 Presence of coronary angioplasty implant and graft; Z87.891 Personal history of nicotine dependence
CPT/HCPCS: 36415; 71046; 80048; 80053; 81003; 83880; 84484; 85025; 85610; 85730; 87040; 93005; 99285; G0378; J1940

== ENCOUNTER 2017-08-02 07:19 | Emergency (ER) | payer MEDICARE ==
[2017-08-02 07:19] VITALS: BMI 18.1
[2017-08-02 08:00] VITALS: RESP 18; TEMP 98; O2SAT 97
[2017-08-02 09:38] LABS: BASO % 0.2 % (0.0-2.0); EOS # 0.4 K/uL (0.0-0.7); EOS % 5.2 % (0.0-4.0); HEMOGLOBIN 11.5 g/dL (12.0-18.0); LYMPH # 1.4 K/uL (1.0-4.3); LYMPH % 20.3 % (20.0-40.0); MEAN CELL VOLUME 91.8 fl (80.0-94.0); MEAN CORPUSCULAR HEMOGLOBIN 30.5 pg (27.0-31.0); MEAN CORPUSCULAR HGB CONC 33.2 g/dL (33.0-37.0); MEAN PLATELET VOLUME 7.3 fl (7.2-11.7); MONO # 0.4 K/uL (0.0-0.8); MONO % 6.1 % (0.0-10.0); NEUT # 4.6 K/uL (1.8-7.0); NEUT % 68.2 % (50.0-75.0); RBC 3.78 Mil/uL (4.40-5.90); RED CELL DISTRIBUTION WIDTH 16.9 % (11.5-14.5); WHITE BLOOD COUNT 6.7 K/uL (4.8-10.8)
[2017-08-02 09:51] LABS: BLOOD UREA NITROGEN 36 mg/dl (9-20); CALCIUM 9.3 mg/dL (8.4-10.2); GFR AFRICAN-AMERICAN > 60; GFR NON-AFRICAN AMERICAN > 60
[2017-08-02 10:03] LABS: B-TYPE NATRIURETIC PEPTIDE 1080 pg/ml (0-900)
--- NOTE | 2017-08-02 10:06 | ED PDOC ---
HPI: SOB/CHF/COPD Time Seen by Provider: 08/02/17 08:35 Chief Complaint (Nursing): Shortness Of Breath Chief Complaint (Provider): Shortness of breath History Per: Patient History/Exam Limitations: no limitations Onset/Duration Of Symptoms: Persistent Current Symptoms Are (Timing): Still Present Associated Symptoms: Chest Pain. denies: Fever, Productive Cough, Ankle/Leg Swelling Additional History Per: Patient Additional Complaint(s): 67yo male with history of CHF, Afib, pacemaker, CABG, coronary stents, presents to ED with complaints of shortness of breath. Patient states he is always short of breath but was unable to sleep last night, prompting his visit today. Patient also reports a mild chest pain in the past but not chest pain today, also denies any cough, fever or leg swelling. patient states due to his insurance, he is unable to afford his medication so he does not take anything for his conditions. Patient also states he is unable to follow up with a PCP due to his insurance issues. He denies any other medical complaints. Past Medical History Reviewed: Historical Data, Nursing Documentation, Vital Signs Vital Signs: Last Vital Signs Temp 98 F 08/02/17 07:57 Pulse 72 08/02/17 17:00 Resp 18 08/02/17 17:00 BP 158/88 H 08/02/17 17:00 Pulse Ox 97 08/02/17 17:00 - Medical History PMH: Anemia, Asthma, Atrial Fibrillation, Bronchitis, CAD, Cardia Arrhythmia, CHF, COPD, Emphysema, HTN, Hypercholesterolemia, Malignancy (right lung mass) Denies: HIV, Chronic Kidney Disease - Surgical History Surgical History: CABG (x3), Coronary Stent (x3), Pacemaker - Family History Family History: States: Unknown Family Hx - Immunization History Hx Tetanus Toxoid Vaccination: No Hx Influenza Vaccination: No Hx Pneumococcal Vaccination: No - Home Medications Home Medications: Ambulatory Orders Medication Instructions Recorded Carvedilol [Coreg] 3.125 mg PO Q12 #60 tab 05/19/17 Aspirin [Ecotrin] 81 mg PO DAILY 07/08/17 Furosemide [Lasix] 20 mg PO DAILY 07/08/17 Enalapril Maleate [Vasotec] 2.5 mg PO DAILY #30 tab 07/19/17 Clopidogrel [Plavix] 75 mg PO DAILY #30 tab 07/29/17 - Allergies Allergies/Adverse Reactions: Allergies Allergy/AdvReac Type Severity Reaction Status Date / Time No Known Allergies Allergy Verified 07/30/17 12:23 Wells Criteria for PE - Wells Criteria for Pulmonary Embolism Clinical Signs and Symptoms of DVT: No P.E is #1 Diagnosis, or Equally Likely: No Heart Rate >100: No Immobilization at least 3 days;Surgery previous 4 weeks: No Previous, objectively diagnosed PE or DVT: No Hemoptysis: No Malignancy w/treatment within 6 months, or palliative: No Total Score: 0 Review of Systems ROS Statement: Except As Marked, All Systems Reviewed And Found Negative Constitutional: Negative for: Fever, Chills Cardiovascular: Positive for: Chest Pain Respiratory: Positive for: Shortness of Breath. Negative for: Cough Musculoskeletal: Negative for: Other (leg swelling) Physical Exam - Reviewed Nursing Documentation Reviewed: Yes Vital Signs Reviewed: Yes - Physical Exam Appears: Positive for: Non-toxic, No Acute Distress Head Exam: Positive for: ATRAUMATIC, NORMAL INSPECTION, NORMOCEPHALIC Skin: Positive for: Normal Color Eye Exam: Positive for: Normal appearance Neck: Positive for: Supple Cardiovascular/Chest: Positive for: Regular Rate, Rhythm Respiratory: Positive for: Normal Breath Sounds. Negative for: Wheezing Gastrointestinal/Abdominal: Positive for: Normal Exam Back: Positive for: Normal Inspection Extremity: Positive for: Normal ROM. Negative for: Pedal Edema, Deformity Neurologic/Psych: Positive for: Alert, Oriented. Negative for: Motor/Sensory Deficits - Laboratory Results Result Diagrams: 08/02/17 09:32 08/02/17 09:32 - ECG ECG: Positive for: Interpreted By Me, Viewed By Me ECG Rhythm: Positive for: Atrial Paced. Negative for: ST/T Changes Interpretation Of ECG: Possible inferior infarct, age undetermined Rate: 72 O2 Sat by Pulse Oximetry: 97 (RA) Pulse Ox Interpretation: Normal - Radiology X-Ray: Interpreted by Me, Viewed By Me, Read By Radiologist X-Ray Interpretation: No Acute Disease Medical Decision Making Medical Decision Making: Impression: Chest pain and shortness of breath Differential: CAD, CHF or PE Plan: -- EKG -- CXR -- Labs Time: 1025 CXR FINDINGS: LUNGS: Hyperinflation with emphysematous changes upper lobe predominance, latter of which is less well seen on this study as compared to prior CTA chest. . Chronic pleural thickening left CP angle also again noted PLEURA: Biapical pleural thickening. No evidence of effusion or pneumothorax CARDIOVASCULAR: Sternotomy wires and bipolar pacemaker again noted. Cardiomegaly OSSEOUS STRUCTURES: No significant abnormalities. VISUALIZED UPPER ABDOMEN: Normal. OTHER FINDINGS: None. IMPRESSION: Hyperinflation with emphysematous changes upper lobe predominance, latter of which is less well seen on this study as compared to prior CTA chest. . Chronic pleural thickening left CP angle also again noted Time: 1157 Labs and CXR findings reviewed, CTA Chest ordered to r/o PE. Time: 1341 CTA Chest FINDINGS: PULMONARY ARTERIES: Unremarkable. No pulmonary embolism. AORTA: The thoracic aorta is minimally aneurysmal at its ascending segment which measures 4.1 cm at the ascending arch taper to a normal caliber of 3.1 cm by the anterior arch. Main pulmonary artery appears normal in caliber. LUNGS: Stable chronic atelectasis or infiltrate is again seen at the left lower lobe with associated pleural thickening and pleural calcifications dating back to the oldest prior chest CT in this patient from 08/15/2016. Clinically correlate consider annual follow-up CT to demonstrate stability of this finding as underlying lesions are not completely excluded. . PLEURAL SPACES: No pleural or pericardial effusion. No pneumothorax identified. The thoracic inlet is remarkable for left subclavian permanent cardiac pacemaker placement with generator again seen at the left pectoralis region and leads identified extending into the right heart. Median sternotomy again noted. Pleural thickening at the left lower lobe as discussed above. HEART: Cardiomegaly which appears stable with prominent coronary artery atherosclerosis again noted. LYMPH NODES: Shotty mediastinal lymph nodes are identified which do not appear significantly enlarged. BONES, CHEST WALL: An interval compression fracture appears mild at the T12 vertebral body which is anteriorly wedged injecting disc changes again seen at the T11-12 disc. The age of this fracture is indeterminate appears unclear whether this is an acute or chronic finding. OTHER FINDINGS: Stable and incidental limited left gynecomastia. IMPRESSION: 1. No CT evidence of pulmonary embolus. 2. Stable mild aneurysmal dilatation of the ascending thoracic aorta terminating at the level of the arch anteriorly. 3. Stable pleural thickening and associated atelectasis or chronic infiltrate left lower lobe as discussed above for which follow-up chest CT is recommended in 12 months to demonstrate stability. 4. Stable limited left gynecomastia. 1500 Patient has been referred to [facility] for social and psychiatric evaluation. Patient is cleared psychiatrically at this time. 1600 Labs and imaging reviewed and reveal stable non acute findings. Patient dewnies any new acute complains. Patient has been admitted for similar complains few days ago. I discussed the ase with Dr Pereira who admitted the patient. He agrees that there and indications for admission or observation in the hospital. Patient has stable chronic CHF and COPD. Patient has observation in ED with 2 negative troponins. There are no indications for acute emergent medical conditions and criteria for further treatment in ED or hospital. I discussed with the patient need for follow up and taking his medications. Scribe Attestation: Documented by Rupal Lopes, acting as a scribe for Jamey Huerta MD. Provider Scribe Attestation: All medical record entries made by the Scribe were at my direction and personally dictated by me. I have reviewed the chart and agree that the record accurately reflects my personal performance of the history, physical exam, medical decision making, and the department course for this patient. I have also personally directed, reviewed, and agree with the discharge instructions and disposition. Disposition - Clinical Impression Clinical Impression: Dyspnea, CHF (congestive heart failure), COPD (chronic obstructive pulmonary disease) - Patient ED Disposition Is Patient to be Admitted: No Doctor Will See Patient In The: Office Counseled Patient/Family Regarding: Studies Performed, Diagnosis, Need For Followup - Disposition Referrals: [facility] [Outside] Disposition: Routine/Home Disposition Time: 16:14 Condition: GOOD Additional Instructions: Follow up with your PCP in 2 -3 days. Start taking your medications daily. Return for worsening. Take aspirin daily. Instructions: Shortness of Breath (Dyspnea) (DC)
[2017-08-02 10:09] VITALS: PULSE 72
--- NOTE | 2017-08-02 10:27 | RAD ---
PROCEDURE: CHEST RADIOGRAPH, 1 VIEW HISTORY: chest pain COMPARISON: Comparison chest dated 07/29/2017 comparison also made with CTA chest dated 12/17/2016 FINDINGS: LUNGS: Hyperinflation with emphysematous changes upper lobe predominance, latter of which is less well seen on this study as compared to prior CTA chest. . Chronic pleural thickening left CP angle also again noted PLEURA: Biapical pleural thickening. No evidence of effusion or pneumothorax CARDIOVASCULAR: Sternotomy wires and bipolar pacemaker again noted. Cardiomegaly OSSEOUS STRUCTURES: No significant abnormalities. VISUALIZED UPPER ABDOMEN: Normal. OTHER FINDINGS: None. IMPRESSION: Hyperinflation with emphysematous changes upper lobe predominance, latter of which is less well seen on this study as compared to prior CTA chest. . Chronic pleural thickening left CP angle also again noted
[2017-08-02] MEDS ORDERED: Iodixanol 320 MG/ML 100 ML BOTTLE IV ONE (12:12)
[2017-08-02] MEDS ORDERED: Sodium Chloride 0.9% 100 ML ONE (12:12)
--- NOTE | 2017-08-02 13:30 | CT ---
PROCEDURE: CT Chest with contrast (Pulmonary Angiogram) HISTORY: chest pain COMPARISON: CT angiogram of the chest 12/17/2016. TECHNIQUE: Axial computed tomography images were obtained of the chest in the pulmonary arterial phase of enhancement. Coronal and sagittal reformatted images were created and reviewed. Intravenous contrast dose: Visipaque 320, 99 cc Radiation dose: Total exam DLP = 410.49 mGy-cm. This CT exam was performed using one or more of the following dose reduction techniques: Automated exposure control, adjustment of the mA and/or kV according to patient size, and/or use of iterative reconstruction technique. FINDINGS: PULMONARY ARTERIES: Unremarkable. No pulmonary embolism. AORTA: The thoracic aorta is minimally aneurysmal at its ascending segment which measures 4.1 cm at the ascending arch taper to a normal caliber of 3.1 cm by the anterior arch. Main pulmonary artery appears normal in caliber. LUNGS: Stable chronic atelectasis or infiltrate is again seen at the left lower lobe with associated pleural thickening and pleural calcifications dating back to the oldest prior chest CT in this patient from 08/15/2016. Clinically correlate consider annual follow-up CT to demonstrate stability of this finding as underlying lesions are not completely excluded. . PLEURAL SPACES: No pleural or pericardial effusion. No pneumothorax identified. The thoracic inlet is remarkable for left subclavian permanent cardiac pacemaker placement with generator again seen at the left pectoralis region and leads identified extending into the right heart. Median sternotomy again noted. Pleural thickening at the left lower lobe as discussed above. HEART: Cardiomegaly which appears stable with prominent coronary artery atherosclerosis again noted. LYMPH NODES: Shotty mediastinal lymph nodes are identified which do not appear significantly enlarged. BONES, CHEST WALL: An interval compression fracture appears mild at the T12 vertebral body which is anteriorly wedged injecting disc changes again seen at the T11-12 disc. The age of this fracture is indeterminate appears unclear whether this is an acute or chronic finding. OTHER FINDINGS: Stable and incidental limited left gynecomastia. IMPRESSION: 1. No CT evidence of pulmonary embolus. 2. Stable mild aneurysmal dilatation of the ascending thoracic aorta terminating at the level of the arch anteriorly. 3. Stable pleural thickening and associated atelectasis or chronic infiltrate left lower lobe as discussed above for which follow-up chest CT is recommended in 12 months to demonstrate stability. 4. Stable limited left gynecomastia.
[2017-08-02 17:01] VITALS: BP 158/88
--- NOTE | 2017-08-02 19:51 | CARD ---
APPROVED REPORT EKG Measurement Heart [id number] <Conclusion> Atrial-paced rhythm with prolonged AV conduction Possible Inferior infarct, age undetermined Possible anterior infarct, age undetermined ST & T wave abnormality, consider lateral ischemia Abnormal ECG
== END 2017-08-02 16:52 | disposition home or self-care (01) ==
LOC: H.ER 07:19
DX: I25.10 Atherosclerotic heart disease of native coronary artery without angina pectoris (principal); J44.9 Chronic obstructive pulmonary disease, unspecified; R06.00 Dyspnea, unspecified; I48.91 Unspecified atrial fibrillation; Z95.0 Presence of cardiac pacemaker; Z95.1 Presence of aortocoronary bypass graft; Z95.5 Presence of coronary angioplasty implant and graft; Z79.82 Long term (current) use of aspirin; E78.00 Pure hypercholesterolemia, unspecified; I11.0 Hypertensive heart disease with heart failure; I71.2 Thoracic aortic aneurysm, without rupture; N62 Hypertrophy of breast
CPT/HCPCS: 71045; 71275; 80048; 83880; 84484; 85025; 85378; 93005; 99284; Q9967

== ENCOUNTER 2017-12-30 23:12 | Emergency (ER) | payer MEDICARE ==
[2017-12-30 23:12] VITALS: BMI 18.1
[2017-12-30 23:24] VITALS: TEMP 97.5
--- NOTE | 2017-12-31 01:54 | ED PDOC ---
HPI: Back Time Seen by Provider: 12/31/17 00:16 Chief Complaint (Nursing): Back Pain Chief Complaint (Provider): Back Pain History/Exam Limitations: no limitations Additional Complaint(s): Patient is a 67 y/o male who presents to the ED for evaluation for chronic back pain via [facility]. Patient states he is homeless and he has had this pain his whole life. He denies taking any medication prior to arrival and these symptoms are unchanged from prior flares. He denies fever, chest pain, abdominal pain, shortness of breath, nausea, vomiting, recent falls or trauma, saddle anesthesia, incontinence, weakness, or numbness. PMD: None Past Medical History Reviewed: Historical Data, Nursing Documentation, Vital Signs Vital Signs: Last Vital Signs Temp 97.5 F L 12/30/17 23:22 Pulse 74 12/30/17 23:22 Resp 16 12/30/17 23:22 BP 136/71 12/30/17 23:22 Pulse Ox 96 12/30/17 23:22 - Medical History PMH: Anemia, Asthma, Atrial Fibrillation, Bronchitis, CAD, Cardia Arrhythmia, CHF, COPD, Emphysema, HTN, Hypercholesterolemia, Malignancy (right lung mass), Seizures - Surgical History Surgical History: CABG (x3), Coronary Stent (x3), Pacemaker (Left chest wall) - Family History Family History: States: Unknown Family Hx - Social History Current smoker - smoking cessation education provided: No Ex-Smoker (has not smoked in the last 12 months): Yes (quit 5 years ago) Alcohol: None Drugs: Denies - Home Medications Home Medications: Ambulatory Orders Medication Instructions Recorded Albuterol/Ipratropium [Duoneb 3 3 ml INH RQ6 PRN #50 neb 11/19/17 mg/0.5 mg (3 ml) UD] Albuterol Sulfate [Proventil Hfa] 0.09 mg IH QID PRN #1 ml 11/30/17 Amiodarone [Cordarone] 200 mg PO TID #90 tab 12/17/17 Aspirin [Ecotrin] 81 mg PO DAILY #30 tabec 12/17/17 Carvedilol [Coreg] 3.125 mg PO BID #60 tab 12/17/17 Famotidine [Pepcid] 40 mg PO DAILY #30 tab 12/17/17 Furosemide [Lasix] 40 mg PO DAILY #30 tab 12/17/17 Clopidogrel [Plavix] 75 mg PO DAILY #30 tab 12/18/17 Acetaminophen [Acetaminophen 8 650 mg PO Q8 PRN #21 tablet.er 12/31/17 Hour] - Allergies Allergies/Adverse Reactions: Allergies Allergy/AdvReac Type Severity Reaction Status Date / Time No Known Allergies Allergy Verified 12/30/17 23:22 Review of Systems ROS Statement: Except As Marked, All Systems Reviewed And Found Negative Constitutional: Negative for: Fever Cardiovascular: Negative for: Chest Pain Respiratory: Negative for: Shortness of Breath Gastrointestinal: Negative for: Nausea, Vomiting, Abdominal Pain Genitourinary Male: Negative for: Incontinence Neurological: Negative for: Weakness, Numbness, Other (saddle anesthesia) Physical Exam - Reviewed Nursing Documentation Reviewed: Yes Vital Signs Reviewed: Yes - Physical Exam Comments: GENERAL APPEARANCE: Resting comfortably in no acute distress. Awake, alert, and oriented x3. SKIN: Warm, dry; (-) cyanosis. EYES: (-) conjunctival pallor, (-) scleral icterus. ENMT: Mucous membranes moist. Airway patent, (-) stridor. NECK: Supple, FROM (-) tenderness, (-) stiffness, (-) lymphadenopathy. CHEST AND RESPIRATORY: (-) rales, (-) rhonchi, (-) wheezes; breath sounds equal bilaterally. Respirations even and nonlabored, speaking in full sentences. HEART AND CARDIOVASCULAR: (-) irregularity ABDOMEN AND GI: Soft (-) guarding (-) rebound (-) distention (-) tenderness BACK: Bilateral parathoracic and parlalumbar tenderness (-) midline tenderness. EXTREMITIES: (-) deformity, (-) edema, (+) distal pulses. NEURO AND PSYCH: Mental status as above; (-) focal findings. Gait steady, speech clear. (-) facial asymmetry (-) aphasia - ECG O2 Sat by Pulse Oximetry: 96 (RA) Pulse Ox Interpretation: Normal Medical Decision Making Medical Decision Making: Time: 00:32 Impression: Chronic back pain Initial Plan: --Tylenol 650 mg PO --Re-evaluation 0200 Patient sleeping comfortably on re-evaluation. No acute distress noted. 0340 On re-evaluation, patient reports improvement of symptoms. On exam, patient remains AAOx3, in no acute distress. Lungs clear to auscultation, cardiac RRR, abdomen soft, non-tender, repeat neuro exam shows no focal findings. Gait steady. VSS, stable for discharge. Lab/Diagnostic results d/w the patient in great detail. Diagnosis of chronic back pain d/w the patient. Based on history, exam and diagnostic results, plan will be for outpatient follow up. Patient instructed to follow-up with pmd / referral provided / the clinic in 1- 2 days without fail. Advised to take medication as prescribed. Return to the emergency room at any time for any new or worsening symptoms. Patient states he fully agrees with and understands discharge instructions. States that he agrees with the plan and disposition. Verbalized and repeated discharge instructions and plan. I have given the patient opportunity to ask any additional questions. Scribe Attestation: Documented by Jaquan Arambula, acting as a scribe for Patricia Jones PA-C. Provider Scribe Attestation: All medical record entries made by the Scribe were at my direction and personally dictated by me. I have reviewed the chart and agree that the record accurately reflects my personal performance of the history, physical exam, medical decision making, and the department course for this patient. I have also personally directed, reviewed, and agree with the discharge Disposition - Clinical Impression Clinical Impression: Chronic back pain - Patient ED Disposition Is Patient to be Admitted: No Counseled Patient/Family Regarding: Studies Performed, Diagnosis, Need For Followup, Rx Given - Disposition Referrals: [facility] [Outside] Disposition: Routine/Home Disposition Time: 03:45 Condition: STABLE Additional Instructions: The emergency medical care you received today was directed towards the acute presenting symptoms. If you were prescribed any medication, please fill it and give as directed. It may take several days for your symptoms to resolve. Return to the Emergency Department at any time if symptoms worsen, do not improve, or if any other problems arise. Please contact your doctor in 2 days for re-evaluation and follow up / or call one of the physicians/clinics you have been referred to that are listed on the Patient Visit Information form that is included in your discharge packet. Bring any paperwork you were given at discharge with you along with any medications to your follow up visit. Our treatment cannot replace ongoing medical care by a primary care provider (PCP) outside of the emergency department. Prescriptions: Acetaminophen [Acetaminophen 8 Hour] 650 mg PO Q8 PRN #21 tablet.er PRN Reason: Pain, Moderate (4-7) Instructions: Chronic Pain Forms: [facility] (Mosotho) Print Language: BARBADIAN - POA Present On Arrival: None
[2017-12-31 04:04] VITALS: BP 102/67; PULSE 77; RESP 20
[2017-12-31] MEDS ORDERED: Albuterol-Ipratrop 3 mg / 0.5 (3 ml) UD ONE (12:21)
[2017-12-31] MEDS ORDERED: cefTRIAXone (Rocephin) 1 gm Inj ONE (13:07)
[2018-01-03 01:17] VITALS: O2SAT 96
== END 2017-12-31 04:06 | disposition home or self-care (01) ==
LOC: H.ER 23:12
DX: G89.29 Other chronic pain (principal)